=== PATIENT | female | born 1940 | race Caucasian/White ===

== ENCOUNTER 2016-10-07 06:26 | Inpatient (IN) | payer BC, MEDICARE, OTHER ==
[2016-10-01 14:49] VITALS: BMI 37.0
--- NOTE | 2016-10-01 15:20 | PAT Medication Instructions ---
Service Date Oct 01, 2016. Current Home Medication List Albuterol Hfa (Ventolin Hfa), 1-2 PUFFS INH Q6H PRN for PRN Amoxicillin (Amoxil), 2,000 MG PO UD PRN for RN Aspirin (Aspirin Ec), 81 MG PO QAM Diltiazem Hcl Ext Rel (Tiazac), 120 MG PO QAM Hydrochlorothiazide (Hydrochlorothiazide), 1 TAB PO QAM Methimazole (Tapazole), 10 MG PO BID Montelukast Sodium (Singulair), 10 MG PO QAM Omeprazole (Prilosec), 40 MG PO QAM Medication Instructions For Your Scheduled Surgery Amoxicillin (Amoxil), 2,000 MG PO UD PRN for RN (prior to dental procedures) - Check with surgeon/marketing trainee for instructions: Aspirin (Aspirin Ec), 81 MG PO QAM - Hold the following medications the morning of surgery: Montelukast Sodium (Singulair), 10 MG PO QAM Hydrochlorothiazide (Hydrochlorothiazide), 1 TAB PO QAM - Take the following medications the morning of surgery with a sip of water: Omeprazole (Prilosec), 40 MG PO QAM Methimazole (Tapazole), 10 MG PO BID Diltiazem Hcl Ext Rel (Tiazac), 120 MG PO QAM Albuterol Hfa (Ventolin Hfa), 1-2 PUFFS INH Q6H PRN for PRN (bring with you to hospital morning of surgery) - Take the following medications as scheduled the night before surgery: Methimazole (Tapazole), 10 MG PO BID Albuterol Hfa (Ventolin Hfa), 1-2 PUFFS INH Q6H PRN for PRN If you have any questions please call us at [phone] (Maia Phillips PA-C) or [phone] or [phone]
[2016-10-01 15:39] LABS: BASO % 0.3 %; BASO ABS # 0.02 K/uL (0-0.2); COMPLETE YES; EOS % 2.1 %; HEMATOCRIT 45.2 % (37-47); IG% 0.3 %; LYMPH % 24.2 %; LYMPH ABS # 1.47 K/uL (1.2-3.4); MEAN CELL VOLUME 86.9 fL (80-100); MEAN CORPUSCULAR HEMOGLOBIN 28.7 pg (25-34); MONO % 6.8 %; NEUT % 66.3 %; PLATELET COUNT 182 K/uL (130-400); WHITE BLOOD COUNT 6.07 K/uL (4.8-10.8)
[2016-10-01 15:56] LABS: BUN/CREATININE RATIO 15.5 (10-20); CALCIUM 8.7 mg/dl (8.5-10.1); CREATININE 1.1 mg/dl (0.60-1.20); POTASSIUM 3.9 mmol/L (3.5-5.1)
[2016-10-01 15:59] LABS: URINE APPEARANCE CLEAR (CLEAR); URINE BILIRUBIN NEG (NEG); URINE COLOR YELLOW; URINE EPITHELIAL CELL AUTO >30 /lpf (0-5); URINE NITRITE POS (NEG); URINE SPECIFIC GRAVITY 1.024 (1.000-1.030); UROBILINOGEN NEG (NEG)
[2016-10-01 16:02] LABS: MANUAL MICROSCOPIC REQUIRED? NO; REVIEW REQ? NO
[~2016-10-07] VITALS: Ht 170.2 cm; Wt 108.7 kg
[2016-10-07] VITALS (9 sets, daily range): BP systolic 115–152; BP diastolic 60–87; PULSE 64–74; TEMP 36.4–37; O2SAT 93–96; Ht 170.2 cm; Wt 108.7 kg
[~2016-10-07 06:26] MED LIST: AMOX500C3 PO; ASPI81TA28 PO; CEFAZOLIN 3000 MG/65 ML D5W IV SCH; DILT120C68 PO; HYDR12.55 PO; METH10TA6 PO; MONT1TAB3 PO; PRLSR20 PO; VNTHFA/IN INH
[2016-10-07] MEDS ORDERED: LIDOCAINE HCL 2% 2 ML VIAL (20MG/ML) ONE (06:49)
[2016-10-07] MEDS ORDERED: GLYCOPYRROLATE INJ 0.2 MG/ML VIAL ONE (06:49)
[2016-10-07] MEDS ORDERED: FENTANYL CITRATE INJ 50 MCG/1 ML 2 ML VIAL ONE ×4 (06:49→12:25)
[2016-10-07] MEDS ORDERED: MIDAZOLAM HCL 1 MG/ML 2ML VIAL ONE (06:49)
[2016-10-07] MEDS ORDERED: NEOSTIGMINE METHYLSULFATE 5 MG/5 ML SYR ONE (06:49)
[2016-10-07] MEDS ORDERED: MANNITOL 25% 50 ML VIAL ONE ×3 (06:49→07:07)
[2016-10-07] MEDS ORDERED: CISATRACURIUM BESYLATE IV SOLN 2 MG/ML 10 ML VIAL ONE ×2 (06:49→09:34)
[2016-10-07] MEDS ORDERED: ONDANSETRON INJ 2 MG/ML 2 ML VIAL ONE ×2 (06:49→09:34)
[2016-10-07] MEDS ORDERED: PROPOFOL IV EMULSION 10 MG/ML 20 ML VIAL IV ONE (06:49)
[2016-10-07] MEDS ORDERED: BUPIVACAINE 0.5 % 5 MG/1 ML MPF 30ML VIAL ONE (07:05)
[2016-10-07] MEDS ORDERED: GELATIN SPONGE SZ 100 ONE (07:05)
[2016-10-07] MEDS ORDERED: SCOPOLAMINE 1.5 MG TDSY TD ONE (07:58)
--- NOTE | 2016-10-07 08:21 | History & Physical Bridge Note ---
H&P Re-Evaluation Bridge Note: I have examined the patient, reviewed the History & Physical and in the interval since the performance of the History & Physical I have noted the following changes of clinical significance: No changes noted
[2016-10-07] MEDS ORDERED: ETOMIDATE 2 MG/ML 20 ML VIAL IV ONE (09:22)
[2016-10-07] MEDS ORDERED: ONDANSETRON INJ 2 MG/ML 2 ML VIAL IV PRN ×2 (09:30→12:30)
[2016-10-07] MEDS ORDERED: EpHEDrine SULFATE INJ 50 MG/ML AMP IV PRN (09:30)
[2016-10-07] MEDS ORDERED: HYDROmorphone INJ 1 MG/ML SYR IV PRN ×2 (09:30→12:30)
[2016-10-07] MEDS ORDERED: ATROPINE SULFATE 0.1 MG/ML 5ML SYR IV PRN (09:30)
[2016-10-07] MEDS ORDERED: FENTANYL CITRATE INJ 50 MCG/1 ML 2 ML VIAL IV PRN (09:30)
[2016-10-07] MEDS ORDERED: DEXAMETHASONE SOD INJ 4 MG/ML VIAL ONE (09:34)
[2016-10-07] MEDS ORDERED: ROCURONIUM BROMIDE 10 MG/ML 5 ML VIAL ONE (09:34)
[2016-10-07] MEDS ORDERED: EpHEDrine SULFATE 50MG/5ML SYR ONE (09:35)
[2016-10-07] MEDS ORDERED: HYDROmorphone INJ 2 MG/ML SYR/VIAL ONE (10:18)
[2016-10-07] MEDS ORDERED: FLOSEAL HEMOSTATIC MATRIX 10ML TOP ONE (12:21)
[2016-10-07] MEDS ORDERED: SURGICEL ABSORB HEMOSTAT 2IN X 14IN TOP ONE (12:21)
[2016-10-07] MEDS ORDERED: BUPIVACAINE 0.5% INJ INJ ONE (12:23)
[2016-10-07] MEDS ORDERED: ALBUTEROL HFA 8 GM INHALER INH PRN (12:30)
[2016-10-07 13:24] LABS: HEMATOCRIT 45.7 % (37-47); MEAN CELL VOLUME 86.6 fL (80-100); MEAN CORPUSCULAR HEMOGLOBIN 28.8 pg (25-34); MEAN PLATELET VOLUME 10.1 fL (7.4-10.4); PLATELET COUNT 201 K/uL (130-400); RED BLOOD COUNT 5.28 M/uL (4.2-5.4); WHITE BLOOD COUNT 9.25 K/uL (4.8-10.8)
[2016-10-07 13:29] LABS: MEAN CORPUSCULAR HGB CONC 33.3 g/dl (32-36)
[2016-10-07 13:43] LABS: BUN/CREATININE RATIO 11.4 (10-20); CALCIUM 8.4 mg/dl (8.5-10.1); CREATININE 1.5 mg/dl (0.60-1.20); POTASSIUM 4.1 mmol/L (3.5-5.1)
--- NOTE | 2016-10-07 13:49 | Anesthesiology Progress Note ---
Anesthesia Post Op Note Date & Time Oct 07, 2016 at 13:49 Vital Signs Pain Intensity: 0 Vital Signs Past 12 Hours Date Time Temp Pulse Resp B/P Pulse Ox O2 Delivery O2 Flow Rate FiO2 10/07/16 13:35 74 19 152/78 92 Nasal Cannula 2 10/07/16 13:25 36.2 68 15 147/74 95 Nasal Cannula 2 10/07/16 13:15 70 14 156/75 96 Nasal Cannula 2 10/07/16 13:05 69 16 164/74 96 Mask 10 10/07/16 12:55 80 16 157/75 95 Mask 10 10/07/16 12:45 37 95 18 153/85 98 Mask 10 10/07/16 07:00 36.6 74 20 145/86 96 Room Air Notes Mental Status: alert / awake / arousable, participated in evaluation Pt Amnestic to Procedure: Yes Nausea / Vomiting: adequately controlled Pain: adequately controlled Airway Patency, RR, SpO2: stable & adequate BP & HR: stable & adequate Hydration State: stable & adequate Anesthetic Complications: no major complications apparent
--- NOTE | 2016-10-07 14:01 | OPERATIVE REPORT ---
DATE OF OPERATION: 10/07/2016 PREOPERATIVE DIAGNOSIS: Left renal mass and lymphadenopathy. POSTOPERATIVE DIAGNOSIS: Left renal mass, suspected lymphoma. ANESTHESIA: General. ESTIMATED BLOOD LOSS: 100 mL. URINE OUTPUT: Not recorded. SPECIMENS: Left renal biopsies x14, initial 9 for frozen section pathology, and a final 5 for final pathology and flow cytometry. PERFORMING SURGEON: Dr. Baldev Shay. FABRICATION MIG WELDER: Ms. Miriam Duran. DRAINS: Miller catheter. DESCRIPTION OF THE PROCEDURE: Angelita Adkins was identified in the preoperative holding area. Appropriate informed consents were reviewed and completed and the patient was transported to the operating suite. Upon arrival, she received appropriate preoperative antibiotics in the form of Ancef. Adequate general anesthesia was achieved and she was placed in a right side down, left side up lateral decubitus position where she was sterilely prepped and draped in standard fashion. I began the case by insufflating the abdomen with the Veress needle. I then entered with a 12 mm Visiport and a 10 mm 0 degree lens through an incision approximately 8 cm lateral to the border of the rectus muscle. This was just superior to the umbilicus. Entry revealed limited amount of adhesive disease in left upper quadrant. No other gross abnormalities. I inspected the abdominal wall and my right robotic port which was placed approximately 5 cm inferior and 5 cm lateral was clear and free. This was placed under direct vision. We then utilized this port to help free some of the adhesions in the left upper quadrant and to free the section of the anterior abdominal wall several fingerbreadths below the costal margin where I anticipated placement of my left robotic port. After clearing the section of the wall I placed the port without difficulty. We then placed 2 diet assistant ports just at the rectus border with the lines intervening between my superior robotic port and the camera, as well as between the inferior robotic port and the camera. We then docked the robot. I began the case by mobilizing and incising the white line of Toldt, and mobilizing the colon medially. This exposed the anterior surface of Gerota's fascia. I was able to follow this around and identified the gonadal vein and the ureter. Passing an instrument underneath these and onto the psoas muscle, we elevated this area and traced the anterior surface of the gonadal vein up to the renal hilum. We were able to visualize the entire renal vein, as well as a large lumbar protruding through the backside of the vein and into the paraspinal muscles. All of this vasculature was preserved. After exposing this, we turned our attention to exposure of the mass. I split Gerota's fascia over the anticipated area of the mass and I encountered a normal appearing capsule of the kidney. I exposed an area that I felt appeared to be sufficient based on preoperative imaging without seeing any gross deformity of the surface of the kidney. I performed a laparoscopic ultrasound examination at that time and after confirming that we were in the appropriate area based on other anatomical landmarks, I did not see a grossly abnormal section of the kidney, therefore utilized other landmarks, as well as the ultrasound to help guide the suspected location of the mass. I then passed a spring loaded core needle biopsy device and took 4 pieces out of the kidney in the suspected area. I walked with these down to pathology where we performed a touch prep and a frozen section analysis. Touch prep appeared to show some lymphocytes, although inconclusive. The cores appeared to show relatively normal renal parenchyma. With this in mind, I returned to the operating room and I took 5 additional cores slightly more cephalad than the prior cores. These were also taken immediately for touch prep and frozen section analysis. 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 Recommendation at that time was to obtain more tissue for permanent flow cytometry on the working diagnosis of lymphoma. I return to the OR again and took 5 additional cores which were passed off the table fresh for flow cytometry and permanent pathology. I then placed a small amount of FloSeal over the incisions and biopsy sites and applied pressure with my laparoscopic instruments and a sheet of Surgicel. There appeared to be excellent hemostasis after waiting for in excess of 5 minutes and dropping our insufflation pressures. At this time, we closed Gerota's fascia using a running V-Loc stitch. We evacuated all the CO2 from the abdomen and withdrew the ports. The 12 mm ports had deep layers closed with 0 Vicryl on a UR-6 needle, followed by infiltration of all incisions with Marcaine and closure of all with 4-0 Monocryl and Dermabond. The patient was subsequently reversed from anesthesia and taken to the PACU in stable condition. I attest to the content of the Intraoperative Record and any orders documented therein. Any exceptio ns are noted below.
[2016-10-07] MEDS: LACTATED RINGER'S 1000ML 1,000 ML IV SCH ×2 (16:03→22:51)
[2016-10-07] MEDS: ACETAMINOPHEN/CODEINE 300/30MG TAB PO PRN ×2 (16:25→21:19)
[2016-10-07] MEDS: ACETAMINOPHEN 500 MG TAB PO SCH ×2 (18:00→23:10)
[2016-10-07] MEDS: SULFAMETHOXAZOLE/TRIMETHOPRIM DS 800/160MG TAB PO SCH (18:08)
[2016-10-07] MEDS: DOCUSATE SODIUM 100 MG CAP PO SCH (21:00)
[2016-10-07] MEDS: METHIMAZOLE 5 MG TAB PO SCH (21:18)
[2016-10-08] VITALS (8 sets, daily range): BP systolic 110–132; BP diastolic 58–77; PULSE 58–66; TEMP 37–37.1; O2SAT 91–95
[2016-10-08] MEDS: ACETAMINOPHEN 500 MG TAB PO SCH ×3 (05:43→17:19)
[2016-10-08] MEDS: ACETAMINOPHEN/CODEINE 300/30MG TAB PO PRN ×3 (05:45→17:17)
[2016-10-08] MEDS: LACTATED RINGER'S 1000ML 1,000 ML IV SCH ×2 (05:47→15:38)
[2016-10-08 07:15] LABS: BASO % 0.1 %; BASO ABS # 0.01 K/uL (0-0.2); COMPLETE YES; HEMATOCRIT 38.9 % (37-47); IG% 0.2 %; LYMPH ABS # 0.62 K/uL (1.2-3.4); MEAN CELL VOLUME 86.1 fL (80-100); MEAN CORPUSCULAR HEMOGLOBIN 28.5 pg (25-34); MEAN CORPUSCULAR HGB CONC 33.2 g/dl (32-36); MEAN PLATELET VOLUME 10.2 fL (7.4-10.4); MONO % 5.9 %; NEUT % 86.8 %; PLATELET COUNT 194 K/uL (130-400); RED BLOOD COUNT 4.52 M/uL (4.2-5.4); WHITE BLOOD COUNT 8.86 K/uL (4.8-10.8)
[2016-10-08 07:40] LABS: BUN/CREATININE RATIO 13.8 (10-20); CALCIUM 8.4 mg/dl (8.5-10.1); CREATININE 1.1 mg/dl (0.60-1.20); POTASSIUM 4.6 mmol/L (3.5-5.1)
--- NOTE | 2016-10-08 08:52 | Progress Note ---
Subjective Date of Service: Oct 08, 2016. (Miriam Duran CRNP) Subjective Pt evaluation today including: conversation w/ patient, chart review, lab review Voiding: cervantes catheter in place (patent, draining clear, yellow urine) 76 yo female s/p left renal bx. Pt c/o cough this morning, but otherwise feels well. She has been OOB to chair without issue. Tolerating clear liquids. + passing flatus. No BM. Labs stable. I&Os stable. (Miriam Duran CRNP) Review of Systems Constitutional: No chills, No fever Respiratory: + cough, No shortness of breath, No sputum Cardiac: No chest pain Abdomen: + pain (incisional ), No nausea, No vomiting Female : No hematuria Heme: No abnormal bleeding/bruising (Miriam Duran, ARBEN) Objective Vital Signs Date Time Temp Pulse Resp B/P Pulse Ox O2 Delivery O2 Flow Rate FiO2 10/08/16 07:59 37.1 58 18 110/70 95 Room Air 10/08/16 03:12 37.0 66 19 114/64 91 Room Air 10/07/16 23:32 36.9 65 18 115/60 93 Room Air 10/07/16 23:25 Nasal Cannula 10/07/16 19:46 37.0 67 17 136/75 95 Room Air 10/07/16 18:21 96 Room Air 10/07/16 17:06 36.6 69 16 130/73 95 Nasal Cannula 2.0 10/07/16 16:15 Nasal Cannula 2.0 10/07/16 16:07 36.5 68 16 143/77 96 Nasal Cannula 2.0 10/07/16 15:04 36.5 72 16 130/77 94 Nasal Cannula 2.0 10/07/16 14:35 36.4 71 16 148/87 96 Nasal Cannula 2.0 10/07/16 14:05 Nasal Cannula 2.0 10/07/16 14:05 37.0 64 16 152/81 95 Nasal Cannula 2.0 10/07/16 14:05 95 Nasal Cannula 2.0 10/07/16 13:45 74 14 139/65 94 Nasal Cannula 2 10/07/16 13:35 74 19 152/78 92 Nasal Cannula 2 10/07/16 13:25 36.2 68 15 147/74 95 Nasal Cannula 2 10/07/16 13:15 70 14 156/75 96 Nasal Cannula 2 10/07/16 13:05 69 16 164/74 96 Mask 10 10/07/16 12:55 80 16 157/75 95 Mask 10 10/07/16 12:45 37 95 18 153/85 98 Mask 10 (Miriam Duran CRNP) Physical Exam General Appearance: no apparent distress, + obese Eyes: normal inspection ENT: hearing grossly normal Neck: no JVD Respiratory/Chest: no respiratory distress, no accessory muscle use Cardiovascular: no JVD Abdomen: + pertinent finding (abdominal incisions c/d/i) Extremities: normal inspection Neurologic/Psychiatric: alert, normal mood/affect, oriented x 3 Skin: normal color (Miriam Duran CRNP) Laboratory Results Last 24 Hours Test 10/07/16 12:59 10/08/16 06:50 White Blood Count 9.25 K/uL 8.86 K/uL Red Blood Count 5.28 M/uL 4.52 M/uL Hemoglobin 15.2 g/dL 12.9 g/dL Hematocrit 45.7 % 38.9 % Mean Corpuscular Volume 86.6 fL 86.1 fL Mean Corpuscular Hemoglobin 28.8 pg 28.5 pg Mean Corpuscular Hemoglobin Concent 33.3 g/dl 33.2 g/dl RDW Standard Deviation 47.3 fL 47.1 fL RDW Coefficient of Variation 15.0 % 14.9 % Platelet Count 201 K/uL 194 K/uL Mean Platelet Volume 10.1 fL 10.2 fL Sodium Level 140 mmol/L 139 mmol/L Potassium Level 4.1 mmol/L 4.6 mmol/L Chloride Level 108 mmol/L 108 mmol/L Carbon Dioxide Level 22 mmol/L 22 mmol/L Anion Gap 10.0 mmol/L 9.0 mmol/L Blood Urea Nitrogen 17 mg/dl 15 mg/dl Creatinine 1.50 mg/dl 1.10 mg/dl Est Creatinine Clear Calc Drug Dose 40.5 ml/min 55.3 ml/min Estimated GFR () 38.8 56.5 Estimated GFR (Non- 33.5 48.7 BUN/Creatinine Ratio 11.4 13.8 Random Glucose 178 mg/dl 117 mg/dl Calcium Level 8.4 mg/dl 8.4 mg/dl Neutrophils (%) (Auto) 86.8 % Lymphocytes (%) (Auto) 7.0 % Monocytes (%) (Auto) 5.9 % Eosinophils (%) (Auto) 0.0 % Basophils (%) (Auto) 0.1 % Neutrophils # (Auto) 7.69 K/uL Lymphocytes # (Auto) 0.62 K/uL Monocytes # (Auto) 0.52 K/uL Eosinophils # (Auto) 0.00 K/uL Basophils # (Auto) 0.01 K/uL Immature Granulocyte % (Auto) 0.2 % Immature Granulocyte # (Auto) 0.02 K/uL (Miriam Duran CRNP) Assessment and Plan POD #1 s/p left renal bx AFVSS. Pt doing well post-op. Will advance to a mechanical soft diet for breakfast. TOV this morning. Encourage ambulation to hallway after breakfast. Encourage use of IS. Possible d/c home after lunch if tolerating PO, ambulating without difficulty, and pain controlled. Discharge planning: home (Miriam Duran CRNP) ADDENDUM: Doing well. No major issues overnight. Voiding trial and ambulation this AM. Pending her progression this AM, we will determine final d/c planning. I discussed our intraoperative findings with her today - and the pathological interpretations. 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 Final determination of pathology still pending. (Baldev Shay M.D.)
[2016-10-08] MEDS ORDERED: DOCU-94 PO (08:55)
[2016-10-08] MEDS ORDERED: SULF800T23 PO (08:55)
[2016-10-08] MEDS ORDERED: ACET-749 PO (08:55)
--- NOTE | 2016-10-08 08:58 | Discharge Instructions ---
Discharge Instructions Admission Reason for Admission: Kidney Lesion Discharge Discharge Diagnosis / Problem: Kidney lesion Discharge Goals Goal(s): Decrease discomfort, Diagnostic testing Activity Recommendations Activity Limitations: per Instructions/Follow-up section . Instructions / Follow-Up Instructions / Follow-Up 1. Do not lift >20lbs x 6 weeks. 2. No heavy exercise x 6 weeks. You may engage in light activity such as walking and stairs as tolerated. 3. Do not drive x [address] while taking narcotics. 4. Follow-up as scheduled. Please call our office at [phone] if you need to reschedule for any reason. 5. You have been prescribed the antibiotic Bactrim DS. Finish all as directed. . 6. You may resume taking your Aspirin in 1 week. Current Hospital Diet Hospital Diet(s): Regular Diet Discharge Diet Recommended Diet: Regular Diet Procedures Procedures Performed: Robotic Assisted Laparoscopic Left Renal Mass Biopsy Pending Studies Studies pending at discharge: yes List of pending studies: Pathology of renal biopsies. Medical Emergencies . Who to Call and When: Medical Emergencies: If at any time you feel your situation is an emergency, please call 911 immediately. . Non-Emergent Contact Non-Emergency issues call your: Urologist Call Non-Emergent contact if: temperature is above 101.5, your pain is not controlled, your pain is worsening, your pain is unusual for you, your pain is concerning you, you have any medication questions . . "Provider Documentation" section prepared by Miriam Duran. VTE Core Measure Inpt VTE Proph given/why not?: SCD's [place] Drug Monitoring Program Search Results: patient reviewed within database, no issues identified
[2016-10-08] MEDS ORDERED: HYDROCHLOROTHIAZIDE 25 MG TAB PO SCH (09:00)
[2016-10-08] MEDS ORDERED: PANTOprazole SOD 40 MG TAB PO SCH (09:00)
[2016-10-08] MEDS ORDERED: MONTELUKAST SOD 10 MG TAB PO SCH (09:00)
[2016-10-08] MEDS ORDERED: DILTIAZEM HCL 120 MG EXT REL CAP PO SCH (09:00)
[2016-10-08] MEDS: DOCUSATE SODIUM 100 MG CAP PO SCH (09:46)
[2016-10-08] MEDS: METHIMAZOLE 5 MG TAB PO SCH (09:47)
[2016-10-08] MEDS: SULFAMETHOXAZOLE/TRIMETHOPRIM DS 800/160MG TAB PO SCH (09:49)
--- NOTE | 2016-10-09 13:07 | Discharge Summary ---
Discharge Summary Admission Date: Oct 07, 2016 at 08:30 Discharge Date: Oct 08, 2016 Discharge Disposition: Home Principal Diagnosis: Left renal lesion Procedures: robotic assiste/laparoscopic left renal biopsy Medication Reconciliation New Medications: Acetaminophen/Codeine (Tylenol W/Codeine #3) 300 Mg/30 Mg Tab 1-2 TAB PO Q4 PRN for Pain, #20 TAB Docusate Sodium (Colace) 100 Mg Cap 1 CAP PO BID PRN for Constipation for 30 Days, #60 CAP Sulfamethoxazole-Trimethoprim (Bactrim Ds 800MG/160MG) 1 Tab Tab 1 TAB PO BID, #14 TAB Continued Medications: Albuterol Hfa (Ventolin Hfa) 200 Puffs/55159 Mcg Aers 1-2 PUFFS INH Q6H PRN for PRN, #1 INHALER Diltiazem Hcl Ext Rel (Tiazac) 120 Mg Capcr 120 MG PO QAM, CAP Hydrochlorothiazide (Hydrochlorothiazide) 12.5 Mg Tab 1 TAB PO QAM for 90 Days, #90 TAB 3 Refills Methimazole (Tapazole) 10 Mg Tab 10 MG PO BID Montelukast Sodium (Singulair) 10 Mg Tab 10 MG PO QAM, TAB Omeprazole (Prilosec) 20 Mg Capcr 40 MG PO QAM, CAP Discontinued Medications: Amoxicillin (Amoxil) 500 Mg Cap 2000 MG PO UD PRN for RN, #21 CAP PREMED DENTAL WORK Aspirin (Aspirin Ec) 81 Mg Tab 81 MG PO QAM Hospital Course Admitted for left lap/renal biopsy with the hopes of determining the nature of a left renal lesion. Details of the procedure as dictated previously in the operative report, however, in summary, she tolerated the procedure very well. 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 Final determination will depend on flow cytometry and further pathological diagnosis. There was no evidence of renal cell carcinoma. Post operatively, she progressed extremely well. She was in stable condition on the floor and and was d/c'ed home in stable condition on post operative day # 1. Total time spent on discharge = This includes examination of the patient, discharge planning, medication reconciliation, and communication with other providers. Discharge Instructions Please see previously written d/c instructions
[2016-10-09 15:14] LABS: NEO FLOW LYMPH/LEUK STND SEE NEO MISC
--- NOTE | 2016-10-14 17:16 | EDITING REQUIRED CODING QUERY ---
PATHOLOGY To promote full compliance with coding requirements relating to patient care, physician participation is requested in all cases of community health nurse staff uncertainty. Please assist us with the question(s) below: Please review the Pathology report and please document any relevant diagnosis(es) below. Thank you. 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
== END 2016-10-08 18:23 | disposition home or self-care (01) | DRG 842 ==
LOC: ENRESERVDT → ENRESERVTM → C.ACU 06:26 → C.MSW 08:30
PROVIDERS: ADMIT Urology; ATTEND Urology
PROC: 8E0W4CZ Robotic Assisted Procedure of Trunk Region, Percutaneous Endoscopic Approach (ICD-10-PCS; principal; 2016-10-07 08:30)
PROC: 0TB14ZX Excision of Left Kidney, Percutaneous Endoscopic Approach, Diagnostic (ICD-10-PCS; principal; 2016-10-07 08:30)
DX: C85.93 Non-Hodgkin lymphoma, unspecified, intra-abdominal lymph nodes (principal); K21.9 Gastro-esophageal reflux disease without esophagitis; J45.909 Unspecified asthma, uncomplicated; M17.9 Osteoarthritis of knee, unspecified; E66.01 Morbid (severe) obesity due to excess calories; Z68.37 Body mass index [BMI] 37.0-37.9, adult

== ENCOUNTER → 2016-11-20 | Outpatient (CLI) | payer MEDICARE ==
[~2016-11-20] MED LIST changes: +ACET-749 PO; -AMOX500C3 PO; -ASPI81TA28 PO; -CEFAZOLIN 3000 MG/65 ML D5W IV SCH
[2016-11-20 12:30] LABS: ALT/SGPT 22 U/L (12-78); BLOOD UREA NITROGEN 26 mg/dl (7-18); BUN/CREATININE RATIO 20.2 (10-20); CALCIUM 8.9 mg/dl (8.5-10.1); CARBON DIOXIDE 28 mmol/L (21-32); CHLORIDE 107 mmol/L (98-107); CHOLESTEROL 220 mg/dl (0-200); GLUCOSE 109 mg/dl (70-99); POTASSIUM 4.4 mmol/L (3.5-5.1); SODIUM 142 mmol/L (136-145)
[2016-11-20 12:35] LABS: ALB/GLOB RATIO 1.1 (0.9-2); ALKALINE PHOSPHATASE 134 U/L (45-117); AST/SGOT 15 U/L (15-37); CHOLESTEROL/HDL RATIO 4.6; HDL CHOLESTEROL 48 mg/dl; LDL CHOLESTEROL CALCULATED 149 mg/dl; TRIGLYCERIDES 116 mg/dl (0-150); VERY LOW DENSITY LIPOPROT CALC 23 mg/dl
== END | disposition home or self-care (01) ==
LOC: C.LABPBG 09:02
PROVIDERS: ATTEND Family Medicine
DX: I10 Essential (primary) hypertension (principal); E78.5 Hyperlipidemia, unspecified

== ENCOUNTER → 2016-11-25 | Outpatient (CLI) | payer MEDICARE ==
--- NOTE | 2016-11-25 12:53 | DIAGNOSTIC IMAGING REPORT ---
CHEST 2 VIEWS ROUTINE CLINICAL HISTORY: J20.9 Acute bronchitis with [id number] COMPARISON STUDY: 01/01/2015 FINDINGS: The cardiac and mediastinal contours are normal. There is no evidence of focal pulmonary consolidation. There is no evidence of failure. No pleural effusions are visualized.[ IMPRESSION: No active disease in the chest. Electronically signed by: Leon Villalpando M.D. 11/25/2016 12:52 PM Dictated Date/Time: 11/25/2016 12:52 PM
== END | disposition home or self-care (01) ==
LOC: C.RAD1850 12:37
PROVIDERS: ATTEND Family Medicine
DX: J20.9 Acute bronchitis, unspecified (principal)

== ENCOUNTER → 2017-02-20 | Outpatient (CLI) | payer MEDICARE ==
[2017-02-20 14:08] LABS: THYROID STIMULATING HORMONE 4.09 uIu/ml (0.300-4.500)
== END | disposition home or self-care (01) ==
LOC: C.LABPBG 09:21
PROVIDERS: ATTEND Family Medicine
DX: E05.90 Thyrotoxicosis, unspecified without thyrotoxic crisis or storm (principal)

== ENCOUNTER → 2017-03-13 | Outpatient (CLI) | payer MEDICARE ==
[2017-03-13 13:02] LABS: BLOOD UREA NITROGEN 17 mg/dl (7-18)
== END | disposition home or self-care (01) ==
LOC: C.LABPBG 09:26
PROVIDERS: ATTEND Urology
DX: N28.9 Disorder of kidney and ureter, unspecified (principal)

== ENCOUNTER → 2017-03-25 | Outpatient (CLI) | payer MEDICARE ==
[~2017-03-25] MED LIST changes: +OPTIRAY 320 IV PRN
--- NOTE | 2017-03-25 11:41 | DIAGNOSTIC IMAGING REPORT ---
ABD/PELVIS COMBO HISTORY: 76 years-old Female R59.9 Lymph nodes [id number] Kidney lesion not diabetic, no la COMPARISON: CT abdomen and pelvis 08/12/2016 and 02/22/2015; CT chest 02/02/2015 Percent TECHNIQUE: Multiple axial CT images of the abdomen were obtained both with and without the use of 94 mL Optiray 320. Noncontrast, nephrographic and delayed phase images were obtained. FINDINGS: Noncalcified pulmonary nodules are again seen within the bilateral lung bases measuring up to 6 mm within the basal left lower lobe, stable dating back to 02/02/2015 suggesting benign etiology. The imaged inferior cardiac chambers are unremarkable. Mitral annulus calcifications are noted. There is no pneumoperitoneum. Layering gallstones are seen within the gallbladder lumen. The liver, spleen and right adrenal gland are unremarkable. There is unchanged mild nodularity of the left adrenal gland suggesting adrenal hyperplasia or small adenoma. There is at least moderate pancreatic atrophy. The previously noted focal area of decreased attenuation involving the anterior interpolar left kidney measuring up to 3.8 cm on comparison study dated 08/12/2016 has markedly decreased in size. There is now renal parenchymal thinning surrounding perinephric stranding within this distribution without defined or enhancing mass. Described nodularity approaches fascia is also less apparent. There is a 5 mm calculus of the inferior pole left kidney. No hydronephrosis. Urinary bladder is unremarkable. Prior hysterectomy. There is mild atherosclerotic plaquing of the abdominal aorta. Large pericaval lymph node is again seen measuring approximately 2.1 x 2.7 x 4.2 cm in AP, transverse and craniocaudal dimensions. On prior study this measured approximately 2.0 x 2.2 cm in AP and transverse dimension. There is a lower paracaval lymph node seen just proximal to the iliac bifurcation which measures 1.7 x 1.1 cm, previously 1.4 x 1.4 cm. The previously noted large node anterior to the cava which measured 2.6 x 1.4 cm has decreased in size now measuring 1.2 x 0.9 cm. Bowel gas pattern is nonobstructive. Noninflamed colonic diverticula are noted. Discogenic degenerative changes are seen within the lower lumbar spine. IMPRESSION: 1. Previously noted focal area of masslike decreased attenuation involving the anterior interpolar left kidney has resolved and there is now mild perinephric stranding within this region with some renal parenchymal scarring. These findings are nonspecific with resolved focal pyelonephritis in the differential. No enhancing mass lesions are identified. No obstructive uropathy. 2. Persistent pericaval adenopathy is nonspecific with differential considerations still including lymphoproliferative disorder or metastatic disease. 3. Cholelithiasis. 4. Nonobstructing 5 mm calculus of the inferior pole left kidney. The above report was generated using voice recognition software. It may contain grammatical, syntax or spelling errors. Electronically signed by: Marin Key M.D. 03/25/2017 11:39 AM Dictated Date/Time: 03/25/2017 11:20 AM
== END | disposition home or self-care (01) ==
LOC: C.CTS 10:16
PROVIDERS: ATTEND Urology
DX: N28.9 Disorder of kidney and ureter, unspecified (principal); R59.9 Enlarged lymph nodes, unspecified; K80.20 Calculus of gallbladder without cholecystitis without obstruction

== ENCOUNTER → 2017-03-25 | Outpatient (CLI) | payer MEDICARE ==
[~2017-03-25] MED LIST changes: -OPTIRAY 320 IV PRN
[2017-03-25 12:48] LABS: THYROID STIMULATING HORMONE 3.01 uIu/ml (0.300-4.500)
== END | disposition home or self-care (01) ==
LOC: C.LAB1850 08:59
PROVIDERS: ATTEND Physician Assistant
DX: E05.90 Thyrotoxicosis, unspecified without thyrotoxic crisis or storm (principal); N28.9 Disorder of kidney and ureter, unspecified; R59.9 Enlarged lymph nodes, unspecified; K80.20 Calculus of gallbladder without cholecystitis without obstruction

== ENCOUNTER → 2017-04-23 | Outpatient (CLI) | payer MEDICARE ==
[~2017-04-23] MED LIST changes: -ACET-749 PO
[2017-04-23 12:39] LABS: ALT/SGPT 29 U/L (12-78); AST/SGOT 16 U/L (15-37); BLOOD UREA NITROGEN 18 mg/dl (7-18); BUN/CREATININE RATIO 16.1 (10-20); CALCIUM 8.6 mg/dl (8.5-10.1); CARBON DIOXIDE 29 mmol/L (21-32); CHLORIDE 109 mmol/L (98-107); GLUCOSE 116 mg/dl (70-99); SODIUM 141 mmol/L (136-145)
[2017-04-23 12:46] LABS: ESTIMATED AVERAGE GLUCOSE 108 mg/dl; HA1C FLAG Normal (Normal)
[2017-04-23 12:48] LABS: ALB/GLOB RATIO 1.2 (0.9-2); ALKALINE PHOSPHATASE 126 U/L (45-117); CHOLESTEROL 146 mg/dl (0-200); CHOLESTEROL/HDL RATIO 3.5; HDL CHOLESTEROL 42 mg/dl; LDL CHOLESTEROL CALCULATED 74 mg/dl; TRIGLYCERIDES 149 mg/dl (0-150); VERY LOW DENSITY LIPOPROT CALC 30 mg/dl
--- NOTE | 2017-04-30 15:05 | CODING QUERY MEDICAL NECESSITY ---
SUPPORTING DIAGNOSIS NEEDED A supporting diagnosis is required for the test/procedure performed on this patient in order for us to be reimbursed by the patient's insurance. Please provide a supporting diagnosis for the following test/procedure listed below next to the test name along with your signature. *If there is no additional diagnosis for this patient that would support the following test/procedure please document that below next to the test/procedure. Test(s)/Procedure(s) that require a supporting diagnosis: * HEMOGLOBIN A1C DIAGNOSIS: Provider Signature: Date: Thank you Jaqui Bourne [facility] [employer] Once completed, please kindly fax back to [phone] For questions please call [phone]
== END | disposition home or self-care (01) ==
LOC: C.LABPBG 09:40
PROVIDERS: ATTEND Internal Medicine Cardiovascular Disease
DX: N28.9 Disorder of kidney and ureter, unspecified (principal); E78.5 Hyperlipidemia, unspecified; E05.90 Thyrotoxicosis, unspecified without thyrotoxic crisis or storm; E55.9 Vitamin D deficiency, unspecified; R73.01 Impaired fasting glucose

== ENCOUNTER → 2017-04-28 | Outpatient (CLI) | payer MEDICARE ==
--- NOTE | 2017-04-28 10:57 | DIAGNOSTIC IMAGING REPORT ---
SOFT TISS HEAD/NECK-THYROID CLINICAL HISTORY: 76 years-old Female presenting with MULTI NODULE GLOYER, HYPERTHYROID. TECHNIQUE: Real-time grayscale and color and spectral Doppler ultrasound imaging of the thyroid and base of the neck was performed. COMPARISON: 12/04/2014. FINDINGS: Right lobe: Heterogeneous and enlarged by multiple nodules. The right lobe of the thyroid measures 5.8 x 2.7 x 2.6 cm. Dominant nodule previously biopsied at the right lower pole. This nodule is heterogeneous with spongiform elements and measures 3.0 x 1.9 x 2.6 cm, previously 3.1 x 2.8 x 1.9 cm area No parenchymal hyperemia. Left lobe: Heterogeneous and enlarged by multiple nodules. The left lobe of the thyroid measures 5.8 x 2.1 x 2.4 cm. Multiple nodules, including previous a biopsy nodule at the mid to lower pole. This nodule is heterogeneously isoechoic measuring 4.2 x 2.1 x 2.5 cm, previously 4.4 x 2.5 x 2.4 cm. An additional smaller heterogeneously hypoechoic well-defined nodule measuring 1.6 x 1.2 x 2.2 cm is also noted, new from prior. No calcifications or additional suspicious features. This nodule is intermediate in suspicion. No parenchymal hyperemia. Isthmus: The isthmus measures 9 mm in thickness. No nodules. IMPRESSION: Heterogeneous enlarged thyroid secondary to multiple nodules. The 2 dominant nodules have been previously biopsied. Interval development of a 2.2 cm hypoechoic nodule at the lower pole of the left lobe, which is intermediate in suspicion. Given its size, fine-needle aspiration is recommended. Electronically signed by: Xavier Hayden M.D. 04/28/2017 10:55 AM Dictated Date/Time: 04/28/2017 10:48 AM
== END | disposition home or self-care (01) ==
LOC: C.ULTR 10:16
PROVIDERS: ATTEND Physician Assistant
DX: E05.90 Thyrotoxicosis, unspecified without thyrotoxic crisis or storm (principal); E04.2 Nontoxic multinodular goiter

== ENCOUNTER → 2017-09-03 | Outpatient (CLI) | payer MEDICARE ==
[~2017-09-03] MED LIST changes: +ALBU2SYP9 INH; +ASPEC325 PO; +ASPI81TA28 PO; +ATOR10TA82 PO; +ERGO500037 PO; +HYDR25TA4 PO; +LISI-729 PO; +RXC5 PO
[2017-09-03 14:05] LABS: BLOOD UREA NITROGEN 20 mg/dl (7-18); CREATININE 1.31 mg/dl (0.60-1.20)
== END | disposition home or self-care (01) ==
LOC: C.LABPBG 08:03
PROVIDERS: ATTEND Urology
DX: R59.9 Enlarged lymph nodes, unspecified (principal); N28.89 Other specified disorders of kidney and ureter

== ENCOUNTER → 2017-09-14 | Outpatient (CLI) | payer MEDICARE ==
[~2017-09-14] MED LIST changes: -ALBU2SYP9 INH; -ASPEC325 PO; -ASPI81TA28 PO; -ATOR10TA82 PO; -ERGO500037 PO; -HYDR25TA4 PO; -LISI-729 PO; +OPTIRAY 320 IV PRN; -RXC5 PO
--- NOTE | 2017-09-14 09:48 | DIAGNOSTIC IMAGING REPORT ---
ABD/PELVIS COMBO CT DOSE: 3042.90 mGycm HISTORY: Abnormal CT exam R59.9 Lymph nodes [id number] Left renal massno latex allergy TECHNIQUE: Multiaxial CT images of the abdomen and pelvis were performed pre and post intravenous contrast enhancement. A dose lowering technique was utilized adhering to the principles of ALARA. COMPARISON STUDY: 03/25/2017 FINDINGS: Stable benign nodularity left lung base. No focal basilar infiltrate. No significant pleural effusions. Liver spleen and pancreas are unremarkable. Pancreas demonstrates a chronic atelectatic replacement. Several small gallstones are present unchanged in the prior study. Nonobstructive lower pole left renal calcification persists. No evidence renal hydronephrosis. Enhancement characteristics of the kidneys bilaterally appear uniform. There is trace amount of fibrotic change anterior to the interpolar region of the left kidney which of been previously described. This is unchanged. There is no significant parenchymal abnormality on the current study. Focal cortical scarring is present. Perinephric finding presumably is related to chronic fibrotic change. The adenopathy previously described as diminished. Bowel pattern is nonobstructive. Bladder is midline. There is no free fluid within the pelvic cul-de-sac.] This time there is no significant abdominal or pelvic adenopathy. IMPRESSION: 1. Considerably improved exam with no current evidence for significant abdominal or pelvic adenopathy. 2. Continued improvement in appearance of the left kidney with no evidence for space-occupying lesion. Enhancement is uniform. 3. Minimal residual perinephric scarring anterior aspect mid left kidney considered to be unchanged. 4. Unchanging calcification considered nonobstructing lower pole left kidney. 5. Gallstones. 6. A 1 year follow-up is felt to be sufficient as follow-up The above report was generated using voice recognition software. It may contain grammatical, syntax or spelling errors. Electronically signed by: Akin Dennis M.D. 09/14/2017 9:47 AM Dictated Date/Time: 09/14/2017 9:37 AM
== END ==
LOC: C.CTS 09:13
PROVIDERS: ATTEND Urology
DX: R59.9 Enlarged lymph nodes, unspecified (principal); N28.89 Other specified disorders of kidney and ureter

== ENCOUNTER → 2017-11-02 | Outpatient (CLI) | payer MEDICARE ==
[~2017-11-02] MED LIST changes: -OPTIRAY 320 IV PRN
[2017-11-02 11:38] LABS: BASO % 0.5 %; BASO ABS # 0.03 K/uL (0-0.2); EOS % 3.2 %; EOS ABS # 0.18 K/uL (0-0.5); HEMOGLOBIN 15.5 g/dL (12.0-16.0); IG# 0.02 K/uL (0.00-0.02); LYMPH % 22.8 %; LYMPH ABS # 1.27 K/uL (1.2-3.4); MEAN CELL VOLUME 87.2 fL (80-100); MEAN CORPUSCULAR HEMOGLOBIN 28.8 pg (25-34); MEAN PLATELET VOLUME 10.3 fL (7.4-10.4); MONO % 6.1 %; MONO ABS # 0.34 K/uL (0.11-0.59); NEUT ABS # 3.74 K/uL (1.4-6.5); PLATELET COUNT 182 K/uL (130-400); RED CELL DISTRIBUTION WIDTH CV 14.6 % (11.5-14.5); RED CELL DISTRIBUTION WIDTH SD 46.4 fL (36.4-46.3); WHITE BLOOD COUNT 5.58 K/uL (4.8-10.8)
[2017-11-02 11:45] LABS: ALBUMIN 3.6 gm/dl (3.4-5.0); ALT/SGPT 29 U/L (12-78); BLOOD UREA NITROGEN 18 mg/dl (7-18); CALCIUM 8.9 mg/dl (8.5-10.1); CARBON DIOXIDE 28 mmol/L (21-32); CHOLESTEROL 156 mg/dl (0-200); CREATININE 1.14 mg/dl (0.60-1.20); GLUCOSE 110 mg/dl (70-99); POTASSIUM 3.6 mmol/L (3.5-5.1); SODIUM 140 mmol/L (136-145)
[2017-11-02 11:48] LABS: ALKALINE PHOSPHATASE 122 U/L (45-117); AST/SGOT 18 U/L (15-37); LDL CHOLESTEROL CALCULATED 79 mg/dl; TOTAL PROTEIN 6.8 gm/dl (6.4-8.2)
[2017-11-02 12:36] LABS: HEMOGLOBIN A1C 5.5 % (4.5-5.6)
== END | disposition home or self-care (01) ==
LOC: C.LABPBG 08:01
PROVIDERS: ATTEND Nurse Practitioner Family
DX: E55.9 Vitamin D deficiency, unspecified (principal); E05.90 Thyrotoxicosis, unspecified without thyrotoxic crisis or storm; R73.01 Impaired fasting glucose

== ENCOUNTER → 2017-11-19 | Outpatient (CLI) | payer MEDICARE ==
[2017-11-19 14:44] LABS: ALBUMIN 3.4 gm/dl (3.4-5.0); ALT/SGPT 41 U/L (12-78); AST/SGOT 19 U/L (15-37); BLOOD UREA NITROGEN 14 mg/dl (7-18); CALCIUM 8.7 mg/dl (8.5-10.1); CARBON DIOXIDE 26 mmol/L (21-32); CREATININE 1.06 mg/dl (0.60-1.20); GLUCOSE 107 mg/dl (70-99); POTASSIUM 3.7 mmol/L (3.5-5.1); SODIUM 139 mmol/L (136-145)
[2017-11-19 14:55] LABS: ALKALINE PHOSPHATASE 120 U/L (45-117); TOTAL PROTEIN 6.4 gm/dl (6.4-8.2)
== END | disposition home or self-care (01) ==
LOC: C.LABPBG 09:57
PROVIDERS: ATTEND Family Medicine
DX: E05.90 Thyrotoxicosis, unspecified without thyrotoxic crisis or storm (principal); I10 Essential (primary) hypertension; R17 Unspecified jaundice

== ENCOUNTER 2024-12-23 10:35 | Inpatient (IN) ==
--- NOTE | 2024-12-23 11:17 | XRay Report ---
XR chest 1V portable CLINICAL HISTORY: Dyspnea COMPARISON STUDY: None FINDINGS: There is moderate cardiomegaly with pulmonary vascular congestion. There are moderate bilat eral pleural effusions and associated lower lung consolidation. No pneumothorax. IMPRESSION: CHF with bilateral pleural effusions and lower lung consolidation. ACT 112: Negative or not required by law. Electronically signed by: Coleman Andrews M.D. 12/23/2024 11:16 AM
--- NOTE | 2024-12-23 11:21 | Emergency Department Note ---
Impression & Plan Hypoxia, JOSHUA (dyspnea on exertion), CHF (congestive heart failure), SOB (shortness of breath), Pleural effusion, Pedal edema ED Provider Note NAME: KIM TIJERINA AGE: 84 SEX: F : 1940 ARRIVES VIA: Walk-In INFORMANT: [Patient] ED PROVIDER(S): [Petey Gatica MD] CHIEF COMPLAINT: Short of breath HISTORY OF PRESENT ILLNESS: The patient is an 84-year-old female who has not been well for several months. She has had multiple different issues. She never seemed to fully recover back to baseline from all her other problems. In the last week, she has been noticing some shortness of breath. She has been trying her inhaler at home without significant relief. She states that in the last 2 or 3 days, she has become very short of breath with exertion or speaking and her legs have swollen. She was referred to our hospital for the concerns of fluid overload. Patient denies fever, no chest pain. No vomiting. No stuffy nose or sore throat. PMHx/PSHx/Social Hx: See Below PHYSICAL EXAM: GENERAL: Patient is in mild respiratory distress. HEENT: No acute trauma, normocephalic atraumatic, mucous membranes moist, no nasal congestion. NECK: No stridor, no adenopathy, no meningismus, trachea is midline. LUNGS: Diminished breath sounds without wheezing. There are some scattered crackles bilaterally. There is an increased respiratory rate and some mild respiratory distress. She speaks in shortened sentences. HEART: Subtle systolic murmur, irregular rhythm, normal rate. ABDOMEN: Soft, nontender, no peritonitis. EXTREMITIES: No cyanosis, full range of motion of all the joints without pain or difficulty. Significant bilateral pedal edema. NEUROLOGIC: Oriented x 3, no acute motor or sensory deficits, no focal weakness. SKIN: No jaundice, no diaphoresis. DIFFERENTIAL DIAGNOSIS: CHF, pneumonia, bronchitis, PE, anemia, [place], among others. EMERGENCY DEPARTMENT PROCEDURES: MEDICAL DECISION MAKING: There is no leukocytosis or concerning anemia. There is a normal platelet count. No bandemia. No coagulopathy. VBG did not show acidosis or CO2 retention. Creatinine was slightly elevated at 1.62, this is above the patient's typical level. There were some very subtle liver enzyme elevations. ECG did not show any acute ischemic change. Cardiac enzyme testing x 1 did not show evidence for acute cardiac injury. BNP was not elevated. Respiratory bio fire was negative. Chest x-ray shows CHF and pleural effusions. Bilateral lower extremity ultrasound did not show findings of DVT. Patient appears to be fluid overloaded. She was given a DuoNeb to hopefully help with her breathing. She received IV Lasix, she had 1 inch of nitroglycerin paste applied to the chest wall. An external Miller catheter was ordered. Patient is in need of a hospital stay. She is quite dyspneic, she is hypoxic without O2 supplementation. She appears to be in heart failure and is quite fluid overloaded. Further workup, care is warranted. I spoke with the patient and case management, the on-call hospitalist was consulted. Prior/Outside records/notes reviewed: Today's outpatient doctor note describing her presentation, their concerns and the need for a ED referral. ECG per my interpretation: Indication was dyspnea. The ECG shows a sinus rhythm with PVCs. The rate is 94. There is some nonspecific ST change. There is no acute ST elevation, QTc is 405. Continuous Cardiac Monitoring per my interpretation: An order was placed for continuous cardiac monitoring. The monitor shows a rate of 75 with normal sinus rhythm. Imaging/x-ray results per my interpretation: Chest x-ray shows bilateral pleural effusions and CHF. Chronic Medical/Social conditions affecting care: Advanced age. Care/Management discussed with: Case management, the on-call hospitalist. Level of care consideration(s): After review of the information above and other included data: --I believe the patient requires escalation of care to admission Critical Care Note: I have personally spent 48 minutes of critical care time in the direct management of this patient. This includes bedside care, interpretation of diagnostic studies, and testing, discussion with consultants, patient, and family members, and other required patient management activities. This 48 minutes is in excess of all separately billable procedures. DISPOSITION: Admission Past Med/Surg History Problem List (Updated 12/23/24 @ 17:04 by Petey Gatica MD) Pedal edema (Acute) Pleural effusion (Acute) SOB (shortness of breath) (Acute) CHF (congestive heart failure) (Acute) JOSHUA (dyspnea on exertion) (Acute) Hypoxia (Acute) Acute hypoxemic respiratory failure Recurrent nevus of face Nonallergic rhinitis Restrictive lung disease Inflamed seborrheic keratosis Morbid obesity Exertional dyspnea Multiple pulmonary nodules Urinary urgency Hyperlipidemia PARTIAL Hypertension Thyroid nodule ENDOCRINE MONITORING Obesity Hyperthyroidism ENDOCRINE MONITORING; ON METHIMAZOLE- THYROID LABS STABLE ON 05/24/18 Valvular disease MILD TR- PT DENIES Nephrolithiasis Osteoarthritis Left renal mass Vitamin D deficiency Urinary incontinence Reactive airway disease Multinodular goiter Lymph nodes enlarged Impaired fasting glucose GERD without esophagitis Chronic kidney disease, stage III (moderate) Allergic rhinitis Abnormal findings on diagnostic imaging of abdomen Medical History Degenerative joint disease of knee Pulmonary nodules DR. DOMINGUEZ MONITORING Asthma STABLE- DOESNT USE INHALERS- FOLLOWS DR. DOMINGUEZ- [facility] Osteoarthritis of right hip Surgical History S/P lymph node biopsy (06/21/19) Hx of lymph node biopsy Hx of surgical procedure History of total knee replacement History of total shoulder replacement History of cataract extraction with lens replacement History of total hip arthroplasty History of colonoscopy History of hysterectomy Family History Denies family history of Ovarian cancer Prostate cancer Myocardial infarction Breast cancer Colorectal cancer Social History Smoking Status: Never smoker Second Hand Exposure: No; Do You Dip or Chew Tobacco: No; Hx Alcohol Use: No Hx Substance Use: No Preferred Language: Thai Communication Ability: Effective Visual Impairment: No Limitations 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: Normal 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 Beliefs That Will Affect Care: None marital status: / Current Living Situation: Family current occupational status: retired How many Children do You have: 2 Feels Safe at Home: Yes Childhood Exposure to Second-Hand Smoke: Yes Diet: regular Diet Comment: regular caffeine: Yes (Coffee x 1 per day.) during the past year weight has: remained stable Dental Care, Regularly: Yes Physical Activity Frequency: Daily Physical Activity Frequency Comment: walking, gardening Seatbelt Use: always Sunscreen Use: No Assistive Devices: Walker Allergies Allergies Allergy/AdvReac Type Severity Reaction Status Date / Time sulfamethoxazole Allergy Intermediate ITCHING/HIV Verified 08/22/24 10:32 ES levofloxacin Allergy Unknown ITCHING/HIV Verified 08/22/24 10:32 ES morphine AdvReac Severe N/V Verified 08/22/24 10:32 doxycycline AdvReac Intermediate Rash Verified 08/22/24 10:32 Home Meds Home Medications Medication Instructions Recorded Confirmed aspirin 81 mg tablet,delayed 81 mg PO QAM 05/31/19 12/23/24 release (Aspir-) methimazole 5 mg tablet 5 mg PO DAILY E05.90 12/23/24 12/23/24 Previous Rx's Medication Instructions Recorded albuterol sulfate 90 mcg/actuation 1 - 2 puff inhalation Q4H PRN 12/26/20 aerosol inhaler (ProAir HFA) shortness of breath or wheezing #18 grams atorvastatin 10 mg tablet 10 mg PO HS #90 tabs 04/19/24 diltiazem HCl 120 mg 120 mg PO DAILY #90 caps 10/17/24 capsule,extended release 24 hr hydrochlorothiazide 25 mg tablet 25 mg PO DAILY #90 tabs 10/19/24 lisinopril 5 mg tablet 5 mg PO QAM #90 tabs 10/19/24 Results & Data (ED) Vital Signs Vital Signs - 24 hr 12/23/24 10:42 12/23/24 10:43 12/23/24 10:43 Temperature 36.9 C Temperature Source Oral Pulse Rate 96 H 88 Pulse Rate from SpO2 Sensor 97 H Respiratory Rate 22 20 Respiratory Effort / Characteristics Non-Labored Blood Pressure 142/60 H Blood Pressure Mean 87 Pulse Oximetry 94 93 Oxygen Delivery Method Nasal Cannula Nasal Cannula Oxygen Flow Rate 4 4 Sepsis Recent Fever Within 48 Hours No Sepsis New/Unexplained Change in Mental Status No Sepsis Action Taken by Nursing No Action Required 12/23/24 10:47 12/23/24 10:50 12/23/24 10:51 Temperature Temperature Source Pulse Rate 95 H 91 H Pulse Rate from SpO2 Sensor 88 Respiratory Rate 31 H Respiratory Effort / Characteristics Blood Pressure Blood Pressure Mean Pulse Oximetry 93 95 Oxygen Delivery Method Nasal Cannula Oxygen Flow Rate 4 Sepsis Recent Fever Within 48 Hours Sepsis New/Unexplained Change in Mental Status Sepsis Action Taken by Nursing 12/23/24 10:54 12/23/24 11:01 12/23/24 11:01 Temperature Temperature Source Pulse Rate 92 H 75 Pulse Rate from SpO2 Sensor 81 Respiratory Rate 25 H 20 Respiratory Effort / Characteristics Blood Pressure 157/63 H Blood Pressure Mean 101 Pulse Oximetry 94 94 Oxygen Delivery Method Nasal Cannula Oxygen Flow Rate 4 Sepsis Recent Fever Within 48 Hours Sepsis New/Unexplained Change in Mental Status Sepsis Action Taken by Nursing 12/23/24 11:01 12/23/24 11:01 12/23/24 11:03 Temperature Temperature Source Pulse Rate 93 H Pulse Rate from SpO2 Sensor 83 Respiratory Rate 22 Respiratory Effort / Characteristics Blood Pressure 157/63 H 157/63 H Blood Pressure Mean 101 101 Pulse Oximetry 86 L Oxygen Delivery Method Oxygen Flow Rate Sepsis Recent Fever Within 48 Hours Sepsis New/Unexplained Change in Mental Status Sepsis Action Taken by Nursing 12/23/24 11:15 12/23/24 11:21 12/23/24 11:30 Temperature Temperature Source Pulse Rate 89 85 103 H Pulse Rate from SpO2 Sensor 92 H 92 H 99 H Respiratory Rate 24 28 H 22 Respiratory Effort / Characteristics Blood Pressure Blood Pressure Mean Pulse Oximetry 88 L 89 L 84 L Oxygen Delivery Method Oxygen Flow Rate Sepsis Recent Fever Within 48 Hours Sepsis New/Unexplained Change in Mental Status Sepsis Action Taken by Nursing 12/23/24 11:32 12/23/24 11:32 12/23/24 11:42 Temperature Temperature Source Pulse Rate 97 H Pulse Rate from SpO2 Sensor 82 Respiratory Rate 29 H Respiratory Effort / Characteristics Blood Pressure 184/88 H 184/88 H Blood Pressure Mean 161 161 Pulse Oximetry 92 Oxygen Delivery Method Oxygen Flow Rate Sepsis Recent Fever Within 48 Hours Sepsis New/Unexplained Change in Mental Status Sepsis Action Taken by Nursing 12/23/24 11:49 12/23/24 11:57 12/23/24 12:00 Temperature Temperature Source Pulse Rate 94 H Pulse Rate from SpO2 Sensor 94 H Respiratory Rate 28 H Respiratory Effort / Characteristics Blood Pressure 134/74 133/77 Blood Pressure Mean 109 98 Pulse Oximetry 90 Oxygen Delivery Method Oxygen Flow Rate Sepsis Recent Fever Within 48 Hours Sepsis New/Unexplained Change in Mental Status Sepsis Action Taken by Nursing 12/23/24 12:00 12/23/24 12:03 12/23/24 12:27 Temperature Temperature Source Pulse Rate 93 H 93 H Pulse Rate from SpO2 Sensor 90 86 Respiratory Rate 26 H 28 H Respiratory Effort / Characteristics Blood Pressure 133/77 Blood Pressure Mean 98 Pulse Oximetry 93 85 L Oxygen Delivery Method Oxygen Flow Rate Sepsis Recent Fever Within 48 Hours Sepsis New/Unexplained Change in Mental Status Sepsis Action Taken by Nursing 12/23/24 12:30 12/23/24 12:45 12/23/24 12:54 Temperature Temperature Source Pulse Rate 90 98 H 92 H Pulse Rate from SpO2 Sensor 77 94 H 81 Respiratory Rate 28 H 32 H 30 H Respiratory Effort / Characteristics Blood Pressure Blood Pressure Mean Pulse Oximetry 93 93 88 L Oxygen Delivery Method Oxygen Flow Rate Sepsis Recent Fever Within 48 Hours Sepsis New/Unexplained Change in Mental Status Sepsis Action Taken by [facility] Medications Current Medication List: was personally reviewed by me Laboratory Data Attestation: I reviewed the patient's lab results. 12/23/24 10:30 12/23/24 10:30 Lab Results 12/23/24 12/23/24 12/23/24 Range/Units 10:30 11:23 11:45 WBC 8.14 (4.8-10.8) K/ul RBC 4.65 (4.20-5.40) M/uL Hgb 12.5 (12.0-16.0) g/dl Hct 38.9 (37.0-47.0) % MCV 83.7 (80.0-100.0) fL MCH 26.9 (25.0-34.0) pg MCHC 32.1 (32.0-36.0) g/dL RDW Std Deviation 52.7 H (36.4-46.3) fL RDW Coeff of Mikel 17.2 H (11.5-14.5) % Plt Count 277 (130-400) K/uL MPV 9.0 L (9.4-12.4) fL Immature Gran % (Auto) 2.1 % Neut % (Auto) 87.2 % Lymph % (Auto) 3.7 % Hemphill % (Auto) 4.8 % Eos % (Auto) 1.7 % Baso % (Auto) 0.5 % Neut # (Auto) 7.10 H (1.40-6.50) K/uL Lymph # (Auto) 0.30 L (1.20-3.40) K/uL Hemphill # (Auto) 0.39 (0.11-0.59) K/uL Eos # (Auto) 0.14 (0.00-0.50) K/uL Baso # (Auto) 0.04 (0.00-0.20) K/uL Immature Gran # (Auto) 0.17 (0.01-0.20) K/uL PT 11.1 (9.0-12.0) Seconds INR 1.0 (0.9-1.1) APTT 29 (21-31) Seconds PTT Ratio 1.1 D-Dimer 960 H* (0-500) ug/L FEU VBG pH 7.39 (7.36-7.41) VBG pCO2 42 (38-50) mmHg VBG pO2 < 20 mmHg VBG HCO3 25 mmol/L VBG O2 Saturation < 60.0 % VBG Base Excess 0.3 mEq/L Sodium 137 (136-145) mmol/L Potassium 4.4 (3.5-5.1) mmol/L Chloride 102 (98-107) mmol/L Carbon Dioxide 28 (21-32) mmol/L Anion Gap 7 (3-11) BUN 42 H (6-23) mg/dl Creatinine 1.62 H (0.6-1.2) mg/dl Est Cr Clr Drug Dosing 30.9 ml/min eGFR 31.14 BUN/Creatinine Ratio 25.9 H (10-20) Glucose 104 H (70-99(Fasting)) mg/dl Calcium 9.5 (8.6-10.3) mg/dl Magnesium 2.0 (1.7-2.4) mg/dl Total Bilirubin 1.3 H (0.2-1.0) mg/dl AST 14 (13-39) U/L ALT 9 (7-52) U/L Alkaline Phosphatase 106 H (34-104) U/L Troponin I High Sens 3.6 (0-14) pg/ml B-Natriuretic Peptide 51 (0-100) pg/ml Total Protein 5.7 L (6.0-8.3) gm/dl Albumin 3.6 (3.4-5.0) gm/dl Globulin 2.1 L (2.5-4.0) gm/dl Albumin/Globulin Ratio 1.7 (0.9-2) Adenovirus (PCR) Not Detected (NotDetected) B. pertussis DNA (PCR) Not Detected (NotDetected) B.parapertussis DNA PCR Not Detected (NotDetected) C. pneumoniae DNA (PCR) Not Detected (NotDetected) Coronavirus OC43 (PCR) Not Detected (NotDetected) Coronavirus HKU1 (PCR) Not Detected (NotDetected) Coronavirus 229E (PCR) Not Detected (NotDetected) SARS-CoV-2 (PCR) Not Detected (NotDetected) Coronavirus NL63 (PCR) Not Detected (NotDetected) Human Metapneumovir PCR Not Detected (NotDetected) Influenza Type A (PCR) Not Detected (NotDetected) Influenza Type B (PCR) Not Detected (NotDetected) M. pneumoniae (PCR) Not Detected (NotDetected) Parainfluenza 1 (PCR) Not Detected (NotDetected) Parainfluenza 2 (PCR) Not Detected (NotDetected) Parainfluenza 3 (PCR) Not Detected (NotDetected) Parainfluenza 4 (PCR) Not Detected (NotDetected) RSV (PCR) Not Detected (NotDetected) Entero/Rhino (PCR) Not Detected (NotDetected) Administered Medications Discontinued Medications Albuterol (Albut/Ipratrop 3mg/0.5mg Neb 3 Ml Vial) 3 ml NEB NOW STA; Protocol Stop: 12/23/24 11:20 Last Admin: 12/23/24 11:35 Dose: 3 ml Documented By: GINO Furosemide (Furosemide 40 Mg/4 Ml Vial) 60 mg IV ONE ONE Stop: 12/23/24 11:20 Last Admin: 12/23/24 11:35 Dose: 60 mg Documented By: GINO Nitroglycerin (Nitroglycerin 2% Ointment 30gm Tube) 1 inch EXT NOW STA Stop: 12/23/24 11:20 Last Admin: 12/23/24 11:35 Dose: 1 inch Documented By: GINO Imaging Data Radiologist's Impression: Chest X-Ray 12/23/24 10:59 XR chest 1V portable CLINICAL HISTORY: Dyspnea COMPARISON STUDY: None FINDINGS: There is moderate cardiomegaly with pulmonary vascular congestion. There are moderate bilateral pleural effusions and associated lower lung consolidation. No pneumothorax. IMPRESSION: CHF with bilateral pleural effusions and lower lung consolidation. ACT 112: Negative or not required by law. Electronically signed by: Coleman Andrews M.D. 12/23/2024 11:16 AM Venous Doppler Study 12/23/24 11:55 BILATERAL LOWER EXTREMITY VENOUS DOPPLER HISTORY: swelling COMPARISON STUDY: None FINDINGS: No evidence of DVT seen in bilateral lower extremities. IMPRESSION: No DVT seen. ACT 112: Negative or not required by law. Electronically signed by: Coleman Andrews M.D. 12/23/2024 1:52 PM Abdomen/Pelvis CT 12/23/24 12:[address] WITHOUT CONTRAST CT DOSE: 2273.73 mGy.cm HISTORY: wt loss, pain TECHNIQUE: Multiaxial CT images of the abdomen and pelvis were performed without contrast. A dose lowering technique was utilized adhering to the principles of ALARA. COMPARISON STUDY: 07/30/2022 FINDINGS: There are interval moderate bilateral pleural effusions with near complete consolidation of the lower lung lobes. There is partially visualized bilateral axillary lymphadenopathy. There are diffuse coronary artery calcifications. ABDOMEN: There is increased splenomegaly measuring 17 cm. There is stable distal gallbladder wall calcification. Liver, and adrenal glands have an unremarkable non-IV contrasted appearance. There is fatty atrophy of the pancreas. Kidneys show no hydronephrosis. No renal or ureteral calculi. There are mildly enlarged periaortic, ronn hepatis and right abdominal lymph nodes measuring up to 2 cm series 7 image 197. There are scattered atherosclerotic calcifications. No abdominal aortic aneurysm. Pelvis: There is enlarged bilateral inguinal adenopathy measuring up to 2.5 cm at the right inguinal region. Uterus is absent. No adnexal mass. Urinary bladder is mildly distended. There is sigmoid diverticulosis. No acute diverticulitis. No balance summation or obstruction. No free fluid or free air. Osseous structures: Stable right hip prosthesis. There is lower lumbar degenerative disc disease. No acute osseous findings. IMPRESSION: 1. Moderate bilateral pleural effusions and lower lobe pulmonary consolidation. 2. Increased splenomegaly and diffuse lymphadenopathy suggests lymphoma. 3. No other acute findings seen. ACT 112: Negative or not required by law. The above report was generated using voice recognition software. It may contain grammatical, syntax or spelling errors. Electronically signed by: Coleman Andrews M.D. 12/23/2024 2:[address] 12/23/24 12:53 CT OF THE CHEST WITHOUT IV CONTRAST CLINICAL HISTORY: Shortness of breath. Hypoxia. COMPARISON STUDY: Chest CT February 02, 2015. Chest radiograph performed earlier today. TECHNIQUE: Axial images of the chest were obtained without IV contrast. Images were reviewed in the axial, sagittal, and coronal planes. IV contrast was not administered for this examination. Automated exposure control was utilized for the study. A dose lowering technique was utilized adhering to the principles of ALARA. FINDINGS: As before, the thyroid gland is enlarged and contains multiple nodules. Mediastinal and bilateral hilar lymphadenopathy has developed since CT of February 02, 2015. An index left axillary lymph node on image 111 of 237 measures 4 x 2.6 cm. A right lower paratracheal lymph node on image 99 measures 2.1 x 1.5 cm. There is possible bilateral hilar adenopathy, suboptimally assessed on unenhanced exam. The heart is mildly enlarged. There is moderate coronary calcification. No pericardial effusion is present. There is no pneumothorax. There are moderate to large right and moderate left pleural effusions. Extensive bilateral lower lobe airspace opacity favors compressive atelectasis. There are also airspace opacities within the lingula, right middle lobe and upper lobe. Groundglass opacities within the aerated portions of the lungs are present. No acute fractures within the bony thorax are present. Mild splenomegaly is unchanged from earlier exams. Please note that the abdomen and pelvis CT will be reported separately. Right shoulder arthroplasty is incidentally noted. IMPRESSION: 1. Moderate to large right and moderate left pleural effusions. Extensive associated lower lobe opacities favor compressive atelectasis with near complete opacification of the lower lobes. Pneumonia is considered less likely. 2. Cardiomegaly with pulmonary edema. Moderate coronary artery calcification. 3. Interval development of mediastinal and bilateral axillary lymphadenopathy, as described above. This is highly suggestive of a lymphoproliferative disorder such as lymphoma or leukemia. ACT 112: Negative or not required by law. Electronically signed by: Guevara Hull M.D. 12/23/2024 1:58 PM Discharge Plan Visit Data Chief Complaint: Shortness of Breath/Dyspnea Stated Complaint: SOB ED Provider: Petey Gatica Discharge Problem: Hypoxia, JOSHUA (dyspnea on exertion), CHF (congestive heart failure), SOB (shortness of breath), Pleural effusion, Pedal edema Patient Disposition: Admitted As Inpatient Condition: Serious Discharge Instructions Interventions: ED Discharge Assessment Last Done: 12/23/24 16:04 Discharge Problem: CHF (congestive heart failure) Qualifiers: Heart failure type: unspecified Heart failure chronicity: acute Qualified Code(s): I50.9 - Heart failure, unspecified
[2024-12-23 11:26] LABS: Basophils # (auto) 0.04 K/uL (0.00-0.20); Basophils % (auto) 0.5 %; Eosinophils # (auto) 0.14 K/uL (0.00-0.50); Eosinophils % (auto) 1.7 %; Hematocrit (blood only) 38.9 % (37.0-47.0); Hemoglobin 12.5 g/dl (12.0-16.0); Immature Granulocytes # (auto) 0.17 K/uL (0.01-0.20); Immature Granulocytes % (auto) 2.1 %; Lymphocytes % (auto) 3.7 %; Mean Corpuscular Hemoglobin 26.9 pg (25.0-34.0); Mean Corpuscular Hgb Conc 32.1 g/dL (32.0-36.0); Mean Corpuscular Volume 83.7 fL (80.0-100.0); Monocytes # (auto) 0.39 K/uL (0.11-0.59); Monocytes % (auto) 4.8 %; Neutrophils % (auto) 87.2 %; Platelet Count 277 K/uL (130-400); RDW Coefficient of Variation 17.2 % (11.5-14.5); RDW Standard Deviation 52.7 fL (36.4-46.3); Red Blood Count 4.65 M/uL (4.20-5.40); White Blood Count 8.14 K/ul (4.8-10.8)
[2024-12-23] MEDS: FUROSEMIDE 40 MG/4 ML VIAL IV ONE (11:35)
[2024-12-23] MEDS: ALBUT/IPRATROP 3MG/0.5MG NEB 3 ML VIAL NEB STA (11:35)
[2024-12-23] MEDS: NITROGLYCERIN 2% OINTMENT 30GM TUBE EXT STA (11:35)
[2024-12-23 11:42] LABS: Partial Thromboplastin Ratio 1.1; Partial Thromboplastin Time 29 Seconds (21-31); Prothrombin Time 11.1 Seconds (9.0-12.0)
[2024-12-23 11:44] LABS: Albumin Globulin Ratio 1.7 (0.9-2); Albumin Level 3.6 gm/dl (3.4-5.0); BUN Creatinine Ratio 25.9 (10-20); Bilirubin,Total 1.3 mg/dl (0.2-1.0); Calcium 9.5 mg/dl (8.6-10.3); Creatinine Clr Calc Pharmacy 30.9 ml/min; Globulin 2.1 gm/dl (2.5-4.0); Potassium 4.4 mmol/L (3.5-5.1); Total Protein 5.7 gm/dl (6.0-8.3)
[2024-12-23 11:48] LABS: Troponin I High Sensitivity 3.6 pg/ml (0-14)
[2024-12-23 11:52] LABS: Base Excess VBG 0.3 mEq/L; HCO3 VBG 25 mmol/L; Oxygen Saturation VBG < 60.0 %; PCO2 VBG 42 mmHg (38-50); PO2 VBG < 20 mmHg; pH VBG 7.39 (7.36-7.41)
[2024-12-23 12:38] LABS: Adenovirus PCR Not Detected (NotDetected); Bordetella parapertussis PCR Not Detected (NotDetected); Bordetella pertussis PCR Not Detected (NotDetected); Chlamydia pneumoniae PCR Not Detected (NotDetected); Coronavirus 229E PCR Not Detected (NotDetected); Coronavirus CoV-2 (COVID19)PCR Not Detected (NotDetected); Coronavirus HKU1 PCR Not Detected (NotDetected); Coronavirus NL63 PCR Not Detected (NotDetected); Coronavirus OC43PCR Not Detected (NotDetected); Human Metapneumovirus PCR Not Detected (NotDetected); Influenza A PCR Not Detected (NotDetected); Influenza B PCR Not Detected (NotDetected); Mycoplasma pneumoniae PCR Not Detected (NotDetected); Parainfluenza Virus 1 PCR Not Detected (NotDetected); Parainfluenza Virus 2 PCR Not Detected (NotDetected); Parainfluenza Virus 3 PCR Not Detected (NotDetected); Parainfluenza Virus 4 PCR Not Detected (NotDetected); Respiratory Syncytial VirusPCR Not Detected (NotDetected); Rhinovirus/Enterovirus PCR Not Detected (NotDetected)
[2024-12-23] MEDS ORDERED: ACETAMINOPHEN 325 MG TAB PO PRN (12:56)
[2024-12-23 13:14] LABS: D Dimer 960 ug/L FEU (0-500)
--- NOTE | 2024-12-23 13:20 | Electrocardiogram Report ---
Test Reason : Blood Pressure : */* mmHG Vent. Rate : 94 BPM Atrial Rate : 94 BPM P-R Int : 132 ms QRS Dur : 92 ms QT Int : 324 ms P-R-T Axes : 33 28 208 degrees QTcB Int : 405 ms Sinus rhythm with Premature supraventricular complexes Low voltage QRS Nonspecific ST and T wave abnormality Abnormal ECG When compared with ECG of 26-May-2019 11:49, Premature supraventricular complexes are now Present Confirmed by Uvaldo Dhillon ([id number]) on 12/23/2024 1:20:11 PM Referred By: Mignon Bansal Confirmed By: vUaldo Dhillon
--- NOTE | 2024-12-23 13:33 | History & Physical Report ---
Date of Service December 23, 2024 Assessment & Plan (1) Acute hypoxemic respiratory failure: Plan: Assessment: 1. Acute hypoxemic respiratory failure. Etiology not completely known at this time. Chest x-ray does show bilateral pleural effusions with possible consoli dations and CHF. However the patient's BNP is normal. Clinically she appears dry. She is in acute kidney failure. She has had poor appetite with unintentional weight loss. She had 60 mg of IV Lasix x 1 on hold off on further Lasix. Her D-dimer is positive. She get a stat VQ scan-we cannot do a CTA given her acute kidney injury. We are going to do a noncontrast CT of the chest abdomen pelvis. 2. Bilateral pleural effusions with consolidations. CT of the chest pending at the time of this dictation. Will make further recommendations pending results. She already had 60 mg of Lasix x 1. 3. "Acute CHF". The patient was treated for acute CHF in the ER with 60 mg of Lasix. Clinically the patient appears to be dry. She is in acute kidney injury with dry mucous membranes. I will not treat with further diuretics at this point we will do an echocardiogram. Will see what she responds to to the dose of Lasix. 4. Acute kidney injury. I will not hydrate right away given the fact that she was treated with Lasix for "CHF". Will monitor her renal function carefully. CT of the abdomen pelvis is pending. Will check a urinalysis. 5. Hyperthyroidism by history. She is on methimazole. Will check thyroid function test blood while here. 6. Hypertension. We will hold GINO inhibitor and hydrochlorothiazide given the acute kidney injury at this point. She is on a Nitropaste at this time we will see how she responds. 7. Unintentional weight loss. 30 pounds over the last 3-1/2 to 4 months. Concern for possible occult malignancy. CT of the chest abdomen and pelvis pe nding at the time of this dictation. The patient does report being up-to-date on her mammograms. 8. Positive D-dimer. Ultrasounds of the lower extremities pending at the time of this dictation as well as VQ scan. Subcu heparin for now. Convert to IV heparin if acute thrombus identified. Plan: As discussed above. Please refer to orders for further planning. History of Present Illness Chief Complaint: Weakness, shortness of breath, hypoxemia, weight loss. Primary Care Provider: Mignon Bansal DO This is an 84-year-old female whose had the above symptoms ongoing for the last few days to a week or so. She has had a significant amount of weight loss, 30 pounds since July. This is unintentional weight loss. She was at her primary care doctor's office for evaluation of the above symptoms and was diagnosed with hypoxemia and sent to the ER for further evaluation and treatment. In the emergency department she was found to be hypoxemic she was found to be hypoxemic at 84%. She is placed on 4 L of oxygen nasal cannula is 92%. Chest x-ray was positive for bilateral pleural effusions, CHF with lower lung consolidations. Respiratory biofire panel was negative. Laboratory studies showed acute kidney injury. Patient's baseline creatinine was 0.8 in November 2023 1.0 07 June 2024, NovemberNovember 2024 1.30 and today 1.62. Other laboratory studies were unremarkable. Course in the emergency department she received a nebulizer treatment she received 60 milligrams of IV Lasix. Was placed on 1 inch Nitropaste. Recalled with the patient further evaluation and treatment for "acute congestive heart failure" the patient has a normal BNP incidentally. High concern with the unintentional weight loss and the lung findings. We did a stat D-dimer which almost 1000. We have ordered a stat VQ scan. We have ordered a stat CT of the chest abdomen pelvis given her weight loss and respiratory failure we will hold off on any further Lasix given the acute kidney injury and the normal BNP. Highly concern for possible occult malignancy. From further history taking the patient had a kidney lesion that was post to be biopsied in [place] when they went to do that a couple years ago it was "gone". In addition she had a lymph node removed from her right axilla in the past which turned out to be benign per the patient and the daughter they were concerned about possible lymphoma but was never diagnosed with lymphoma. Allergies Allergy/AdvReac Type Severity Reaction Status Date / Time sulfamethoxazole Allergy Intermediate ITCHING/HIV Verified 08/22/24 10:32 ES levofloxacin Allergy Unknown ITCHING/HIV Verified 08/22/24 10:32 ES morphine AdvReac Severe N/V Verified 08/22/24 10:32 doxycycline AdvReac Intermediate Rash Verified 08/22/24 10:32 Home Medications Medication Instructions Recorded Confirmed Type aspirin 81 mg tablet,delayed 81 mg PO QAM 05/31/19 12/23/24 History release (Aspir-) albuterol sulfate 90 mcg/actuation 1 - 2 puff inhalation Q4H PRN 12/26/20 12/23/24 Rx aerosol inhaler (ProAir HFA) shortness of breath or wheezing #18 grams atorvastatin 10 mg tablet 10 mg PO HS #90 tabs 04/19/24 12/23/24 Rx diltiazem HCl 120 mg 120 mg PO DAILY #90 caps 10/17/24 12/23/24 Rx capsule,extended release 24 hr hydrochlorothiazide 25 mg tablet 25 mg PO DAILY #90 tabs 10/19/24 12/23/24 Rx lisinopril 5 mg tablet 5 mg PO QAM #90 tabs 10/19/24 12/23/24 Rx methimazole 5 mg tablet 5 mg PO DAILY E05.90 12/23/24 12/23/24 History Past Med/Surg History Problem List (Updated 12/23/24 @ 13:29 by Melecio Rudd, PhD, DO) Acute hypoxemic respiratory failure Recurrent nevus of face Nonallergic rhinitis Restrictive lung disease Inflamed seborrheic keratosis Morbid obesity Exertional dyspnea Multiple pulmonary nodules Urinary urgency Hyperlipidemia PARTIAL Hypertension Thyroid nodule ENDOCRINE MONITORING Obesity Hyperthyroidism ENDOCRINE MONITORING; ON METHIMAZOLE- THYROID LABS STABLE ON 05/24/18 Valvular disease MILD TR- PT DENIES Nephrolithiasis Osteoarthritis Left renal mass Vitamin D deficiency Urinary incontinence Reactive airway disease Multinodular goiter Lymph nodes enlarged Impaired fasting glucose GERD without esophagitis Chronic kidney disease, stage III (moderate) Allergic rhinitis Abnormal findings on diagnostic imaging of abdomen Medical History Degenerative joint disease of knee Pulmonary nodules Asthma Osteoarthritis of right hip Surgical History S/P lymph node biopsy (06/21/19) Hx of lymph node biopsy Hx of surgical procedure History of total knee replacement History of total shoulder replacement History of cataract extraction with lens replacement History of total hip arthroplasty History of colonoscopy History of hysterectomy Family History Denies family history of Ovarian cancer Prostate cancer Myocardial infarction Breast cancer Colorectal cancer Social History Smoking Status: Never smoker Second Hand Exposure: No; Do You Dip or Chew Tobacco: No; Hx Alcohol Use: No Hx Substance Use: No Preferred Language: Nepali Communication Ability: Effective Visual Impairment: No Limitations 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: Normal Emulsion Operator Required: No Beliefs That Will Affect Care: None marital status: / Current Living Situation: Family current occupational status: retired How many Children do You have: 2 Feels Safe at Home: Yes Childhood Exposure to Second-Hand Smoke: Yes Diet: regular Diet Comment: regular caffeine: Yes (Coffee x 1 per day.) during the past year weight has: remained stable Dental Care, Regularly: Yes Physical Activity Frequency: Daily Physical Activity Frequency Comment: walking, gardening Seatbelt Use: always Sunscreen Use: No Assistive Devices: Walker Review of Systems Review of Systems: A 10 point review of system was obtained and unless otherwise stated here or in history of present illness are negative and noncontributory to chief complaint. In addition the patient had an extremely poor appetite since July 2024 when she had a bad up sewed of urticaria she states that she "lost her taste buds " Physical Exam Physical Exam: In General: In general very pleasant 84-year-old female is alert and oriented x 3 time my exam she appears weak and fatigued. She is accompanied by her daughter with whom she lives. 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 HEENT: Normocephalic atraumatic pupils are equal round and reactive to light bilaterally. No scleral icterus no conjunctival injection external auditory canals are patent septum is in the midline nose is without discharge oral mucosa is pink and dry without lesion. NECK: Supple no rigidity no lymphadenopathy no thyromegaly no carotid bruits no JVD no masses. HEART: Regular rate and rhythm I do not appreciate any ectopy or rub. No murmur. LUNGS: Decreased breath sounds in the lower lung munoz. No wheezes. No rales. No rhonchi. ABDOMEN: Soft nontender, no rebound, no peritoneal signs, positive bowel sounds, no appreciable organomegaly. EXTREMITIES: Intact, no peripheral cyanosis, clubbing. The patient has trace pedal edema.. Strength is 5 out of 5 in extremities x4, no pathological reflexes. NEUROLOGICAL: Cranial nerves II through XII are grossly intact with no focal deficit elicited upon examination. Results & Data Results & Data Vital Signs (Past 12 Hours) Vital Signs Temp Pulse Resp BP Pulse Ox O2 Del Method O2 Flow Rate 12/23/24 11:42 97 H 29 H 92 12/23/24 11:32 184/88 H 12/23/24 11:32 184/88 H 12/23/24 11:30 103 H 22 84 L 12/23/24 11:21 85 28 H 89 L 12/23/24 11:15 89 24 88 L 12/23/24 11:03 93 H 22 86 L 12/23/24 11:01 157/63 H 12/23/24 11:01 157/63 H 12/23/24 11:01 157/63 H 12/23/24 11:01 75 20 94 Nasal Cannula 4 12/23/24 10:54 92 H 25 H 94 12/23/24 10:51 91 H 31 H 95 12/23/24 10:50 93 Nasal Cannula 4 12/23/24 10:47 95 H 12/23/24 10:43 36.9 C 88 20 142/60 H 93 Nasal Cannula 4 12/23/24 10:43 Nasal Cannula 4 12/23/24 10:42 96 H 22 94 Code Status & VTE Plan Code Status Full code. I personally discussed with patient at the bedside today VTE Prophylaxis Plan VTE Prophylaxis will be ordered: Yes PG Care Time/CCT Total # of Minutes Spent Total Time Spent with Patient: Total time spent is greater than 50% in coordination of care (as documented) at patient's floor/unit and/or counseling patient: Coding Level of Care Code 21796 INT INP/OBS CARE 3/75MIN Diagnoses Acute hypoxemic respiratory failure J96.01
--- NOTE | 2024-12-23 13:53 | Ultrasound Report ---
BILATERAL LOWER EXTREMITY VENOUS DOPPLER HISTORY: swelling COMPARISON STUDY: None FINDINGS: No evidence of DVT seen in bilateral lower extremities. IMPRESSION: No DVT seen. ACT 112: Negative or not required by law. Electronically signed by: Coleman Andrews M.D. 12/23/2024 1:52 PM
--- NOTE | 2024-12-23 13:59 | CT Scan Report ---
CT OF THE CHEST WITHOUT IV CONTRAST CLINICAL HISTORY: Shortness of breath. Hypoxia. COMPARISON STUDY: Chest CT February 02, 2015. Chest radiograph performed earlier today. TECHNIQUE: Axial images of the chest were obtained without IV contrast. Images were reviewed in the axial, sagittal, and coronal planes. IV contrast was not administered for this examination. Automat ed exposure control was utilized for the study. A dose lowering technique was utilized adhering to t he principles of ALARA. FINDINGS: As before, the thyroid gland is enlarged and contains multiple nodules. Mediastinal and bi lateral hilar lymphadenopathy has developed since CT of February 02, 2015. An index left axillary lymph no de on image 111 of 237 measures 4 x 2.6 cm. A right lower paratracheal lymph node on image 99 measure s 2.1 x 1.5 cm. There is possible bilateral hilar adenopathy, suboptimally assessed on unenhanced exa m. The heart is mildly enlarged. There is moderate coronary calcification. No pericardial effusion is present. There is no pneumothorax. There are moderate to large right and moderate left pleural effus ions. Extensive bilateral lower lobe airspace opacity favors compressive atelectasis. There are also airspace opacities within the lingula, right middle lobe and upper lobe. Groundglass opacities within the aerated portions of the lungs are present. No acute fractures within the bony thorax are present . Mild splenomegaly is unchanged from earlier exams. Please note that the abdomen and pelvis CT will be reported separately. Right shoulder arthroplasty is incidentally noted. IMPRESSION: 1. Moderate to large right and moderate left pleural effusions. Extensive associated lower lobe opaci ties favor compressive atelectasis with near complete opacification of the lower lobes. Pneumonia is considered less likely. 2. Cardiomegaly with pulmonary edema. Moderate coronary artery calcification. 3. Interval development of mediastinal and bilateral axillary lymphadenopathy, as described above. Th is is highly suggestive of a lymphoproliferative disorder such as lymphoma or leukemia. ACT 112: Negative or not required by law. Electronically signed by: Guevara Hull M.D. 12/23/2024 1:58 PM
--- NOTE | 2024-12-23 14:01 | CT Scan Report ---
ABDOMEN AND PELVIS CT WITHOUT CONTRAST CT DOSE: 2273.73 mGy.cm HISTORY: wt loss, pain TECHNIQUE: Multiaxial CT images of the abdomen and pelvis were performed without contrast. A dose lo wering technique was utilized adhering to the principles of ALARA. COMPARISON STUDY: 07/30/2022 FINDINGS: There are interval moderate bilateral pleural effusions with near complete consolidation of the lower lung lobes. There is partially visualized bilateral axillary lymphadenopathy. There are di ffuse coronary artery calcifications. ABDOMEN: There is increased splenomegaly measuring 17 cm. There is stable distal gallbladder wall lucas cification. Liver, and adrenal glands have an unremarkable non-IV contrasted appearance. There is fat ty atrophy of the pancreas. Kidneys show no hydronephrosis. No renal or ureteral calculi. There are m ildly enlarged periaortic, ronn hepatis and right abdominal lymph nodes measuring up to 2 cm series 7 image 197. There are scattered atherosclerotic calcifications. No abdominal aortic aneurysm. Pelvis: There is enlarged bilateral inguinal adenopathy measuring up to 2.5 cm at the right inguinal region. Uterus is absent. No adnexal mass. Urinary bladder is mildly distended. There is sigmoid dive rticulosis. No acute diverticulitis. No balance summation or obstruction. No free fluid or free air. Osseous structures: Stable right hip prosthesis. There is lower lumbar degenerative disc disease. No acute osseous findings. IMPRESSION: 1. Moderate bilateral pleural effusions and lower lobe pulmonary consolidation. 2. Increased splenomegaly and diffuse lymphadenopathy suggests lymphoma. 3. No other acute findings seen. ACT 112: Negative or not required by law. The above report was generated using voice recognition software. It may contain grammatical, syntax o r spelling errors. Electronically signed by: Coleman Andrews M.D. 12/23/2024 2:00 PM
--- NOTE | 2024-12-23 15:27 | XCELERA ---
[id number]
--- NOTE | 2024-12-23 15:58 | Nuclear Medicine Report ---
NM pul perfusion HISTORY: 84 years-old Female Acute hypoxemic respiratory failure COMPARISON: Chest CT 12/23/2024 TECHNIQUE: Nuclear medicine perfusion study was obtained following the intravenous administration of 5.2 mCi technetium 99 MAA FINDINGS: Chest CT obtained same day demonstrates cardiomegaly with dilated pulmonary arteries suggestive of pu lmonary arterial hypertension along with pathologic mediastinal and hilar lymph nodes. Pulmonary chai a with pleural effusions and volume loss/consolidation of the lungs. No large segmental perfusion defects. There is decreased perfusion noted within the lung bases which appears symmetric, likely secondary to the aforementioned pleural effusions with consolidation. IMPRESSION: Low probability for pulmonary embolus. ACT 112: Negative or not required by law. The above report was generated using voice recognition software. It may contain grammatical, syntax o r spelling errors. Electronically signed by: Adam Key M.D. 12/23/2024 3:56 PM
[2024-12-23] MEDS: ATORVASTATIN 10 MG TAB PO SCH (20:11)
[2024-12-23] MEDS: HEPARIN SOD 5,000 UNIT/0.5 ML VIAL SQ SCH (20:15)
[2024-12-23 20:52] LABS: Appearance Urine Clear (Clear); Bacteria Urine Automated 4+ (None Seen); Bilirubin Urine Negative (Negative); Blood Urine Negative (Negative); Cast Urine Automated 0-2 /lpf (0-2); Color Urine Yellow; Epithelial Cell Urine Auto 0-2 /hpf (0-2); Glucose Urine UA Negative (Negative); Ketones Urine Negative (Negative); Leukocyte Esterase Urine Trace (Negative); Nitrite Urine Positive (Negative); Protein Urine Negative (Negative); RBC Urine Automated 0-2 /hpf (0-2); Urobilinogen Urine Negative (Negative); WBC Urine Automated 0-5 /hpf (0-5)
[2024-12-24 07:08] LABS: Basophils # (auto) 0.05 K/uL (0.00-0.20); Basophils % (auto) 0.6 %; Eosinophils # (auto) 0.24 K/uL (0.00-0.50); Eosinophils % (auto) 2.9 %; Hemoglobin 11.8 g/dl (12.0-16.0); Immature Granulocytes # (auto) 0.18 K/uL (0.01-0.20); Immature Granulocytes % (auto) 2.2 %; Lymphocytes # (auto) 0.36 K/uL (1.20-3.40); Lymphocytes % (auto) 4.3 %; Mean Corpuscular Hemoglobin 26.7 pg (25.0-34.0); Mean Corpuscular Hgb Conc 31.1 g/dL (32.0-36.0); Monocytes # (auto) 0.52 K/uL (0.11-0.59); Monocytes % (auto) 6.2 %; Neutrophils # (auto) 7.01 K/uL (1.40-6.50); Neutrophils % (auto) 83.8 %; Platelet Count 260 K/uL (130-400); RDW Coefficient of Variation 16.9 % (11.5-14.5); RDW Standard Deviation 52.7 fL (36.4-46.3); Red Blood Count 4.42 M/uL (4.20-5.40); White Blood Count 8.36 K/ul (4.8-10.8)
[2024-12-24 07:30] LABS: Albumin Globulin Ratio 1.7 (0.9-2); Albumin Level 3.3 gm/dl (3.4-5.0); BUN Creatinine Ratio 29.2 (10-20); Bilirubin,Total 1.4 mg/dl (0.2-1.0); Chol HDL Ratio 4.6 (0-5); Creatinine Clr Calc Pharmacy 35.5 ml/min; Globulin 1.9 gm/dl (2.5-4.0); Magnesium 1.9 mg/dl (1.7-2.4); Total Protein 5.2 gm/dl (6.0-8.3)
[2024-12-24 07:44] LABS: Thyroid Stimulating Hormone 3.885 uIu/ml (0.300-4.500)
[2024-12-24 08:18] LABS: Total Protein Pleural Fluid 3.2 gm/dl
--- NOTE | 2024-12-24 08:21 | Pulmonary Consultation ---
Date of Consultation December 24, 2024 Assessment & Plan (1) Pleural effusion: (2) SOB (shortness of breath): (3) Hypoxia: Plan Impression: 84-year-old female with questionable history of hypersensitivity pneumonitis and restrictive lung disease due to body habitus admitted with shortness of breath, bilateral pleural effusions, and lower extremity edema. BNP was normal and echocardiogram unrevealing. Recommendations: 1. Pleural effusions: Etiology unclear. Recommend sampling pleural fluid for microbiologic, chemical, and cytologic analysis. Follow-up chest x-ray post procedure. 2. Adenopathy: Workup per primary service. 3. Hypoxemia: Suspect related to pleural effusions and compressive atelectasis. Will see how she responds to removal of the pleural fluid. Wean oxygen as tolerated. Thanks for the opportunity participate in care of this patient. Feel free to contact us with questions or concerns. Will continue to follow with you. History of Present Illness Attending Physician: Allison Garcia MD History of Present Illness Asked by hospitalist to assist in evaluation management this patient admitted with bilateral pleural effusions lower extremity edema and shortness of breath. History is obtained from discussion with the patient as well as review of the electronic medical record. Patient is an 84-year-old female is followed in the pulmonary clinic by Dr. House. She has a questionable history of hypersensitivity pneumonitis but is without significant respiratory compromise. She presented to the emergency room yesterday with complaints of shortness of breath which has been increasing and progressive over the last several days. She has experienced some unintentional weight loss. She was seen in her primary care provider's office and noted to be hypoxemic which prompted referral to the emergency room. The patient has noted some swelling in her lower extremities. She denies any fevers, chills, or night sweats. She received 1 dose of Lasix in the emergency room which she states made her feel better this morning. Her swelling is also improved. She is being evaluated for some systemic adenopathy but her cell counts are normal. Allergies Allergy/AdvReac Type Severity Reaction Status Date / Time sulfamethoxazole Allergy Intermediate ITCHING/HIV Verified 08/22/24 10:32 ES levofloxacin Allergy Unknown ITCHING/HIV Verified 08/22/24 10:32 ES morphine AdvReac Severe N/V Verified 08/22/24 10:32 doxycycline AdvReac Intermediate Rash Verified 08/22/24 10:32 Home Medications Medication Instructions Recorded Confirmed Type aspirin 81 mg tablet,delayed 81 mg PO QAM 05/31/19 12/23/24 History release (Aspir-) albuterol sulfate 90 mcg/actuation 1 - 2 puff inhalation Q4H PRN 12/26/20 12/23/24 Rx aerosol inhaler (ProAir HFA) shortness of breath or wheezing #18 grams atorvastatin 10 mg tablet 10 mg PO HS #90 tabs 04/19/24 12/23/24 Rx diltiazem HCl 120 mg 120 mg PO DAILY #90 caps 10/17/24 12/23/24 Rx capsule,extended release 24 hr hydrochlorothiazide 25 mg tablet 25 mg PO DAILY #90 tabs 10/19/24 12/23/24 Rx lisinopril 5 mg tablet 5 mg PO QAM #90 tabs 10/19/24 12/23/24 Rx methimazole 5 mg tablet 5 mg PO DAILY E05.90 12/23/24 12/23/24 History Patient History Medical History Degenerative joint disease of knee Pulmonary nodules DR. DOMINGUEZ MONITORING Asthma STABLE- DOESNT USE INHALERS- FOLLOWS DR. DOMINGUEZ- [facility] Osteoarthritis of right hip Surgical History S/P lymph node biopsy (06/21/19) Hx of lymph node biopsy Hx of surgical procedure History of total knee replacement History of total shoulder replacement History of cataract extraction with lens replacement History of total hip arthroplasty History of colonoscopy History of hysterectomy Family History Denies family history of Ovarian cancer Prostate cancer Myocardial infarction Breast cancer Colorectal cancer Social History Smoking Status: Never smoker Second Hand Exposure: No; Do You Dip or Chew Tobacco: No; Hx Alcohol Use: No Hx Substance Use: No Preferred Language: Wolof Communication Ability: Effective Visual Impairment: No Limitations 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: Normal 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 Handling Equipment Operator Required: No Beliefs That Will Affect Care: Confucianist marital status: / Current Living Situation: Family current occupational status: retired How many Children do You have: 2 Feels Safe at Home: Yes Childhood Exposure to Second-Hand Smoke: Yes Diet: regular Diet Comment: regular caffeine: Yes (Coffee x 1 per day.) during the past year weight has: remained stable Dental Care, Regularly: Yes Physical Activity Frequency: Daily Physical Activity Frequency Comment: walking, gardening Seatbelt Use: always Sunscreen Use: No Assistive Devices: Walker Review of Systems Review of Systems: Please refer to admission H&P. No additions or deletions Physical Exam Constitutional: well developed and well nourished; no acute distress and not ill appearing ENMT: Ears: no external ear abnormality Nose: no external nose abnormality Neck: normal visual inspection Respiratory: + respiratory distress (mild); + abnorma l respiratory effort Auscultation: + diminished lung sounds and + crackles (b/l bases w/ crackles) Decreased breath sounds bilateral lower extremities Cardiovascular: Rate/Rhythm: regular rate and regular rhythm Heart Sounds: normal S1 and normal S2 Extremities: + edema (3+ pitting b/l LE) Musculoskeletal: Extremities: strength 5/5 throughout Skin: no rashes, warm and dry Neurologic: moves all extremities; no focal motor deficits and not confused Speech / Cognition: normal speech Psychiatric: Orientation: alert and oriented x 3 Results & Data Results & Data Vital Signs (Past 12 Hours) Vital Signs Temp Pulse Pulse Resp BP Pulse Ox O2 Del Method 12/24/24 07:59 36.7 C 81 16 105/66 93 Nasal Cannula 12/24/24 02:51 92 H 104/64 12/24/24 02:25 36.9 C 76 16 95/61 L 92 Room Air 12/23/24 23:10 36.8 C 88 16 104/62 91 Nasal Cannula 12/23/24 22:35 90 O2 Flow Rate 12/24/24 07:59 3 12/24/24 02:51 12/24/24 02:25 12/23/24 23:10 3 12/23/24 22:35 Critical Care Results & Data Vital Signs (Past 12 Hours) Vital Signs Temp Pulse Pulse Resp BP Pulse Ox O2 Del Method 12/24/24 07:59 36.7 C 81 16 105/66 93 Nasal Cannula 12/24/24 02:51 92 H 104/64 12/24/24 02:25 36.9 C 76 16 95/61 L 92 Room Air 12/23/24 23:10 36.8 C 88 16 104/62 91 Nasal Cannula 12/23/24 22:35 90 O2 Flow Rate 12/24/24 07:59 3 12/24/24 02:51 12/24/24 02:25 12/23/24 23:10 3 12/23/24 22:35 Lab & Micro Results (Past 24 Hours) RBC 4.42 M/uL (4.20-5.40) 12/24/24 WBC 8.36 K/ul (4.8-10.8) 12/24/24 Hgb 11.8 g/dl (12.0-16.0) L 12/24/24 Hct 38.0 % (37.0-47.0) 12/24/24 MCV 86.0 fL (80.0-100.0) 12/24/24 MCH 26.7 pg (25.0-34.0) 12/24/24 MCHC 31.1 g/dL (32.0-36.0) L 12/24/24 RDW Standard Deviation 52.7 fL (36.4-46.3) H 12/24/24 RDW Coefficient of Variation 16.9 % (11.5-14.5) H 12/24/24 Plt Count 260 K/uL (130-400) 12/24/24 MPV 9.0 fL (9.4-12.4) L 12/24/24 Neutrophils (%) (Auto) 83.8 % 12/24/24 Lymphocytes (%) (Auto) 4.3 % 12/24/24 Monocytes # (Auto) 0.52 K/uL (0.11-0.59) 12/24/24 Eosinophils # (Auto) 0.24 K/uL (0.00-0.50) 12/24/24 Immature Granulocyte % (Auto) 2.2 % 12/24/24 Neutrophils # (Auto) 7.01 K/uL (1.40-6.50) H 12/24/24 Lymphocytes # (Auto) 0.36 K/uL (1.20-3.40) L 12/24/24 Monocytes # (Auto) 0.52 K/uL (0.11-0.59) 12/24/24 Eosinophils # (Auto) 0.24 K/uL (0.00-0.50) 12/24/24 Basophils # (Auto) 0.05 K/uL (0.00-0.20) 12/24/24 Immature Granulocyte # (Auto) 0.18 K/uL (0.01-0.20) 5 Na 135 mmol/L (136-145) L 12/24/24 K 4.0 mmol/L (3.5-5.1) 12/24/24 Cl 100 mmol/L (98-107) 12/24/24 CO2 28 mmol/L (21-32) 12/24/24 Anion Gap 7 (3-11) 12/24/24 BUN 40 mg/dl (6-23) H 12/24/24 Creatinine 1.37 mg/dl (0.6-1.2) H 12/24/24 BUN/Creatinine Ratio 29.2 (10-20) H 12/24/24 Glu 88 mg/dl (70-99(Fasting)) 12/24/24 Ca 9.0 mg/dl (8.6-10.3) 12/24/24 Total Bilirubin 1.4 mg/dl (0.2-1.0) H 12/24/24 AST 14 U/L (13-39) 12/24/24 ALT 8 U/L (7-52) 12/24/24 Alkaline Phosphatase 96 U/L (34-104) 12/24/24 TP 5.2 gm/dl (6.0-8.3) L 12/24/24 Albumin 3.3 gm/dl (3.4-5.0) L 12/24/24 Globulin 1.9 gm/dl (2.5-4.0) L 12/24/24 Albumin/Globulin Ratio 1.7 (0.9-2) 12/24/24 Mg 1.9 mg/dl (1.7-2.4) 12/24/24 06:22 Calcium Level 9.0 mg/dl (8.6-10.3) 12/24/24 06:22 Prothromb Time International Ratio 1.0 (0.9-1.1) 12/23/24 10:3 0 Venous Blood pH 7.39 (7.36-7.41) 12/23/24 11:45 Venous Blood Partial Pressure CO2 42 mmHg (38-50) 12/23/24 11:4 5 Venous Blood Partial Pressure O2 < 20 mmHg 12/23/24 11:45 Venous Blood HCO3 25 mmol/L 12/23/24 11:45 Venous Blood Base Excess 0.3 mEq/L 12/23/24 11:45 Venous Blood Oxygen Saturation < 60.0 % 12/23/24 11:45 Diagnostic Findings (Past 24 Hours) Chest X-Ray 12/23/24 10:59 XR chest 1V portable CLINICAL HISTORY: Dyspnea COMPARISON STUDY: None FINDINGS: There is moderate cardiomegaly with pulmonary vascular congestion. There are moderate bilateral pleural effusions and associated lower lung consolidation. No pneumothorax. IMPRESSION: CHF with bilateral pleural effusions and lower lung consolidation. ACT 112: Negative or not required by law. Electronically signed by: Coleman Andrews M.D. 12/23/2024 11:16 AM Venous Doppler Study 12/23/24 11:55 BILATERAL LOWER EXTREMITY VENOUS DOPPLER HISTORY: swelling COMPARISON STUDY: None FINDINGS: No evidence of DVT seen in bilateral lower extremities. IMPRESSION: No DVT seen. ACT 112: Negative or not required by law. Electronically signed by: Coleman Andrews M.D. 12/23/2024 1:52 PM Abdomen/Pelvis CT 12/23/24 12:[address] WITHOUT CONTRAST CT DOSE: 2273.73 mGy.cm HISTORY: wt loss, pain TECHNIQUE: Multiaxial CT images of the abdomen and pelvis were performed without contrast. A dose lowering technique was utilized adhering to the principles of ALARA. COMPARISON STUDY: 07/30/2022 FINDINGS: There are interval moderate bilateral pleural effusions with near complete consolidation of the lower lung lobes. There is partially visualized bilateral axillary lymphadenopathy. There are diffuse coronary artery calcifications. ABDOMEN: There is increased splenomegaly measuring 17 cm. There is stable distal gallbladder wall calcification. Liver, and adrenal glands have an unremarkable non-IV contrasted appearance. There is fatty atrophy of the pancreas. Kidneys show no hydronephrosis. No renal or ureteral calculi. There are mildly enlarged periaortic, ronn hepatis and right abdominal lymph nodes measuring up to 2 cm series 7 image 197. There are scattered atherosclerotic calcifications. No abdominal aortic aneurysm. Pelvis: There is enlarged bilateral inguinal adenopathy measuring up to 2.5 cm at the right inguinal region. Uterus is absent. No adnexal mass. Urinary bladder is mildly distended. There is sigmoid diverticulosis. No acute diverticulitis. No balance summation or obstruction. No free fluid or free air. Osseous structures: Stable right hip prosthesis. There is lower lumbar degenerative disc disease. No acute osseous findings. IMPRESSION: 1. Moderate bilateral pleural effusions and lower lobe pulmonary consolidation. 2. Increased splenomegaly and diffuse lymphadenopathy suggests lymphoma. 3. No other acute findings seen. ACT 112: Negative or not required by law. The above report was generated using voice recognition software. It may contain grammatical, syntax or spelling errors. Electronically signed by: Coleman Andrews M.D. 12/23/2024 2:[address] 12/23/24 12:53 CT OF THE CHEST WITHOUT IV CONTRAST CLINICAL HISTORY: Shortness of breath. Hypoxia. COMPARISON STUDY: Chest CT February 02, 2015. Chest radiograph performed earlier today. TECHNIQUE: Axial images of the chest were obtained without IV contrast. Images were reviewed in the axial, sagittal, and coronal planes. IV contrast was not administered for this examination. Automated exposure control was utilized for the study. A dose lowering technique was utilized adhering to the principles of ALARA. FINDINGS: As before, the thyroid gland is enlarged and contains multiple nodules. Mediastinal and bilateral hilar lymphadenopathy has developed since CT of February 02, 2015. An index left axillary lymph node on image 111 of 237 measures 4 x 2.6 cm. A right lower paratracheal lymph node on image 99 measures 2.1 x 1.5 cm. There is possible bilateral hilar adenopathy, suboptimally assessed on unenhanced exam. The heart is mildly enlarged. There is moderate coronary calcif ication. No pericardial effusion is present. There is no pneumothorax. There are moderate to large right and moderate left pleural effusions. Extensive bilateral lower lobe airspace opacity favors compressive atelectasis. There are also airspace opacities within the lingula, right middle lobe and upper lobe. Groundglass opacities within the aerated portions of the lungs are present. No acute fractures within the bony thorax are present. Mild splenomegaly is unchanged from earlier exams. Please note that the abdomen and pelvis CT will be reported separately. Right shoulder arthroplasty is incidentally noted. IMPRESSION: 1. Moderate to large right and moderate left pleural effusions. Extensive associated lower lobe opacities favor compressive atelectasis with near complete opacification of the lower lobes. Pneumonia is considered less likely. 2. Cardiomegaly with pulmonary edema. Moderate coronary artery calcification. 3. Interval development of mediastinal and bilateral axillary lymphadenopathy, as described above. This is highly suggestive of a lymphoproliferative disorder such as lymphoma or leukemia. ACT 112: Negative or not required by law. Electronically signed by: Guevara Hull M.D. 12/23/2024 1:58 PM Pulmonary Perfusion Imaging 12/23/24 13:15 NM pul perfusion HISTORY: 84 years-old Female Acute hypoxemic respiratory failure COMPARISON: Chest CT 12/23/2024 TECHNIQUE: Nuclear medicine perfusion study was obtained following the intravenous administration of 5.2 mCi technetium 99 MAA FINDINGS: Chest CT obtained same day demonstrates cardiomegaly with dilated pulmonary arteries suggestive of pulmonary arterial hypertension along with pathologic mediastinal and hilar lymph nodes. Pulmonary edema with pleural effusions and volume loss/consolidation of the lungs. No large segmental perfusion defects. There is decreased perfusion noted within the lung bases which appears symmetric, likely secondary to the aforementioned pleural effusions with consolidation. IMPRESSION: Low probability for pulmonary embolus. ACT 112: Negative or not required by law. The above report was generated using voice recognition software. It may contain grammatical, syntax or spelling errors. Electronically signed by: Adam Key M.D. 12/23/2024 3:56 PM I & O Totals 24 Hours 12/23/24 12/24/24 12/25/24 06:59 06:59 06:59 Intake Total 350 / 350 Output Total 150 / 150 Balance 200 / 200 Cumulative 12/23/24 10:35 thru 12/24/24 05:43 Intake Total 350 Output Total 150 Balance 200 RT Ventilator Mngmt (Last Documented) Ventilator Ordered Settings Respiratory Rate 16 12/24/24 07:59 Ventilator - PT Measurements Respiratory Rate 16 PG Care Time/CCT Total # of Minutes Spent Total Time Spent with Patient: Total time spent is greater than 50% in coordination of care (as documented) at patient's floor/unit and/or counseling patient: Coding Level of Care Code 62765 INT INP/OBS CARE 2/55MIN Diagnoses Pleural effusion J90 SOB (shortness of breath) R06.02 Hypoxia R09.02
[2024-12-24 08:23] LABS: Appearance Pleural Fluid Clear; Color Pleural Fluid Yellow; RBC Pleural Fluid Auto < 2000 /uL; Source Pleural Fluid Right Lung; WBC Pleural Fluid Auto 1399 /uL
--- NOTE | 2024-12-24 08:23 | Procedure Note ---
Procedure Note Date of Service December 24, 2024 Procedure: Diagnostic therapeutic ultrasound-guided catheter thoracentesis, right Product Safety Associate: Dr. Vikas Borjas Indication: Pleural effusion Consent: Signed by patient and verified with timeout prior to procedure Anesthesia: 8 mL's 1% lidocaine without epinephrine local. Procedure: Consent was verified and timeout performed. Appropriate imaging studies were reviewed prior to the procedure. Patient was placed in a seated position and limited thoracic ultrasound was performed of the bilateral chest. Bilateral pleural effusions with compressive atelectasis were noted. The right was slightly larger. Site on the right appropriate for thoracentesis was selected. The skin was prepped and draped in normal sterile fashion. Lidocaine was used for local analgesia. Fluid was aspirated via the finder needle under direct ultrasound visualization. A small skin mary was made with the scalpel and the catheter over the needle apparatus was advanced over the rib into the pleural space. Using the syringe one-way valve system, a total of 1300 mL's of yell ow/green turbid fluid was removed. Procedure was terminated due to patient experiencing some shortness of breath. The catheter was removed and observed to be intact. A sterile dressing was applied. Post procedure chest x-ray was ordered. Fluid was sent for cytology, cell count differential, Gram stain and culture, LDH, pH, glucose, total protein. The patient tolerated the procedure well without obvious complication [facility] Procedure Codes (Charges) Pulmonary/Thoracic Procedure 1: Pulmonary and Thoracic: 07586 Thoracentesis w imaging Coding CPT Codes Pulmonary/Thoracic - Pulmonary and Thoracic: 22062 Thoracentesis w imaging ([id number]) Additional Codes Date of Service ([facility].SURGERY)
--- NOTE | 2024-12-24 08:31 | XRay Report ---
Technique: 2 frontal views of the chest were obtained Comparison is made to the prior examination dated 02/03/2018 Findings: There is diffuse interstitial prominence, concerning for pulmonary edema. There is new cardiomegaly. No definite pneumothorax is seen. There is a moderate sized left pleural effusion and there is a small right pleural effusion A right shoulder arthroplasty is again seen Impression: 1. Cardiomegaly and pulmonary edema 2. Left larger than right pleural effusions ACT 112: Positive. There are findings on this exam that require communication between the performing entity and the patient following Patient Test Result Information Act ([place] ACT 112) guidelines. Electronically signed by Silvesrte Jamison 12-24-2024 08:31 AM
[2024-12-24] MEDS: dilTIAZem HCL 120 MG CAPCR PO SCH (09:12)
[2024-12-24] MEDS: methIMAzole 5 MG TABLET PO SCH (09:12)
[2024-12-24] MEDS: ASPIRIN 81 MG ECTAB PO SCH (09:13)
[2024-12-24 09:45] LABS: Eosinophils, Fluid 2 %; Lymphocytes, Fluid 42 %; Mono,Macrophage,Mesothelial 41 %; Neutrophils, Fluid 15 %
--- NOTE | 2024-12-24 11:58 | Hospitalist Progress Note ---
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 She was initially thought to have heart failure, and found to have large right greater than left pleural effusions on CXR, but also found to have diffuse lymphadenopathy on CT of chest/abdomen/pelvis. She was hypoxic on admission with pulse ox 84% requiring 4L NC O2. #Acute hypoxemic respiratory failure/Bilateral pleural effusions. CXR with b ilateral pleural effusions with possible consolidations and suspected CHF. Chest CT without contrast (due to TRAVIS) shows moderate to large right and moderate left pleural effusions, compressive atelectasis, pulmonary edema, mediastinal and bilateral axillary lymphadenopathy. BNP normal, echocardiogram normal. She has had poor appetite with unintentional weight loss. She had 60 mg of IV Lasix x 1 in the ER and lower extremity edema is improved but remains. D-dimer is positive but VQ scan low probability for PE. Findings suspicious for lymphoma - Consult pulmonology appreciated-s/p right sided thoracentesis with 1300 mL of exudative effusion on 12/24, pH not consistent with empyema - Await further pleural fluid studies to include cytology, culture, AFB - Continue supplemental O2 to keep pulse ox greater than 88% - Add incentive spirometry #Diffuse lymphadenopathy/unintentional weight loss-she has had a 30 pounds over the last 3-1/2 to 4 months. Concern for possible occult malignancy. CT of the C/A/P with hilar and mediastinal adenopathy, axillary and inguinal and intra- abdominal lymphadenopathy as well as splenomegaly and moderate pleural effusions. She has a history of previous right axillary lymphadenopathy in 2019 biopsied and showed a small abnormal B-cell population on flow cytometry-seen by hematology/oncology at that time and thought possible indolent lymphoma-no treatment needed. Now with diffuse lymphadenopathy and pleural effusions, suspect progressive lymphoma. LDH upper limit of normal at 231. - Await cytology from pleural fluid - Plan for IR guided FNA biopsy of left axillary lymph node on Thursday - Discontinue aspirin for biopsy (and likely aspirin not needed anyway) - Consult oncology after biopsy results if shows/confirms malignancy - Follow CBC #TRAVIS ON CKD stage III/UTI-creatinine 1.62 on arrival with baseline 1.3. CT A/P without obstruction. Possible poor p.o. intake but also on HCTZ and lisinopril as an outpatient. UA shows evidence of UTI but she has no urinary symptoms. Given likely immunosuppression with possible lymphoma, will treat for UTI. Creatinine now improved back to baseline at 1.3 after holding lisinopril and HCTZ. - Start Keflex 500 mg p.o. twice daily x 3 days for UTI - Follow urine culture - Continue to hold HCTZ and lisinopril - Follow BMP #Positive [id number] D-dimer but VQ scan negative. Doppler of bilateral lower extremities negative for DVT despite edema - Add FUENTES hose - SQ heparin for DVT prophylaxis and hold for FNA on Thursday of axillary lymph node #Hyperthyroidism -TSH here is normal at 3.8 - Continue home methimazole #HTN-BPs are normal - Hold home lisinopril and HCTZ Z given TRAVIS #HLD-continue statin DVT prophylaxis-SQ heparin Disposition-continued stay Admission and Anticipated Discharge Date Admission Date: December 23, 2024 Subjective Patient reports still feeling short of breath with exertion but a little bit better since had thoracentesis this morning. No chest pain. She has had weight loss but attributes it to all food tasting poorly for the last few months and she had an allergic reaction to doxycycline. She reports the swelling in her legs is much improved since yesterday Telemetry with normal sinus rhythm and PVCs with rates in the 80s to 90s Physical Exam Constitutional: WD/WN, vitals as above Respiratory: normal respiratory effort; no cough Auscultation: + diminished lung sounds (At left base) and + crackles (At right base); no rhonchi and no wheezes Cardiovascular: Rate/Rhythm: regular rate and regular rhythm Extremities: + edema (2+ pitting edema of the legs to the knees bilaterally) Gastrointestinal (Abdomen): normal bowel sounds, soft, nontender, no hepatosplenomegaly Psychiatric: A+Ox3, euthymic affect Lymphatic: + lymphadenopathy (Palpable left axillar y and inguinal bilateral) Results & Data Results & Data Vital Signs (Past 12 Hours) Vital Signs Temp Pulse Pulse Resp BP Pulse Ox Pulse Ox 12/24/24 11:56 91 12/24/24 11:31 36.9 C 89 18 92/60 L 91 12/24/24 11:04 92 12/24/24 10:51 87 L 12/24/24 09:12 12/24/24 07:59 36.7 C 81 16 105/66 93 12/24/24 06:45 87 12/24/24 02:51 92 H 104/64 12/24/24 02:25 36.9 C 76 16 95/61 L 92 O2 Del Method O2 Del Method O2 Flow Rate O2 Flow Rate 12/24/24 11:56 Nasal Cannula 1 12/24/24 11:31 Nasal Cannula 3 12/24/24 11:04 Nasal Cannula 2 12/24/24 10:51 Room Air 12/24/24 09:12 Room Air 12/24/24 07:59 Nasal Cannula 3 12/24/24 06:45 12/24/24 02:51 12/24/24 02:25 Room Air Laboratory Results CBC, BMP, LFTs, pleural fluid cell counts, pH, protein and LDH reviewed Diagnostic Findings Chest x-ray 12/24 reviewed PG Care Time/CCT Total # of Minutes Spent Total Time Spent with Patient: Total time spent is greater than 50% in coordination of care (as documented) at patient's floor/unit and/or counseling patient: Coding Level of Care Code 47905 SUB INP/OBS CARE 3/50MIN Diagnoses Acute hypoxemic respiratory failure J96.01 Pleural effusion J90 Diffuse lymphadenopathy R59.1 UTI (urinary tract infection) N39.0
[2024-12-24] MEDS: cephALEXin 500 MG CAP PO SCH (13:22)
[2024-12-25 06:44] LABS: Basophils # (auto) 0.05 K/uL (0.00-0.20); Basophils % (auto) 0.6 %; Eosinophils # (auto) 0.22 K/uL (0.00-0.50); Eosinophils % (auto) 2.7 %; Hemoglobin 11.5 g/dl (12.0-16.0); Immature Granulocytes # (auto) 0.17 K/uL (0.01-0.20); Immature Granulocytes % (auto) 2.1 %; Lymphocytes # (auto) 0.37 K/uL (1.20-3.40); Lymphocytes % (auto) 4.5 %; Mean Corpuscular Hemoglobin 26.6 pg (25.0-34.0); Mean Corpuscular Hgb Conc 31.1 g/dL (32.0-36.0); Mean Corpuscular Volume 85.6 fL (80.0-100.0); Mean Platelet Volume 9.1 fL (9.4-12.4); Monocytes # (auto) 0.49 K/uL (0.11-0.59); Neutrophils # (auto) 6.93 K/uL (1.40-6.50); Neutrophils % (auto) 84.1 %; Platelet Count 226 K/uL (130-400); RDW Coefficient of Variation 16.9 % (11.5-14.5); Red Blood Count 4.32 M/uL (4.20-5.40); White Blood Count 8.23 K/ul (4.8-10.8)
[2024-12-25 07:10] LABS: BUN Creatinine Ratio 32.5 (10-20); Calcium 8.7 mg/dl (8.6-10.3); Creatinine Clr Calc Pharmacy 37.8 ml/min; Potassium 4.3 mmol/L (3.5-5.1)
--- NOTE | 2024-12-25 08:23 | Pulmonology Progress Note ---
Date of Service December 25, 2024 Assessment & Plan (1) Pleural effusion: (2) SOB (shortness of breath): (3) Hypoxia: Plan Impression: 84-year-old female with questionable history of hypersensitivity pneumonitis and restrictive lung disease due to body habitus admitted with shortness of breath, bilateral pleural effusions, and lower extremity edema. BNP was normal and echocardiogram unrevealing. She underwent thoracentesis on Thursday with nonspecific borderline exudative pleural fluid. Cytology pending Recommendations: 1. Pleural effusions: Await cytology from pleural fluid. She did not have significant clinical benefit with regards to her shortness of breath so would defer sampling the other side. Radiology can be contacted if needed. 2. Adenopathy: Workup per primary service. 3. Hypoxemia: Suspect related to pleural effusions and compressive atelectasis. Will see how she responds to removal of the pleural fluid. Wean oxygen as tolerated. Thanks for the opportunity participate in care of this patient. Feel free to contact us with questions or concerns. Will continue to follow with you. Admission and Anticipated Discharge Date Admission Date: December 23, 2024 Subjective Patient seen and examined. EMR reviewed. Patient continues to feel short of breath. She is unclear if she had any significant improvement after the thoracentesis yesterday. She is having occasional twinge of pain at the thoracentesis site but overall is doing relatively well. She denies fevers chills or night sweats. Review of Systems 2 Review of Systems: All systems reviewed & are unremarkable except as noted in Subjective Physical Exam 2 Constitutional: well developed and well nourished; no acute distress and not ill appearing ENMT: Ears: no external ear abnormality Nose: no external nose abnormality Neck: normal visual inspection Respiratory: + respiratory distress (mild); + abnorma l respiratory effort A uscultation: + diminished lung sounds and + crackles (b/l bases w/ crackles) Cardiovascular: Rate/Rhythm: regular rate and regular rhythm Heart Sounds: normal S1 and normal S2 Extremities: + edema (3+ pitting b/l LE) Musculoskeletal: Extremities: strength 5/5 throughout Skin: no rashes, warm and dry Neurologic: moves all extremities; no focal motor deficits and not confused Speech / Cognition: normal speech Psychiatric: Orientation: alert and oriented x 3 Results & Data Results & Data Vital Signs (Past 12 Hours) Vital Signs Temp Pulse Pulse Resp BP BP Pulse Ox 12/25/24 08:18 12/25/24 08:02 93 12/25/24 07:55 77 104/65 90/55 L 12/25/24 07:46 36.5 C 78 18 88/54 L 93 12/25/24 06:45 77 12/25/24 04:00 36.9 C 76 20 102/62 93 12/24/24 23:00 36.8 C 70 18 102/64 92 12/24/24 22:00 87 O2 Del Method O2 Flow Rate 12/25/24 08:18 Nasal Cannula 1 12/25/24 08:02 Nasal Cannula 2 12/25/24 07:55 12/25/24 07:46 Nasal Cannula 2 12/25/24 06:45 12/25/24 04:00 Nasal Cannula 2 12/24/24 23:00 Nasal Cannula 2 12/24/24 22:00 Laboratory Results 12/25/24 06:21 12/25/24 06:21 Pleural fluid studies: Differential: 50% neutrophils, 42% lymphocytes, 2% eosinophils, 41% mesothelial cells pH 7.46 Total protein 3.2 LDH 151 Glucose 96 Amylase 20 Cytology pending Gram stain and culture with moderate mononucleated cells and no organisms. AFB stain and culture pending Diagnostic Findings Postthoracentesis chest x-ray was independently reviewed. Improved aeration on the right. Persistent pleural fluid on the left. PG Care Time/CCT Total # of Minutes Spent Total Time Spent with Patient: Total time spent is greater than 50% in coordination of care (as documented) at patient's floor/unit and/or counseling patient: Coding Level of Care Code 95717 SUB INP/OBS CARE 2/35MIN Diagnoses Pleural effusion J90 SOB (shortness of breath) R06.02 Hypoxia R09.02
--- NOTE | 2024-12-25 08:36 | Hospitalist Progress Note ---
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 She was initially thought to have CHF and found to have large R>L pleural effusions on CXR, but also found to have diffuse lymphadenopathy on CT of C/A/P. She was hypoxic on admission with pulse ox 84% requiring 4L NC O2. #Acute hypoxemic respiratory failure/Bilateral pleural effusions. CXR with bilateral pleural effusions with possible consolidations and suspected CHF. Chest CT without contrast (due to TRAVIS) shows moderate to large right and moderate left pleural effusions, compressive atelectasis, pulmonary edema, mediastinal and bilateral axillary lymphadenopathy. BNP normal, echocardiogram normal. She has had poor appetite with unintentional weight loss. She had 60 mg of IV Lasix x 1 in the ER and lower extremity edema is improved but remains. D-dimer is positive but VQ scan low probability for PE. Findings suspicious for lymphoma With increased work of breathing AM of 12/25 - Consult pulmonology appreciated-s/p right sided thoracentesis with 1300 mL of exudative effusion on 12/24, pH not consistent with empyema - f/u pending pleural fluid studies to include cytology, culture, AFB - Continue supplemental O2 to keep pulse ox greater than 88%-wean off as able - continue incentive spirometry -check repeat CXR 12/25, may need left side thoracentesis if dyspnea and hypoxemia not improving #Diffuse lymphadenopathy/unintentional weight loss-she has had a 30 pounds over the last 3-1/2 to 4 months. Concern for possible occult malignancy. CT of the C/A/P with hilar and mediastinal adenopathy, axillary and inguinal and intra- abdominal lymphadenopathy as well as splenomegaly and moderate pleural effusions. She has a history of previous right axillary lymphadenopathy in 2019 biopsied and showed a small abnormal B-cell population on flow cytometry-seen by hematology/oncology at that time and thought possible indolent lymphoma-no treatment needed. Now with diffuse lymphadenopathy and pleural effusions, suspect progressive lymphoma. LDH upper limit of normal at 231. - Await cytology from pleural fluid-hopefully on Thursday - Plan for IR guided FNA biopsy of left axillary lymph node on Thursday - Discontinued aspirin for biopsy (and likely aspirin not needed anyway) - Consult oncology after biopsy results if shows/confirms malignancy-of note, followed previously with Dr. Storm but she prefers to stay in [facility] system now so would refer to Dr. Villa/Mcclelland - Follow CBC #TRAVIS ON CKD stage III/UTI-creatinine 1.62 on arrival with baseline 1.3. CT A/P without obstruction. Possible poor p.o. intake but also on HCTZ and lisinopril as an outpatient. UA shows evidence of UTI but she has no urinary symptoms. Given likely immunosuppression with possible lymphoma, will treat for UTI. Creatinine now improved back to baseline at 1.2 after holding lisinopril and HCTZ. - Continue Keflex 500 mg p.o. twice daily x 3 days for UTI-last dose evening of 12/26 - Follow urine culture-E. coli, sens pending - Continue to hold HCTZ and lisinopril, but with peripheral edema, may resume HCTZ if BP can handle - Follow BMP #HTN-BPs are hypotensive on AM of 12/25 but then improved on own -Hold home lisinopril and HCTZ given TRAVIS -continue diltiazem w/ hold parameters #Positive [id number] D-dimer but VQ scan negative. Doppler of bilateral lower extremities negative for DVT despite edema - Added FUENTES hose and edema improving - SQ heparin for DVT prophylaxis and hold for FNA on Thursday of axillary lymph no de -will likely resume home HCTZ in 1-2 days #Ageusia/Anosmia-ongoing since she had an allergic reaction to doxy in 07/2024 (was prescribed for ongoing cough x 10 days). No testing for COVID done at that tie but pt reports she had COVID in 2019 and again 02/2024. -trial of FLonase -consider brain MRI once more stable from pulm standpoint #Hyperthyroidism -TSH here is normal at 3.8 - Continue home methimazole #HLD-continue statin DVT prophylaxis-SQ heparin-placed on hold for Thu AM prior to LN biopsy Disposition-continued stay on med tele , placed PT/OT evals to see if will need rehab stay Admission and Anticipated Discharge Date Admission Date: December 23, 2024 Subjective Pt feeling more SOB today, no chest pain. Leg swelling improved. Is frustrated that she cannot taste or smell since 07/2024. Tele with NSR, PVCs, rates 70-90s, some bigeminy Physical Exam Constitutional: WD/WN, vitals as above Respiratory: normal respiratory effort; no cough Auscultation: + diminished lung sounds (bibaslar) and + crackles (At right base); no rhonchi and no wheezes Cardiovascular: Rate/Rhythm: regular rate and regular rhythm Extremities: + edema (trace+ pitting edema of the ankles-much improved) Gastrointestinal (Abdomen): normal bowel sounds, soft, nontender, no hepatosplenomegaly Psychiatric: A+Ox3, euthymic affect Results & Data Results & Data Vital Signs (Past 12 Hours) Vital Signs Temp Pulse Pulse Resp BP BP Pulse Ox 12/25/24 08:18 12/25/24 08:02 93 12/25/24 07:55 77 104/65 90/55 L 12/25/24 07:46 36.5 C 78 18 88/54 L 93 12/25/24 06:45 77 12/25/24 04:00 36.9 C 76 20 102/62 93 12/24/24 23:00 36.8 C 70 18 102/64 92 12/24/24 22:00 87 O2 Del Method O2 Flow Rate 12/25/24 08:18 Nasal Cannula 1 12/25/24 08:02 Nasal Cannula 2 12/25/24 07:55 12/25/24 07:46 Nasal Cannula 2 12/25/24 06:45 12/25/24 04:00 Nasal Cannula 2 12/24/24 23:00 Nasal Cannula 2 12/24/24 22:00 Laboratory Results CBC, BMP reviewed Pleural fluid cxs reviewed PG Care Time/CCT Total # of Minutes Spent Total Time Spent with Patient: Total time spent is greater than 50% in coordination of care (as documented) at patient's floor/unit and/or counseling patient: Coding Level of Care Code 96301 SUB INP/OBS CARE 3/50MIN Diagnoses Acute hypoxemic respiratory failure J96.01 Pleural effusion J90 Diffuse lymphadenopathy R59.1 UTI (urinary tract infection) N39.0
[2024-12-25] MEDS: FLUTICASONE PROPIONATE NA SPR 16 GM BTL SCH (09:49)
--- NOTE | 2024-12-25 10:05 | XRay Report ---
EXAM: Radiograph of the Chest 1 View INDICATION: Hypoxia TECHNIQUE: Frontal view of the chest. COMPARISON: 12/24/2024 FINDINGS: Lungs and pleural spaces: Stable small pleural effusions and basilar airspace consolidation left greater than right. No pneumothorax. Heart: Stable large cardiac shadow. Mediastinum: Normal contour. Bones/joints: Degenerative changes noted throughout the spine. No acute osseous abnormality seen. Soft tissues: No abnormality noted. No radiopaque foreign body noted. Upper abdomen: No abnormality noted. IMPRESSION: Stable abnormalities as above. ACT 112: N/A Electronically signed by Kailey Carias 12-25-2024 10:05 AM
[2024-12-26 06:11] LABS: Basophils # (auto) 0.05 K/uL (0.00-0.20); Basophils % (auto) 0.6 %; Eosinophils # (auto) 0.31 K/uL (0.00-0.50); Eosinophils % (auto) 3.9 %; Hematocrit (blood only) 34.3 % (37.0-47.0); Hemoglobin 10.9 g/dl (12.0-16.0); Immature Granulocytes # (auto) 0.15 K/uL (0.01-0.20); Immature Granulocytes % (auto) 1.9 %; Lymphocytes # (auto) 0.37 K/uL (1.20-3.40); Lymphocytes % (auto) 4.6 %; Mean Corpuscular Hemoglobin 26.9 pg (25.0-34.0); Mean Corpuscular Hgb Conc 31.8 g/dL (32.0-36.0); Mean Corpuscular Volume 84.7 fL (80.0-100.0); Mean Platelet Volume 9.1 fL (9.4-12.4); Monocytes # (auto) 0.53 K/uL (0.11-0.59); Monocytes % (auto) 6.7 %; Neutrophils # (auto) 6.55 K/uL (1.40-6.50); Neutrophils % (auto) 82.3 %; Platelet Count 247 K/uL (130-400); RDW Coefficient of Variation 16.5 % (11.5-14.5); RDW Standard Deviation 51.3 fL (36.4-46.3); Red Blood Count 4.05 M/uL (4.20-5.40); White Blood Count 7.96 K/ul (4.8-10.8)
[2024-12-26 06:29] LABS: Albumin Globulin Ratio 1.6 (0.9-2); Albumin Level 2.8 gm/dl (3.4-5.0); BUN Creatinine Ratio 32.2 (10-20); Bilirubin,Total 1.2 mg/dl (0.2-1.0); Calcium 8.6 mg/dl (8.6-10.3); Creatinine Clr Calc Pharmacy 40.3 ml/min; Globulin 1.7 gm/dl (2.5-4.0); Potassium 4.1 mmol/L (3.5-5.1); Total Protein 4.5 gm/dl (6.0-8.3)
--- NOTE | 2024-12-26 08:46 | Hospitalist Progress Note ---
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 She was initially thought to have CHF and found to have large R>L pleural effusions on CXR, but also found to have diffuse lymphadenopathy on CT of C/A/P. She was hypoxic on admission with pulse ox 84% requiring 4L NC O2. #Acute hypoxemic respiratory failure/Bilateral pleural effusions. CXR with bilateral pleural effusions with possible consolidations and suspected CHF. Chest CT without contrast (due to TRAVIS) shows moderate to large right and moderate left pleural effusions, mediastinal and bilateral axillary lymphadenopathy. echocardiogram normal as cause for effusions. She has had poor appetite with unintentional weight loss. - Consult pulmonology appreciated-s/p right sided thoracentesis with 1300 mL of exudative effusion on 12/24, pH not consistent with empyema anticipate left sided thoracentesis 12/27 - f/u pending pleural fluid studies to include cytology, culture, AFB - continue incentive spirometry -check repeat CXR 12/25, still shows left sided effusion #Diffuse lymphadenopathy/unintentional weight loss-she has had a 30 pounds over the last 3-1/2 to 4 months. Concern for possible occult malignancy. CT of the C/A/P with hilar and mediastinal adenopathy, axillary and inguinal and intra- abdominal lymphadenopathy as well as splenomegaly and moderate pleural effusions. She has a history of previous right axillary lymphadenopathy in 2019 biopsied and showed a small abnormal B-cell population on flow cytometry-seen by hematology/oncology at that time and thought possible indolent lymphoma-no treatment needed. Now with diffuse lymphadenopathy and pleural effusions, suspect progressive lymphoma. LDH upper limit of normal at 231. - Await cytology from pleural fluid- - IR guided FNA biopsy of left axillary lymph node on Thursday - Discontinued aspirin for biopsy (and likely aspirin not needed anyway) - Consult oncology after biopsy results if shows/confirms malignancy-of note, followed previously with Dr. Storm but she prefers to stay in [facility] system now so would refer to Dr. Villa/Everardo #TRAVIS ON CKD stage III/UTI-resolved CT A/P without obstruction. Possible poor p.o. intake but also on HCTZ and lisinopril as an outpatient. UA shows evidence of UTI but she has no urinary symptoms. Given likely immunosuppression with possible lymphoma, will treat for UTI. - Follow urine culture-E. coli, resistant to Cefazolin, change to cefdinir po - Continue to hold HCTZ and lisinopril, but with peripheral edema, consider resuming diuretic for symptomatic edema control #HTN-BPs are hypotensive on AM of 12/25 but then improved on own -Hold home lisinopril and HCTZ given TRAVIS -continue diltiazem w/ hold parameters #Ageusia/Anosmia-ongoing since she had an allergic reaction to doxy in 07/2024 (was prescribed for ongoing cough x 10 days). No testing for COVID done at that tie but pt reports she had COVID in 2019 and again 02/2024. -trial of FLonase -consider brain MRI once more stable from pulm standpoint #Hyperthyroidism -TSH here is normal at 3.8 - Continue home methimazole DVT prophylaxis-SQ heparin-placed on hold for Mon AM prior to LN biopsy PT/OT evals suggest possible need for rehab stay Admission and Anticipated Discharge Date Admission Date: December 23, 2024 Subjective pt is a bit disappointed about needing oxygen tolerated LN biopsy well for left thoracentesis 12/27/24 Physical Exam Physical Exam: pt is pleasant, left lower lung without breath sounds cardiac is regular bandaid on LN on axilla Results & Data Results & Data Vital Signs (Past 12 Hours) Vital Signs Temp Pulse Pulse Resp BP BP Pulse Ox 12/26/24 07:38 98.4 F 74 20 110/62 93 12/26/24 07:16 76 12/26/24 03:16 97.9 F 82 12 106/65 91 12/25/24 23:00 98.2 F 74 18 102/68 89 L 12/25/24 22:28 83 12/25/24 21:20 O2 Del Method O2 Flow Rate 12/26/24 07:38 Nasal Cannula 3 12/26/24 07:16 12/26/24 03:16 Nasal Cannula 3 12/25/24 23:00 Nasal Cannula 2 12/25/24 22:28 12/25/24 21:20 Nasal Cannula 2 Laboratory Results review cbc review chemistry PG Care Time/CCT Total # of Minutes Spent Total Time Spent with Patient: Total time spent is greater than 50% in coordination of care (as documented) at patient's floor/unit and/or counseling patient: Coding Level of Care Code 14160 SUB INP/OBS CARE 3/50MIN Diagnoses Acute hypoxemic respiratory failure J96.01 Pleural effusion J90 Diffuse lymphadenopathy R59.1 UTI (urinary tract infection) N39.0
[2024-12-26] MEDS: CEFDINIR 300 MG CAP PO SCH (09:47)
--- NOTE | 2024-12-26 12:04 | Pulmonology Progress Note ---
Date of Service December 26, 2024 Assessment & Plan (1) Pleural effusion: (2) SOB (shortness of breath): (3) Hypoxia: Plan Impression: 84-year-old female with questionable history of hypersensitivity pneumonitis and restrictive lung disease due to body habitus admitted with shortness of breath, bilateral pleural effusions, and lower extremity edema. BNP was normal and echocardiogram unrevealing. She underwent thoracentesis on Thursday with nonspecific borderline exudative pleural fluid. Cytology pending CT chest 12/23/2024 personally reviewed: Large bilateral pleural effusion Compressive atelectasis of bilateral lower lobe High probability of EDAC Significant mediastinal lymphadenopathy, especially station 4R Cardiomegaly 2D echo 12/23/2024: EF 60-65%, RV not well-visualized -- Acute hypoxic respiratory failure Secondary to large bilateral pleural effusion BNP 51 TSH within normal limit Respiratory BioFire negative for everything on 12/24/2019 S/p right-sided thoracentesis 12/24/[address] Borjas, 1300 mL fluid removed Exudative as per lights criteria looking at the protein as well as LDH, pH 7.46 Cytology showed rare atypical cells present, not enough to make a diagnosis. -- Generalized adenopathy For biopsy today Primary service working on it --Restrictive lung disease Mild TLC 71% with DLCO 100% with severe decrease in ERV Likely coming from obesity Advised to lose with diet and exercise Patient does have incentive spirometry at home. Advised her to use it every couple of hours --Exertional shortness of breath I think it is mostly coming from deconditioning and BMI of 39.8 I do not think patient has asthma Patient has been diagnosed with asthma/reactive airway disease back [place] [address] Lubin. She is on as needed albuterol not using it on a daily basis. I had given patient sample of Breo 100-25 MCG, 1 puff to be used on a daily basis. But she did not find any significant benefit from it PFTs 03/28/2021: Mild restrictive lung disease with normal DLCO, severe decrease in ERV, no obstruction, insignificant bronchodilator response FVC 2.34 L 75%, FEV1 1.99 L 88%, FEV1/FVC 85%, RV 67%, TLC 71%, RV/TLC 91%, ERV 27%, DLCO 100% Plan: Chest x-ray 12/25/2024 personally reviewed, still shows large left-sided pleural effusion, small right-sided pleural effusion, increased cardiac silhouette For thoracentesis tomorrow, case discussed with IR. Patient will benefit from BiPAP nightly and as needed shortness of breath Continue with diuretics to keep the patient negative balance Recommend strict monitoring of urine output I spent more than 50 minutes in looking at the chart, getting signout from outgoing crystal machining coordinator, discussing with primary team, IR as well as RN Please note the above document was generated using voice recognition software. It may contain grammatical, syntax or spelling errors.Any formal questions or concerns about the content, text or information contained within the body of this dictation should be directly addressed to the provider for clarification. Admission and Anticipated Discharge Date Admission Date: December 23, 2024 Subjective Patient seen distress, events overnight this was discussed with outgoing crystal machining coordinator She was saturating 92-93% on 3 L nasal cannula at rest Denied any chest pain She just came back from the biopsy of the left side of her axillary lymph node Patient is known to me as outpatient. I saw her last in the clinic on 09/09/2022 Lifetime non-smoker Review of Systems 2 Review of Systems: All systems reviewed & are unremarkable except as noted in Subjective Physical Exam 2 Physical Exam: Constitutional: No acute distress HEENT: EOMI, PERRLA Respiratory system: Decreased air entry bilaterally, more decreased on the left side, positive right lower lobe crackles, no wheeze, no rhonchi CVS: S1-S2 positive, positive 2 out of 6 systolic murmur appreciated best at aorta Abdomen: Soft, nontender, nondistended, positive bowel sounds x4, obese Extremities: +2 pulses bilaterally radialis/ dorsalis pedis, no cyanosis, +1 pitting edema bilateral lower extremity Neuro: Awake alert oriented x3 Psych: Normal mood and affect G/U: Positive Miller Skin: no rashes, warm and dry Lymphatic: no cervical or axillary lymphadenopathy Results & Data Results & Data Vital Signs (Past 12 Hours) Vital Signs Temp Pulse Pulse Resp BP Pulse Ox O2 Del Method 12/26/24 10:56 Nasal Cannula 12/26/24 07:38 36.9 C 74 20 110/62 93 Nasal Cannula 12/26/24 07:16 76 12/26/24 03:16 36.6 C 82 12 106/65 91 Nasal Cannula O2 Flow Rate 12/26/24 10:56 3 12/26/24 07:38 3 12/26/24 07:16 12/26/24 03:16 3 Laboratory Results 12/26/24 05:46 12/26/24 05:46 PG Care Time/CCT Total # of Minutes Spent Total Time Spent with Patient: Total time spent is greater than 50% in coordination of care (as documented) at patient's floor/unit and/or counseling patient: Coding Level of Care Code 43163 SUB INP/OBS CARE 3/50MIN Diagnoses Pleural effusion J90 SOB (shortness of breath) R06.02 Hypoxia R09.02
[2024-12-26] MEDS: MAGNESIUM SULFATE / D5W 1 GM/100 ML BAG IV ONE (14:33)
--- NOTE | 2024-12-26 14:41 | Ultrasound Report ---
Ultrasound-guided left axillary lymph node core biopsy INDICATION: Lymphadenopathy PROCEDURE: Procedure and risks were explained. Informed consent was obtained. A final timeout was com pleted. The left axilla was prepped and draped in a sterile fashion. 1% lidocaine was utilized for sk in anesthesia. Utilizing ultrasound guidance, an 18-gauge core biopsy needle was advanced into the enlarged left axi llary lymph node. Ultrasound images were obtained. 3 cores were obtained and given to the pathologist for review. The patient tolerated the procedure well. IMPRESSION: Left axillary lymph node core biopsy as above. Performed, dictated, and signed by Ronnie Wray PA-C; to be co-signed by Dr. Guevara Hull. Electronically signed by: Guevara Hull M.D. 12/26/2024 2:51 PM
--- NOTE | 2024-12-27 08:03 | Hospitalist Progress Note ---
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 She was initially thought to have CHF and found to have large R>L pleural effusions on CXR, but also found to have diffuse lymphadenopathy on CT of C/A/P. She was hypoxic on admission with pulse ox 84% requiring 4L NC O2. #Acute hypoxemic respiratory failure/Bilateral pleural effusions. CXR with bilateral pleural effusions with possible consolidations and suspected CHF. Chest CT without contrast (due to TRAVIS) did show moderate to large right and moderate left pleural effusions, mediastinal and bilateral axillary lymphadenopathy. echocardiogram normal so doubt hf cause for effusions. She has had poor appetite with unintentional weight loss. - Consult pulmonology appreciated-s/p right sided thoracentesis with 1300 mL of exudative effusion on 12/24, pH not consistent with empyema, cytology suggests suspicious atypical cells but cannot identify, pending LN biopsy results anticipate left sided thoracentesis 12/27 900ml removed - continue incentive spirometry #Diffuse lymphadenopathy/unintentional weight loss-she has had a 30 pounds over the last 3-1/2 to 4 months. Concern for possible occult malignancy. CT of the C/A/P with hilar and mediastinal adenopathy, axillary and inguinal and intra- abdominal lymphadenopathy as well as splenomegaly and moderate pleural effusions. She has a history of previous right axillary lymphadenopathy in 2019 biopsied and showed a small abnormal B-cell population on flow cytometry-seen by hematology/oncology at that time and thought possible indolent lymphoma-no treatment needed. Now with diffuse lymphadenopathy and pleural effusions, suspect progressive lymphoma. LDH upper limit of normal at 231. - Await cytology from left axillary lymph node on Tuesday 12/26. - Discontinued aspirin for biopsy (and likely aspirin not needed anyway) - Consult oncology after biopsy results if shows/confirms malignancy-of note, followed previously with Dr. Storm but she prefers to stay in [facility] system now so would refer to Dr. Villa/Everardo #TRAVIS ON CKD stage III/UTI-resolved CT A/P without obstruction. Possible poor p.o. intake but also on HCTZ and lisinopril as an outpatient. UA shows evidence of UTI but she has no urinary symptoms. Given likely immunosuppression with possible lymphoma, will treat for UTI. - Follow urine culture-E. coli, resistant to Cefazolin, change to cefdinir po - Continue to hold HCTZ and lisinopril, but with peripheral edema, consider resuming diuretic for symptomatic edema control #HTN-BPs are hypotensive on AM of 12/25 but then improved on own -Hold home lisinopril and HCTZ given TRAVIS -continue diltiazem w/ hold parameters #Ageusia/Anosmia-ongoing since she had an allergic reaction to doxy in 07/2024 (was prescribed for ongoing cough x 10 days). No testing for COVID done at that tie but pt reports she had COVID in 2019 and again 02/2024. -trial of FLonase -consider brain MRI once more stable from pulm standpoint #Hyperthyroidism -TSH here is normal at 3.8 - Continue home methimazole DVT prophylaxis-SQ heparin-placed on hold for Mon AM prior to LN biopsy PT/OT evals suggest possible need for rehab stay Admission and Anticipated Discharge Date Admission Date: December 23, 2024 Subjective Pt is doing well, did have left sided thoracentesis 12/27/24 still feels fairly short of breath remains with oxygen supplementation need Physical Exam Physical Exam: pre thoracentesis left lung base is without breath sounds and dull left forearm with bruising Results & Data Results & Data Vital Signs (Past 12 Hours) Vital Signs Temp Pulse Pulse Resp BP BP Pulse Ox 12/27/24 07:48 98.2 F 69 20 102/64 93 12/27/24 06:20 78 12/27/24 03:51 97.3 F L 69 18 108/62 92 12/27/24 00:17 98.4 F 73 20 96/56 L 92 12/26/24 21:49 73 O2 Del Method O2 Flow Rate 12/27/24 07:48 Nasal Cannula 4 12/27/24 06:20 12/27/24 03:51 Nasal Cannula 2 04/29/25 00:17 Nasal Cannula 4 12/26/24 21:49 Laboratory Results reviewed cbc reviewed chemistry PG Care Time/CCT Total # of Minutes Spent Total Time Spent with Patient: Total time spent is greater than 50% in coordination of care (as documented) at patient's floor/unit and/or counseling patient: Coding Level of Care Code 43818 SUB INP/OBS CARE 3/50MIN Diagnoses Acute hypoxemic respiratory failure J96.01 Pleural effusion J90 Diffuse lymphadenopathy R59.1 UTI (urinary tract infection) N39.0
--- NOTE | 2024-12-27 08:41 | Pulmonology Progress Note ---
Date of Service December 27, 2024 Assessment & Plan (1) Pleural effusion: (2) SOB (shortness of breath): (3) Hypoxia: Plan Impression: 84-year-old female with questionable history of hypersensitivity pneumonitis and restrictive lung disease due to body habitus admitted with shortness of breath, bilateral pleural effusions, and lower extremity edema. BNP was normal and echocardiogram unrevealing. She underwent thoracentesis on Thursday with nonspecific borderline exudative pleural fluid. Cytology pending CT chest 12/23/2024 personally reviewed: Large bilateral pleural effusion Compressive atelectasis of bilateral lower lobe High probability of EDAC Significant mediastinal lymphadenopathy, especially station 4R Cardiomegaly 2D echo 12/23/2024: EF 60-65%, RV not well-visualized -- Acute hypoxic respiratory failure Secondary to large bilateral pleural effusion BNP 51 TSH within normal limit Respiratory BioFire negative for everything on 12/23/2024 S/p right-sided thoracentesis 12/24/[address] Borjas, 1300 mL fluid removed Exudative as per lights criteria looking at the protein as well as LDH, pH 7.46 Cytology showed rare atypical cells present, not enough to make a diagnosis. -- Generalized adenopathy For biopsy today Primary service working on it --Restrictive lung disease Mild TLC 71% with DLCO 100% with severe decrease in ERV Likely coming from obesity Advised to lose with diet and exercise Patient does have incentive spirometry at home. Advised her to use it every couple of hours --Exertional shortness of breath I think it is mostly coming from deconditioning and BMI of 39.8 I do not think patient has asthma Patient has been diagnosed with asthma/reactive airway disease [place] [address] Lubin. She is on as needed albuterol not using it on a daily basis. I had given patient sample of Breo 100-25 MCG, 1 puff to be used on a daily basis. But she did not find any significant benefit from it PFTs 03/28/2021: Mild restrictive lung disease with normal DLCO, severe decrease in ERV, no obstruction, insignificant bronchodilator response FVC 2.34 L 75%, FEV1 1.99 L 88%, FEV1/FVC 85%, RV 67%, TLC 71%, RV/TLC 91%, ERV 27%, DLCO 100% Plan: Patient made aware there were atypical cells in the fluid on the right side. For thoracentesis today around 2:15 pm, case discussed with IR. Patient will benefit from BiPAP nightly and as needed shortness of breath. I will put her on 10/6 but can be increased to 12/8 if she is able to tolerate it Continue with diuretics to keep the patient negative balance Please note the above document was generated using voice recognition software. It may contain grammatical, syntax or spelling errors.Any formal questions or concerns about the content, text or information contained within the body of this dictation should be directly addressed to the provider for clarification. Admission and Anticipated Discharge Date Admission Date: December 23, 2024 Subjective Patient seen and examined at bedside. No acute distress Patient did state that today she is feeling more short of breath than yesterday More heaviness around the chest She was saturating 96% on 4 L, I went down to 3 L Fair appetite, no nausea or vomiting Denied any headache Review of Systems 2 Review of Systems: All systems reviewed & are unremarkable except as noted in Subjective Physical Exam 2 Physical Exam: Constitutional: No acute distress HEENT: EOMI, PERRLA Respiratory system: Decreased air entry bilaterally, more decreased on the left side, positive right lower lobe crackles, no wheeze, no rhonchi CVS: S1-S2 positive, positive 2 out of 6 systolic murmur appreciated best at aorta Abdomen: Soft, nontender, nondistended, positive bowel sounds x4, obese Extremities: +2 pulses bilaterally radialis/ dorsalis pedis, no cyanosis, +1 pitting edema bilateral lower extremity Neuro: Awake alert oriented x3 Psych: Normal mood and affect G/U: No Miller Skin: no rashes, warm and dry Lymphatic: no cervical or axillary lymphadenopathy Results & Data Results & Data Vital Signs (Past 12 Hours) Vital Signs Temp Pulse Pulse Resp BP BP Pulse Ox 12/27/24 07:48 36.8 C 69 20 102/64 93 12/27/24 06:20 78 12/27/24 03:51 36.3 C L 69 18 108/62 92 12/27/24 00:17 36.9 C 73 20 96/56 L 92 12/26/24 21:49 73 O2 Del Method O2 Flow Rate 12/27/24 07:48 Nasal Cannula 4 12/27/24 06:20 12/27/24 03:51 Nasal Cannula 2 12/27/24 00:17 Nasal Cannula 4 12/26/24 21:49 Laboratory Results 12/26/24 05:46 12/26/24 05:46 PG Care Time/CCT Total # of Minutes Spent Total Time Spent with Patient: Total time spent is greater than 50% in coordination of care (as documented) at patient's floor/unit and/or counseling patient: Coding Level of Care Code 68173 SUB INP/OBS CARE 2/35MIN Diagnoses Pleural effusion J90 SOB (shortness of breath) R06.02 Hypoxia R09.02
--- NOTE | 2024-12-27 14:51 | Ultrasound Report ---
ULTRASOUND-GUIDED LEFT THORACENTESIS CLINICAL HISTORY: Left pleural effusion PROCEDURE: Procedure and risks were explained. Informed consent was obtained. A final timeout was com pleted. The left posterior thorax was prepped and draped in sterile fashion. 1% lidocaine was utilize d for skin anesthesia. Utilizing ultrasound guidance, a 5 Tamazight safety centesis catheter was advanced into the left pleural effusion. Ultrasound images were obtained. A total of 900 mL of pleural fluid was removed and sent t o the lab. The catheter was removed and Band-Aid applied. The patient tolerated the procedure well. A chest x-ray will be obtained post procedure. Vital signs will be monitored on the floor. IMPRESSION: Ultrasound-guided left thoracentesis as above. Performed, dictated, and signed by Ronnie Wray PA-C; to be co-signed by Dr. Guevara Hull. Electronically signed by: Guevara Hull M.D. 12/27/2024 3:11 PM
--- NOTE | 2024-12-27 15:10 | XRay Report ---
XR chest 1V not portable CLINICAL HISTORY: Status post left thoracentesis. COMPARISON STUDY: Chest CT December 23, 2024. Chest radiograph December 25, 2024. FINDINGS: There is no pneumothorax following left thoracentesis. The left pleural effusion has signif icantly decreased in size. A small residual left pleural effusion is noted. Right pleural effusion is similar to prior exam. Bibasilar opacities persist. There is cardiomegaly with mild interstitial pul monary edema. Right shoulder arthroplasty is incidentally noted. IMPRESSION: No pneumothorax following left thoracentesis. ACT 112: Negative or not required by law. Electronically signed by: Guevara Hull M.D. 12/27/2024 3:09 PM
[2024-12-27 15:41] LABS: Appearance Pleural Fluid Clear; Color Pleural Fluid Yellow; RBC Pleural Fluid Auto 2000 /uL; Source Pleural Fluid Left Lung; WBC Pleural Fluid Auto 1661 /uL
[2024-12-27 15:57] LABS: Glucose Pleural Fluid 124 mg/dl; LDH Pleural Fluid 149 U/L; Total Protein Pleural Fluid < 3.0 gm/dl
--- NOTE | 2024-12-27 17:15 | Hospitalist Progress Note ---
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 She was initially thought to have CHF and found to have large R>L pleural effusions on CXR, but also found to have diffuse lymphadenopathy on CT of C/A/P. She was hypoxic on admission with pulse ox 84% requiring 4L NC O2. #Acute hypoxemic respiratory failure/Bilateral pleural effusions. CXR with bilateral pleural effusions with possible consolidations and suspected CHF. Chest CT without contrast (due to TRAVIS) did show moderate to large right and moderate left pleural effusions, mediastinal and bilateral axillary lymphadenopathy. echocardiogram normal so doubt hf cause for effusions. She has had poor appetite with unintentional weight loss. - Consult pulmonology appreciated-s/p right sided thoracentesis with 1300 mL of exudative effusion on 12/24, pH not consistent with empyema, cytology suggests suspicious atypical cells but cannot identify, pending LN biopsy results anticipate left sided thoracentesis 12/27 900ml removed - continue incentive spirometry #Diffuse lymphadenopathy/unintentional weight loss-she has had a 30 pounds over the last 3-1/2 to 4 months. Concern for possible occult malignancy. CT of the C/A/P with hilar and mediastinal adenopathy, axillary and inguinal and intra- abdominal lymphadenopathy as well as splenomegaly and moderate pleural effusions. She has a history of previous right axillary lymphadenopathy in 2019 biopsied and showed a small abnormal B-cell population on flow cytometry-seen by hematology/oncology at that time and thought possible indolent lymphoma-no treatment needed. Now with diffuse lymphadenopathy and pleural effusions, suspect progressive lymphoma. LDH upper limit of normal at 231. - Await cytology from left axillary lymph node on Tuesday 12/26. - Discontinued aspirin for biopsy (and likely aspirin not needed anyway) - Consult oncology after biopsy results if shows/confirms malignancy-of note, followed previously with Dr. Storm but she prefers to stay in [facility] [place] system now so would refer to Dr. Villa/Everardo #TRAVIS ON CKD stage III/UTI-resolved CT A/P without obstruction. Possible poor p.o. intake but also on HCTZ and lisinopril as an outpatient. UA shows evidence of UTI but she has no urinary symptoms. Given likely immunosuppression with possible lymphoma, will treat for UTI. - Follow urine culture-E. coli, resistant to Cefazolin, change to cefdinir po - Continue to hold HCTZ and lisinopril, but with peripheral edema, consider resuming diuretic for symptomatic edema control #HTN-BPs are hypotensive on AM of 12/25 but then improved on own -Hold home lisinopril and HCTZ given TRAVIS -continue diltiazem w/ hold parameters #Ageusia/Anosmia-ongoing since she had an allergic reaction to doxy in 07/2024 (was prescribed for ongoing cough x 10 days). No testing for COVID done at that tie but pt reports she had COVID in 2019 and again 02/2024. -trial of FLonase -consider brain MRI once more stable from pulm standpoint #Hyperthyroidism -TSH here is normal at 3.8 - Continue home methimazole DVT prophylaxis-SQ heparin-placed on hold for Mon AM prior to LN biopsy *Moderate protein-calorie malnutrition PT/OT evals suggest possible need for rehab stay Admission and Anticipated Discharge Date Admission Date: December 23, 2024 Results & Data Results & Data Vital Signs (Past 12 Hours) Vital Signs Temp Pulse Pulse Resp BP BP Pulse Ox 12/27/24 16:09 97.5 F L 92 H 20 127/71 92 12/27/24 15:41 97.3 F L 84 20 118/71 92 12/27/24 15:17 97.9 F 77 20 108/59 L 93 12/27/24 11:21 98.6 F 74 20 103/61 92 12/27/24 10:28 12/27/24 07:48 98.2 F 69 20 102/64 93 12/27/24 06:20 78 O2 Del Method O2 Flow Rate 12/27/24 16:09 Nasal Cannula 3 12/27/24 15:41 Nasal Cannula 3 12/27/24 15:17 Nasal Cannula 3 12/27/24 11:21 Nasal Cannula 4 12/27/24 10:28 Nasal Cannula 4 12/27/24 07:48 Nasal Cannula 4 12/27/24 06:20 PG Care Time/CCT Total # of Minutes Spent Total Time Spent with Patient: Total time spent is greater than 50% in coordination of care (as documented) at patient's floor/unit and/or counseling patient: Coding Level of Care Code None Diagnoses Acute hypoxemic respiratory failure J96.01 Pleural effusion J90 Diffuse lymphadenopathy R59.1 UTI (urinary tract infection) N39.0
[2024-12-28 06:59] LABS: Eosinophils, Fluid 1 %; Lymphocytes, Fluid 65 %; Mono,Macrophage,Mesothelial 16 %; Neutrophils, Fluid 18 %
[2024-12-28 08:40] LABS: Hematocrit (blood only) 35.4 % (37.0-47.0); Hemoglobin 11.3 g/dl (12.0-16.0); Mean Corpuscular Hemoglobin 26.9 pg (25.0-34.0); Mean Corpuscular Hgb Conc 31.9 g/dL (32.0-36.0); Mean Corpuscular Volume 84.3 fL (80.0-100.0); Platelet Count 242 K/uL (130-400); RDW Coefficient of Variation 16.4 % (11.5-14.5); RDW Standard Deviation 50.4 fL (36.4-46.3); White Blood Count 7.65 K/ul (4.8-10.8)
[2024-12-28 09:02] LABS: Calcium 8.8 mg/dl (8.6-10.3); Creatinine Clr Calc Pharmacy 47.7 ml/min; Potassium 4.4 mmol/L (3.5-5.1)
--- NOTE | 2024-12-28 10:36 | Pulmonology Progress Note ---
Date of Service December 28, 2024 Assessment & Plan (1) Pleural effusion: (2) SOB (shortness of breath): (3) Hypoxia: Plan Impression: 84-year-old female with questionable history of hypersensitivity pneumonitis and restrictive lung disease due to body habitus admitted with shortness of breath, bilateral pleural effusions, and lower extremity edema. BNP was normal and echocardiogram unrevealing. She underwent thoracentesis on Thursday with nonspecific borderline exudative pleural fluid. Cytology pending CT chest 12/23/2024 personally reviewed: Large bilateral pleural effusion Compressive atelectasis of bilateral lower lobe High probability of EDAC Significant mediastinal lymphadenopathy, especially station 4R Cardiomegaly 2D echo 12/23/2024: EF 60-65%, RV not well-visualized -- Acute hypoxic respiratory failure Secondary to large bilateral pleural effusion BNP 51 TSH within normal limit Respiratory BioFire negative for everything on 12/23/2024 S/p right-sided thoracentesis 12/24/[address] Borjas, 1300 mL fluid removed Exudative as per lights criteria looking at the protein as well as LDH, pH 7.46 S/p left-sided thoracentesis 12/27/2024 by IR, 900 mL fluid was removed, exudative as per lights criteria Cytology showed rare atypical cells present, not enough to make a diagnosis. -- Generalized adenopathy For biopsy today Primary service working on it --Restrictive lung disease Mild TLC 71% with DLCO 100% with severe decrease in ERV Likely coming from obesity Advised to lose with diet and exercise Patient does have incentive spirometry at home. Advised her to use it every couple of hours --Exertional shortness of breath I think it is mostly coming from deconditioning and BMI of 39.8 I do not think patient has asthma Patient has been diagnosed with asthma/reactive airway disease [place] [address] Lubin. She is on as needed albuterol not using it on a daily basis. I had given patient sample of Breo 100-25 MCG, 1 puff to be used on a daily basis. But she did not find any significant benefit from it PFTs 03/28/2021: Mild restrictive lung disease with normal DLCO, severe decrease in ERV, no obstruction, insignificant bronchodilator response FVC 2.34 L 75%, FEV1 1.99 L 88%, FEV1/FVC 85%, RV 67%, TLC 71%, RV/TLC 91%, ERV 27%, DLCO 100% Plan: Chest x-ray from yesterday post procedure showed improvement in the left-sided pleural effusion, the right-sided effusion seems to be coming back Unfortunately she was not able to tolerate BiPAP Follow-up cytology from the lymph node biopsy as well as the left effusion Recommend diuretics for the patient even at home Check for oxygen need on exertion Case was discussed with Dr. Roberto Please note the above document was generated using voice recognition software. It may contain grammatical, syntax or spelling errors.Any formal questions or concerns about the content, text or information contained within the body of this dictation should be directly addressed to the provider for clarification. Admission and Anticipated Discharge Date Admission Date: December 23, 2024 Subjective Patient seen and examined at bedside. No acute distress, no adverse events overnight She was saturating 90-91% on room air She stated that she felt better compared to yesterday after thoracentesis Unfortunately she was not able to tolerate BiPAP overnight because of the pressure. Did complain of some chest tenderness on the left side when she takes a deep breath in. No unusual headache or blurry vision Fair appetite No nausea vomiting Review of Systems 2 Review of Systems: All systems reviewed & are unremarkable except as noted in Subjective Physical Exam 2 Physical Exam: Constitutional: No acute distress HEENT: EOMI, PERRLA Respiratory system: Decreased air entry bilaterally, positive crackles bilateral lower lobes, no wheeze, no rhonchi CVS: S1-S2 positive, positive 2 out of 6 systolic murmur appreciated best at aorta Abdomen: Soft, nontender, nondistended, positive bowel sounds x4, obese Extremities: +2 pulses bilaterally radialis/ dorsalis pedis, no cyanosis, +1 pitting edema bilateral lower extremity Neuro: Awake alert oriented x3 Psych: Normal mood and affect G/U: No Miller Skin: no rashes, warm and dry Lymphatic: no cervical or axillary lymphadenopathy Results & Data Results & Data Vital Signs (Past 12 Hours) Vital Signs Temp Pulse Pulse Pulse Resp BP Pulse Ox 12/28/24 07:49 36.7 C 76 20 98/50 L 91 12/28/24 07:45 12/28/24 07:00 78 12/28/24 03:59 36.6 C 75 18 98/62 L 92 12/28/24 00:32 37.2 C 83 20 105/66 92 O2 Del Method O2 Flow Rate 12/28/24 07:49 Nasal Cannula 12/28/24 07:45 Nasal Cannula 3 12/28/24 07:00 12/28/24 03:59 Nasal Cannula 3 12/28/24 00:32 Nasal Cannula 3 Laboratory Results 12/28/24 08:25 12/28/24 08:25 PG Care Time/CCT Total # of Minutes Spent Total Time Spent with Patient: Total time spent is greater than 50% in coordination of care (as documented) at patient's floor/unit and/or counseling patient: Coding Level of Care Code 92196 SUB INP/OBS CARE 2/35MIN Diagnoses Pleural effusion J90 SOB (shortness of breath) R06.02 Hypoxia R09.02
[2024-12-28 15:19] VITALS: RESP 16; TEMP 98.1; O2SAT 92
--- NOTE | 2024-12-28 16:15 | Discharge Summary ---
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 She was initially thought to have CHF and found to have large R>L pleural effusions on CXR, but also found to have diffuse lymphadenopathy on CT of C/A/P. She was hypoxic on admission with confirmed requirement for home supplementation, will have referral to outpt oncology #Acute hypoxemic respiratory failure/Bilateral pleural effusions. CXR with bilateral pleural effusions with possible consolidations and suspected CHF. Chest CT without contrast (due to TRAVIS) did show moderate to large right and moderate left pleural effusions, mediastinal and bilateral axillary lymphadenopathy. echocardiogram normal so doubt hf cause for effusions. She has had poor appetite with unintentional weight loss. - Consult pulmonology appreciated-s/p right sided thoracentesis with 1300 mL of exudative effusion on 12/24, pH not consistent with empyema, cytology suggests suspicious atypical cells but cannot identify, pending LN biopsy results anticipate left sided thoracentesis 12/27 900ml removed #Diffuse lymphadenopathy/unintentional weight loss-she has had a 30 pounds over the last 3-1/2 to 4 months. Concern for possible occult malignancy. CT of the C/A/P with hilar and mediastinal adenopathy, axillary and inguinal and intra- abdominal lymphadenopathy as well as splenomegaly and moderate pleural effusions. She has a history of previous right axillary lymphadenopathy in 2019 biopsied and showed a small abnormal B-cell population on flow cytometry-seen by hematology/oncology at that time and thought possible indolent lymphoma-no treatment needed. Now with diffuse lymphadenopathy and pleural effusions, suspect progressive lymphoma. LDH upper limit of normal at 231. - Await cytology from left axillary lymph node on Tuesday 12/26. - Discontinued aspirin for biopsy (and likely aspirin not needed anyway) - Consult oncology as outpt after biopsy results if shows/confirms malignancy-of note, followed previously with Dr. Storm but she prefers to stay in [facility] system now so would refer to Dr. Villa/Everardo #TRAVIS ON CKD stage III/UTI-resolved CT A/P without obstruction. Possible poor p.o. intake but also on HCTZ and lisinopril as an outpatient. UA shows evidence of UTI but she has no urinary symptoms. Given likely immunosuppression with possible lymphoma, will treat for UTI. - Follow urine culture-E. coli, resistant to Cefazolin, change to cefdinir po - stop HCTZ and lisinopril, dc on home lasix #HTN-BPs are hypotensive on AM of 12/25 but then improved on own -dc home lisinopril and HCTZ given TRAVIS -continue diltiazem w/ hold parameters #Ageusia/Anosmia-ongoing since she had an allergic reaction to doxy in 07/2024 (was prescribed for ongoing cough x 10 days). No testing for COVID done at that time but pt reports she had COVID in 2019 and again 02/2024. -trial of Flonase -consider brain MRI once more stable from pulm standpoint #Hyperthyroidism -TSH here is normal at 3.8 - Continue home methimazole *Moderate protein-calorie malnutrition Notes For Next Care Provider need to eval for renal function on lasix and if dose is appropriate Admission HPI Per Admitting Provider This is an 84-year-old female whose had the above symptoms ongoing for the last few days to a week or so. She has had a significant amount of weight loss, 30 pounds since July. This is unintentional weight loss. She was at her primary care doctor's office for evaluation of the above symptoms and was diagnosed with hypoxemia and sent to the ER for further evaluation and treatment. In the emergency department she was found to be hypoxemic she was found to be hypoxemic at 84%. She is placed on 4 L of oxygen nasal cannula is 92%. Chest x-ray was positive for bilateral pleural effusions, CHF with lower lung consolidations. Respiratory biofire panel was negative. Laboratory studies showed acute kidney injury. Patient's baseline creatinine was 0.8 in November 2023 1.0 07 June 2024, NovemberNovember 2024 1.30 and today 1.62. Other laboratory studies were unremarkable. Course in the emergency department she received a nebulizer treatment she received 60 milligrams of IV Lasix. Was placed on 1 inch Nitropaste. Recalled with the patient further evaluation and treatment for "acute congestive heart failure" the patient has a normal BNP incidentally. High concern with the unintentional weight loss and the lung findings. We did a stat D-dimer which almost 1000. We have ordered a stat VQ scan. We have ordered a stat CT of the chest abdomen pelvis given her weight loss and respiratory failure we will hold off on any further Lasix given the acute kidney injury and the normal BNP. Highly concern for possible occult malignancy. From further history taking the patient had a kidney lesion that was post to be biopsied in [place] when they went to do that a couple years ago it was "gone". In addition she had a lymph node removed from her right axilla in the past which turned out to be benign per the patient and the daughter they were concerned about possible lymphoma but was never diagnosed with lymphoma. Discharge Exam pt is awake and alert lungs are diminished at the bases, otherwise fairly clear Discharge Plan Discharge Items Patient Disposition: Home - Home Health Services Reason For Visit: SOB Discharge Diagnosis: shortness of breath from fluid in lung-pleural effusion Condition on Discharge: Serious Activity: Per Instructions section Activity Comment: wear oxygen as directed 2L at rest and 3L with activity Non-emergency contact: Primary Care Provider and Oncologist Call non-emergency contact if: your symptoms worsen Follow-up/Referrals: Mignon Bansal DO [Primary Care Provider] - Diet: Regular Addtl Attending Provider Instructions: During her hospital stay you had 2 episodes of having fluid removed from your lungs and a biopsy of a lymph node in your left arm. Results of the biopsy of your lymph node are not yet returned at the time of discharge. The results of the fluid analysis once again show a suggestion of possible cancer but not defined. It will be to your benefit to follow-up with the cancer care [facility] and hopefully they will be reaching out shortly after discharge to make a follow-up appointment. In the meantime you did require oxygen therapy and we will recommend you wear oxygen set at 2 L/min at rest and increasing to 3 L/min with activity. Recommend to be discharged you on a low-dose of a medication to help keep you slightly dehydrated to discourage the reaccumulation of this fluid. If you have any issues with your shortness of breath does seem to increase or worsen please report back to the emergency department for reevaluation. Addtl Intelligence Support Officer Provider Instructions: Completing additional 2 days of antibiotics for possible urinary infection Pending Studies at Discharge: Yes Studies:: biopsy results Stand-Alone Forms: My [facility], Smoking Cessation Medications and DC Order Prescriptions: New cefdinir 300 mg Capsule 300 mg PO BID Qty: 4 0RF furosemide [Lasix] 20 mg tablet 20 mg PO DAILY Qty: 30 2RF (DME) Oxygen Home Liters Per Minute See Rx Instructions .Route Qty: 1 0RF Rx Instructions: As directed Continued atorvastatin 10 mg tablet 10 mg PO HS Qty: 90 3RF diltiazem HCl 120 mg capsule,extended release 24hr 120 mg PO DAILY Qty: 90 1RF albuterol sulfate [ProAir HFA] 90 mcg/actuation HFA aerosol inhaler 1 - 2 puff INH Q4H PRN (Reason: shortness of breath or wheezing) Qty: 18 2RF methimazole 5 mg tablet 5 mg PO DAILY Patient Comments: pt taking 5mg daily aspirin [Aspir-81] 81 mg Tablet,Delayed Release (Dr/Ec) 81 mg PO QAM Discontinued hydrochlorothiazide 25 mg tablet 25 mg PO DAILY Qty: 90 1RF lisinopril 5 mg tablet 5 mg PO QAM Qty: 90 1RF Discharge Orders: Discharge Order (Routine); Ordered 12/28/24 Ordered By: Vincent Roberto Admission Data Admit Date/Time: 12/23/24 12:57 Attending Provider: Vincent Roberto Admit Provider: Melecio Rudd Primary Care Provider: Mignon Bansal Other Providers: Melecio Rudd; Vikas Borjas Hospital Stay Data Consultations 12/23/24 12:15 ED Decision to Admit Stat 12/23/24 14:41 Consult Pulmonology Routine Diagnostic Imagining Performed 12/23/24 11:55 US venous doppler LE BI Stat 12/23/24 12:53 CT Abd and Pelvis [CT abd pelvis wo con] Stat CT chest diagnostic wo con Stat 12/26/24 07:00 IR biopsy lymph US Routine 12/27/24 07:00 IR thoracentesis wo tube US Routine Pending Results Patient Have Any Pending Studies at Discharge: Yes Discharge Instructions Given to Patient (Per Discharging Provider) During her hospital stay you had 2 episodes of having fluid removed from your lungs and a biopsy of a lymph node in your left arm. Results of the biopsy of your lymph node are not yet returned at the time of discharge. The results of the fluid analysis once again show a suggestion of possible cancer but not defined. It will be to your benefit to follow-up with the cancer care partnership and hopefully they will be reaching out shortly after discharge to make a follow-up appointment. In the meantime you did require oxygen therapy and we will recommend you wear oxygen set at 2 L/min at rest and increasing to 3 L/min with activity. Recommend to be discharged you on a low-dose of a medication to help keep you slightly dehydrated to discourage the reaccumulation of this fluid. If you have any issues with your shortness of breath does seem to increase or worsen please report back to the emergency department for reevaluation. Total Time Total Time Spent Total Time Spent (In Minutes): greater than 30 minutes required to complete discharge Coding Level of Care Code 29540 INP/OBS DISCH >30 MIN Diagnoses Acute hypoxemic respiratory failure J96.01 Pleural effusion J90 Diffuse lymphadenopathy R59.1 UTI (urinary tract infection) N39.0
[2024-12-28 16:24] VITALS: BP 108/52; PULSE 75
== END 2024-12-28 18:56 | disposition home health service (06) | DRG 186 ==
LOC: ED 10:35 → SUATTDRO 12:57 → EDINP 12:57 → 2N 18:59

== ENCOUNTER 2025-02-20 14:21 | Inpatient (IN) ==
--- NOTE | 2025-02-20 14:39 | Emergency Department Note ---
Impression & Plan Weakness, Shortness of breath, Anemia ED Provider Note NAME: KIM TIJERINA AGE: 84 SEX: F : 1940 ARRIVES VIA: Walk-In INFORMANT: Patient ED PROVIDER(S): Cornel Levin DO CHIEF COMPLAINT: weakness HPI: Patient is an 84-year-old female with a past medical history of T-cell lymphoma, GERD and obesity who presents to the ER following a paracentesis following with hematology oncology. Dr. Caldera sent her here as she felt too weak to go home. Patient denies any headache or change in vision. No chest pain but notes her shortness of breath is better. No belly pain. No nausea, vomiting, or diarrhea. No dysuria, urgency, or frequency. No other exacerbating or remitting factors. ADDITIONAL HISTORY OBTAINED: Per HPI Chronic Medical/Social Conditions Affecting Care: Per HPI PAST MEDICAL HISTORY:See Below PAST SURGICAL HISTORY:See Below FAMILY HISTORY:See Below SOCIAL HISTORY:See Below HOME MEDICATIONS:See Below ALLERGIES:See Below VITALS:See Below PHYSICAL EXAMINATION: GENERAL: Sitting up in bed, alert, chronically ill-appearing, disheveled EYE EXAM: normal conjunctiva. PERRL and EOM's grossly intact. OROPHARYNX: no exudate, no erythema, lips, buccal mucosa, and tongue normal and mucous membranes are moist NECK: supple, no nuchal rigidity, no adenopathy, non-tender LUNGS: Clear to auscultation. Normal chest wall mechanics HEART: no murmurs, S1 normal and S2 normal ABDOMEN: abdomen soft, non-tender, normo-active bowel sounds, no masses, no rebound or guarding. BACK: Back is symmetrical on inspection and there is no deformity, no midline tenderness, no CVA tenderness. SKIN: Puncture site on left lower thoracic region with a small swelling but no bleeding or drainage UPPER EXTREMITIES: upper extremities are grossly normal. LOWER EXTREMITIES: No pitting edema. NEURO EXAM: Normal sensorium, cranial nerves II-XII grossly intact, normal speech, no gross weakness of arms, no gross weakness of legs. MEDICAL DECISION MAKING: Patient is an 84-year-old female who presents ER for above-stated complaint. IV was established and blood work was obtained. Labs showed no significant leukocytosis. Mild anemia 7.5. BMP with LFTs and bilirubin was unremarkable. Lipase was normal. Pro-Edilberto was normal. Patient did have a thoracentesis prior to transferring to the ER. Case was discussed with hospitalist for further evaluation management and treatment. Patient is chronically on 3 L nasal cannula. This has not changed. Shortness of breath did resolve upon presentation here following the thoracentesis. Chest x-ray from earlier today was improved from previous. Consults/Care Managements Discussions: Per MDM Triage Nursing notes reviewed. Limited review of prior medical records performed Vital Signs: reviewed and remarkable for no significant abnormalities Differential diagnosis: Infection, dehydration, metabolic abnormality, hypo/hyperglycemia, electrolyte disturbance, anemia, hypoxia, cardiac sources, intracerebral event, toxicologic, neurologic, as well as other pathologies. ER treatment provided: See below Diagnostics interpreted by me include EKG and cardiac monitoring as listed below: -Cardiac Monitoring: An order was placed for continuous cardiac monitoring. The monitor shows a rate of 70 with sinus rhythm. -ECG: none -Laboratory studies:Interpreted by me as stated above in MDM and shown below. Imaging studies: Xrays: As interpreted by me:none CTs show: none Procedures:none Critical Care: None Past Med/Surg History Problem List (Updated 02/20/25 @ 18:49 by Cornel Levin DO) Anemia (Acute) Shortness of breath (Acute) Weakness (Acute) Malnutrition Folate deficiency Anxiety and depression T-cell lymphoma Chronic kidney disease, stage III (moderate) Anemia Recurrent nevus of face Nonallergic rhinitis Inflamed seborrheic keratosis Multiple pulmonary nodules Urinary urgency Hyperlipidemia PARTIAL Hypertension Thyroid nodule ENDOCRINE MONITORING Obesity Hyperthyroidism ENDOCRINE MONITORING; ON METHIMAZOLE- THYROID LABS STABLE ON 05/24/18 Valvular disease MILD TR- PT DENIES Nephrolithiasis Osteoarthritis Left renal mass Vitamin D deficiency Urinary incontinence Reactive airway disease Multinodular goiter Impaired fasting glucose GERD without esophagitis Allergic rhinitis Abnormal findings on diagnostic imaging of abdomen Medical History Axillary lymphadenopathy Lymph nodes enlarged Acute on chronic hypoxic respiratory failure Pleural effusion Restrictive lung disease Degenerative joint disease of knee Pulmonary nodules Asthma Osteoarthritis of right hip Surgical History S/P lymph node biopsy (01/19/25) S/P lymph node biopsy (06/21/19) Hx of lymph node biopsy Hx of surgical procedure History of total knee replacement History of total shoulder replacement History of cataract extraction with lens replacement History of total hip arthroplasty History of colonoscopy History of hysterectomy Family History Denies family history of Ovarian cancer Prostate cancer Myocardial infarction Breast cancer Colorectal cancer Social History Smoking Status: Never smoker Second Hand Exposure: No; Do You Dip or Chew Tobacco: No; Hx Alcohol Use: No Hx Substance Use: No Preferred Language: Italian Communication Ability: Effective Visual Impairment: No Limitations 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: Normal Motion 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 Projectionist Apprentice Required: No Beliefs That Will Affect Care: None marital status: / Current Living Situation: Family Current Living Situation Comment: daughter daron lives with pt current occupational status: retired How many Children do You have: 2 Feels Safe at Home: Yes Childhood Exposure to Second-Hand Smoke: Yes Diet: regular Diet Comment: regular caffeine: Yes (Coffee x 1 per day.) during the past year weight has: remained stable Dental Care, Regularly: Yes Physical Activity Frequency: Daily Physical Activity Frequency Comment: walking, gardening Seatbelt Use: always Sunscreen Use: No Assistive Devices: Bedside Commode, Cane, Walker and Wheelchair Allergies Allergies Allergy/AdvReac Type Severity Reaction Status Date / Time sulfamethoxazole Allergy Intermediate ITCHING/HIV Verified 02/06/25 09:39 ES levofloxacin Allergy Unknown ITCHING/HIV Verified 02/06/25 09:39 ES morphine AdvReac Severe N/V Verified 02/06/25 09:39 doxycycline AdvReac Intermediate Rash Verified 02/06/25 09:39 Home Meds Home Medications Medication Instructions Recorded Confirmed aspirin 81 mg tablet,delayed 81 mg PO QAM 05/31/19 02/20/25 release (Aspir-) methimazole 5 mg tablet 5 mg PO DAILY E05.90 12/23/24 02/20/25 amoxicillin 875 mg-potassium 1 tab PO BID 02/20/25 02/20/25 clavulanate 125 mg tablet potassium chloride 10 mEq 10 meq PO DAILY while on lasix 02/20/25 02/20/25 tablet,extended release Previous Rx's Medication Instructions Recorded albuterol sulfate 90 mcg/actuation 1 - 2 puff inhalation Q4H PRN 12/26/20 aerosol inhaler (ProAir HFA) shortness of breath or wheezing #18 grams atorvastatin 10 mg tablet 10 mg PO HS #90 tabs 04/19/24 diltiazem HCl 120 mg 120 mg PO DAILY #90 caps 10/17/24 capsule,extended release 24 hr food supplemt, lactose-reduced 2 ea PO DAILY #12,000 mL 01/04/25 0.04 gram-1 kcal/mL oral liquid (Boost) Oxygen Home #1 ea 01/26/25 folic acid 1 mg tablet 5 mg (5 x 1 mg) PO QAM #30 tabs 01/26/25 Bedside Commode #1 ea 01/31/25 mirtazapine 7.5 mg tablet 7.5 mg PO HS #90 tabs 01/31/25 furosemide 40 mg tablet 40 mg PO DAILY #30 tabs 02/09/25 Wheelchair (Manual) #1 ea 02/16/25 Results & Data (ED) Vital Signs Vital Signs - 24 hr 02/20/25 14:34 02/20/25 14:36 02/20/25 14:45 Temperature 36.4 C L Temperature Source Oral Pulse Rate 73 72 Pulse Rate from SpO2 Sensor 72 Respiratory Rate 22 19 Respiratory Effort / Characteristics Spontaneous Respiratory Depth Normal Respiratory Pattern Regular Blood Pressure 125/56 L 126/56 L Blood Pressure Mean 79 84 Pulse Oximetry 95 96 Oxygen Delivery Method Nasal Cannula Oxygen Flow Rate 3 Sepsis Recent Fever Within 48 Hours No Sepsis New/Unexplained Change in Mental Status No Sepsis Action Taken by Nursing No Action Required 02/20/25 15:00 02/20/25 15:00 02/20/25 15:12 Temperature Temperature Source Pulse Rate 69 73 Pulse Rate from SpO2 Sensor 68 Respiratory Rate 17 Respiratory Effort / Characteristics Respiratory Depth Respiratory Pattern Blood Pressure 107/53 L Blood Pressure Mean 67 Pulse Oximetry 98 Oxygen Delivery Method Oxygen Flow Rate Sepsis Recent Fever Within 48 Hours Sepsis New/Unexplained Change in Mental Status Sepsis Action Taken by Nursing 02/20/25 15:30 02/20/25 15:30 02/20/25 15:30 Temperature Temperature Source Pulse Rate 71 Pulse Rate from SpO2 Sensor 71 Respiratory Rate 23 Respiratory Effort / Characteristics Respiratory Depth Respiratory Pattern Blood Pressure 123/75 123/75 Blood Pressure Mean 90 90 Pulse Oximetry 95 Oxygen Delivery Method Oxygen Flow Rate Sepsis Recent Fever Within 48 Hours Sepsis New/Unexplained Change in Mental Status Sepsis Action Taken by Nursing 02/20/25 15:51 02/20/25 16:00 02/20/25 16:06 Temperature Temperature Source Pulse Rate 70 72 Pulse Rate from SpO2 Sensor 66 68 Respiratory Rate 29 H 23 Respiratory Effort / Characteristics Respiratory Depth Respiratory Pattern Blood Pressure 124/63 Blood Pressure Mean 74 Pulse Oximetry 97 95 Oxygen Delivery Method Oxygen Flow Rate Sepsis Recent Fever Within 48 Hours Sepsis New/Unexplained Change in Mental Status Sepsis Action Taken by Nursing 02/20/25 16:15 02/20/25 16:30 02/20/25 16:30 Temperature Temperature Source Pulse Rate 73 Pulse Rate from SpO2 Sensor 68 Respiratory Rate 26 H Respiratory Effort / Characteristics Respiratory Depth Respiratory Pattern Blood Pressure 115/65 115/65 Blood Pressure Mean 86 86 Pulse Oximetry 95 Oxygen Delivery Method Oxygen Flow Rate Sepsis Recent Fever Within 48 Hours Sepsis New/Unexplained Change in Mental Status Sepsis Action Taken by Nursing 02/20/25 16:39 02/20/25 18:03 02/20/25 18:20 Temperature Temperature Source Pulse Rate 71 69 69 Pulse Rate from SpO2 Sensor 71 69 Respiratory Rate 25 H 23 Respiratory Effort / Characteristics Respiratory Depth Respiratory Pattern Blood Pressure 107/57 L Blood Pressure Mean 73 Pulse Oximetry 96 99 Oxygen Delivery Method Oxygen Flow Rate Sepsis Recent Fever Within 48 Hours Sepsis New/Unexplained Change in Mental Status Sepsis Action Taken by Nursing Laboratory Data 02/20/25 14:40 02/20/25 14:40 Lab Results 02/20/25 Range/Units 14:40 WBC 7.50 (4.8-10.8) K/ul RBC 3.02 L (4.20-5.40) M/uL Hgb 7.5 L (12.0-16.0) g/dl Hct 25.3 L (37.0-47.0) % MCV 83.8 (80.0-100.0) fL MCH 24.8 L (25.0-34.0) pg MCHC 29.6 L (32.0-36.0) g/dL RDW Std Deviation 46.4 H (36.4-46.3) fL RDW Coeff of Mikel 15.3 H (11.5-14.5) % Plt Count 270 (130-400) K/uL MPV 9.1 L (9.4-12.4) fL Neutrophils % (Manual) 94 % Lymphocytes % (Manual) 2 % Monocytes % (Manual) 3 % Metamyelocytes % (Man) 1 % Neutrophils # (Manual) 7.05 H (1.40-6.50) K/uL Total Absolute Neuts 7.05 H (1.4-6.5) K/uL Lymphocytes # (Manual) 0.15 L (1.2-3.4) K/uL Total Abs Lymphocytes 0.15 L (1.2-3.4) K/uL Monocytes # (Manual) 0.22 (0.11-0.59) K/uL Metamyelocytes # (Man) 0.08 H (0-0) K/uL RBC Morphology Unremarkable Sodium 136 (136-145) mmol/L Potassium 4.2 (3.5-5.1) mmol/L Chloride 97 L (98-107) mmol/L Carbon Dioxide 32 (21-32) mmol/L Anion Gap 7 (3-11) BUN 34 H (6-23) mg/dl Creatinine 1.13 (0.6-1.2) mg/dl Est Cr Clr Drug Dosing 42.3 ml/min eGFR 47.97 BUN/Creatinine Ratio 30.1 H (10-20) Glucose 121 H (70-99(Fasting)) mg/dl Calcium 8.1 L (8.6-10.3) mg/dl Total Bilirubin 0.9 (0.2-1.0) mg/dl AST 16 (13-39) U/L ALT 14 (7-52) U/L Alkaline Phosphatase 92 (34-104) U/L Total Protein 4.8 L (6.0-8.3) gm/dl Albumin 2.6 L (3.4-5.0) gm/dl Globulin 2.2 L (2.5-4.0) gm/dl Albumin/Globulin Ratio 1.2 (0.9-2) Lipase 5 L (11-82) U/L Procalcitonin 0.46 (0-0.5) ng/ml Discharge Plan Visit Data Chief Complaint: Weakness ED Provider: Cornel Levin Discharge Problem: Weakness, Shortness of breath, Anemia Condition: Fair Forms Stand Alone Forms: My [facility] Prescriptions Prescriptions: No Action atorvastatin 10 mg tablet 10 mg PO HS Qty: 90 3RF diltiazem HCl 120 mg capsule,extended release 24hr 120 mg PO DAILY Qty: 90 1RF Hold Instructions: Home Medication placed on hold at Doctor's office mirtazapine 7.5 mg tablet 7.5 mg PO HS Qty: 90 3RF (DME) Bedside Commode Misc See Rx Instructions .Route Qty: 1 0RF Rx Instructions: As directed furosemide 40 mg tablet 40 mg PO DAILY Qty: 30 2RF (DME) Wheelchair (Manual) Device See Rx Instructions .Route Qty: 1 0RF Rx Instructions: As directed albuterol sulfate [ProAir HFA] 90 mcg/actuation HFA aerosol inhaler 1 - 2 puff INH Q4H PRN (Reason: shortness of breath or wheezing) Qty: 18 2RF Rx Instructions: no fill history unable to verify methimazole 5 mg tablet 5 mg PO DAILY Patient Comments: pt taking 5mg daily Boost 0.04 gram- 1 kcal/mL liquid 2 ea PO DAILY Qty: 55674 11RF Rx Instructions: otc unable to verify aspirin [Aspir-81] 81 mg Tablet,Delayed Release (Dr/Ec) 81 mg PO QAM Rx Instructions: otc unable to verify potassium chloride 10 mEq tablet extended release 10 meq PO DAILY amoxicillin-pot clavulanate 875-125 mg tablet 1 tab PO BID folic acid 1 mg Tablet 5 mg PO QAM Qty: 30 0RF Rx Instructions: otc unable to verify (DME) Oxygen Home Liters Per Minute See Rx Instructions .Route Qty: 1 0RF Rx Instructions: As directed 3 liters Referrals Referrals: Mignon Bansal DO [Primary Care Provider] - Discharge Problem: Anemia Qualifiers: Anemia type: unspecified type Qualified Code(s): D64.9 - Anemia, unspecified
[2025-02-20 14:56] LABS: Hematocrit (blood only) 25.3 % (37.0-47.0); Hemoglobin 7.5 g/dl (12.0-16.0); Mean Corpuscular Hemoglobin 24.8 pg (25.0-34.0); Mean Corpuscular Volume 83.8 fL (80.0-100.0); Platelet Count 270 K/uL (130-400); RDW Standard Deviation 46.4 fL (36.4-46.3); Red Blood Count 3.02 M/uL (4.20-5.40); White Blood Count 7.50 K/ul (4.8-10.8)
[2025-02-20 15:18] LABS: ALC (manual) 0.15 K/uL (1.2-3.4); ANC (manual) 7.05 K/uL (1.4-6.5); RBC Morphology Unremarkable
[2025-02-20 15:25] LABS: Anion Gap 7.0 (3-11); Bilirubin,Total 0.9 mg/dl (0.2-1.0); Calcium 8.1 mg/dl (8.6-10.3); Carbon Dioxide 32.0 mmol/L (21-32); Chloride 97.0 mmol/L (98-107); Potassium 4.2 mmol/L (3.5-5.1); Sodium 136.0 mmol/L (136-145)
[2025-02-20 15:31] LABS: Alanine Aminotransferase 14.0 U/L (7-52); Albumin Globulin Ratio 1.2 (0.9-2); Alkaline Phosphatase 92.0 U/L (34-104); Blood Urea Nitrogen 34.0 mg/dl (6-23); Creatinine Clr Calc Pharmacy 42.3 ml/min; Globulin 2.2 gm/dl (2.5-4.0); Glucose 121.0 mg/dl (70-99(Fasting)); Lipase 5.0 U/L (11-82); Total Protein 4.8 gm/dl (6.0-8.3)
--- NOTE | 2025-02-20 16:21 | History & Physical Report ---
Date of Service February 20, 2025 Assessment & Plan (1) T-cell lymphoma: Plan: Angelita is an 84-year-old female with a history of angioimmunoblastic T-cell lymphoma who presents with weakness and fatigue. She had a recurrent pleural effusion suspected malignant which was drained for 1500 cc of fluid. She was admitted for PT/OT, ongoing management of hypoxia, possible rehab, and monitoring for possible occult pneumonia Weakness Suspect hypoxic respiratory failure with malignant effusion and FTT with poor p.o. intake. DDx includes occult pneumonia. - Hgb 7.5 from basleine ~8. MCV normal. Denies hematochezia/melena/bleeding. - No TRAVIS. BUN/Cr contracted. Is with evidence of diffuse edema suspect that this is more lymphedema both due to her lymph node biopsies and third spacing with hypoalbuminemia Normocytic anemia Hemoglobin 7.5, baseline around 8. MCV lower end of normal, high RDW. Patient denies hematochezia/melena/bleeding. Poor p.o. intake Hemoglobin trended Ferritin elevated 02/02/2025. TIBC low at 192. Consistent with anemia of chron ic disease. Reticulocyte count/index pending Hypoxic respiratory failure 2/2 malignant pleural effusion Denies history of fever, chills, cough, sputum production. Does have some consolidation of the left lung, in absence of fever/infectious symptoms this may be from compression and pleural effusions. Procalcitonin added. If rising leukocytosis/elevated Pro-Edilberto/fever add Unasyn. Will defer antibiotics on admission and reevaluate based on labs and clinical progression. - Initial CXR: Large L pleural effusion. - s/p US guided L thoracentesis 02/20. 1500cc total removed. - Repeat CXR: Moderate residual L pleural effusion and LML/LLL consolidation. 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 Path 02/10/25: PCR not able to confirm either B or T cell clone. 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 Pending switch to chemo+immunotherapy Hematology oncology consulted. - If she has recurrent rapid reaccumulation of malignant pleural fluid may need inpatient treatment +/- Pleurx evaluation Peripheral edema Patient with chronic upper extremity edema due to lymph node biopsies. Additionally has increasing lower extremity edema although she feels it is not much worse than it typically is at time of admission Suspect third spacing and venous stasis. She is hypoalbuminemic Recommend lymphedema mobilization strategies. May continue diuresis, however this must be done with mobilization strategies. She does not have a history of CHF. No anginal symptoms preceding admission Asthma No wheezing, no acute exacerbation Nebs as needed CKD3 No TRAVIS at admission Creatinine 1.13 Baseline creatinine approximately 1.09 GERD w/ esophagitis No epigastric pain, no GERD symptoms on admission. Denies melena/hematochezia Pepcid as needed Hyperthyroidism Continue methimazole Protein calorie malnutrition Hypoalbuminemia, poor p.o. intake Patient relates this to loss of taste and food being unpalatable although she does have a reasonably good appetite Is interested in supplementing with protein rich shakes and other things as tolerated. Appreciative of nutrition consult while inpatient. This has been placed DVT prophylaxis: Lovenox Disposition: MSO CODE STATUS: DNR/DNI. She is okay with temporary intubation for reversible causes outside of a cardiac arrest, will list as conditional code. Diet: Low-salt (2) Chronic kidney disease, stage III (moderate): (3) Hyperlipidemia: (4) Hypertension: (5) Hyperthyroidism: (6) GERD without esophagitis: History of Present Illness Primary Care Provider: Mignon Bansal, DO 84yo with a PMHx of CKD3, T-cell lymphoma, anxiety/depression, HLD, HTN who was referred to the ER for weakness, dyspnea. Was referred for a thoracentesis which she had done today, but remains to weak to ambulate and was referred for evaluation and potential rehab. Angelita reports about 6 weeks ago she noticed she could not breath very well. Saw her PCP Dr. Bansal initially and 'as soon as I walked in she took one look at me and got a tank of oxygen and called an ambulance.' Was brought to the hospital, and had many scans and tests and had the fluid drained from her lung. [place] better initially after seeing Dr. House and having fluid taken off. Two days later had a second thoracentesis. [place] well for around 2 weeks then started getting short of breath again. Started infusion treatment and was doing OK, but worsened int he last 5-7 days. Was scheduled for infusion treatment today, but was referred to thoracentesis on CCP evaluation. No cough No fevers, chills, or sweats No nausea, vomiting. Did have some diarrhea from her infusion. No diarrhea today. No abdominal pain No headache No night sweats 60lbs weight loss since . Lost taste during COV2020 but went back to normal until this past winter. "I'm hungry, but food just tastes like [place]." +Leg edema +Arm edema since lymph node removal No history of SC/CHF. No chest pain Her and her daughter have been monitoring for infectious symptoms specially since starting treatment however she does not feel like she has a cold or any infectious symptoms, has just felt tired and more short of breath from fluid. Medical History: Reviewed Medications: Reviewed Surgical History: Reviewed Family history: Reviewed Allergies: Reviewed Social History: No tobacco. Very rare ETOH use Code Status: DNR/DNI. Is okay with intubation for temporary/reversible causes, will list as conditional code Allergies Allergy/AdvReac Type Severity Reaction Status Date / Time sulfamethoxazole Allergy Intermediate ITCHING/HIV Verified 02/06/25 09:39 ES levofloxacin Allergy Unknown ITCHING/HIV Verified 02/06/25 09:39 ES morphine AdvReac Severe N/V Verified 02/06/25 09:39 doxycycline AdvReac Intermediate Rash Verified 02/06/25 09:39 Home Medications Medication Instructions Recorded Confirmed Type aspirin 81 mg tablet,delayed 81 mg PO QAM 05/31/19 02/06/25 History release (Aspir-) albuterol sulfate 90 mcg/actuation 1 - 2 puff inhalation Q4H PRN 12/26/20 02/06/25 Rx aerosol inhaler (ProAir HFA) shortness of breath or wheezing #18 grams atorvastatin 10 mg tablet 10 mg PO HS #90 tabs 04/19/24 02/06/25 Rx diltiazem HCl 120 mg 120 mg PO DAILY #90 caps 10/17/24 01/17/25 Rx capsule,extended release 24 hr methimazole 5 mg tablet 5 mg PO DAILY E05.90 12/23/24 02/06/25 History food supplemt, lactose-reduced 2 ea PO DAILY #12,000 mL 01/04/25 01/17/25 Rx 0.04 gram-1 kcal/mL oral liquid (Boost) Oxygen Home #1 ea 01/26/25 01/17/25 Rx folic acid 1 mg tablet 5 mg (5 x 1 mg) PO QAM #30 tabs 01/26/25 Rx Bedside Commode #1 ea 01/31/25 02/06/25 Rx mirtazapine 7.5 mg tablet 7.5 mg PO HS #90 tabs 01/31/25 Rx furosemide 40 mg tablet 40 mg PO DAILY #30 tabs 02/09/25 Rx Wheelchair (Manual) #1 ea 02/16/25 Rx Past Med/Surg History Problem List (Updated 02/06/25 @ 09:44 by Mignon Bansal DO) Malnutrition Folate deficiency Anxiety and depression T-cell lymphoma Chronic kidney disease, stage III (moderate) Anemia Recurrent nevus of face Nonallergic rhinitis Inflamed seborrheic keratosis Multiple pulmonary nodules Urinary urgency Hyperlipidemia PARTIAL Hypertension Thyroid nodule ENDOCRINE MONITORING Obesity Hyperthyroidism ENDOCRINE MONITORING; ON METHIMAZOLE- THYROID LABS STABLE ON 05/24/18 Valvular disease MILD TR- PT DENIES Nephrolithiasis Osteoarthritis Left renal mass Vitamin D deficiency Urinary incontinence Reactive airway disease Multinodular goiter Impaired fasting glucose GERD without esophagitis Allergic rhinitis Abnormal findings on diagnostic imaging of abdomen Medical History Axillary lymphadenopathy Lymph nodes enlarged Acute on chronic hypoxic respiratory failure Pleural effusion Restrictive lung disease Degenerative joint disease of knee Pulmonary nodules Asthma Osteoarthritis of right hip Surgical History S/P lymph node biopsy (01/19/25) S/P lymph node biopsy (06/21/19) Hx of lymph node biopsy Hx of surgical procedure History of total knee replacement History of total shoulder replacement History of cataract extraction with lens replacement History of total hip arthroplasty History of colonoscopy History of hysterectomy Family History Denies family history of Ovarian cancer Prostate cancer Myocardial infarction Breast cancer Colorectal cancer Social History Smoking Status: Never smoker Second Hand Exposure: No; Do You Dip or Chew Tobacco: No; Hx Alcohol Use: No Hx Substance Use: No Preferred Language: Venezuelan Communication Ability: Effective Visual Impairment: No Limitations 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: Normal Acute Care Occupational Therapist Required: No Beliefs That Will Affect Care: None marital status: / Current Living Situation: Family Current Living Situation Comment: daughter daron lives with pt current occupational status: retired How many Children do You have: 2 Feels Safe at Home: Yes Childhood Exposure to Second-Hand Smoke: Yes Diet: regular Diet Comment: regular caffeine: Yes (Coffee x 1 per day.) during the past year weight has: remained stable Dental Care, Regularly: Yes Physical Activity Frequency: Daily Physical Activity Frequency Comment: walking, gardening Seatbelt Use: always Sunscreen Use: No Assistive Devices: Bedside Commode, Cane, Walker and Wheelchair Physical Exam Physical Exam: General: A&Ox3. NAD. Cooperative. HEENT: Atraumatic, normocephalic. Vision and hearing grossly intact. Pupils equal and reactive to light Pulm: Diminished on the left, no overt wheezes/rales symmetrical chest rise. No increased work of breathing. No respiratory distress. Cardiac: RRR, -mrg. Radial pulses intact and symmetrical. Abdominal: Nontender, nondistended, soft. BS present. Extremities: Bilateral upper extremity edema, 34+ lower extremity bilateral pitting edema. Unchanged from baseline per patient. Sensation of soft touch intact in hands and feet bilaterally. 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 Results & Data Results & Data Vital Signs (Past 12 Hours) Vital Signs Temp Pulse Resp BP Pulse Ox O2 Del Method O2 Flow Rate 02/20/25 15:12 73 02/20/25 14:34 36.4 C L 73 22 125/56 L 95 Nasal Cannula 3 PG Care Time/CCT Total # of Minutes Spent Total Time Spent with Patient: Total time spent is greater than 50% in coordination of care (as documented) at patient's floor/unit and/or counseling patient: Coding Level of Care Code 81101 INT INP/OBS CARE 375MIN Diagnoses T-cell lymphoma C85.90 Chronic kidney disease, stage III (moderate) N18.3 Hyperlipidemia, unspecified hyperlipidemia type E78.5 Hyperlipidemia type: unspecified Primary hypertension I10 Hypertension type: primary hypertension Hyperthyroidism E05.90 GERD without esophagitis K21.9 (3) Hyperlipidemia Hyperlipidemia type: unspecified Qualified Code(s): E78.5 - Hyperlipidemia, unspecified (4) Hypertension Hypertension type: primary hypertension Qualified Code(s): I10 - Essential (primary) hypertension
[2025-02-20] MEDS: MIRTAZAPINE TAB 15 MG TAB PO SCH (21:58)
[2025-02-20] MEDS: ATORVASTATIN 10 MG TAB PO SCH (21:58)
[2025-02-20] MEDS: ENOXAPARIN INJ 40 MG/0.4 ML SYR SQ SCH (21:58)
--- NOTE | 2025-02-21 07:32 | Oncology Consultation ---
Date of Consultation February 21, 2025 Assessment & Plan (1) Anemia: (2) Shortness of breath: (3) T-cell lymphoma: Plan -Please transfuse for symptomatic anemia with hemoglobin less than 7.5 -Will obtain repeat anemia labs -Antibiotics for possible pneumonia -Plan is to start outpatient R-mini CHOP chemotherapy on 02/27/2025. Thank you for this consult. Please feel free to call if you have any further questions. History of Present Illness Reason for Consultation: Angioimmunoblastic T-cell lymphoma Attending Physician: Marquise Oro MD History of Present Illness 84-year-old female recently diagnosed with angioimmunoblastic T-cell lymphoma. She was started on weekly rituximab on 02/13/2025 while awaiting second review of pathology slides at [facility]. Presented yesterday to hematology clinic for week #2 of rituximab but was found to be increasingly dyspneic with chest x-ray revealing large left pleural effusion and left pulmonary consolidation. Subsequently underwent thoracentesis yesterday with removal of 1.5 L of pleural fluid. Despite this, she did not feel any better and ER evaluation was rec ommended. Allergies Allergy/AdvReac Type Severity Reaction Status Date / Time sulfamethoxazole Allergy Intermediate ITCHING/HIV Verified 02/06/25 09:39 ES levofloxacin Allergy Unknown ITCHING/HIV Verified 02/06/25 09:39 ES morphine AdvReac Severe N/V Verified 02/06/25 09:39 doxycycline AdvReac Intermediate Rash Verified 02/06/25 09:39 Home Medications Medication Instructions Recorded Confirmed Type aspirin 81 mg tablet,delayed 81 mg PO QAM 05/31/19 02/20/25 History release (Aspir-) albuterol sulfate 90 mcg/actuation 1 - 2 puff inhalation Q4H PRN 12/26/20 02/20/25 Rx aerosol inhaler (ProAir HFA) shortness of breath or wheezing #18 grams atorvastatin 10 mg tablet 10 mg PO HS #90 tabs 04/19/24 02/20/25 Rx diltiazem HCl 120 mg 120 mg PO DAILY #90 caps 10/17/24 02/20/25 Rx capsule,extended release 24 hr methimazole 5 mg tablet 5 mg PO DAILY E05.90 12/23/24 02/20/25 History food supplemt, lactose-reduced 2 ea PO DAILY #12,000 mL 01/04/25 02/20/25 Rx 0.04 gram-1 kcal/mL oral liquid (Boost) Oxygen Home #1 ea 01/26/25 01/17/25 Rx folic acid 1 mg tablet 5 mg (5 x 1 mg) PO QAM #30 tabs 01/26/25 02/20/25 Rx Bedside Commode #1 ea 01/31/25 02/06/25 Rx mirtazapine 7.5 mg tablet 7.5 mg PO HS #90 tabs 01/31/25 02/20/25 Rx furosemide 40 mg tablet 40 mg PO DAILY #30 tabs 02/09/25 02/20/25 Rx Wheelchair (Manual) #1 ea 02/16/25 Rx amoxicillin 875 mg-potassium 1 tab PO BID 02/20/25 02/20/25 History clavulanate 125 mg tablet potassium chloride 10 mEq 10 meq PO DAILY while on lasix 02/20/25 02/20/25 History tablet,extended release Patient History Medical History Axillary lymphadenopathy Lymph nodes enlarged Acute on chronic hypoxic respiratory failure Pleural effusion Restrictive lung disease Degenerative joint disease of knee Pulmonary nodules Asthma Osteoarthritis of right hip Surgical History S/P lymph node biopsy (01/19/25) S/P lymph node biopsy (06/21/19) Hx of lymph node biopsy Hx of surgical procedure History of total knee replacement History of total shoulder replacement History of cataract extraction with lens replacement History of total hip arthroplasty History of colonoscopy History of hysterectomy Family History Denies family history of Ovarian cancer Prostate cancer Myocardial infarction Breast cancer Colorectal cancer Social History Smoking Status: Never smoker Second Hand Exposure: No; Do You Dip or Chew Tobacco: No; Hx Alcohol Use: No Hx Substance Use: No Preferred Language: Colombian Communication Ability: Effective Visual Impairment: No Limitations 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: Normal 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 Beliefs That Will Affect Care: None marital status: / Current Living Situation: Family Current Living Situation Comment: DAUGHTER DONNA current occupational status: retired How many Children do You have: 2 Feels Safe at Home: Yes Safety Concerns: Feels Safe At This Time Childhood Exposure to Second-Hand Smoke: Yes Diet: regular Diet Comment: regular caffeine: Yes (Coffee x 1 per day.) during the past year weight has: remained stable Dental Care, Regularly: Yes Physical Activity Frequency: Daily Physical Activity Frequency Comment: walking, gardening Seatbelt Use: always Sunscreen Use: No Assistive Devices: Oxygen - Continuous and Walker Results & Data Vital Signs (Past 12 Hours) Vital Signs Temp Pulse Pulse Resp BP Pulse Ox O2 Del Method 02/20/25 20:51 36.4 C L 69 20 102/68 98 Nasal Cannula 02/20/25 20:45 Nasal Cannula 02/20/25 20:15 69 22 104/53 L 98 Nasal Cannula O2 Flow Rate 02/20/25 20:51 3 02/20/25 20:45 3 02/20/25 20:15 3 (1) Anemia Anemia type: unspecified type Qualified Code(s): D64.9 - Anemia, unspecified
[2025-02-21 07:47] LABS: Hematocrit (blood only) 23.5 % (37.0-47.0); Hemoglobin 7.0 g/dl (12.0-16.0); Mean Corpuscular Hemoglobin 25.0 pg (25.0-34.0); Mean Corpuscular Volume 83.9 fL (80.0-100.0); Platelet Count 258 K/uL (130-400); RDW Standard Deviation 46.0 fL (36.4-46.3); Red Blood Count 2.80 M/uL (4.20-5.40); Reticulocytes # 0.030 10^6/uL (0.020-0.100); White Blood Count 5.71 K/ul (4.8-10.8)
--- NOTE | 2025-02-21 08:09 | Hospitalist Progress Note ---
Date of Service February 21, 2025 Assessment & Plan (1) T-cell lymphoma: (2) Chronic kidney disease, stage III (moderate): (3) Hyperlipidemia: (4) Hypertension: (5) Hyperthyroidism: (6) GERD without esophagitis: (7) Anemia: Plan Angelita is an 84-year-old female with a history of angioimmunoblastic T-cell lymphoma who presents with weakness and fatigue. She had a recurrent pleural effusion suspected malignant which was drained for 1500 cc of fluid. She was admitted for PT/OT, ongoing management of hypoxia, and possible rehab. #Weakness Suspect hypoxic respiratory failure with malignant effusion and FTT with poor p.o. intake. - No TRAVIS. BUN/Cr contracted. Is with evidence of diffuse edema suspect that this is more lymphedema both due to her lymph node biopsies and third spacing with hypoalbuminemia #Normocytic anemia Hemoglobin baseline around 8. MCV lower end of normal, high RDW. Patient denies hematochezia/melena/bleeding. Poor p.o. intake Ferritin elevated 02/02/2025. TIBC low at 192. Consistent with anemia of chronic disease. Reticulocyte count/index pending Hemoglobin dropped to 7.0 on 02/21; Hem/Onc recommending transfusion for symptomatic anemia for Hgb <7.5 Blood consent form obtained at bedside 1 unit irradiated pRBCs ordered / transfused While no history of CHF, monitor for TACO/TRALI in the setting increased oxygen demands, third spacing, and malignant pleural effusion Lasix 20 mg IV PRN for respiratory distress Repeat H&H post blood transfusion: 8.3 #Hypoxic respiratory failure 2/2 malignant pleural effusion Denies history of fever, chills, cough, sputum production. Does have some consolidation of the left lung, in absence of fever/infectious symptoms this may be from compression and pleural effusions. Procalcitonin added. If rising leukocytosis/elevated Pro-Edilberto/fever add Unasyn. Will defer antibiotics on admission and reevaluate based on labs and clinical progression. - Initial CXR: Large L pleural effusion. - s/p US guided L thoracentesis 02/20. 1500cc total removed. - CXR 02/20: Moderate residual L pleural effusion and LML/LLL consolidation. - AM CXR ordered for 02/22 to assess for interval progression #Angioimmunoblastic T cell lymphoma (AITL) - 11/2024 --> pleural fluid positive for monoclonal B cell population, aberrant CD10 on subset of T cells. Path 02/10/25: PCR not able to confirm either B or T cell clone. 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 Pending switch to chemo+immunotherapy Hematology oncology consulted - If she has recurrent rapid reaccumulation of malignant pleural fluid may need inpatient treatment +/- Pleurx evaluation - General surgery consult appreciated Will plan to place mediport on the morning of 02/22; Hold lovenox; NPO at midnight #Peripheral edema Patient with chronic upper extremity edema due to lymph node biopsies. Additionally has increasing lower extremity edema although she feels it is not much worse than it typically is at time of admission Suspect third spacing and venous stasis. She is hypoalbuminemic Recommend lymphedema mobilization strategies. May continue diuresis, however this must be done with mobilization strategies. She does not have a history of CHF. No anginal symptoms preceding admission #Asthma No wheezing, no acute exacerbation Nebs as needed #CKD3 No TRAVIS at admission Creatinine 1.13 Baseline creatinine approximately 1.09 #GERD w/ esophagitis No epigastric pain, no GERD symptoms on admission. Denies melena/hematochezia Pepcid as needed #Hyperthyroidism Continue methimazole #Stage I pressure ulcer - Daily wound care #Protein calorie malnutrition Hypoalbuminemia, poor p.o. intake Patient relates this to loss of taste and food being unpalatable although she does have a reasonably good appetite Is interested in supplementing with protein rich shakes and other things as tolerated. Appreciative of nutrition consult while inpatient. This has been placed #Transient hypotension Hold a.m. diltiazem on 02/22 DVT prophylaxis: HOLD lovenox on 02/21 d/t anemia + planned Mediport placement with Gen Surg on morning of 02/22; can plan to restart following procedure pending Hgb Disposition: Upgraded from Medsurg -> Medsurg with Tele prior to blood transfusion (high risk for TACO/TRALI) CODE STATUS: DNR/DNI. She is okay with temporary intubation for reversible causes outside of a cardiac arrest, will list as conditional code Admission and Anticipated Discharge Date Admission Date: February 20, 2025 Supervising Physician Co-Signing Physician Notes The patient was not seen by me. The chart was reviewed. Case discussed with SALOME Vu. Agree with assessment and plan Subjective Mrs. Adkins is in good spirits this morning. She reports she slept well last night, and her breathing has been good this morning. No fevers. She does not use supplemental oxygen at baseline, or CPAP at night. She denies any SOB at rest, and is unsure if she will have JOSHUA, she has not been "up and walking for the past week". She does report that she had to bump up her oxygen to 4 L, and was having dyspnea on exertion the last time she got up to shower. No cough or infectious respiratory symptoms. Patient denies prior history of blood transfusions. She is amenable to having a blood transfusion at this time if it will help with JOSHUA. Patient reports she wants "everything done" for her chemotherapy, and would like to have a port placed by general surgery inpatient during this admission if possible. She would also like to have a procedure done to prevent recurrence of thoracentesis if possible. Her only additional concern s at this time is that she has been having loose stool. No prior history of GI bleeds. ROS: Patient endorses JOSHUA, loose stool/diarrhea, and neuropathy in the toes and fingers. Patient denies fevers, chills, night sweats, dizziness/lightheadedness, chest pain, chest palpitations, chest tightness, SOB at rest, abdominal pain, N/V, blood in the urine or stool, melena, or saddle anesthesia. Review of Systems Review of Systems: See HPI above Physical Exam Physical Exam: General: no acute distress; pleasant affect; non-toxic appearing; frail appearing; cooperative; SpO2 100% on 3L NC HEENT: normocephalic, atraumatic; no scleral icterus; PERRLA; vision and hearing grossly intact Neck: supple; trachea midline Skin: warm, dry without signs of tenting; no cyanosis; no rashes, bruising, lesions, or erythema noted CV: chest wall NTP; RRR; S1/S2 normal; no murmurs/rubs/gallops; pulses intact and symmetric at radial, DP, and PT Lungs: no acute respiratory distress; symmetrical chest wall expansion; clear breath sounds across all lung munoz w/o adventitious sounds; mild expiratory wheeze auscultated in the lower lung munoz bilaterally ABD: Soft, NTP; BS present; no rebound/guarding; no distention MSK: no tics or fasciculations; +2 pitting edema noted in the LEs b/l, nonerythematous Back: Thoracentesis site is with mild swelling, no drainage or signs of infection; superficial stage I sacral ulcer appreciated/dressed Neuro: A&Ox3; normal mood and affect; fluent speech; no focal deficits; patient report sensation intact and symmetric in the lower extremity bilaterally Results & Data Results & Data Vital Signs (Past 12 Hours) Vital Signs Temp Pulse Pulse Resp BP Pulse Ox O2 Del Method 02/21/25 07:42 36.3 C L 68 18 100/64 100 Nasal Cannula 02/20/25 20:51 36.4 C L 69 20 102/68 98 Nasal Cannula 02/20/25 20:45 Nasal Cannula 02/20/25 20:15 69 22 104/53 L 98 Nasal Cannula O2 Flow Rate 02/21/25 07:42 2.5 02/20/25 20:51 3 02/20/25 20:45 3 02/20/25 20:15 3 PG Care Time/CCT Total # of Minutes Spent Total Time Spent with Patient: Total time spent is greater than 50% in coordination of care (as documented) at patient's floor/unit and/or counseling patient: Coding [place] [address] SUB INP/OBS CARE 3/50MIN Patient Type Established Medical Decision Making High Complexity Diagnoses T-cell lymphoma C85.90 Chronic kidney disease, stage III (moderate) N18.3 Hyperlipidemia, unspecified hyperlipidemia type E78.5 Hyperlipidemia type: unspecified Primary hypertension I10 Hypertension type: primary hypertension Hyperthyroidism E05.90 GERD without esophagitis K21.9 Anemia D64.9 Anemia type: unspecified type (3) Hyperlipidemia Hyperlipidemia type: unspecified Qualified Code(s): E78.5 - Hyperlipidemia, unspecified (4) Hypertension Hypertension type: primary hypertension Qualified Code(s): I10 - Essential (primary) hypertension (7) Anemia Anemia type: unspecified type Qualified Code(s): D64.9 - Anemia, unspecified
[2025-02-21 08:10] LABS: ALC (manual) 0.40 K/uL (1.2-3.4); ANC (manual) 5.08 K/uL (1.4-6.5); Hypochromasia Present; Ovalocytes 1+; Polychromasia 1+
[2025-02-21 08:18] LABS: Chloride 100.0 mmol/L (98-107); Potassium 4.9 mmol/L (3.5-5.1); Sodium 138.0 mmol/L (136-145)
[2025-02-21 08:43] LABS: Anion Gap 7.0 (3-11); Blood Urea Nitrogen 31.0 mg/dl (6-23); Calcium 7.7 mg/dl (8.6-10.3); Carbon Dioxide 31.0 mmol/L (21-32); Creatinine Clr Calc Pharmacy 49.7 ml/min; Glucose 93.0 mg/dl (70-99(Fasting))
[2025-02-21 08:56] LABS: Iron 43.0 mcg/dl (35-150); Total Iron Binding Cap Calc 150.0 mcg/dl (250-450); Transferrin 107.0 mg/dl (200-360); Transferrin (FE) Percent Satur 29.0 % (15-50)
[2025-02-21] MEDS: FOLIC ACID 1 MG TAB PO SCH (08:56)
[2025-02-21] MEDS: FUROSEMIDE 40 MG TAB PO SCH (08:56)
[2025-02-21] MEDS: ASPIRIN 81 MG ECTAB PO SCH (08:57)
[2025-02-21 09:14] LABS: Folate (Folic Acid),Ser orPlas 6.14 ng/ml (>5.38)
[2025-02-21 09:15] LABS: Vitamin B12 1400.0 pg/ml (180-914)
[2025-02-21 09:55] LABS: Ferritin 1600.0 ng/ml (8-388)
[2025-02-21] MEDS ORDERED: SODIUM CHLORIDE 0.9% 100 ML IV PRN ×2 (10:42→11:16)
--- NOTE | 2025-02-21 11:55 | Surgery Consultation ---
Date of Consultation February 21, 2025 Assessment & Plan (1) T-cell lymphoma: This is an 84y F with a PMH of anxiety/depression, HTN, HLD, GERD, CKD, and t- cell lymphoma who presented to the [facility] ED on 02/20/25 for dyspnea and weakness. She was found to have a pleural effusion requiring thoracentesis and was admitt ed thereafter. She reports feeling much better and denies any SOB or chest pains. We have been consulted for consideration of port placement as she will be likely starting chemotherapy next week per heme/onc. She had a lymph node biopsy performed last month that path shows tcell lymphoma. She has undergone one dose of ritixumab thus far. Patient denies any fevers/chills, weakness/fatigue, or abdominal complaints. She is having + BMs. She has friends that have had ports and is familiar with what they are. Today labs show WBC 5.7, Hbg 7 Cr 0.9. Vitals are stable, she is on some supplemental nasal cannula. She denies any infectious complaints and has no diagnosis requiring abx management at this time. Lung findings likely 2/2 to her pleural effusion. Patient agreeable with a port for upcoming chemo. Questions/concerns answered. We will make her NPO at midnight and book her for a mediport insertion with dr. vera tomorrow. please hold any blood thinners. History of Present Illness Attending Physician: Marquise Oro MD History of Present Illness This is an 84y F with a PMH of anxiety/depression, HTN, HLD, GERD, CKD, and t- cell lymphoma who presented to the [facility] ED on 02/20/25 for dyspnea and weakness. She was found to have a pleural effusion requiring thoracentesis and was admitted thereafter. She reports feeling much better and denies any SOB or chest pains. We have been consulted for consideration of port placement as she will be likely starting chemotherapy next week per heme/onc. She had a lymph node biopsy performed last month that path shows tcell lymphoma. She has undergone one dose of ritixumab thus far. Patient denies any fevers/chills, weakness/fatigue, or abdominal complaints. She is having + BMs. She has friends that have had ports and is familiar with what they are. Allergies Allergy/AdvReac Type Severity Reaction Status Date / Time sulfamethoxazole Allergy Intermediate ITCHING/HIV Verified 02/06/25 09:39 ES levofloxacin Allergy Unknown ITCHING/HIV Verified 02/06/25 09:39 ES morphine AdvReac Severe N/V Verified 02/06/25 09:39 doxycycline AdvReac Intermediate Rash Verified 02/06/25 09:39 Home Medications Medication Instructions Recorded Confirmed Type aspirin 81 mg tablet,delayed 81 mg PO QAM 05/31/19 02/20/25 History release (Aspir-) albuterol sulfate 90 mcg/actuation 1 - 2 puff inhalation Q4H PRN 12/26/20 02/20/25 Rx aerosol inhaler (ProAir HFA) shortness of breath or wheezing #18 grams atorvastatin 10 mg tablet 10 mg PO HS #90 tabs 04/19/24 02/20/25 Rx diltiazem HCl 120 mg 120 mg PO DAILY #90 caps 10/17/24 02/20/25 Rx capsule,extended release 24 hr methimazole 5 mg tablet 5 mg PO DAILY E05.90 12/23/24 02/20/25 History food supplemt, lactose-reduced 2 ea PO DAILY #12,000 mL 01/04/25 02/20/25 Rx 0.04 gram-1 kcal/mL oral liquid (Boost) Oxygen Home #1 ea 01/26/25 01/17/25 Rx folic acid 1 mg tablet 5 mg (5 x 1 mg) PO QAM #30 tabs 01/26/25 02/20/25 Rx Bedside Commode #1 ea 01/31/25 02/06/25 Rx mirtazapine 7.5 mg tablet 7.5 mg PO HS #90 tabs 01/31/25 02/20/25 Rx furosemide 40 mg tablet 40 mg PO DAILY #30 tabs 02/09/25 02/20/25 Rx Wheelchair (Manual) #1 ea 02/16/25 Rx amoxicillin 875 mg-potassium 1 tab PO BID 02/20/25 02/20/25 History clavulanate 125 mg tablet potassium chloride 10 mEq 10 meq PO DAILY while on lasix 02/20/25 02/20/25 History tablet,extended release Patient History Medical History Axillary lymphadenopathy Lymph nodes enlarged Acute on chronic hypoxic respiratory failure Pleural effusion Restrictive lung disease Degenerative joint disease of knee Pulmonary nodules DR. DOMINGUEZ MONITORING Asthma STABLE- DOESNT USE INHALERS- FOLLOWS DR. DOMINGUEZ- [facility] Osteoarthritis of right hip Surgical History S/P lymph node biopsy (01/19/25) Left Axillary Lymph Node Excisional Biopsy(Left) - Daniel Corley, DO S/P lymph node biopsy (06/21/19) Right Axillary Lymph Node Biopsy with Needle Localization Dr. Vaughan 06/21/19 Hx of lymph node biopsy RIGHT Hx of surgical procedure LEFT KIDNEY BIOPSY /DR. LANDIN History of total knee replacement LEFT History of total shoulder replacement RIGHT History of cataract extraction with lens replacement History of total hip arthroplasty RIGHT ZOFIA= 02/19/18= SAB X 1 ATTEMPT AT [facility] History of colonoscopy History of hysterectomy Family History Denies family history of Ovarian cancer Prostate cancer Myocardial infarction Breast cancer Colorectal cancer Social History Smoking Status: Never smoker Second Hand Exposure: No; Do You Dip or Chew Tobacco: No; Hx Alcohol Use: No Hx Substance Use: No Preferred Language: Korean Communication Ability: Effective Visual Impairment: No Limitations 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: Normal 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 Beliefs That Will Affect Care: None marital status: / Current Living Situation: Family Current Living Situation Comment: DAUGHTER DONNA current occupational status: retired How many Children do You have: 2 Feels Safe at Home: Yes Safety Concerns: Feels Safe At This Time Childhood Exposure to Second-Hand Smoke: Yes Diet: regular Diet Comment: regular caffeine: Yes (Coffee x 1 per day.) during the past year weight has: remained stable Dental Care, Regularly: Yes Physical Activity Frequency: Daily Physical Activity Frequency Comment: walking, gardening Seatbelt Use: always Sunscreen Use: No Assistive Devices: Oxygen - Continuous and Walker Review of Systems Constitutional: no fever, no chills and no fatigue Respiratory: no dyspnea Cardiovascular: no chest pain Gastrointestinal: no abdominal pain, no bloating, no nausea and no vomiting Physical Exam Physical Exam: awake/alert, no distress Respiratory: normal respiratory effort on some supplemental O2 Gastrointestinal (Abdomen): Inspection/Auscultation: abdomen not distended Results & Data Vital Signs (Past 12 Hours) Vital Signs Temp Pulse Resp BP Pulse Ox O2 Del Method O2 Flow Rate 02/21/25 09:00 Nasal Cannula 3 02/21/25 07:42 97.3 F L 68 18 100/64 100 Nasal Cannula 2.5 PG Care Time/CCT Total # of Minutes Spent Total Time Spent with Patient: Total time spent is greater than 50% in coordination of care (as documented) at patient's floor/unit and/or counseling patient: Coding Level of Care Code 41449 INT INP/OBS CARE 1/40MIN Diagnoses T-cell lymphoma C85.90
[2025-02-21 17:03] LABS: Hematocrit (blood only) 28.0 % (37.0-47.0); Hemoglobin 8.3 g/dl (12.0-16.0)
[2025-02-22 08:14] LABS: Hematocrit (blood only) 28.2 % (37.0-47.0); Hemoglobin 8.6 g/dl (12.0-16.0); Mean Corpuscular Hemoglobin 25.4 pg (25.0-34.0); Mean Corpuscular Volume 83.4 fL (80.0-100.0); Platelet Count 290 K/uL (130-400); RDW Standard Deviation 45.9 fL (36.4-46.3); Red Blood Count 3.38 M/uL (4.20-5.40); White Blood Count 5.52 K/ul (4.8-10.8)
[2025-02-22] MEDS: POTASSIUM CHLORIDE 10 MEQ TABCR PO SCH (08:25)
[2025-02-22 08:30] LABS: Anion Gap 2.0 (3-11); Blood Urea Nitrogen 27.0 mg/dl (6-23); Calcium 7.9 mg/dl (8.6-10.3); Carbon Dioxide 35.0 mmol/L (21-32); Chloride 101.0 mmol/L (98-107); Creatinine Clr Calc Pharmacy 48.7 ml/min; Glucose 81.0 mg/dl (70-99(Fasting)); Potassium 4.4 mmol/L (3.5-5.1); Sodium 138.0 mmol/L (136-145)
--- NOTE | 2025-02-22 08:31 | XRay Report ---
EXAM: XR chest 1V portable CLINICAL HISTORY: Interval progression of effusions Status Post 1 pRBC. TECHNIQUE: X-ray image of the chest obtained in 1 frontal projection. COMPARISON: X-ray dated 02/20/2025. FINDINGS: Pulmonary Parenchyma: Unchanged mild right and moderate left pleural effusion with air space opacification in the underlying parenchyma. Unchanged thickening of the right horizontal fissure. Unchanged bilateral parahilar congestive changes. Heart and Mediastinum: Cardiomegaly. No mediastinal widening or masses. No hilar or mediastinal lymphadenopathy. Bony Thorax: Right shoulder replacement prosthesis. Bony thorax appears intact without fractures or deformities. Soft Tissues: Soft tissues overlying the chest wall are unremarkable. IMPRESSION: 1. Unchanged mild right and slightly progressed left pleural effusion with air space opacification in the underlying parenchyma. 2. Cardiomegaly. Electronically signed by Isrrael Venegas 02-22-2025 08:31 AM
[2025-02-22 09:10] LABS: ALC (manual) 0.22 K/uL (1.2-3.4); ANC (manual) 4.86 K/uL (1.4-6.5)
[2025-02-22] MEDS ORDERED: MIDAZOLAM HCL 1 MG/ML 2ML VIAL ONE ×2 (09:22→10:02)
[2025-02-22] MEDS ORDERED: ONDANSETRON INJ 2 MG/ML 2 ML VIAL ONE (10:02)
[2025-02-22] MEDS ORDERED: GLYCOPYRROLATE 0.2 MG/ML VIAL ONE (10:02)
[2025-02-22] MEDS ORDERED: PROPOFOL IV EMULSION 10 MG/ML 20 ML VIAL IV ONE (10:02)
[2025-02-22] MEDS ORDERED: DEXAMETHASONE SOD INJ 4 MG/ML VIAL ONE (10:02)
[2025-02-22] MEDS ORDERED: LIDOCAINE 2% 2 ML VIAL/AMP(20MG/ML) INFIL ONE (10:02)
[2025-02-22] MEDS: LACTATED RINGER'S 1,000 ML IV SCH (10:20)
--- NOTE | 2025-02-22 10:55 | Surgery Progress Note ---
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 plan for port placement risks of the procedure were discussed to include but not limited to bleeding, infection, pneumothorax, port malfunction, infection, or complication requiring removal or replacement, damage to surrounding structures, need for future or more extensive surgery, and the risks of anesthesia (2) Chronic kidney disease, stage III (moderate): (3) Hypertension: (4) Obesity: (5) Hyperthyroidism: (6) Anemia: Admission and Anticipated Discharge Date Admission Date: February 20, 2025 Subjective Patient with new diagnosis of T-cell lymphoma with need for port placement for chemotherapy. She takes a baby aspirin but has been off this for a few days. Her Lovenox was held. She is NPO. She is right-hand dominant. No prior instrumentation of her jugular or subclavian veins. Physical Exam Constitutional: WD/WN, vitals as above Neck: trachea midline, no thyromegaly Respiratory: normal respiratory effort, lungs clear to auscultation Cardiovascular: RRR, no murmur, no edema Results & Data Vital Signs (Past 12 Hours) Vital Signs Temp Pulse Pulse Resp BP BP Pulse Ox 02/22/25 10:09 36.7 C 62 20 115/59 L 100 02/22/25 08:20 117/76 02/22/25 08:00 02/22/25 07:32 36.3 C L 76 20 96/65 L 100 02/22/25 06:51 65 02/22/25 04:40 36.4 C L 72 16 104/64 98 O2 Del Method O2 Flow Rate 02/22/25 10:09 Nasal Cannula 3 02/22/25 08:20 02/22/25 08:00 Nasal Cannula 3 02/22/25 07:32 Nasal Cannula 3 02/22/25 06:51 02/22/25 04:40 Nasal Cannula 3 Laboratory Results Laboratory Results - last 24 hr 02/20/25 02/21/25 02/22/25 18:18 16:27 07:37 WBC 5.52 RBC 3.38 L Hgb 8.3 L 8.6 L Hct 28.0 L 28.2 L MCV 83.4 MCH 25.4 MCHC 30.5 L RDW Std Deviation 45.9 RDW Coeff of Mikel 15.1 H Plt Count 290 MPV 8.8 L Neutrophils % (Manual) 88 Lymphocytes % (Manual) 4 Monocytes % (Manual) 2 Metamyelocytes % (Man) 2 Myelocytes % (Man) 4 Neutrophils # (Manual) 4.86 Total Absolute Neuts 4.86 Lymphocytes # (Manual) 0.22 L Total Abs Lymphocytes 0.22 L Monocytes # (Manual) 0.11 Metamyelocytes # (Man) 0.11 H Myelocytes # (Manual) 0.22 H Sodium 138 Potassium 4.4 Chloride 101 Carbon Dioxide 35 H Anion Gap 2 L BUN 27 H Creatinine 0.98 Est Cr Clr Drug Dosing 48.7 eGFR 56.92 BUN/Creatinine Ratio 27.6 H Glucose 81 Calcium 7.9 L Blood Type O Positive Antibody Screen NEGATIVE Crossmatch See Detail PG Care Time/CCT Total # of Minutes Spent Total Time Spent with Patient: Total time spent is greater than 50% in coordination of care (as documented) at patient's floor/unit and/or counseling patient: Coding Level of Care Code 93369 SUB INP/OBS CARE 2/35MIN Diagnoses T-cell lymphoma C85.90 Chronic kidney disease, stage III (moderate) N18.3 Primary hypertension I10 Hypertension type: primary hypertension Obesity E66.9 Hyperthyroidism E05.90 Anemia D64.9 Anemia type: unspecified type (3) Hypertension Hypertension type: primary hypertension Qualified Code(s): I10 - Essential (primary) hypertension (6) Anemia Anemia type: unspecified type Qualified Code(s): D64.9 - Anemia, unspecified
--- NOTE | 2025-02-22 11:03 | Anesthesiology Consultation ---
Date of Service February 22, 2025 Assessment & Plan Chart Review Chart Review: Acceptable Risk for Surgery and Patient NOT seen in Pre Admission Testing Consults Requested none ASA ASA4 Proposed Anesthesia Anesthesia Type: MAC Risk / Benefits Reviewed With: PT / POA / Parent / Guardian, Accepts Plan and Informed Consent Obtained History Surgery Operation Date: 02/22/25 11:25 Proposed Procedures p Aport Insertion - Coleman Ramos, DO, FACS Height/Weight Height: 5 ft 7 in Weight: 88.2 kg Allergies Allergy/AdvReac Type Severity Reaction Status Date / Time sulfamethoxazole Allergy Intermediate ITCHING/HIV Verified 02/22/25 10:06 ES levofloxacin Allergy Unknown ITCHING/HIV Verified 02/22/25 10:06 ES morphine AdvReac Severe N/V Verified 02/22/25 10:06 doxycycline AdvReac Intermediate Rash Verified 02/22/25 10:06 Medications Home Medications Medication Instructions Recorded Confirmed Last Taken aspirin 81 mg tablet,delayed 81 mg PO QAM 05/31/19 02/20/25 06/13/19 release (Aspir-) albuterol sulfate 90 mcg/actuation 1 - 2 puff inhalation Q4H PRN 12/26/20 02/20/25 Unknown aerosol inhaler (ProAir HFA) shortness of breath or wheezing #18 grams atorvastatin 10 mg tablet 10 mg PO HS #90 tabs 04/19/24 02/20/25 Unknown diltiazem HCl 120 mg 120 mg PO DAILY #90 caps 10/17/24 02/20/25 Unknown capsule,extended release 24 hr methimazole 5 mg tablet 5 mg PO DAILY E05.90 12/23/24 02/20/25 Unknown food supplemt, lactose-reduced 2 ea PO DAILY #12,000 mL 01/04/25 02/20/25 Unknown 0.04 gram-1 kcal/mL oral liquid (Boost) Oxygen Home #1 ea 01/26/25 01/17/25 Unknown folic acid 1 mg tablet 5 mg (5 x 1 mg) PO QAM #30 tabs 01/26/25 02/20/25 Unknown Bedside Commode #1 ea 01/31/25 02/06/25 Unknown mirtazapine 7.5 mg tablet 7.5 mg PO HS #90 tabs 01/31/25 02/20/25 Unknown furosemide 40 mg tablet 40 mg PO DAILY #30 tabs 02/09/25 02/20/25 Unknown Wheelchair (Manual) #1 ea 02/16/25 Unknown amoxicillin 875 mg-potassium 1 tab PO BID 02/20/25 02/20/25 Unknown clavulanate 125 mg tablet potassium chloride 10 mEq 10 meq PO DAILY while on lasix 02/20/25 02/20/25 Unknown tablet,extended release Active Medications Generic Name Dose Route Start Last Admin Trade Name Felicitas PRN Reason Stop Dose Admin Aspirin 81 mg 02/21/25 09:00 02/22/25 07:55 Aspirin 81 Mg Ectab PO 03/23/25 08:59 Not Given QAM JUANPABLO Atorvastatin Calcium 10 mg 02/20/25 21:00 02/21/25 20:03 Atorvastatin 10 Mg Tab PO 03/22/25 20:59 10 mg HS JUANPABLO Administration Diltiazem HCl 120 mg 02/21/25 09:00 02/21/25 08:57 Diltiazem Hcl 120 Mg Capcr PO 03/23/25 08:59 120 mg DAILY JUANPABLO Administration Enoxaparin Sodium 40 mg 02/20/25 19:30 02/20/25 21:58 Enoxaparin Inj 40 Mg/0.4 Ml Syr SQ 03/22/25 19:29 40 mg Q24H JUANPABLO Administration Folic Acid 5 mg 02/21/25 09:00 02/22/25 08:22 Folic Acid 1 Mg Tab PO 03/23/25 08:59 5 mg QAM JUANPABLO Administration Furosemide 40 mg 02/21/25 09:00 02/22/25 08:25 Furosemide 40 Mg Tab PO 03/23/25 08:59 40 mg DAILY JUANPABLO Administration Lactated Ringer's 1,000 mls @ 15 mls/hr 02/22/25 09:45 02/22/25 10:20 Lr IV 02/25/25 09:44 15 mls/hr .Q24H JUANPABLO Administration Methimazole 5 mg 02/21/25 09:00 02/22/25 08:25 Methimazole 5 Mg Tablet PO 03/23/25 08:59 5 mg DAILY JUANPABLO Administration Mirtazapine 7.5 mg 02/20/25 21:00 02/21/25 20:04 Mirtazapine Tab 15 Mg Tab PO 03/22/25 20:59 7.5 mg HS JUANPABLO Administration Potassium Chloride 10 meq 02/22/25 09:00 02/22/25 08:25 Potassium Chloride 10 Meq Tabcr PO 03/24/25 08:59 10 meq DAILY JUANPABLO Administration NPO Date Last Intake of Fluids: 02/21/25 Time Last Intake of Fluids: 21:00 Date Last Intake of Solids: 02/21/25 Time Last Intake of Solids: 17:00 Past Medical History Medical History Axillary lymphadenopathy Lymph nodes enlarged Acute on chronic hypoxic respiratory failure Pleural effusion Restrictive lung disease Degenerative joint disease of knee Pulmonary nodules DR. DOMINGUEZ MONITORING Asthma STABLE- DOESNT USE INHALERS- FOLLOWS DR. DOMINGUEZ- [facility], [place] Osteoarthritis of right hip Exercise / Class Metabolic Activity II 4-5 Yardwork/Stairs/Walk up hill Past Family History Family History Denies family history of Ovarian cancer Prostate cancer Myocardial infarction Breast cancer Colorectal cancer Past Surgical History Surgical History S/P lymph node biopsy (01/19/25) Left Axillary Lymph Node Excisional Biopsy(Left) - Daniel Corley, S/P lymph node biopsy (06/21/19) Right Axillary Lymph Node Biopsy with Needle Localization Dr. Vaughan 06/21/19 Hx of lymph node biopsy RIGHT Hx of surgical procedure LEFT KIDNEY BIOPSY /DR. LANDIN History of total knee replacement LEFT History of total shoulder replacement RIGHT History of cataract extraction with lens replacement History of total hip arthroplasty RIGHT ZOFIA= 02/19/18= SAB X 1 ATTEMPT AT [facility], [place] History of colonoscopy History of hysterectomy Past Anesthesia History No Hx of Anesthesia Complications and No Family Hx of Anesthesia Complications History of PONV No Hx of PONV and No Hx of Motion Sickness Social History Smoking Status: Never smoker Do You Dip or Chew Tobacco: No Hx Alcohol Use: No Alcohol type: wine alcohol intake frequency: holidays/special occasions only Hx Substance Use: No substance use type: does not use Physical Exam Vital Signs Last Vital Signs Temp 36.7 C 02/22/25 10:09 Pulse 62 02/22/25 10:09 Resp 20 02/22/25 10:09 BP 115/59 L 02/22/25 10:09 Pulse Ox 100 02/22/25 10:09 O2 Del Method Nasal Cannula 02/22/25 10:09 O2 Flow Rate 3 02/22/25 10:09 ENMT Mouth: no dentition abnormality Thyromental Distance: > or= 3.5 Finger Breadths Mallampati Class: II Neck normal visual inspection Respiratory normal respiratory effort Auscultation: lungs clear to auscultation bilaterally Cardiovascular Rate/Rhythm: regular rate and regular rhythm Psychiatric Orientation: alert Testing Laboratory Results 02/22/25 07:37 02/22/25 07:37 Blood Type O Positive 02/20/25 18:18 Antibody Screen NEGATIVE 02/20/25 18:18
[2025-02-22] MEDS ORDERED: ATROPINE SULFATE 0.1 MG/ML 10ML SYR IV PRN (11:04)
[2025-02-22] MEDS ORDERED: ONDANSETRON INJ 2 MG/ML 2 ML VIAL IV PRN (11:04)
[2025-02-22] MEDS: HEPARIN 100 UNIT/ML 5ML FLUSH ONE (11:54)
[2025-02-22] MEDS: BUPIVACAINE 0.5 % 5 MG/1 ML MPF 30ML VIAL ONE (11:55)
[2025-02-22] MEDS: LIDOCAINE 1%/EPINEPHRINE 1:100,000 50 ML VIAL ONE (11:55)
--- NOTE | 2025-02-22 12:06 | Operative Report ---
PG Post Operative Report Pre & Post Diagnosis Operation Date: 02/22/25 11:25 Pre-Op Diagnosis: T-cell lymphoma Post-Op Diagnosis: T-cell lymphoma I identified the patient and participated in the time-out.: Yes Procedure Operation Date: 02/22/25 11:25 Actual Procedures p Insertion Left Internal Jugular Access Port(Left) - Coleman Ramos DO, FACS Surgeon Coleman Ramos DO, MARIBEL Mold Finisher None Estimated Blood Loss 5 Findings Consistent with Post-Op Diagnosis Left internal jugular vein accessed using real-time ultrasound guidance. Port placed to cavoatrial junction utilizing fluoroscopy. Port draws and flushes easily at conclusion of case. Specimens None Anesthesia Type General Complications none Disposition Accompanied Patient To Recovery: No Disposition: Recovery Room Indications 84-year-old female with newly diagnosed T-cell lymphoma with need for long-term IV access for chemotherapy, plan for port placement. The risks of the procedure were discussed, all questions were answered, and the patient agreed to proceed with surgery as planned. Description of Procedure The patient was properly identified, consented, and taken to the operating room where she was placed in the supine position with both arms tucked and a shoulder roll placed vertically. Monitored anesthesia care was induced. SCDs and a safety belt were placed. Preoperative antibiotics were administered. The patient's chest and neck was prepped and draped in the standard sterile fashion. Surgical timeout was performed and all parties were in agreement that this was the correct patient and procedure to be performed and we continued as planned. The patient was placed in Trendelenburg position. Local anesthetic was injected along the skin incision. Using real-time ultrasound guidance the left internal jugular vein was accessed using the access needle. The wire was placed and the needle was removed. Fluoroscopy confirmed placement into the internal jugular vein extending into the superior vena cava. A transverse skin incision was made in the left chest and a pocket was created for the port. A subcutaneous tunnel was created and the catheter was brought from the neck incision into the chest incision. The dilator and peel-away sheath were inserted over the wire. The catheter was then inserted through the peel-away sheath and fluoroscopy confirmed placement into the superior vena cava. The catheter was cut and attached to the port. The port was secured into place with 3-0 Prolene sutures. A final x-ray revealed good placement of the port. The wound was irrigated and hemostasis was confirmed. The skin was closed with interrupted 3-0 Vicryl deep dermal sutures, followed by 4-0 Monocryl running subcuticular suture. Dermabond was placed over the wound. The port was accessed and faisal blood easily and flushed easily. It was flushed with heparinized saline. The patient taken to the PACU where she recovered without apparent incident. All sponge, instrument and needle counts were correct at the conclusion of the procedure. The patient tolerated the procedure well. I attest to the content of the Intraoperative Record and any orders documented therein. Any exceptions are noted below.
--- NOTE | 2025-02-22 12:07 | Operative Report ---
PG Post Operative Report Pre & Post Diagnosis Operation Date: 02/22/25 11:25 Pre-Op Diagnosis: T-cell lymphoma Post-Op Diagnosis: T-cell lymphoma I identified the patient and participated in the time-out.: Yes Procedure Operation Date: 02/22/25 11:25 Actual Procedures p Insertion Left Internal Jugular Access Port(Left) - Coleman Ramos DO, FACS Surgeon Coleman Ramos DO, MARIBEL Saturator None Estimated Blood Loss 5 Findings Consistent with Post-Op Diagnosis Specimens None Anesthesia Type General Complications none Disposition Accompanied Patient To Recovery: No Disposition: Recovery Room Description of Procedure Real-time ultrasound guidance was utilized and interpreted throughout the procedure in order to access the left internal jugular vein. Fluoroscopy was utilized and interpreted by myself throughout the procedure in order to place the port to the cavoatrial junction. I attest to the content of the Intraoperative Record and any orders documented therein. Any exceptions are noted below.
--- NOTE | 2025-02-22 12:39 | XRay Report ---
XR chest 1V portable CLINICAL HISTORY: s/p mediport insertion COMPARISON STUDY: 02/22/2025 FINDINGS: Left chest port tip is in the SVC. There is no pneumothorax. There is stable cardiomegaly w ith pulmonary vascular congestion. Stable large left pleural effusion and associated lower lung conso lidation. Stable small right pleural effusion. IMPRESSION: No pneumothorax. Otherwise as described. ACT 112: Negative or not required by law. Electronically signed by: Coleman Andrews M.D. 02/22/2025 12:37 PM
[2025-02-22] MEDS ORDERED: VANCOMYCIN CONSULT ACTIVE PRN (12:40)
--- NOTE | 2025-02-22 12:40 | Hospitalist Progress Note ---
Date of Service February 22, 2025 Assessment & Plan (1) T-cell lymphoma: (2) Chronic kidney disease, stage III (moderate): (3) Hyperlipidemia: (4) Hypertension: (5) Hyperthyroidism: (6) GERD without esophagitis: (7) Anemia: Plan Angelita is an 84-year-old female with a history of angioimmunoblastic T-cell lymphoma who presents with weakness and fatigue. She had a recurrent pleural effusion suspected malignant which was drained for 1500 cc of fluid. She was admitted for PT/OT, ongoing management of hypoxia, and possible rehab. #Weakness Suspect hypoxic respiratory failure with malignant effusion and FTT with poor p.o. intake. - No TRAVIS. BUN/Cr contracted. Is with evidence of diffuse edema suspect that this is more lymphedema both due to her lymph node biopsies and third spacing with hypoalbuminemia #Normocytic anemia Hemoglobin baseline around 8. MCV lower end of normal, high RDW. Patient denies hematochezia/melena/bleeding. Poor p.o. intake Ferritin elevated 02/02/2025. TIBC low at 192. Consistent with anemia of chronic disease. Reticulocyte count/index pending Hemoglobin dropped to 7.0 on 02/21; Hem/Onc recommending transfusion for symptomatic anemia for Hgb <7.5 Blood consent form obtained at bedside 1 unit irradiated pRBCs ordered / transfused--tolerated well, H/H on 02/22 is stable at 8.6 #Hypoxic respiratory failure 2/2 malignant pleural effusion Denies history of fever, chills, cough, sputum production. Does have some consolidation of the left lung, in absence of fever/infectious symptoms this may be from compression and pleural effusions. Procalcitonin added. If rising leukocytosis/elevated Pro-Edilberto/fever add Unasyn. Will defer antibiotics on admission and reevaluate based on labs and clinical progression. - Initial CXR: Large L pleural effusion. - s/p US guided L thoracentesis 02/20. 1500cc total removed. - CXR 02/20: Moderate residual L pleural effusion and LLL consolidation--slight progression in L effusion on CXR 02/22 - Add broad spectrum antibiotic therapy to cover for possible PNA (HAP)--Vancomycin + Cefepime - Wean O2 as able to maintain pulse ox >92% #Angioimmunoblastic T cell lymphoma (AITL) - 11/2024 --> pleural fluid positive for monoclonal B cell population, aberrant CD10 on subset of T cells. Path 02/10/25: PCR not able to confirm either B or T cell clone. 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 Pending switch to chemo+immunotherapy Hematology/oncology consulted - If she has recurrent rapid reaccumulation of malignant pleural fluid may need inpatient treatment +/- Pleurx evaluation - General surgery consult appreciated--s/p mediport placement 02/22 #Peripheral edema Patient with chronic upper extremity edema due to lymph node biopsies. Additionally has increasing lower extremity edema although she feels it is not much worse than it typically is at time of admission Suspect third spacing and venous stasis. She is hypoalbuminemic Recommend lymphedema mobilization strategies. May continue diuresis, however this must be done with mobilization strategies. She does not have a history of CHF. No anginal symptoms preceding admission #Asthma No wheezing, no acute exacerbation Nebs as needed #CKD3 No TRAVIS at admission Creatinine 1.13 Baseline creatinine approximately 1.09 #GERD w/ esophagitis No epigastric pain, no GERD symptoms on admission. Denies melena/hematochezia Pepcid as needed #Hyperthyroidism Continue methimazole #Stage I pressure ulcer - Daily wound care #Protein calorie malnutrition Hypoalbuminemia, poor p.o. intake Patient relates this to loss of taste and food being unpalatable although she does have a reasonably good appetite Is interested in supplementing with protein rich shakes and other things as tolerated. Appreciative of nutrition consult while inpatient. This has been placed #Transient hypotension Hold diltiazem DVT prophylaxis: H/H stable, resume Lovenox on 02/23 Disposition: Med tele - can downgrade to med/surg on 02/23 CODE STATUS: DNR/DNI. She is okay with temporary intubation for reversible causes outside of a cardiac arrest, will list as conditional code. Consider palliative medicine consult to discuss goals of care. Await PT/OT eval to determine d/c dispo. AM labs ordered. Plan d/w Dr. Crowley Admission and Anticipated Discharge Date Admission Date: February 20, 2025 Supervising Physician Co-Signing Physician Notes The patient was not seen by me. The chart was reviewed. Case discussed with SALOME Tran. Agree with assessment and plan Subjective Angelita is an 84 yo F who was seen today on daily rounds as she was preparing to be taken to the OR for mediport placement. She has a newly diagnosed T-cell lymphoma diagnosis and is following with oncology. She was hospitalized with a malignant effusion with hypoxia. She underwent thoracentesis. She remains on 3L of supplemental O2. She otherwise verbalizes no complaints. Received 1 unit of pRBCs yesterday for symptomatic anemia. Tolerated well. Review of Systems 2 Review of Systems: All systems reviewed and are unremarkable except as noted in HPI and below. Denies fever, chills, fatigue, headache, nasal congestion, sore throat, cough, chest pain, palpitations, orthopnea, PND, abdominal pain, n/v/d, constipation, dysuria, hematuria, frequency, back pain, joint pain or swelling, easy bruising or bleeding, skin lesions or rashes. Physical Exam 2 Physical Exam: GENERAL: 84 yo elderly WF. A&O x3. No distress. LUNGS: Nonlabored. Diminished LLL. On supplemental O2. No wheezes or rhonchi appreciated. CARDIOVASCULAR: Regular rate and rhythm +murmur ABDOMEN: Soft, non-tender and non-distended. BS normoactive x 4 quad. EXTREMITIES: +2 b/l LE edema. Non-tender. Peripheral pulses +2/4. SKIN: Warm, dry, intact. No rashes or lesions. Results & Data Results & Data Vital Signs (Past 12 Hours) Vital Signs Temp Pulse Pulse Resp BP BP Pulse Ox 02/22/25 10:09 36.7 C 62 20 115/59 L 100 02/22/25 08:20 117/76 02/22/25 08:00 02/22/25 07:32 36.3 C L 76 20 96/65 L 100 02/22/25 06:51 65 02/22/25 04:40 36.4 C L 72 16 104/64 98 O2 Del Method O2 Flow Rate 02/22/25 10:09 Nasal Cannula 3 02/22/25 08:20 02/22/25 08:00 Nasal Cannula 3 02/22/25 07:32 Nasal Cannula 3 02/22/25 06:51 02/22/25 04:40 Nasal Cannula 3 Laboratory Results 02/22/25 07:37 02/22/25 07:37 PG Care Time/CCT Total # of Minutes Spent Total Time Spent with Patient: Total time spent is greater than 50% in coordination of care (as documented) at patient's floor/unit and/or counseling patient: 50 minutes Coding Level of Care Code 18693 SUB INP/OBS CARE 3/50MIN Diagnoses T-cell lymphoma C85.90 Chronic kidney disease, stage III (moderate) N18.3 Hyperlipidemia, unspecified hyperlipidemia type E78.5 Hyperlipidemia type: unspecified Primary hypertension I10 Hypertension type: primary hypertension Hyperthyroidism E05.90 GERD without esophagitis K21.9 Anemia D64.9 Anemia type: unspecified type (3) Hyperlipidemia Hyperlipidemia type: unspecified Qualified Code(s): E78.5 - Hyperlipidemia, unspecified (4) Hypertension Hypertension type: primary hypertension Qualified Code(s): I10 - Essential (primary) hypertension (7) Anemia Anemia type: unspecified type Qualified Code(s): D64.9 - Anemia, unspecified
--- NOTE | 2025-02-22 13:34 | Anesthesiology Progress Note ---
Date of Service February 22, 2025 Anesthesia Post Procedure Vital Signs Vital Signs: Temp Pulse Pulse Pulse Resp BP BP 02/22/25 13:21 36.3 C L 72 18 94/58 L 02/22/25 12:50 36.3 C L 72 19 95/51 L 02/22/25 12:40 80 15 99/53 L 02/22/25 12:30 82 18 93/52 L 02/22/25 12:20 89 20 99/58 L 02/22/25 12:12 36.4 C L 88 12 99/51 L 02/22/25 10:09 36.7 C 62 20 02/22/25 08:20 117/76 02/22/25 08:00 02/22/25 07:32 36.3 C L 76 20 02/22/25 06:51 65 02/22/25 04:40 36.4 C L 72 16 104/64 02/21/25 22:40 36.4 C L 70 18 96/61 L 02/21/25 21:58 70 02/21/25 19:56 02/21/25 19:15 36.5 C 70 18 02/21/25 17:58 36.6 C 71 22 87/54 L 02/21/25 17:05 36.6 C 68 20 91/58 L 02/21/25 16:05 36.7 C 68 18 103/62 02/21/25 15:05 36.7 C 71 20 98/61 L 02/21/25 14:35 36.6 C 65 20 100/66 02/21/25 14:20 36.6 C 69 20 91/60 L 02/21/25 14:00 36.7 C 68 24 81/52 L BP Pulse Ox O2 Del Method O2 Flow Rate 02/22/25 13:21 96 Nasal Cannula 3 02/22/25 12:50 99 Nasal Cannula 2 02/22/25 12:40 96 Nasal Cannula 2 02/22/25 12:30 96 Nasal Cannula 4 02/22/25 12:20 94 Oxymask 4 02/22/25 12:12 96 Oxymask 6 02/22/25 10:09 115/59 L 100 Nasal Cannula 3 02/22/25 08:20 02/22/25 08:00 Nasal Cannula 3 02/22/25 07:32 96/65 L 100 Nasal Cannula 3 02/22/25 06:51 02/22/25 04:40 98 Nasal Cannula 3 02/21/25 22:40 97 Nasal Cannula 3 02/21/25 21:58 02/21/25 19:56 Nasal Cannula 3 02/21/25 19:15 97/59 L 95 Nasal Cannula 3 02/21/25 17:58 98 02/21/25 17:05 97 3 02/21/25 16:05 97 3 02/21/25 15:05 99 3 02/21/25 14:35 99 3 02/21/25 14:20 96 3 02/21/25 14:00 98 3 Transfer of Care Handoff Completed per policy Notes Mental Status: alert / awake / arousable Patient Amnestic to Procedure: Yes Nausea / Vomiting: adequately controlled Pain: adequately controlled Airway Patency, RR, SpO2: stable & adequate BP & HR: stable & adequate Hydration State: stable & adequate Anesthetic Complications: no major complications apparent
[2025-02-22] MEDS: CEFEPIME 2000MG 2,000 MG/20 ML SYR IV SCH (13:46)
[2025-02-22] MEDS: VANCOMYCIN HCL 1,750 MG in SODIUM CHLORIDE 0.9% 500 ML IV ONE (13:53)
--- NOTE | 2025-02-22 14:21 | Pharmacy Report ---
Pharmacy PK ABX Note - Date of Service February 22, 2025 - Assessment and Plan Assessment 84 year old F receiving vancomycin/cefepime for treatment of pneumonia. Pertinent microbiologic data includes: MRSA Nasal Swab pending Day # 1 of antimicrobial therapy. Plan Vancomycin * Loading dose: 1750 mg IV x 1 * Maintenance dose: 1500 mg IV every 24 hours * Regimen is predicted to achieve target AUC/EVELYN of 400-600 mg/L.hr * Random level to be ordered if continued beyond 48 hours. Pharmacy will continue to follow and will adjust dose/frequency as necessary. Thank you. Pharmacy has transitioned to AUC monitoring for vancomycin. AUC/EVELYN is the preferred PK/PD target and is associated with decreased risk of nephrotoxicity compared to traditional trough targets.
--- NOTE | 2025-02-22 15:30 | Electrocardiogram Report ---
Test Reason : Blood Pressure : */* mmHG Vent. Rate : 82 BPM Atrial Rate : 82 BPM P-R Int : 120 ms QRS Dur : 80 ms QT Int : 370 ms P-R-T Axes : 38 24 -81 degrees QTcB Int : 432 ms Poor data quality, interpretation may be adversely affected Sinus rhythm with marked sinus arrhythmia Premature atrial complexes Premature ventricular complexes Low voltage QRS Nonspecific ST and T wave abnormality Abnormal ECG When compared with ECG of 18-Jan-2025 05:56, No significant change Confirmed by Julio Cesar Pena ([id number]) on 02/22/2025 3:30:07 PM Referred By: REFERRED SELF Confirmed By: Julio Cesar Pena
[2025-02-23] MEDS: VANCOMYCIN HCL 1,500 MG in SODIUM CHLORIDE 0.9% 500 ML IV SCH (05:10)
[2025-02-23 08:11] LABS: Hematocrit (blood only) 25.4 % (37.0-47.0); Hemoglobin 7.7 g/dl (12.0-16.0); Mean Corpuscular Hemoglobin 25.7 pg (25.0-34.0); Mean Corpuscular Volume 84.7 fL (80.0-100.0); Platelet Count 240 K/uL (130-400); RDW Standard Deviation 46.1 fL (36.4-46.3); Red Blood Count 3.00 M/uL (4.20-5.40); White Blood Count 5.83 K/ul (4.8-10.8)
[2025-02-23 08:34] LABS: Anion Gap 2.0 (3-11); Blood Urea Nitrogen 25.0 mg/dl (6-23); Calcium 7.5 mg/dl (8.6-10.3); Carbon Dioxide 35.0 mmol/L (21-32); Chloride 101.0 mmol/L (98-107); Creatinine Clr Calc Pharmacy 54.3 ml/min; Glucose 159.0 mg/dl (70-99(Fasting)); Potassium 4.2 mmol/L (3.5-5.1); Sodium 138.0 mmol/L (136-145)
[2025-02-23 08:44] LABS: ALC (manual) 0.47 K/uL (1.2-3.4); ANC (manual) 4.78 K/uL (1.4-6.5); Hypersegmented Neutrophils 1+; Polychromasia 1+
[2025-02-23] MEDS: VANCOMYCIN 750 MG in SODIUM CHLORIDE 0.9% 250 ML IV ONE (09:56)
--- NOTE | 2025-02-23 13:24 | Surgery Progress Note ---
Date of Service February 23, 2025 Assessment & Plan (1) T-cell lymphoma: Plan: POD#[address] hogan post op cxr good position and no pneumothorax some bruising noted, otherwise no issues with wound port has been accessed, no issues may start chemo as outlined and planned by heme/onc may f/u in office with dr. hogan in 2 weeks for wound check will sign off/please call with any questions/concerns Admission and Anticipated Discharge Date Admission Date: February 20, 2025 Subjective Patient doing well. Port has already been accessed, she reported a little bit of pain with this, otherwise no comlpaints. Physical Exam Physical Exam: awake/alert, no distress Neck: port in place, accessed, some bruising along neck line, no evidence of hematoma. incision intact Results & Data Vital Signs (Past 12 Hours) Vital Signs Temp Pulse Pulse Resp BP Pulse Ox O2 Del Method 02/23/25 11:29 97.3 F L 66 20 97/64 L 100 Nasal Cannula 02/23/25 10:27 Nasal Cannula 02/23/25 07:48 97.3 F L 63 20 101/62 100 Nasal Cannula 02/23/25 05:42 63 02/23/25 03:54 97.5 F L 67 18 104/61 98 Nasal Cannula O2 Flow Rate 02/23/25 11:29 4 02/23/25 10:27 3 02/23/25 07:48 4 02/23/25 05:42 02/23/25 03:54 4 PG Care Time/CCT Total # of Minutes Spent Total Time Spent with Patient: Total time spent is greater than 50% in coordination of care (as documented) at patient's floor/unit and/or counseling patient: Coding Level of Care Code 85173 Post Operative Follow-Up Diagnoses T-cell lymphoma C85.90
--- NOTE | 2025-02-23 21:42 | Hospitalist Progress Note ---
Date of Service February 23, 2025 Assessment & Plan (1) T-cell lymphoma: (2) Chronic kidney disease, stage III (moderate): (3) Hyperlipidemia: (4) Hypertension: (5) Hyperthyroidism: (6) GERD without esophagitis: (7) Anemia: Plan Angelita is an 84-year-old female with a history of angioimmunoblastic T-cell lymphoma who presents with weakness and fatigue. She had a recurrent pleural effusion suspected malignant which was drained for 1500 cc of fluid. She was admitted for PT/OT, ongoing management of hypoxia, and possible rehab. #Weakness Suspect hypoxic respiratory failure with malignant effusion and FTT with poor p.o. intake. - No TRAVIS. BUN/Cr contracted. Is with evidence of diffuse edema suspect that this is more lymphedema both due to her lymph node biopsies and third spacing with hypoalbuminemia #Normocytic anemia Hemoglobin baseline around 8. MCV lower end of normal, high RDW. Patient denies hematochezia/melena/bleeding. Poor p.o. intake Ferritin elevated 02/02/2025. TIBC low at 192. Consistent with anemia of chronic disease. Reticulocyte count/index pending Hemoglobin dropped to 7.0 on 02/21; Hem/Onc recommending transfusion for symptomatic anemia for Hgb <7.5 Blood consent form obtained at bedside 1 unit irradiated pRBCs ordered / transfused--tolerated well, H/H on 02/23 is slightly lower at 7.7 - will monitor and recheck in AM #Hypoxic respiratory failure 2/2 malignant pleural effusion Denies history of fever, chills, cough, sputum production. Does have some consolidation of the left lung, in absence of fever/infectious symptoms this may be from compression and pleural effusions. Procalcitonin added. If rising leukocytosis/elevated Pro-Edilberto/fever add Unasyn. Will defer antibiotics on admission and reevaluate based on labs and clinical progression. - Initial CXR: Large L pleural effusion. - s/p US guided L thoracentesis 02/20. 1500cc total removed. - CXR 02/20: Moderate residual L pleural effusion and LLL consolidation--slight progression in L effusion on CXR 02/22 - Add broad spectrum antibiotic therapy to cover for possible PNA (HAP)--Vancomycin + Cefepime - Wean O2 as able to maintain pulse ox >92% -will consult GI for possible dysphagia #Angioimmunoblastic T cell lymphoma (AITL) - 11/2024 --> pleural fluid positive for monoclonal B cell population, aberrant CD10 on subset of T cells. Path 02/10/25: PCR not able to confirm either B or T cell clone. 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 Pending switch to chemo+immunotherapy Hematology/oncology consulted - If she has recurrent rapid reaccumulation of malignant pleural fluid may need inpatient treatment +/- Pleurx evaluation - General surgery consult appreciated--s/p mediport placement 02/22 #Peripheral edema Patient with chronic upper extremity edema due to lymph node biopsies. Additionally has increasing lower extremity edema although she feels it is not much worse than it typically is at time of admission Suspect third spacing and venous stasis. She is hypoalbuminemic Recommend lymphedema mobilization strategies. May continue diuresis, however this must be done with mobilization strategies. She does not have a history of CHF. No anginal symptoms preceding admission #Asthma No wheezing, no acute exacerbation Nebs as needed #CKD3 No TRAVIS at admission Creatinine 1.13 Baseline creatinine approximately 1.09 #GERD w/ esophagitis No epigastric pain, no GERD symptoms on admission. Denies melena/hematochezia Pepcid as needed #Hyperthyroidism Continue methimazole #Stage I pressure ulcer - Daily wound care #Protein calorie malnutrition Hypoalbuminemia, poor p.o. intake Patient relates this to loss of taste and food being unpalatable although she does have a reasonably good appetite Is interested in supplementing with protein rich shakes and other things as tolerated. Appreciative of nutrition consult while inpatient. This has been placed #Transient hypotension Hold diltiazem DVT prophylaxis: H/H stable, resume Lovenox on 02/23 Disposition: Med tele - can downgrade to med/surg on 02/23 CODE STATUS: DNR/DNI. She is okay with temporary intubation for reversible causes outside of a cardiac arrest, will list as conditional code. will consult palliative care for goals of care discussion Await PT/OT eval to determine d/c dispo. Admission and Anticipated Discharge Date Admission Date: February 20, 2025 Subjective Patient reports no new symptoms Physical Exam Constitutional: WD/WN, vitals as above Neck: trachea midline, no thyromegaly Respiratory: normal respiratory effort, lungs clear to auscultation Cardiovascular: RRR, no murmur, no edema Results & Data Results & Data Vital Signs (Past 12 Hours) Vital Signs Temp Pulse Pulse Resp BP Pulse Ox Pulse Ox 02/23/25 21:15 02/23/25 20:00 36.4 C L 105 H 12 108/55 L 96 02/23/25 15:32 36.6 C 70 20 95/64 L 100 02/23/25 13:04 75 02/23/25 12:34 96 02/23/25 11:29 36.3 C L 66 20 97/64 L 100 02/23/25 10:27 O2 Del Method O2 Flow Rate O2 Flow Rate 02/23/25 21:15 Nasal Cannula 3 02/23/25 20:00 Nasal Cannula 4 02/23/25 15:32 Nasal Cannula 4 02/23/25 13:04 02/23/25 12:34 4 02/23/25 11:29 Nasal Cannula 4 02/23/25 10:27 Nasal Cannula 3 PG Care Time/CCT Total # of Minutes Spent Total Time Spent with Patient: Total time spent is greater than 50% in coordination of care (as documented) at patient's floor/unit and/or counseling patient: Coding Level of Care Code 91473 SUB INP/OBS CARE 3/50MIN Diagnoses T-cell lymphoma C85.90 Chronic kidney disease, stage III (moderate) N18.3 Hyperlipidemia, unspecified hyperlipidemia type E78.5 Hyperlipidemia type: unspecified Primary hypertension I10 Hypertension type: primary hypertension Hyperthyroidism E05.90 GERD without esophagitis K21.9 Anemia D64.9 Anemia type: unspecified type (3) Hyperlipidemia Hyperlipidemia type: unspecified Qualified Code(s): E78.5 - Hyperlipidemia, unspecified (4) Hypertension Hypertension type: primary hypertension Qualified Code(s): I10 - Essential (primary) hypertension (7) Anemia Anemia type: unspecified type Qualified Code(s): D64.9 - Anemia, unspecified
--- NOTE | 2025-02-24 10:24 | Gastrointestinal Consultation ---
Date of Consultation February 24, 2025 Assessment & Plan (1) Dysphagia: Plan GI asked to see patient for dysphagia which has been intermittently ongoing for years. she tells me that she tolerated breakfast this morning without issues. - follow speech path recommendations on diet. - recommend the patient to take their time eating, taking small bites, chewing food swell, and using plenty of fluids with meals. - start protonix 40mg once daily for any possible reflux component. - discussed EGD vs swallow study to further assess. she prefers less invasive testing. recommend setting the patient up for a modified barium swallow to further evaluate her intermittent dysphagia. Supervising Physician Co-Signing Physician Notes The patient was seen and evaluated at bedside. The case was discussed and revie wed with the GI physicians timber management assistant and I agree with his assessment and plan as outlined above. The patient tolerated full diet without event. Invasive evaluation with upper endoscopy is not indicated at this time. Kindly recall the GI service as needed. History of Present Illness Reason for Consultation: dysphagia Requesting Physician: Lance Covarrubias Attending Physician: Lance Covarrubias History of Present Illness Patient is an 84 year old female with a history of angioimmunoblastic T-cell lymphoma who presented to the ED on 02/20 with weakness and fatigue. She had a recurrent suspected malignant pleural effusion which was drained. She was admitted for PT/OT, ongoing management of hypoxia, and possible rehab. During work up she reported dysphagia. She tells me that she has had this for several years and that this is not new. Speech had seen the patient and recommended GI work up for globus sensation and aspiration or reflux. She tells me that she ate breakfast this morning without issues and did not have issues swallowing. She reports the issues with swallowing are intermittent. she denies a globus sensation or reflux. The remainder of the GI ROS were unremarkable. Allergies Allergy/AdvReac Type Severity Reaction Status Date / Time sulfamethoxazole Allergy Intermediate ITCHING/HIV Verified 02/22/25 10:06 ES levofloxacin Allergy Unknown ITCHING/HIV Verified 02/22/25 10:06 ES morphine AdvReac Severe N/V Verified 02/22/25 10:06 doxycycline AdvReac Intermediate Rash Verified 02/22/25 10:06 Home Medications Medication Instructions Recorded Confirmed Type aspirin 81 mg tablet,delayed 81 mg PO QAM 05/31/19 02/20/25 History release (Aspir-) albuterol sulfate 90 mcg/actuation 1 - 2 puff inhalation Q4H PRN 12/26/20 02/20/25 Rx aerosol inhaler (ProAir HFA) shortness of breath or wheezing #18 grams atorvastatin 10 mg tablet 10 mg PO HS #90 tabs 04/19/24 02/20/25 Rx diltiazem HCl 120 mg 120 mg PO DAILY #90 caps 10/17/24 02/20/25 Rx capsule,extended release 24 hr methimazole 5 mg tablet 5 mg PO DAILY E05.90 12/23/24 02/20/25 History food supplemt, lactose-reduced 2 ea PO DAILY #12,000 mL 01/04/25 02/20/25 Rx 0.04 gram-1 kcal/mL oral liquid (Boost) Oxygen Home #1 ea 01/26/25 01/17/25 Rx folic acid 1 mg tablet 5 mg (5 x 1 mg) PO QAM #30 tabs 01/26/25 02/20/25 Rx Bedside Commode #1 ea 01/31/25 02/06/25 Rx mirtazapine 7.5 mg tablet 7.5 mg PO HS #90 tabs 01/31/25 02/20/25 Rx furosemide 40 mg tablet 40 mg PO DAILY #30 tabs 02/09/25 02/20/25 Rx Wheelchair (Manual) #1 ea 02/16/25 Rx amoxicillin 875 mg-potassium 1 tab PO BID 02/20/25 02/20/25 History clavulanate 125 mg tablet potassium chloride 10 mEq 10 meq PO DAILY while on lasix 02/20/25 02/20/25 History tablet,extended release Patient History Medical History (Updated 02/24/25 @ 13:04 by ARBEN Lynn) Axillary lymphadenopathy Lymph nodes enlarged Acute on chronic hypoxic respiratory failure Pleural effusion Restrictive lung disease Degenerative joint disease of knee Pulmonary nodules DR. DOMINGUEZ MONITORING Asthma STABLE- DOESNT USE INHALERS- FOLLOWS DR. DOMINGUEZ- [facility] Osteoarthritis of right hip Surgical History (Updated 02/23/25 @ 11:20 by Ria Howell RN) H/O insertion of central venous access port (02/22/25) Insertion Left Internal Jugular Access Port(Left) - Coleman Ramos, , FACS S/P lymph node biopsy (01/19/25) Left Axillary Lymph Node Excisional Biopsy(Left) - Daniel Corley, DO S/P lymph node biopsy (06/21/19) Right Axillary Lymph Node Biopsy with Needle Localization Dr. Vaughan 06/21/19 Hx of lymph node biopsy RIGHT Hx of surgical procedure LEFT KIDNEY BIOPSY /DR. LANDIN History of total knee replacement LEFT History of total shoulder replacement RIGHT History of cataract extraction with lens replacement History of total hip arthroplasty RIGHT ZOFIA= 02/19/18= SAB X 1 ATTEMPT AT [facility] History of colonoscopy History of hysterectomy Family History Denies family history of Ovarian cancer Prostate cancer Myocardial infarction Breast cancer Colorectal cancer Social History Smoking Status: Never smoker Second Hand Exposure: No; Do You Dip or Chew Tobacco: No; Hx Alcohol Use: No Hx Substance Use: No Preferred Language: Kittitian Communication Ability: Effective Visual Impairment: No Limitations 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: Normal Analytics Consultant Required: No Beliefs That Will Affect Care: None marital status: / Current Living Situation: Family Current Living Situation Comment: DAUGHTER DONNA current occupational status: retired How many Children do You have: 2 Feels Safe at Home: Yes Safety Concerns: Feels Safe At This Time Childhood Exposure to Second-Hand Smoke: Yes Diet: regular Diet Comment: regular caffeine: Yes (Coffee x 1 per day.) during the past year weight has: remained stable Dental Care, Regularly: Yes Physical Activity Frequency: Daily Physical Activity Frequency Comment: walking, gardening Seatbelt Use: always Sunscreen Use: No Assistive Devices: Cane, Glasses, Oxygen - Continuous, Walker and Wheelchair Review of Systems Review of Systems: All systems reviewed & are unremarkable except as noted in HPI & below Physical Exam 2 Constitutional: WD/WN, vitals as above Respiratory: normal respiratory effort, lungs clear to auscultation Cardiovascular: Rate/Rhythm: regular rate and regular rhythm Gastrointestinal (Abdomen): normal bowel sounds, soft, nontender, no hepatosplenomegaly Psychiatric: Orientation: alert and oriented x 3 Affect: euthymic affect Results & Data Vital Signs (Past 12 Hours) Vital Signs Temp Pulse Pulse Resp BP Pulse Ox O2 Del Method 02/24/25 07:48 97.5 F L 110 H 17 106/67 94 Nasal Cannula 02/24/25 07:13 69 02/24/25 05:23 96.3 F L 76 14 105/63 100 Nasal Cannula 02/23/25 23:00 97.7 F 70 12 101/60 100 Nasal Cannula O2 Flow Rate 02/24/25 07:48 4 02/24/25 07:13 02/24/25 05:23 4 02/23/25 23:00 4 Coding Level of Care Code 79594 INT INP/OBS CARE 2/55MIN Diagnoses Dysphagia R13.10
[2025-02-24 12:35] LABS: Hematocrit (blood only) 27.6 % (37.0-47.0); Hemoglobin 8.3 g/dl (12.0-16.0); Mean Corpuscular Hemoglobin 25.9 pg (25.0-34.0); Mean Corpuscular Volume 86.0 fL (80.0-100.0); Platelet Count 276 K/uL (130-400); RDW Standard Deviation 48.6 fL (36.4-46.3); Red Blood Count 3.21 M/uL (4.20-5.40); White Blood Count 7.06 K/ul (4.8-10.8)
[2025-02-24 12:48] LABS: Anion Gap 5.0 (3-11); Blood Urea Nitrogen 21.0 mg/dl (6-23); Calcium 7.6 mg/dl (8.6-10.3); Carbon Dioxide 32.0 mmol/L (21-32); Chloride 100.0 mmol/L (98-107); Creatinine Clr Calc Pharmacy 61.2 ml/min; Glucose 93.0 mg/dl (70-99(Fasting)); Potassium 4.2 mmol/L (3.5-5.1); Sodium 137.0 mmol/L (136-145)
--- NOTE | 2025-02-24 13:05 | Palliative Care Consultation ---
Date of Consultation February 24, 2025 Assessment & Plan (1) Palliative care by specialist: (2) Counseling regarding advanced directives and goals of care: History of Present Illness Reason for Consultation: goals of care Requesting Physician: Lance Covarrubias Attending Physician: Lance Covarrubias Allergies Allergy/AdvReac Type Severity Reaction Status Date / Time sulfamethoxazole Allergy Intermediate ITCHING/HIV Verified 02/22/25 10:06 ES levofloxacin Allergy Unknown ITCHING/HIV Verified 02/22/25 10:06 ES morphine AdvReac Severe N/V Verified 02/22/25 10:06 doxycycline AdvReac Intermediate Rash Verified 02/22/25 10:06 Home Medications Medication Instructions Recorded Confirmed Type aspirin 81 mg tablet,delayed 81 mg PO QAM 05/31/19 02/20/25 History release (Aspir-) albuterol sulfate 90 mcg/actuation 1 - 2 puff inhalation Q4H PRN 12/26/20 02/20/25 Rx aerosol inhaler (ProAir HFA) shortness of breath or wheezing #18 grams atorvastatin 10 mg tablet 10 mg PO HS #90 tabs 04/19/24 02/20/25 Rx diltiazem HCl 120 mg 120 mg PO DAILY #90 caps 10/17/24 02/20/25 Rx capsule,extended release 24 hr methimazole 5 mg tablet 5 mg PO DAILY E05.90 12/23/24 02/20/25 History food supplemt, lactose-reduced 2 ea PO DAILY #12,000 mL 01/04/25 02/20/25 Rx 0.04 gram-1 kcal/mL oral liquid (Boost) Oxygen Home #1 ea 01/26/25 01/17/25 Rx folic acid 1 mg tablet 5 mg (5 x 1 mg) PO QAM #30 tabs 01/26/25 02/20/25 Rx Bedside Commode #1 ea 01/31/25 02/06/25 Rx mirtazapine 7.5 mg tablet 7.5 mg PO HS #90 tabs 01/31/25 02/20/25 Rx furosemide 40 mg tablet 40 mg PO DAILY #30 tabs 02/09/25 02/20/25 Rx Wheelchair (Manual) #1 ea 02/16/25 Rx amoxicillin 875 mg-potassium 1 tab PO BID 02/20/25 02/20/25 History clavulanate 125 mg tablet potassium chloride 10 mEq 10 meq PO DAILY while on lasix 02/20/25 02/20/25 History tablet,extended release Patient History Medical History (Updated 02/24/25 @ 13:04 by ARBEN Lynn) Axillary lymphadenopathy Lymph nodes enlarged Acute on chronic hypoxic respiratory failure Pleural effusion Restrictive lung disease Degenerative joint disease of knee Pulmonary nodules DR. DOMINGUEZ MONITORING Asthma STABLE- DOESNT USE INHALERS- FOLLOWS DR. DOMINGUEZ- [facility] Osteoarthritis of right hip Surgical History (Updated 02/23/25 @ 11:20 by Ria Howell RN) H/O insertion of central venous access port (02/22/25) Insertion Left Internal Jugular Access Port(Left) - Coleman Ramos DO, FACS S/P lymph node biopsy (01/19/25) Left Axillary Lymph Node Excisional Biopsy(Left) - Daniel Corley DO S/P lymph node biopsy (06/21/19) Right Axillary Lymph Node Biopsy with Needle Localization Dr. Vaughan 06/21/19 Hx of lymph node biopsy RIGHT Hx of surgical procedure LEFT KIDNEY BIOPSY /DR. LANDIN History of total knee replacement LEFT History of total shoulder replacement RIGHT History of cataract extraction with lens replacement History of total hip arthroplasty RIGHT ZOFIA= 02/19/18= SAB X 1 ATTEMPT AT [facility] History of colonoscopy History of hysterectomy Family History Denies family history of Ovarian cancer Prostate cancer Myocardial infarction Breast cancer Colorectal cancer Social History Smoking Status: Never smoker Second Hand Exposure: No; Do You Dip or Chew Tobacco: No; Hx Alcohol Use: No Hx Substance Use: No Preferred Language: Nepali Communication Ability: Effective Visual Impairment: No Limitations 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: Normal Forder Operator Required: No Beliefs That Will Affect Care: None marital status: / Current Living Situation: Family Current Living Situation Comment: DAUGHTER DONNA current occupational status: retired How many Children do You have: 2 Feels Safe at Home: Yes Safety Concerns: Feels Safe At This Time Childhood Exposure to Second-Hand Smoke: Yes Diet: regular Diet Comment: regular caffeine: Yes (Coffee x 1 per day.) during the past year weight has: remained stable Dental Care, Regularly: Yes Physical Activity Frequency: Daily Physical Activity Frequency Comment: walking, gardening Seatbelt Use: always Sunscreen Use: No Assistive Devices: Cane, Glasses, Oxygen - Continuous, Walker and Wheelchair Results & Data Vital Signs (Past 12 Hours) Vital Signs Temp Pulse Pulse Resp BP Pulse Ox O2 Del Method 02/24/25 11:09 36.3 C L 65 18 110/67 100 Nasal Cannula 02/24/25 08:00 Nasal Cannula 02/24/25 07:48 36.4 C L 110 H 17 106/67 94 Nasal Cannula 02/24/25 07:13 69 02/24/25 05:23 35.7 C L 76 14 105/63 100 Nasal Cannula O2 Flow Rate 02/24/25 11:09 100 02/24/25 08:00 3 02/24/25 07:48 4 02/24/25 07:13 02/24/25 05:23 4 Laboratory Results Abnormal lab results 02/24/25 Range/Units 12:05 RBC 3.21 L (4.20-5.40) M/uL Hgb 8.3 L (12.0-16.0) g/dl Hct 27.6 L (37.0-47.0) % MCHC 30.1 L (32.0-36.0) g/dL RDW Std Deviation 48.6 H (36.4-46.3) fL RDW Coeff of Mikel 15.4 H (11.5-14.5) % MPV 8.7 L (9.4-12.4) fL BUN/Creatinine Ratio 26.9 H (10-20) Calcium 7.6 L (8.6-10.3) mg/dl Diagnostic Findings Chest X-Ray 02/22/25 12:07 XR chest 1V portable CLINICAL HISTORY: s/p mediport insertion COMPARISON STUDY: 02/22/2025 FINDINGS: Left chest port tip is in the SVC. There is no pneumothorax. There is stable cardiomegaly with pulmonary vascular congestion. Stable large left pleural effusion and associated lower lung consolidation. Stable small right pleural effusion. IMPRESSION: No pneumothorax. Otherwise as described. ACT 112: Negative or not required by law. Electronically signed by: Coleman Andrews M.D. 02/22/2025 12:37 PM Medications Administered Current Inpatient Medications Acetaminophen (Acetaminophen 325 Mg Tab) 650 mg PO Q4H PRN PRN Reason: pain/fever Stop: 03/22/25 19:01 Aspirin (Aspirin 81 Mg Ectab) 81 mg PO QAM [facility] Stop: 03/23/25 08:59 Last Admin: 02/24/25 09:42 Dose: 81 mg Atorvastatin Calcium (Atorvastatin 10 Mg Tab) 10 mg PO HS JUANPABLO Stop: 03/22/25 20:59 Last Admin: 02/23/25 20:41 Dose: 10 mg Diltiazem HCl (Diltiazem Hcl 120 Mg Capcr) 120 mg PO DAILY JUANPABLO Stop: 03/23/25 08:59 Last Admin: 02/24/25 09:42 Dose: 120 mg Enoxaparin Sodium (Enoxaparin Inj 40 Mg/0.4 Ml Syr) 40 mg SQ Q24H [facility] Stop: 03/22/25 19:29 Last Admin: 02/20/25 21:58 Dose: 40 mg Folic Acid (Folic Acid 1 Mg Tab) 5 mg PO QAM [facility] Stop: 03/23/25 08:59 Last Admin: 02/24/25 09:42 Dose: 5 mg Furosemide (Furosemide 40 Mg Tab) 40 mg PO DAILY [facility] Stop: 03/23/25 08:59 Last Admin: 02/24/25 09:43 Dose: 40 mg Heparin Sodium (Porcine) (Heparin 100 Unit/Ml 5ml Flush) 5 ml FLUSH PRN PRN PRN Reason: Flush Stop: 03/25/25 09:43 Cefepime HCl (Maxipime 2000mg) 2,000 mg in 20 mls @ 5 mls/min IV Q12H [facility]; Protocol Stop: 03/01/25 12:59 Last Admin: 02/24/25 12:04 Dose: 5 mls/min Methimazole (Methimazole 5 Mg Tablet) 5 mg PO DAILY [facility] Stop: 03/23/25 08:59 Last Admin: 02/24/25 09:43 Dose: 5 mg Mirtazapine (Mirtazapine Tab 15 Mg Tab) 7.5 mg PO HS JUANPABLO Stop: 03/22/25 20:59 Last Admin: 02/23/25 20:41 Dose: 7.5 mg Pantoprazole Sodium (Pantoprazole 40 Mg Tab) 40 mg PO QAM [facility] Stop: 03/26/25 10:29 Last Admin: 02/24/25 12:04 Dose: 40 mg Potassium Chloride (Potassium Chloride 10 Meq Tabcr) 10 meq PO DAILY JUANPABLO Stop: 03/24/25 08:59 Last Admin: 02/24/25 09:43 Dose: 10 meq PG Care Time/CCT Total # of Minutes Spent Total Time Spent with Patient: Total time spent is greater than 50% in coordination of care (as documented) at patient's floor/unit and/or counseling patient: Coding Diagnoses Palliative care by specialist Z51.5 Counseling regarding advanced directives and goals of care Z71.89
[2025-02-24] MEDS: SERTRALINE HCL 50 MG TABLET PO ONE (17:06)
[2025-02-24] MEDS: CEFEPIME 2000MG 2,000 MG/20 ML SYR IV SCH (20:14)
--- NOTE | 2025-02-24 22:39 | Hospitalist Progress Note ---
Date of Service February 24, 2025 Assessment & Plan (1) T-cell lymphoma: (2) Chronic kidney disease, stage III (moderate): (3) Hyperlipidemia: (4) Hypertension: (5) Hyperthyroidism: (6) GERD without esophagitis: (7) Anemia: Plan Angelita is an 84-year-old female with a history of angioimmunoblastic T-cell lymphoma who presents with weakness and fatigue. She had a recurrent pleural effusion suspected malignant which was drained for 1500 cc of fluid. She was admitted for PT/OT, ongoing management of hypoxia, and possible rehab. #Weakness Suspect hypoxic respiratory failure with malignant effusion and FTT with poor p.o. intake. - No TRAVIS. BUN/Cr contracted. Is with evidence of diffuse edema suspect that this is more lymphedema both due to her lymph node biopsies and third spacing with hypoalbuminemia #Normocytic anemia Hemoglobin baseline around 8. MCV lower end of normal, high RDW. Patient denies hematochezia/melena/bleeding. Poor p.o. intake Ferritin elevated 02/02/2025. TIBC low at 192. Consistent with anemia of chronic disease. Reticulocyte count/index pending Hemoglobin dropped to 7.0 on 02/21; Hem/Onc recommending transfusion for symptomatic anemia for Hgb <7.5 Blood consent form obtained at bedside 1 unit irradiated pRBCs ordered / transfused--tolerated well, H/H stable at 8.3 - will monitor and recheck in AM #Hypoxic respiratory failure 2/2 malignant pleural effusion Denies history of fever, chills, cough, sputum production. Does have some consolidation of the left lung, in absence of fever/infectious symptoms this may be from compression and pleural effusions. Procalcitonin added. If rising leukocytosis/elevated Pro-Edilberto/fever add Unasyn. Will defer antibiotics on admission and reevaluate based on labs and clinical progression. - Initial CXR: Large L pleural effusion. - s/p US guided L thoracentesis 02/20. 1500cc total removed. - CXR 02/20: Moderate residual L pleural effusion and LLL consolidation--slight progression in L effusion on CXR 02/22 - Add broad spectrum antibiotic therapy to cover for possible PNA (HAP)--Vancomycin + Cefepime - Wean O2 as able to maintain pulse ox >92% -will consult GI for possible dysphagia #Angioimmunoblastic T cell lymphoma (AITL) - 11/2024 --> pleural fluid positive for monoclonal B cell population, aberrant CD10 on subset of T cells. Path 02/10/25: PCR not able to confirm either B or T cell clone. 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 Pending switch to chemo+immunotherapy Hematology/oncology consulted - If she has recurrent rapid reaccumulation of malignant pleural fluid may need inpatient treatment +/- Pleurx evaluation - General surgery consult appreciated--s/p mediport placement 02/22 #Peripheral edema Patient with chronic upper extremity edema due to lymph node biopsies. Additionally has increasing lower extremity edema although she feels it is not much worse than it typically is at time of admission Suspect third spacing and venous stasis. She is hypoalbuminemic Recommend lymphedema mobilization strategies. May continue diuresis, however this must be done with mobilization strategies. She does not have a history of CHF. No anginal symptoms preceding admission #Asthma No wheezing, no acute exacerbation Nebs as needed #CKD3 No TRAVIS at admission Creatinine 1.13 Baseline creatinine approximately 1.09 #GERD w/ esophagitis No epigastric pain, no GERD symptoms on admission. Denies melena/hematochezia Pepcid as needed #Hyperthyroidism Continue methimazole #Stage I pressure ulcer - Daily wound care #Protein calorie malnutrition Hypoalbuminemia, poor p.o. intake Patient relates this to loss of taste and food being unpalatable although she does have a reasonably good appetite Is interested in supplementing with protein rich shakes and other things as tolerated. Appreciative of nutrition consult while inpatient. This has been placed #Transient hypotension Hold diltiazem #Anxiety Patient was crying. Ordered one time dose of zoloft. DVT prophylaxis: H/H stable, resume Lovenox on 02/23 Disposition: Med tele - can downgrade to med/surg on 02/23 CODE STATUS: DNR/DNI. She is okay with temporary intubation for reversible causes outside of a cardiac arrest, will list as conditional code. will consult palliative care for goals of care discussion Await PT/OT eval to determine d/c dispo. Admission and Anticipated Discharge Date Admission Date: February 20, 2025 Subjective 84 yo female reports no new symptoms. Physical Exam Constitutional: WD/WN, vitals as above Neck: trachea midline, no thyromegaly Respiratory: normal respiratory effort, lungs clear to auscultation Cardiovascular: RRR, no murmur, no edema Results & Data Results & Data Vital Signs (Past 12 Hours) Vital Signs Temp Pulse Pulse Resp BP BP Pulse Ox 02/24/25 19:46 36.4 C L 65 18 105/57 L 99 02/24/25 15:51 36.4 C L 68 18 106/67 100 02/24/25 13:56 77 02/24/25 11:09 36.3 C L 65 18 110/67 100 O2 Del Method O2 Flow Rate 02/24/25 19:46 Nasal Cannula 4 02/24/25 15:51 Nasal Cannula 4 02/24/25 13:56 02/24/25 11:09 Nasal Cannula 100 PG Care Time/CCT Total # of Minutes Spent Total Time Spent with Patient: Total time spent is greater than 50% in coordination of care (as documented) at patient's floor/unit and/or counseling patient: Coding Level of Care Code 55910 SUB INP/OBS CARE 3/50MIN Diagnoses T-cell lymphoma C85.90 Chronic kidney disease, stage III (moderate) N18.3 Hyperlipidemia, unspecified hyperlipidemia type E78.5 Hyperlipidemia type: unspecified Primary hypertension I10 Hypertension type: primary hypertension Hyperthyroidism E05.90 GERD without esophagitis K21.9 Anemia D64.9 Anemia type: unspecified type (3) Hyperlipidemia Hyperlipidemia type: unspecified Qualified Code(s): E78.5 - Hyperlipidemia, unspecified (4) Hypertension Hypertension type: primary hypertension Qualified Code(s): I10 - Essential (primary) hypertension (7) Anemia Anemia type: unspecified type Qualified Code(s): D64.9 - Anemia, unspecified
[2025-02-25] MEDS ORDERED: VANCOMYCIN LEVEL ONE (05:00)
[2025-02-25 06:49] LABS: Hematocrit (blood only) 26.9 % (37.0-47.0); Hemoglobin 7.9 g/dl (12.0-16.0); Mean Corpuscular Hemoglobin 25.2 pg (25.0-34.0); Mean Corpuscular Volume 85.9 fL (80.0-100.0); Platelet Count 228 K/uL (130-400); RDW Standard Deviation 48.7 fL (36.4-46.3); Red Blood Count 3.13 M/uL (4.20-5.40); White Blood Count 5.88 K/ul (4.8-10.8)
[2025-02-25 07:20] LABS: Anion Gap 3.0 (3-11); Blood Urea Nitrogen 20.0 mg/dl (6-23); Carbon Dioxide 35.0 mmol/L (21-32); Chloride 102.0 mmol/L (98-107); Potassium 4.0 mmol/L (3.5-5.1); Sodium 140.0 mmol/L (136-145)
[2025-02-25 07:21] LABS: Calcium 7.5 mg/dl (8.6-10.3); Creatinine Clr Calc Pharmacy 63.6 ml/min; Glucose 93.0 mg/dl (70-99(Fasting))
[2025-02-25] MEDS: HEPARIN 100 UNIT/ML 5ML FLUSH FLUSH PRN (07:47)
--- NOTE | 2025-02-25 17:44 | XRay Report ---
EXAM: XR chest 1V portable CLINICAL HISTORY: sob. TECHNIQUE: An X-ray image of the chest is obtained in AP projection. COMPARISON: Radiograph on 02/22/2025 . FINDINGS: Pulmonary Parenchyma: Unchanged mild right and moderate left pleural effusion with air space opacification in the underlying parenchyma. Unchanged thickening of the right horizontal fissure. Unchanged bilateral parahilar congestive changes. Heart and Mediastinum: Cardiomegaly. No mediastinal widening or masses. No hilar or mediastinal lymphadenopathy. Heart and Mediastinum: Heart size and shape are normal. No mediastinal widening or masses. No hilar or mediastinal lymphadenopathy. Bony Thorax: Right shoulder replacement prosthesis. Bony thorax appears intact without fractures or deformities. Soft Tissues: Soft tissues overlying the chest wall are unremarkable. Left-sided Port-A-Cath is noted with tip in the cavoatrial junction Chest wall leads are noted. IMPRESSION: 1. Unchanged mild right and moderate left pleural effusion with air space opacification in the underlying parenchyma. 2. Unchanged thickening of the right horizontal fissure. 3. Unchanged bilateral parahilar congestive changes. 4. Left-sided Port-A-Cath is noted with tip in the cavoatrial junction 5. Cardiomegaly.stable. Electronically signed by Isrrael Venegas 02-25-2025 5:44 PM
[2025-02-25] MEDS: LEVALBUTEROL 1.25 MG/3 ML NEB NEB PRN (18:20)
--- NOTE | 2025-02-25 19:10 | XRay Report ---
EXAM: Portable AP chest radiograph TECHNIQUE: AP portable radiograph of the chest was obtained. INDICATION: Shortness of breath Comparison: Chest radiograph from earlier in the same day at 16:23. FINDINGS: LINES and TUBES: Left-sided Port-A-Cath again seen with tip projecting of the distal SVC. CARDIOVASCULAR: Cardiac silhouette is stably enlarged in size. LUNGS/PLEURA: No significant interval change in the mild right and moderate left pleural fluid and associated adjacent pulmonary densities that may represent atelectasis and/or pneumonia. No discernible pneumothorax. OSSEOUS/OTHER: No displaced acute osseous process identified. Right shoulder reverse arthroplasty IMPRESSION: Stable examination with findings as above. Electronically signed by Jourdan Mckeon 02-25-2025 7:09 PM
--- NOTE | 2025-02-25 23:06 | Hospitalist Progress Note ---
Date of Service February 25, 2025 Assessment & Plan (1) T-cell lymphoma: (2) Chronic kidney disease, stage III (moderate): (3) Hyperlipidemia: (4) Hypertension: (5) Hyperthyroidism: (6) GERD without esophagitis: (7) Anemia: Plan Angelita is an 84-year-old female with a history of angioimmunoblastic T-cell lymphoma who presents with weakness and fatigue. She had a recurrent pleural effusion suspected malignant which was drained for 1500 cc of fluid. She was admitted for PT/OT, ongoing management of hypoxia, and possible rehab. #Weakness Suspect hypoxic respiratory failure with malignant effusion and FTT with poor p.o. intake. - No TRAVIS. BUN/Cr contracted. Is with evidence of diffuse edema suspect that this is more lymphedema both due to her lymph node biopsies and third spacing with hypoalbuminemia -WILL CONSIDER PLEUREX CATHETER as patient has been more SOB. However vitals have been stable. #Normocytic anemia Hemoglobin baseline around 8. MCV lower end of normal, high RDW. Patient denies hematochezia/melena/bleeding. Poor p.o. intake Ferritin elevated 02/02/2025. TIBC low at 192. Consistent with anemia of chronic disease. Reticulocyte count/index pending Hemoglobin dropped to 7.0 on 02/21; Hem/Onc recommending transfusion for symptomatic anemia for Hgb <7.5 Blood consent form obtained at bedside 1 unit irradiated pRBCs ordered / transfused--tolerated well, H/H stable at 8.3 - will monitor and recheck in AM #Hypoxic respiratory failure 2/2 malignant pleural effusion Denies history of fever, chills, cough, sputum production. Does have some consolidation of the left lung, in absence of fever/infectious symptoms this may be from compression and pleural effusions. Procalcitonin added. If rising leukocytosis/elevated Pro-Edilberto/fever add Unasyn. Will defer antibiotics on admission and reevaluate based on labs and clinical progression. - Initial CXR: Large L pleural effusion. - s/p US guided L thoracentesis 02/20. 1500cc total removed. - CXR 02/20: Moderate residual L pleural effusion and LLL consolidation--slight progression in L effusion on CXR 02/22 - will stop antibiotics as patient has been more weak, concern that cefepime may be playing a role in this elderly patient as this can cause metabolic encephalopathy. - Wean O2 as able to maintain pulse ox >92% #Angioimmunoblastic T cell lymphoma (AITL) - 11/2024 --> pleural fluid positive for monoclonal B cell population, aberrant CD10 on subset of T cells. Path 02/10/25: PCR not able to confirm either B or T cell clone. 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 Pending switch to chemo+immunotherapy Hematology/oncology consulted - If she has recurrent rapid reaccumulation of malignant pleural fluid may need inpatient treatment +/- Pleurx evaluation - General surgery consult appreciated--s/p mediport placement 02/22 #Peripheral edema Patient with chronic upper extremity edema due to lymph node biopsies. Additionally has increasing lower extremity edema although she feels it is not much worse than it typically is at time of admission Suspect third spacing and venous stasis. She is hypoalbuminemic Recommend lymphedema mobilization strategies. May continue diuresis, however this must be done with mobilization strategies. She does not have a history of CHF. No anginal symptoms preceding admission #Asthma No wheezing, no acute exacerbation Nebs as needed #CKD3 No TRAVIS at admission Creatinine 1.13 Baseline creatinine approximately 1.09 #GERD w/ esophagitis No epigastric pain, no GERD symptoms on admission. Denies melena/hematochezia Pepcid as needed -consulted GI: no indications for ED at this time. #Hyperthyroidism Continue methimazole #Stage I pressure ulcer - Daily wound care #Protein calorie malnutrition Hypoalbuminemia, poor p.o. intake Patient relates this to loss of taste and food being unpalatable although she does have a reasonably good appetite Is interested in supplementing with protein rich shakes and other things as tolerated. Appreciative of nutrition consult while inpatient. This has been placed #Transient hypotension Hold diltiazem #Anxiety Patient was crying. Ordered one time dose of zoloft. DVT prophylaxis: H/H stable, resume Lovenox on 02/23 Disposition: Med tele - can downgrade to med/surg on 02/23 CODE STATUS: DNR/DNI. She is okay with temporary intubation for reversible causes outside of a cardiac arrest, will list as conditional code. Await PT/OT eval to determine d/c dispo. Admission and Anticipated Discharge Date Admission Date: February 20, 2025 Subjective 84 yo female reports no new symptoms. Physical Exam Constitutional: WD/WN, vitals as above Neck: trachea midline, no thyromegaly Respiratory: normal respiratory effort, lungs clear to auscultation Cardiovascular: RRR, no murmur, no edema Results & Data Results & Data Vital Signs (Past 12 Hours) Vital Signs Temp Pulse Pulse Resp BP BP Pulse Ox 02/25/25 21:13 02/25/25 19:29 36.4 C L 69 18 98/57 L 100 02/25/25 18:21 63 26 H 96 02/25/25 17:59 02/25/25 17:51 36.0 C L 67 17 97/58 L 95 02/25/25 14:22 36.6 C 79 18 104/66 100 02/25/25 13:00 67 02/25/25 11:19 36.3 C L 68 18 90/55 L 100 O2 Del Method O2 Flow Rate 02/25/25 21:13 Oxymask 4 02/25/25 19:29 Oxymask 4 02/25/25 18:21 Oxymask 4 02/25/25 17:59 4 02/25/25 17:51 Oxymask 4 02/25/25 14:22 Oxymask 4 02/25/25 13:00 02/25/25 11:19 Nasal Cannula 4 PG Care Time/CCT Total # of Minutes Spent Total Time Spent with Patient: Total time spent is greater than 50% in coordination of care (as documented) at patient's floor/unit and/or counseling patient: Coding Level of Care Code 11349 SUB INP/OBS CARE 3/50MIN Diagnoses T-cell lymphoma C85.90 Chronic kidney disease, stage III (moderate) N18.3 Hyperlipidemia, unspecified hyperlipidemia type E78.5 Hyperlipidemia type: unspecified Primary hypertension I10 Hypertension type: primary hypertension Hyperthyroidism E05.90 GERD without esophagitis K21.9 Anemia D64.9 Anemia type: unspecified type (3) Hyperlipidemia Hyperlipidemia type: unspecified Qualified Code(s): E78.5 - Hyperlipidemia, unspecified (4) Hypertension Hypertension type: primary hypertension Qualified Code(s): I10 - Essential (primary) hypertension (7) Anemia Anemia type: unspecified type Qualified Code(s): D64.9 - Anemia, unspecified
[2025-02-26 06:10] LABS: Anion Gap 3 (3-11); Blood Urea Nitrogen 18 mg/dl (6-23); Calcium 7.4 mg/dl (8.6-10.3); Carbon Dioxide 34 mmol/L (21-32); Chloride 101 mmol/L (98-107); Creatinine Clr Calc Pharmacy 63.7 ml/min; Glucose 93 mg/dl (70-99(Fasting)); Potassium 4.0 mmol/L (3.5-5.1); Sodium 138 mmol/L (136-145)
[2025-02-26 07:24] LABS: Hematocrit (blood only) 25.9 % (37.0-47.0); Hemoglobin 7.7 g/dl (12.0-16.0); Mean Corpuscular Hemoglobin 25.7 pg (25.0-34.0); Mean Corpuscular Volume 86.3 fL (80.0-100.0); Platelet Count 197 K/uL (130-400); RDW Standard Deviation 49.6 fL (36.4-46.3); Red Blood Count 3.00 M/uL (4.20-5.40); White Blood Count 5.51 K/ul (4.8-10.8)
[2025-02-26 09:05] LABS: Alanine Aminotransferase 8 U/L (7-52); Alkaline Phosphatase 63 U/L (34-104); Bilirubin,Total 0.7 mg/dl (0.2-1.0); Total Protein 4.3 gm/dl (6.0-8.3)
[2025-02-26] MEDS: ALBUMIN 25% 25 GM/100 ML VIAL IV ONE (12:30)
--- NOTE | 2025-02-26 15:57 | Hospitalist Progress Note ---
Date of Service February 26, 2025 Assessment & Plan (1) T-cell lymphoma: (2) Chronic kidney disease, stage III (moderate): (3) Hyperlipidemia: (4) Hypertension: (5) Hyperthyroidism: (6) GERD without esophagitis: (7) Anemia: Plan Angelita is an 84-year-old female with a history of angioimmunoblastic T-cell lymphoma who presents with weakness and fatigue. She had a recurrent pleural effusion suspected malignant which was drained for 1500 cc of fluid. She was admitted for PT/OT, ongoing management of hypoxia, and possible rehab. #Weakness Suspect hypoxic respiratory failure with malignant effusion and FTT with poor p.o. intake. - No TRAVIS. BUN/Cr contracted. Is with evidence of diffuse edema suspect that this is more lymphedema both due to her lymph node biopsies and third spacing with hypoalbuminemia -WILL CONSIDER PLEUREX CATHETER as patient has been more SOB. However vitals have been stable. #Normocytic anemia Hemoglobin baseline around 8. MCV lower end of normal, high RDW. Patient denies hematochezia/melena/bleeding. Poor p.o. intake Ferritin elevated 02/02/2025. TIBC low at 192. Consistent with anemia of chronic disease. Reticulocyte count/index pending Hemoglobin dropped to 7.0 on 02/21; Hem/Onc recommending transfusion for symptomatic anemia for Hgb <7.5 Blood consent form obtained at bedside 1 unit irradiated pRBCs ordered / transfused--tolerated well, H/H stable at 8.3 - will monitor and recheck in AM #Hypoxic respiratory failure 2/2 malignant pleural effusion Denies history of fever, chills, cough, sputum production. Does have some consolidation of the left lung, in absence of fever/infectious symptoms this may be from compression and pleural effusions. Procalcitonin added. If rising leukocytosis/elevated Pro-Edilberto/fever add Unasyn. Will defer antibiotics on admission and reevaluate based on labs and clinical progression. - Initial CXR: Large L pleural effusion. - s/p US guided L thoracentesis 02/20. 1500cc total removed. - CXR 02/20: Moderate residual L pleural effusion and LLL consolidation--slight progression in L effusion on CXR 02/22 - will stop antibiotics as patient has been more weak, concern that cefepime may be playing a role in this elderly patient as this can cause metabolic encephalopathy. - Wean O2 as able to maintain pulse ox >92% Due to worsneing oxygenation, ordered albumin to improve blood pressure to help remove fluid. will monitor. #Angioimmunoblastic T cell lymphoma (AITL) - 11/2024 --> pleural fluid positive for monoclonal B cell population, aberrant CD10 on subset of T cells. Path 02/10/25: PCR not able to confirm either B or T cell clone. 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 Pending switch to chemo+immunotherapy Hematology/oncology consulted - If she has recurrent rapid reaccumulation of malignant pleural fluid may need inpatient treatment +/- Pleurx evaluation - General surgery consult appreciated--s/p mediport placement 02/22 -will discuss if chemo be gvien while patient is admitted. #Peripheral edema Patient with chronic upper extremity edema due to lymph node biopsies. Additionally has increasing lower extremity edema although she feels it is not much worse than it typically is at time of admission Suspect third spacing and venous stasis. She is hypoalbuminemic Recommend lymphedema mobilization strategies. May continue diuresis, however this must be done with mobilization strategies. She does not have a history of CHF. No anginal symptoms preceding admission #Asthma No wheezing, no acute exacerbation Nebs as needed #CKD3 No TRAVIS at admission Creatinine 1.13 Baseline creatinine approximately 1.09 #GERD w/ esophagitis No epigastric pain, no GERD symptoms on admission. Denies melena/hematochezia Pepcid as needed -consulted GI: no indications for ED at this time. #Hyperthyroidism Continue methimazole #Stage I pressure ulcer - Daily wound care #Protein calorie malnutrition Hypoalbuminemia, poor p.o. intake Patient relates this to loss of taste and food being unpalatable although she does have a reasonably good appetite Is interested in supplementing with protein rich shakes and other things as tolerated. Appreciative of nutrition consult while inpatient. This has been placed #Transient hypotension Hold diltiazem #Anxiety Patient was crying. Ordered one time dose of zoloft. DVT prophylaxis: H/H stable, resume Lovenox on 02/23 Disposition: Med tele - can downgrade to med/surg on 02/23 CODE STATUS: DNR/DNI. She is okay with temporary intubation for reversible causes outside of a cardiac arrest, will list as conditional code. Await PT/OT eval to determine d/c dispo. Admission and Anticipated Discharge Date Admission Date: February 20, 2025 Subjective Patient reports no new symptoms.Patient states improved spirits today. But continues to feel fatigued. Physical Exam Constitutional: WD/WN, vitals as above Neck: trachea midline, no thyromegaly Respiratory: normal respiratory effort, lungs clear to auscultation Cardiovascular: RRR, no murmur, no edema Results & Data Results & Data Vital Signs (Past 12 Hours) Vital Signs Temp Pulse Pulse Resp BP BP Pulse Ox 02/26/25 15:44 36.3 C L 69 18 96/52 L 96 02/26/25 13:31 70 02/26/25 11:23 36.4 C L 68 20 88/53 L 98 02/26/25 07:58 36.5 C 62 17 86/51 L 98 02/26/25 05:32 69 O2 Del Method O2 Flow Rate 02/26/25 15:44 Nasal Cannula 6 02/26/25 13:31 02/26/25 11:23 Nasal Cannula 6 02/26/25 07:58 Nasal Cannula 2 02/26/25 05:32 PG Care Time/CCT Total # of Minutes Spent Total Time Spent with Patient: Total time spent is greater than 50% in coordination of care (as documented) at patient's floor/unit and/or counseling patient: Coding Level of Care Code 82784 SUB INP/OBS CARE 3/50MIN Diagnoses T-cell lymphoma C85.90 Chronic kidney disease, stage III (moderate) N18.3 Hyperlipidemia, unspecified hyperlipidemia type E78.5 Hyperlipidemia type: unspecified Primary hypertension I10 Hypertension type: primary hypertension Hyperthyroidism E05.90 GERD without esophagitis K21.9 Anemia D64.9 Anemia type: unspecified type (3) Hyperlipidemia Hyperlipidemia type: unspecified Qualified Code(s): E78.5 - Hyperlipidemia, unspecified (4) Hypertension Hypertension type: primary hypertension Qualified Code(s): I10 - Essential (primary) hypertension (7) Anemia Anemia type: unspecified type Qualified Code(s): D64.9 - Anemia, unspecified
[2025-02-27 07:05] LABS: Hematocrit (blood only) 24.9 % (37.0-47.0); Hemoglobin 7.6 g/dl (12.0-16.0); Mean Corpuscular Hemoglobin 25.8 pg (25.0-34.0); Mean Corpuscular Volume 84.4 fL (80.0-100.0); Platelet Count 206 K/uL (130-400); RDW Standard Deviation 48.1 fL (36.4-46.3); Red Blood Count 2.95 M/uL (4.20-5.40); White Blood Count 4.85 K/ul (4.8-10.8)
[2025-02-27 07:23] LABS: Anion Gap 2.0 (3-11); Blood Urea Nitrogen 16.0 mg/dl (6-23); Calcium 7.0 mg/dl (8.6-10.3); Carbon Dioxide 35.0 mmol/L (21-32); Chloride 103.0 mmol/L (98-107); Creatinine Clr Calc Pharmacy 91.4 ml/min; Glucose 86.0 mg/dl (70-99(Fasting)); Potassium 3.0 mmol/L (3.5-5.1); Sodium 140.0 mmol/L (136-145)
[2025-02-27] MEDS: POTASSIUM CHLORIDE CRTAB 20 MEQ TABCR PO STA (07:55)
--- NOTE | 2025-02-27 09:27 | Electrocardiogram Report ---
Test Reason : Blood Pressure : */* mmHG Vent. Rate : 68 BPM Atrial Rate : 68 BPM P-R Int : 122 ms QRS Dur : 84 ms QT Int : 362 ms P-R-T Axes : 31 39 170 degrees QTcB Int : 384 ms Normal sinus rhythm Low voltage QRS Nonspecific T wave abnormality Abnormal ECG When compared with ECG of 20-Feb-2025 14:31, Premature ventricular complexes are no longer Present Non-specific change in ST segment in Inferior leads Confirmed by Uvaldo Dhillon ([id number]) on 02/27/2025 9:27:40 AM Referred By: REFERRED SELF Confirmed By: Uvaldo Dhillon
--- NOTE | 2025-02-27 11:43 | Pulmonary Consultation ---
Date of Consultation February 27, 2025 Assessment & Plan (1) T-cell lymphoma: (2) Pleural effusion: (3) Shortness of breath: (4) Acute on chronic hypoxic respiratory failure: (5) Restrictive lung disease: (6) Malignant pleural effusion: Plan CT chest 12/23/2024 personally reviewed: Large bilateral pleural effusion Compressive atelectasis of bilateral lower lobe High probability of EDAC Significant mediastinal lymphadenopathy, especially station 4R Cardiomegaly 2D echo 12/23/2024: EF 60-65%, RV not well-visualized PFTs 03/28/2021: Mild restrictive lung disease with normal DLCO, severe decrease in ERV, no obstruction, insignificant bronchodilator response FVC 2.34 L 75%, FEV1 1.99 L 88%, FEV1/FVC 85%, RV 67%, TLC 71%, RV/TLC 91%, ERV 27%, DLCO 100% -- Acute on chronic hypoxic respiratory failure Patient was recently discharged on 2 L oxygen Secondary to pleural effusion, 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 -- Follicular hyper T-cell lymphoma generalized adenopathy Diagnosed 01/20/25 S/p axillary lymph node biopsy which showed atypical lymphoid proliferation but not enough specimen to call a diagnosis --Restrictive lung disease Mild TLC 71% with DLCO 100% with severe decrease in ERV Likely coming from obesity Advised to lose with diet and exercise Patient does have incentive spirometry at home. Advised her to use it every couple of hours Plan: Flow Pleurx catheter placement today on the left side Will try to do it around noon so that she is able to get chemotherapy started today itself Risk and benefit of the procedure explained to the patient in depth. Patient understands and wants to go ahead with the procedures Consent signed, witnessed and put in the chart I spent more than 75 minutes looking in the chart, images, discussing the plan of care with the patient, RN as well as primary team Please note the above document was generated using voice recognition software. It may contain grammatical, syntax or spelling errors.Any formal questions or concerns about the content, text or information contained within the body of this dictation should be directly addressed to the provider for clarification. History of Present Illness Attending Physician: Lance Covarrubias History of Present Illness 84-year-old female admitted to the hospital for shortness of breath Past medical history: Dyslipidemia, hypertension, GERD, hyperthyroidism Pulmonary consulted for recurrent left-sided pleural effusion At the time of examination patient was saturating 99% on 4 L, we went down to 2 L. She stated that she has been having issues with breathing for the last couple of weeks. Even doing day-to-day activities makes her short of breath. Denies any chest pain No fever or chills Does have difficulty laying flat because of shortness of breath No chest pain, no chest tightness No dysuria or diarrhea Social history: Non-smoker, no illicit drug use, no alcohol use. 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 No exposure to any chemicals or fumes Pets: Has a dog at home. [place] Allergies: Seasonal, does not take any medications for it Asthma: No family history of asthma Lung cancer: No history of lung cancer in the family Allergies Allergy/AdvReac Type Severity Reaction Status Date / Time sulfamethoxazole Allergy Intermediate ITCHING/HIV Verified 02/22/25 10:06 ES levofloxacin Allergy Unknown ITCHING/HIV Verified 02/22/25 10:06 ES morphine AdvReac Severe N/V Verified 02/22/25 10:06 doxycycline AdvReac Intermediate Rash Verified 02/22/25 10:06 Home Medications Medication Instructions Recorded Confirmed Type aspirin 81 mg tablet,delayed 81 mg PO QAM 05/31/19 02/20/25 History release (Aspir-) albuterol sulfate 90 mcg/actuation 1 - 2 puff inhalation Q4H PRN 12/26/20 02/20/25 Rx aerosol inhaler (ProAir HFA) shortness of breath or wheezing #18 grams atorvastatin 10 mg tablet 10 mg PO HS #90 tabs 04/19/24 02/20/25 Rx diltiazem HCl 120 mg 120 mg PO DAILY #90 caps 10/17/24 02/20/25 Rx capsule,extended release 24 hr methimazole 5 mg tablet 5 mg PO DAILY E05.90 12/23/24 02/20/25 History food supplemt, lactose-reduced 2 ea PO DAILY #12,000 mL 01/04/25 02/20/25 Rx 0.04 gram-1 kcal/mL oral liquid (Boost) Oxygen Home #1 ea 01/26/25 01/17/25 Rx folic acid 1 mg tablet 5 mg (5 x 1 mg) PO QAM #30 tabs 01/26/25 02/20/25 Rx Bedside Commode #1 ea 01/31/25 02/06/25 Rx mirtazapine 7.5 mg tablet 7.5 mg PO HS #90 tabs 01/31/25 02/20/25 Rx furosemide 40 mg tablet 40 mg PO DAILY #30 tabs 02/09/25 02/20/25 Rx Wheelchair (Manual) #1 ea 02/16/25 Rx amoxicillin 875 mg-potassium 1 tab PO BID 02/20/25 02/20/25 History clavulanate 125 mg tablet potassium chloride 10 mEq 10 meq PO DAILY while on lasix 02/20/25 02/20/25 History tablet,extended release Patient History Medical History (Updated 02/27/25 @ 11:39 by Demi House MD, [facility]) Axillary lymphadenopathy Lymph nodes enlarged Acute on chronic hypoxic respiratory failure Pleural effusion Restrictive lung disease Degenerative joint disease of knee Pulmonary nodules DR. DOMINGUEZ MONITORING Asthma STABLE- DOESNT USE INHALERS- FOLLOWS DR. DOMINGUEZ- [facility] Osteoarthritis of right hip Surgical History (Updated 02/23/25 @ 11:20 by Ria Howell RN) H/O insertion of central venous access port (02/22/25) Insertion Left Internal Jugular Access Port(Left) - Coleman Ramos DO, FACS S/P lymph node biopsy (01/19/25) Left Axillary Lymph Node Excisional Biopsy(Left) - Daniel Corley DO S/P lymph node biopsy (06/21/19) Right Axillary Lymph Node Biopsy with Needle Localization Dr. Vaughan 06/21/19 Hx of lymph node biopsy RIGHT Hx of surgical procedure LEFT KIDNEY BIOPSY /DR. LANDIN History of total knee replacement LEFT History of total shoulder replacement RIGHT History of cataract extraction with lens replacement History of total hip arthroplasty RIGHT ZOFIA= 02/19/18= SAB X 1 ATTEMPT AT [facility] History of colonoscopy History of hysterectomy Family History Denies family history of Ovarian cancer Prostate cancer Myocardial infarction Breast cancer Colorectal cancer Social History Smoking Status: Never smoker Second Hand Exposure: No; Do You Dip or Chew Tobacco: No; Hx Alcohol Use: No Hx Substance Use: No Preferred Language: Belarusian Communication Ability: Effective Visual Impairment: No Limitations 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: Normal Hospital Librarian Required: No Beliefs That Will Affect Care: None marital status: / Current Living Situation: Family Current Living Situation Comment: DAUGHTER DONNA current occupational status: retired How many Children do You have: 2 Feels Safe at Home: Yes Safety Concerns: Feels Safe At This Time Childhood Exposure to Second-Hand Smoke: Yes Diet: regular Diet Comment: regular caffeine: Yes (Coffee x 1 per day.) during the past year weight has: remained stable Dental Care, Regularly: Yes Physical Activity Frequency: Daily Physical Activity Frequency Comment: walking, gardening Seatbelt Use: always Sunscreen Use: No Assistive Devices: Cane, Glasses, Oxygen - Continuous, Walker and Wheelchair Review of Systems 2 Review of Systems: All systems reviewed & are unremarkable except as noted in HPI & below Physical Exam 2 Physical Exam: Constitutional: No acute distress HEENT: EOMI, PERRLA Respiratory system: Decreased air entry on the left side, no wheeze, rhonchi, positive crackles bilaterally CVS: S1-S2 positive, no murmurs or gallops Abdomen: Soft, nontender, nondistended, positive bowel sounds x4 Extremities: +2 pulses bilaterally radialis/ dorsalis pedis, no cyanosis, +1 pitting edema bilateral lower extremity Neuro: Awake alert oriented x3 Psych: Normal mood and affect G/U: No Miller Results & Data Results & Data Vital Signs (Past 12 Hours) Vital Signs Temp Pulse Pulse Resp BP Pulse Ox O2 Del Method 02/27/25 11:17 36.3 C L 73 18 96/61 L 95 Nasal Cannula 02/27/25 07:55 Nasal Cannula 02/27/25 07:31 36.4 C L 68 18 112/77 100 Nasal Cannula 02/27/25 06:45 69 02/27/25 04:42 36.3 C L 71 16 123/69 98 Nasal Cannula 02/26/25 23:38 36.4 C L 69 18 115/78 100 Nasal Cannula O2 Flow Rate 02/27/25 11:17 2 02/27/25 07:55 4 02/27/25 07:31 5 02/27/25 06:45 02/27/25 04:42 5 02/26/25 23:38 5 Laboratory Results 02/27/25 06:29 02/27/25 06:29 PG Care Time/CCT Total # of Minutes Spent Total Time Spent with Patient: Total time spent is greater than 50% in coordination of care (as documented) at patient's floor/unit and/or counseling patient: [place] [address] INT INP/OBS CARE 3/75MIN Patient Type New Diagnoses T-cell lymphoma C85.90 Pleural effusion J90 Shortness of breath R06.02 Acute on chronic hypoxic respiratory failure J96.21 Restrictive lung disease J98.4 Malignant pleural effusion J91.0
--- NOTE | 2025-02-27 13:25 | XRay Report ---
XR chest 1V portable CLINICAL HISTORY: evaluate left pleurex cath placement COMPARISON STUDY: 02/25/2025 FINDINGS: Stable left chest port with possible small kink at the upper aspect of the tubing. There is an interval left pleural catheter with the tip overlying the mid left hemithorax. There is a moderat e left pleural effusion and associated consolidation at the left lower lung, stable. There is a stabl e small right pleural effusion. No pneumothorax. IMPRESSION: Interval left pleural catheter. Otherwise stable exam. ACT 112: Negative or not required by law. Electronically signed by: Coleman Andrews M.D. 02/27/2025 1:23 PM
[2025-02-27] MEDS: POTASSIUM CHLORIDE CRTAB 20 MEQ TABCR PO SCH (14:17)
--- NOTE | 2025-02-27 16:16 | Procedure Note ---
Procedure Note Date of Service February 27, 2025 PREOPERATIVE DIAGNOSIS: Recurrent left pleural effusion. POSTOPERATIVE DIAGNOSIS: Recurrent left pleural effusion. PROCEDURE PERFORMED: Left PleurX catheter placement. ANESTHESIA: Local 1% Lidocaine without Epinephrine COMPLICATIONS: None. INDICATION FOR PROCEDURE: Malignant left-sided pleural effusion DESCRIPTION OF PROCEDURE: The patient was placed in a semirecumbent position. I evaluated the left pleura with the ultrasound and located an adequate spot above the diaphragm. The left chest and upper abdomen were prepped and draped in the usual sterile fashion. Lidocaine 1% was used to infiltrate two areas; one in the left upper quadrant where the tube would exit and the other along the anterior axillary line one intercostal space below. A small counterincision was made in the left upper quadrant area. Through the anterior axillary line area, the pleural space was accessed by Seldinger technique. The counterincision was made around the guidewire and then the PleurX catheter was tunneled from the right upper quadrant small incision to the one overlying the ribs. A sheath introducer was then passed over the wire and then the PleurX catheter was placed through the sheath introducer. There was good return of fluid. 800 ml of serous fluid was withdrawn slowly as the small counterincision was closed with Monocryl stitch. The catheter was capped off, and sterile dressings were applied. The patient tolerated the procedure well without any complications. Chest Xray to follow. Bedside Ultrasound: Lung: Right:-Small right-sided pleural effusion Left:-Moderate left-sided pleural effusion with fibrin stranding Complications: None Blood Loss: < 3cc [facility] Procedure Codes (Charges) Pulmonary/Thoracic Procedure 1: Pulmonary and Thoracic: 15534 Insert pleural cathereter w/cuff Procedure 2: Pulmonary and Thoracic: 83417 Pleural drainage w/o imaging Procedure 3: Pulmonary and Thoracic: 52694 US, Chest, real time with imaging documentation Coding CPT Codes Pulmonary/Thoracic - Pulmonary and Thoracic: 64579 Insert pleural cathereter w/cuff ([id number]) Pulmonary/Thoracic - Pulmonary and Thoracic: 03966 Pleural drainage w/o imaging ([id number]) Pulmonary/Thoracic - Pulmonary and Thoracic: 75330 US, Chest, real time with imaging documentation ([id number]) Additional Codes Date of Service ([facility].SURGERY)
--- NOTE | 2025-02-27 16:57 | Hematology/Oncology Prog Note ---
Date of Service February 27, 2025 Assessment & Plan (1) Malignant pleural effusion: (2) T-cell lymphoma: Plan -Since patient is still inpatient with rapid accumulation of pleural effusion due to lymphoma. Will start chemotherapy while inpatient with mini CHOP. Plan to proceed with treatment tomorrow. She will also receive G-CSF 24 hours post treatments to reduce risk of febrile neutropenia. -Recommend transfusing with 1 unit PRBC for anemia with hemoglobin of 7.6 since she will be receiving myelosuppressive chemotherapy. Admission and Anticipated Discharge Date Admission Date: February 20, 2025 Subjective Had Pleurx catheter placed today. She complains of fatigue and shortness of breath. Results & Data Vital Signs (Past 12 Hours) Vital Signs Temp Pulse Pulse Resp BP Pulse Ox O2 Del Method 02/27/25 15:08 36.5 C 75 18 114/67 97 Nasal Cannula 02/27/25 13:00 78 02/27/25 11:17 36.3 C L 73 18 96/61 L 95 Nasal Cannula 02/27/25 07:55 Nasal Cannula 02/27/25 07:31 36.4 C L 68 18 112/77 100 Nasal Cannula 02/27/25 06:45 69 O2 Flow Rate 02/27/25 15:08 2 02/27/25 13:00 02/27/25 11:17 2 02/27/25 07:55 4 02/27/25 07:31 5 02/27/25 06:45
[2025-02-27] MEDS ORDERED: SODIUM CHLORIDE 0.9% 100 ML IV PRN (17:10)
--- NOTE | 2025-02-27 22:49 | Hospitalist Progress Note ---
Date of Service February 27, 2025 Assessment & Plan (1) T-cell lymphoma: (2) Chronic kidney disease, stage III (moderate): (3) Hyperlipidemia: (4) Hypertension: (5) Hyperthyroidism: (6) GERD without esophagitis: (7) Anemia: Plan Angelita is an 84-year-old female with a history of angioimmunoblastic T-cell lymphoma who presents with weakness and fatigue. She had a recurrent pleural effusion suspected malignant which was drained for 1500 cc of fluid. She was admitted for PT/OT, ongoing management of hypoxia, and possible rehab. #Weakness Suspect hypoxic respiratory failure with malignant effusion and FTT with poor p.o. intake. - No TRAVIS. BUN/Cr contracted. Is with evidence of diffuse edema suspect that this is more lymphedema both due to her lymph node biopsies and third spacing with hypoalbuminemia -S/P pleurex cathter #Normocytic anemia Hemoglobin baseline around 8. MCV lower end of normal, high RDW. Patient denies hematochezia/melena/bleeding. Poor p.o. intake Ferritin elevated 02/02/2025. TIBC low at 192. Consistent with anemia of chronic disease. Reticulocyte count/index pending Hemoglobin dropped to 7.0 on 02/21; Hem/Onc recommending transfusion for symptomatic anemia for Hgb <7.5 Blood consent form obtained at bedside 1 unit irradiated pRBCs ordered / transfused--tolerated well, H/H lower will require 1 unit of PRBC prior to chemotherapy d/w oncologist #Hypoxic respiratory failure 2/2 malignant pleural effusion Denies history of fever, chills, cough, sputum production. Does have some consolidation of the left lung, in absence of fever/infectious symptoms this may be from compression and pleural effusions. Procalcitonin added. If rising leukocytosis/elevated Pro-Edilberto/fever add Unasyn. Will defer antibiotics on admission and reevaluate based on labs and clinical progression. - Initial CXR: Large L pleural effusion. - s/p US guided L thoracentesis 02/20. 1500cc total removed. - CXR 02/20: Moderate residual L pleural effusion and LLL consolidation--slight progression in L effusion on CXR 02/22 - will stop antibiotics as patient has been more weak, concern that cefepime may be playing a role in this elderly patient as this can cause metabolic en cephalopathy. - Wean O2 as able to maintain pulse ox >92% Due to worsneing oxygenation, ordered albumin to improve blood pressure to help remove fluid. #Angioimmunoblastic T cell lymphoma (AITL) - 11/2024 --> pleural fluid positive for monoclonal B cell population, aberrant CD10 on subset of T cells. Path 02/10/25: PCR not able to confirm either B or T cell clone. 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 Pending switch to chemo+immunotherapy Hematology/oncology consulted - If she has recurrent rapid reaccumulation of malignant pleural fluid may need inpatient treatment +/- Pleurx evaluation - General surgery consult appreciated--s/p mediport placement 02/22 -chemo will be placed tomorrow. #Peripheral edema Patient with chronic upper extremity edema due to lymph node biopsies. Addit ionally has increasing lower extremity edema although she feels it is not much worse than it typically is at time of admission Suspect third spacing and venous stasis. She is hypoalbuminemic Recommend lymphedema mobilization strategies. May continue diuresis, however this must be done with mobilization strategies. She does not have a history of CHF. No anginal symptoms preceding admission #Asthma No wheezing, no acute exacerbation Nebs as needed #CKD3 No TRAVIS at admission Creatinine 1.13 Baseline creatinine approximately 1.09 #GERD w/ esophagitis No epigastric pain, no GERD symptoms on admission. Denies melena/hematochezia Pepcid as needed -consulted GI: no indications for ED at this time. #Hyperthyroidism Continue methimazole #Stage I pressure ulcer - Daily wound care #Protein calorie malnutrition Hypoalbuminemia, poor p.o. intake Patient relates this to loss of taste and food being unpalatable although she does have a reasonably good appetite Is interested in supplementing with protein rich shakes and other things as tolerated. Appreciative of nutrition consult while inpatient. This has been placed #Transient hypotension Hold diltiazem #Anxiety Patient was crying. Ordered one time dose of zoloft. Admission and Anticipated Discharge Date Admission Date: February 20, 2025 Subjective Patient reports tolerating procedure Physical Exam Constitutional: WD/WN, vitals as above Neck: trachea midline, no thyromegaly Respiratory: normal respiratory effort, lungs clear to auscultation Cardiovascular: RRR, no murmur, no edema Results & Data Results & Data Vital Signs (Past 12 Hours) Vital Signs Temp Pulse Pulse Resp BP BP Pulse Ox 02/27/25 22:25 36.6 C 71 17 116/74 95 02/27/25 21:55 36.6 C 71 17 110/63 92 02/27/25 21:40 36.8 C 75 17 106/71 100 02/27/25 21:21 36.6 C 76 17 117/73 98 02/27/25 19:17 36.7 C 75 16 121/67 98 02/27/25 15:08 36.5 C 75 18 114/67 97 02/27/25 13:00 78 02/27/25 11:17 36.3 C L 73 18 96/61 L 95 O2 Del Method O2 Flow Rate 02/27/25 22:25 02/27/25 21:55 2 02/27/25 21:40 2 02/27/25 21:21 02/27/25 19:17 Nasal Cannula 2 02/27/25 15:08 Nasal Cannula 2 02/27/25 13:00 02/27/25 11:17 Nasal Cannula 2 PG Care Time/CCT Total # of Minutes Spent Total Time Spent with Patient: Total time spent is greater than 50% in coordination of care (as documented) at patient's floor/unit and/or counseling patient: Coding Level of Care Code 20444 SUB INP/OBS CARE 3/50MIN Diagnoses T-cell lymphoma C85.90 Chronic kidney disease, stage III (moderate) N18.3 Hyperlipidemia, unspecified hyperlipidemia type E78.5 Hyperlipidemia type: unspecified Primary hypertension I10 Hypertension type: primary hypertension Hyperthyroidism E05.90 GERD without esophagitis K21.9 Anemia D64.9 Anemia type: unspecified type (3) Hyperlipidemia Hyperlipidemia type: unspecified Qualified Code(s): E78.5 - Hyperlipidemia, unspecified (4) Hypertension Hypertension type: primary hypertension Qualified Code(s): I10 - Essential (p rimary) hypertension (7) Anemia Anemia type: unspecified type Qualified Code(s): D64.9 - Anemia, unspecified
[2025-02-28 07:00] LABS: Hematocrit (blood only) 28.0 % (37.0-47.0); Hemoglobin 8.6 g/dl (12.0-16.0); Mean Corpuscular Hemoglobin 25.7 pg (25.0-34.0); Mean Corpuscular Volume 83.6 fL (80.0-100.0); Platelet Count 205 K/uL (130-400); RDW Standard Deviation 48.1 fL (36.4-46.3); Red Blood Count 3.35 M/uL (4.20-5.40); White Blood Count 3.81 K/ul (4.8-10.8)
[2025-02-28 07:31] LABS: Anion Gap 4.0 (3-11); Blood Urea Nitrogen 15.0 mg/dl (6-23); Calcium 7.6 mg/dl (8.6-10.3); Carbon Dioxide 33.0 mmol/L (21-32); Chloride 103.0 mmol/L (98-107); Creatinine Clr Calc Pharmacy 74.0 ml/min; Glucose 89.0 mg/dl (70-99(Fasting)); Potassium 4.2 mmol/L (3.5-5.1); Sodium 140.0 mmol/L (136-145)
[2025-02-28] MEDS: ACETAMINOPHEN 325 MG TAB PO PRN (08:10)
--- NOTE | 2025-02-28 11:14 | Pulmonology Progress Note ---
Date of Service February 28, 2025 Assessment & Plan (1) T-cell lymphoma: (2) Pleural effusion: (3) Shortness of breath: (4) Acute on chronic hypoxic respiratory failure: (5) Restrictive lung disease: (6) Malignant pleural effusion: Plan CT chest 12/23/2024 personally reviewed: Large bilateral pleural effusion Compressive atelectasis of bilateral lower lobe High probability of EDAC Significant mediastinal lymphadenopathy, especially station 4R Cardiomegaly 2D echo 12/23/2024: EF 60-65%, RV not well-visualized PFTs 03/28/2021: Mild restrictive lung disease with normal DLCO, severe decrease in ERV, no obstruction, insignificant bronchodilator response FVC 2.34 L 75%, FEV1 1.99 L 88%, FEV1/FVC 85%, RV 67%, TLC 71%, RV/TLC 91%, ERV 27%, DLCO 100% -- Acute on chronic hypoxic respiratory failure Patient was recently discharged on 2 L oxygen Secondary to pleural effusion, 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 follicular lymphoma as well as HFpEF S/p Pleurx catheter placement on the left side 02/28/2025 BNP 364 TSH within normal limit Procalcitonin negative S/p left-sided thoracentesis 12/27/2024 by IR, 900 mL fluid was removed, exudative as per lights criteria S/p right-sided thoracentesis 01/17/2025, 1300 mL fluid, lymphocytes 82%, exudative per LDH and protein Pleural:LDH 171, protein 3, pH 7.59 S/p left-sided thoracentesis 01/18/2025 by IR, 1000 mL fluid was removed, exudative as per lights criteria Cytology from thoracentesis right 12/24/2024 and left 01/18/2025 showed rare atypical cells present, not enough to make a diagnosis. -- Follicular hyper T-cell lymphoma generalized adenopathy Diagnosed 01/20/25 S/p axillary lymph node biopsy which showed atypical lymphoid proliferation but not enough specimen to call a diagnosis --Restrictive lung disease Mild TLC 71% with DLCO 100% with severe decrease in ERV Likely coming from obesity Advised to lose with diet and exercise Patient does have incentive spirometry at home. Advised her to use it every couple of hours Plan: Will drain the Pleurx catheter again today Following today Pleurx catheter can be drained [id number] Patient to be started on chemotherapy today Case was discussed with RN at bedside Please note the above document was generated using voice recognition software. It may contain grammatical, syntax or spelling errors.Any formal questions or concerns about the content, text or information contained within the body of this dictation should be directly addressed to the provider for clarification. Admission and Anticipated Discharge Date Admission Date: February 20, 2025 Subjective Patient seen and examined at bedside. No acute distress, no adverse events overnight Overall she says she is feeling better compared to before Breathing has improved She was saturating 88-89% when I walked into the room while she was sleeping. On waking up her saturation went up to 93-94% on 2 L nasal cannula Mild discomfort at the site of the Pleurx catheter Review of Systems 2 Review of Systems: All systems reviewed & are unremarkable except as noted in Subjective Physical Exam 2 Physical Exam: Constitutional: No acute distress HEENT: EOMI, PERRLA Respiratory system: Decreased air entry on the left side, no wheeze, no rhonchi, positive crackles bilaterally CVS: S1-S2 positive, no murmurs or gallops Abdomen: Soft, nontender, nondistended, positive bowel sounds x4 Extremities: +2 pulses bilaterally radialis/ dorsalis pedis, no cyanosis, +1 pitting edema bilateral lower extremity Neuro: Awake alert oriented x3 Psych: Normal mood and affect G/U: Positive Miller Skin: no rashes, warm and dry Lymphatic: no cervical or axillary lymphadenopathy Results & Data Results & Data Vital Signs (Past 12 Hours) Vital Signs Temp Pulse Pulse Resp BP BP Pulse Ox 02/28/25 08:10 02/28/25 07:27 36.4 C L 72 18 108/72 93 02/28/25 06:45 72 02/28/25 03:41 36.5 C 71 16 114/70 94 02/28/25 01:55 73 02/27/25 23:46 36.5 C 74 17 115/71 94 02/27/25 23:25 36.7 C 70 18 112/71 96 O2 Del Method O2 Flow Rate 02/28/25 08:10 Nasal Cannula 2 02/28/25 07:27 Nasal Cannula 3 02/28/25 06:45 02/28/25 03:41 Nasal Cannula 2 02/28/25 01:55 02/27/25 23:46 2 06/30/25 23:25 2 Laboratory Results 02/28/25 06:16 02/28/25 06:16 PG Care Time/CCT Total # of Minutes Spent Total Time Spent with Patient: Total time spent is greater than 50% in coordination of care (as documented) at patient's floor/unit and/or counseling patient: Coding Level of Care Code 77097 SUB INP/OBS CARE 2/35MIN Diagnoses T-cell lymphoma C85.90 Pleural effusion J90 Shortness of breath R06.02 Acute on chronic hypoxic respiratory failure J96.21 Restrictive lung disease J98.4 Malignant pleural effusion J91.0
[2025-02-28] MEDS: predniSONE 20 MG TAB PO SCH (11:57)
[2025-02-28] MEDS: PALONOSETRON 0.25 MG, dexAMETHasone 12 MG in DEXTROSE 5% 50 ML IV SCH (11:57)
[2025-02-28] MEDS ORDERED: vinCRIStine SULFATE 1 MG in SODIUM CHLORIDE 0.9% 50 ML IV ONE (12:00)
[2025-02-28] MEDS ORDERED: DOXORUBICIN HCL IV ONE (12:00)
[2025-02-28] MEDS: FOSAPREPITANT DIMEGLUMINE 150 MG in SODIUM CHLORIDE 0.9% 145 ML IV SCH (12:14)
[2025-02-28] MEDS: DOXORUBICIN HCL IV ONE (13:01)
[2025-02-28] MEDS: vinCRIStine SULFATE 1 MG in SODIUM CHLORIDE 0.9% 50 ML IV ONE (13:17)
[2025-02-28] MEDS: CYCLOPHOSPHAMIDE IV SCH (13:39)
[2025-02-28] MEDS: SODIUM CHLORIDE 0.9% IV SCH (13:39)
--- NOTE | 2025-02-28 15:02 | Procedure Note ---
Procedure Note Date of Service February 28, 2025 Procedure: Therapeutic drainage of the Pleurx catheter Vehicle Return Associate: Dr. Demi House Indication: Left-sided pleural effusion Consent: Verbal consent obtained Anesthesia: None Procedure: Under aseptic and sterile precautions, dressing of the Pleurx catheter was rem levar. Pleurx catheter was connected to the drainage container. 500 mL of dark serous fluid was removed The procedure was stopped because of chest discomfort The catheter was dressed with 4 x 4 and Tegaderm on top. Patient tolerated the procedure well. Complications: None Blood loss: None [facility] [place] Procedure Codes (Charges) Pulmonary/Thoracic Procedure 1: Pulmonary and Thoracic: 93589 Pleural drainage w/o imaging Coding CPT Codes Pulmonary/Thoracic - Pulmonary and Thoracic: 16413 Pleural drainage w/o imaging ([id number]) Additional Codes Date of Service (PG.SURGERY)
[2025-02-28] MEDS: LOPERAMIDE HCL 2 MG CAP PO STA (20:30)
--- NOTE | 2025-02-28 23:16 | Hospitalist Progress Note ---
Date of Service February 28, 2025 Assessment & Plan (1) T-cell lymphoma: (2) Chronic kidney disease, stage III (moderate): (3) Hyperlipidemia: (4) Hypertension: (5) Hyperthyroidism: (6) GERD without esophagitis: (7) Anemia: Plan Angelita is an 84-year-old female with a history of angioimmunoblastic T-cell lymphoma who presents with weakness and fatigue. She had a recurrent pleural effusion suspected malignant which was drained for 1500 cc of fluid. She was admitted for PT/OT, ongoing management of hypoxia, and possible rehab. #Weakness Suspect hypoxic respiratory failure with malignant effusion and FTT with poor p.o. intake. - No TRAVIS. BUN/Cr contracted. Is with evidence of diffuse edema suspect that this is more lymphedema both due to her lymph node biopsies and third spacing with hypoalbuminemia -S/P pleurex cathter: will remove fluid Thursday at home. #Normocytic anemia Hemoglobin baseline around 8. MCV lower end of normal, high RDW. Patient denies hematochezia/melena/bleeding. Poor p.o. intake Ferritin elevated 02/02/2025. TIBC low at 192. Consistent with anemia of chronic disease. Reticulocyte count/index pending Hemoglobin dropped to 7.0 on 02/21; Hem/Onc recommending transfusion for symptomatic anemia for Hgb <7.5 Blood consent form obtained at bedside 1 unit irradiated pRBCs ordered / transfused--tolerated well, H/H lower will require 1 unit of PRBC prior to chemotherapy d/w oncologist #Hypoxic respiratory failure 2/2 malignant pleural effusion Denies history of fever, chills, cough, sputum production. Does have some consolidation of the left lung, in absence of fever/infectious symptoms this may be from compression and pleural effusions. Procalcitonin added. If rising leukocytosis/elevated Pro-Edilberto/fever add Unasyn. Will defer antibiotics on admission and reevaluate based on labs and clinical progression. - Initial CXR: Large L pleural effusion. - s/p US guided L thoracentesis 02/20. 1500cc total removed. - CXR 02/20: Moderate residual L pleural effusion and LLL consolidation--slight progression in L effusion on CXR 02/22 - will stop antibiotics as patient has been more weak, concern that cefepime may be playing a role in this elderly patient as this can cause metabolic encephalopathy. - Wean O2 as able to maintain pulse ox >92% Due to worsneing oxygenation, ordered albumin to improve blood pressure to help remove fluid. #Angioimmunoblastic T cell lymphoma (AITL) - 11/2024 --> pleural fluid positive for monoclonal B cell population, aberrant CD10 on subset of T cells. Path 02/10/25: PCR not able to confirm either B or T cell clone. 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 Pending switch to chemo+immunotherapy Hematology/oncology consulted - If she has recurrent rapid reaccumulation of malignant pleural fluid may need inpatient treatment +/- Pleurx evaluation - General surgery consult appreciated--s/p mediport placement 02/22: #Peripheral edema Patient with chronic upper extremity edema due to lymph node biopsies. Additionally has increasing lower extremity edema although she feels it is not much worse than it typically is at time of admission Suspect third spacing and venous stasis. She is hypoalbuminemic Recommend lymphedema mobilization strategies. May continue diuresis, however this must be done with mobilization strategies. She does not have a history of CHF. No anginal symptoms preceding admission #Asthma No wheezing, no acute exacerbation Nebs as needed #CKD3 No TRAVIS at admission Creatinine 1.13 Baseline creatinine approximately 1.09 #GERD w/ esophagitis No epigastric pain, no GERD symptoms on admission. Denies melena/hematochezia Pepcid as needed -consulted GI: no indications for ED at this time. #Hyperthyroidism Continue methimazole #Stage I pressure ulcer Pressure ulcer of sacral region, at least stage 3, POA WOCN consult reveals pt with L medical coccyx pressure ulcer with 76-100% slough coverage. Treatment: WOCN consult, cleanse with NSS, apply skin prep to periphery, allow to dry, cover with aquacel Ag and secure with optifoam, change qod and prn, turn and reposition q 2 hrs Risk Factor(s): weakness, lymphoma, decreased mobility, - Daily wound care #Protein calorie malnutrition Severe malnutrition Hypoalbuminemia, poor p.o. intake Patient relates this to loss of taste and food being unpalatable although she does have a reasonably good appetite Is interested in supplementing with protein rich shakes and other things as tolerated. Appreciative of nutrition consult while inpatient. This has been placed #Transient hypotension Hold diltiazem #Anxiety Patient was crying. Ordered one time dose of zoloft. plan pladcement Admission and Anticipated Discharge Date Admission Date: February 20, 2025 Subjective Patient reports no new symptoms. Physical Exam Constitutional: WD/WN, vitals as above Neck: trachea midline, no thyromegaly Respiratory: normal respiratory effort, lungs clear to auscultation Cardiovascular: RRR, no murmur, no edema Results & Data Results & Data Vital Signs (Past 12 Hours) Vital Signs Temp Pulse Pulse Resp BP Pulse Ox O2 Del Method 02/28/25 19:44 36.7 C 67 18 96/59 L 98 Nasal Cannula 02/28/25 15:16 36.5 C 62 18 116/75 98 Nasal Cannula 02/28/25 13:00 69 02/28/25 11:52 36.6 C 93 H 18 101/63 96 Nasal Cannula O2 Flow Rate 02/28/25 19:44 2 02/28/25 15:16 2 02/28/25 13:00 02/28/25 11:52 6 PG Care Time/CCT Total # of Minutes Spent Total Time Spent with Patient: Total time spent is greater than 50% in coordination of care (as documented) at patient's floor/unit and/or counseling patient: Coding Level of Care Code 67172 SUB INP/OBS CARE 3/50MIN Diagnoses T-cell lymphoma C85.90 Chronic kidney disease, stage III (moderate) N18.3 Hyperlipidemia, unspecified hyperlipidemia type E78.5 Hyperlipidemia type: unspecified Primary hypertension I10 Hypertension type: primary hypertension Hyperthyroidism E05.90 GERD without esophagitis K21.9 Anemia D64.9 Anemia type: unspecified type (3) Hyperlipidemia Hyperlipidemia type: unspecified Qualified Code(s): E78.5 - Hyperlipidemia, unspecified (4) Hypertension Hypertension type: primary hypertension Qualified Code(s): I10 - Essential (primary) hypertension (7) Anemia Anemia type: unspecified type Qualified Code(s): D64.9 - Anemia, unspecified
[2025-03-01 06:17] LABS: Hematocrit (blood only) 27.5 % (37.0-47.0); Hemoglobin 8.4 g/dl (12.0-16.0); Mean Corpuscular Hemoglobin 26.2 pg (25.0-34.0); Mean Corpuscular Volume 85.7 fL (80.0-100.0); Platelet Count 180 K/uL (130-400); RDW Standard Deviation 49.9 fL (36.4-46.3); Red Blood Count 3.21 M/uL (4.20-5.40); White Blood Count 3.51 K/ul (4.8-10.8)
[2025-03-01 06:41] LABS: Anion Gap 1.0 (3-11); Blood Urea Nitrogen 16.0 mg/dl (6-23); Calcium 7.3 mg/dl (8.6-10.3); Carbon Dioxide 33.0 mmol/L (21-32); Chloride 104.0 mmol/L (98-107); Creatinine Clr Calc Pharmacy 83.2 ml/min; Glucose 134.0 mg/dl (70-99(Fasting)); Potassium 4.9 mmol/L (3.5-5.1); Sodium 138.0 mmol/L (136-145)
--- NOTE | 2025-03-01 08:17 | Hospitalist Progress Note ---
Date of Service March 01, 2025 Assessment & Plan (1) T-cell lymphoma: (2) Chronic kidney disease, stage III (moderate): (3) Hyperlipidemia: (4) Hypertension: (5) Hyperthyroidism: (6) GERD without esophagitis: (7) Anemia: Plan Angelita is an 84-year-old female with a history of angioimmunoblastic T-cell lymphoma who presents with weakness and fatigue. She had a recurrent pleural effusion suspected malignant which was drained and eventually a pleurex cath was placed in the right lung 02/28. She was given inpt chemotherapy 02/28/25. She was admitted for PT/OT, ongoing management of hypoxia, and possible rehab. #Weakness, multifactorial, underlying lymphoma Suspect hypoxic respiratory failure with malignant effusion and FTT with poor p.o. intake. - -S/P pleurex cathter: will remove fluid Thursday for the future #Normocytic anemia Hemoglobin baseline around 8. MCV lower end of normal, high RDW. Patient denies hematochezia/melena/bleeding. Poor p.o. intake Ferritin elevated 02/02/2025. TIBC low at 192. Consistent with anemia of chronic disease. 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 Path 02/10/25: PCR not able to confirm either B or T cell clone. 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 Pending switch to chemo+immunotherapy Hematology/oncology consulted, cyclophosphamide/Doxorubicin/Fosaprepitant/Palonosetron decadron and filgastrim - General surgery consult appreciated--s/p mediport placement 02/22: #Peripheral edema Suspect third spacing and venous stasis. She is hypoalbuminemic Recommend lymphedema mobilization strategies. May continue diuresis, however this must be done with mobilization strategies. She does not have a history of CHF. No anginal symptoms preceding admission #Asthma No wheezing, no acute exacerbation Nebs as needed #CKD3 No TRAVIS at admission Creatinine 1.13 Baseline creatinine approximately 1.09 #GERD w/ esophagitis No epigastric pain, no GERD symptoms on admission. Denies melena/hematochezia Pepcid as needed -consulted GI: no indications for ED at this time. #Hyperthyroidism Continue methimazole #Stage I pressure ulcer Pressure ulcer of sacral region, at least stage 3, POA WOCN consult reveals pt with L medical coccyx pressure ulcer with 76-100% slough coverage. Treatment: WOCN consult, cleanse with NSS, apply skin prep to periphery, allow to dry, cover with aquacel Ag and secure with optifoam, change qod and prn, turn and reposition q 2 hrs Risk Factor(s): weakness, lymphoma, decreased mobility, - Daily wound care #Protein calorie malnutrition Severe malnutrition Hypoalbuminemia, poor p.o. intake Patient relates this to loss of taste and food being unpalatable although she does have a reasonably good appetite Is interested in supplementing with protein rich shakes and other things as tolerated. Appreciative of nutrition consult while inpatient. This has been placed #Transient hypotension Hold diltiazem #Anxiety Patient was crying. Ordered one time dose of zoloft. plan placement Admission and Anticipated Discharge Date Admission Date: February 20, 2025 Subjective pt is feeling improved since the Pleurx and not having any issues yet with the post chemo affects pt is on board with transition to snf for subacute rehab Physical Exam Physical Exam: awake and alert some reduced breath sounds to bases of lungs L>R some LE edema noted Results & Data Results & Data Vital Signs (Past 12 Hours) Vital Signs Temp Pulse Pulse Resp BP Pulse Ox O2 Del Method 03/01/25 07:33 97.0 F L 60 18 113/67 100 Nasal Cannula 03/01/25 07:19 59 L 03/01/25 02:55 97.9 F 63 18 117/66 98 Nasal Cannula 03/01/25 00:21 Nasal Cannula 02/28/25 22:49 97.9 F 65 18 107/66 94 Nasal Cannula 02/28/25 21:45 65 O2 Flow Rate 03/01/25 07:33 2 03/01/25 07:19 03/01/25 02:55 2 03/01/25 00:21 2 02/28/25 22:49 2 02/28/25 21:45 Laboratory Results review cbc some lower wbc and hgb PG Care Time/CCT Total # of Minutes Spent Total Time Spent with Patient: Total time spent is greater than 50% in coordination of care (as documented) at patient's floor/unit and/or counseling patient: Coding Level of Care Code 33283 SUB INP/OBS CARE 235MIN Diagnoses T-cell lymphoma C85.90 Chronic kidney disease, stage III (moderate) N18.3 Hyperlipidemia, unspecified hyperlipidemia type E78.5 Hyperlipidemia type: unspecified Primary hypertension I10 Hypertension type: primary hypertension Hyperthyroidism E05.90 GERD without esophagitis K21.9 Anemia D64.9 Anemia type: unspecified type (3) Hyperlipidemia Hyperlipidemia type: unspecified Qualified Code(s): E78.5 - Hyperlipidemia, unspecified (4) Hypertension Hypertension type: primary hypertension Qualified Code(s): I10 - Essential (primary) hypertension (7) Anemia Anemia type: unspecified type Qualified Code(s): D64.9 - Anemia, unspecified
--- NOTE | 2025-03-01 10:33 | XRay Report ---
XR chest 1V portable CLINICAL HISTORY: eval after drain from pleurex COMPARISON STUDY: 02/27/2025 FINDINGS: Stable left chest port with possible small kink in the tubing. Stable left pleural catheter . There is a moderate left pleural effusion and associated consolidation at the left lower lung, stab le. Stable small right pleural effusion. No pneumothorax. IMPRESSION: Stable exam. ACT 112: Negative or not required by law. Electronically signed by: Coleman Andrews M.D. 03/01/2025 10:32 AM
[2025-03-01] MEDS ORDERED: FILGRASTIM 480 MCG/1.6 ML VIAL SQ SCH (12:00)
[2025-03-01] MEDS: FILGRASTIM 480 MCG/1.6 ML VIAL SQ SCH (12:18)
[2025-03-02 09:28] LABS: Hematocrit (blood only) 31.9 % (37.0-47.0); Hemoglobin 9.6 g/dl (12.0-16.0); Mean Corpuscular Hemoglobin 25.8 pg (25.0-34.0); Mean Corpuscular Volume 85.8 fL (80.0-100.0); Platelet Count 233 K/uL (130-400); RDW Standard Deviation 51.4 fL (36.4-46.3); Red Blood Count 3.72 M/uL (4.20-5.40); White Blood Count 17.87 K/ul (4.8-10.8)
[2025-03-02 09:45] LABS: Anion Gap 2.0 (3-11); Blood Urea Nitrogen 21.0 mg/dl (6-23); Calcium 7.5 mg/dl (8.6-10.3); Carbon Dioxide 32.0 mmol/L (21-32); Chloride 105.0 mmol/L (98-107); Creatinine Clr Calc Pharmacy 76.6 ml/min; Glucose 110.0 mg/dl (70-99(Fasting)); Magnesium 1.7 mg/dl (1.7-2.4); Potassium 4.4 mmol/L (3.5-5.1); Sodium 139.0 mmol/L (136-145)
[2025-03-02 10:12] LABS: ALC (manual) 0.36 K/uL (1.2-3.4); ANC (manual) 16.80 K/uL (1.4-6.5); Ovalocytes 1+; Polychromasia 1+
--- NOTE | 2025-03-02 12:29 | Pulmonology Progress Note ---
Date of Service March 02, 2025 Assessment & Plan (1) T-cell lymphoma: (2) Pleural effusion: (3) Shortness of breath: (4) Acute on chronic hypoxic respiratory failure: (5) Restrictive lung disease: (6) Malignant pleural effusion: Plan CT chest 12/23/2024 personally reviewed: Large bilateral pleural effusion Compressive atelectasis of bilateral lower lobe High probability of EDAC Significant mediastinal lymphadenopathy, especially station 4R Cardiomegaly 2D echo 12/23/2024: EF 60-65%, RV not well-visualized PFTs 03/28/2021: Mild restrictive lung disease with normal DLCO, severe decrease in ERV, no obstruction, insignificant bronchodilator response FVC 2.34 L 75%, FEV1 1.99 L 88%, FEV1/FVC 85%, RV 67%, TLC 71%, RV/TLC 91%, ERV 27%, DLCO 100% -- Acute on chronic hypoxic respiratory failure Patient was recently discharged on 2 L oxygen Secondary to pleural effusion, 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 follicular lymphoma as well as HFpEF S/p Pleurx catheter placement on the left side 02/28/2025 BNP 364 TSH within normal limit Procalcitonin negative S/p left-sided thoracentesis 12/27/2024 by IR, 900 mL fluid was removed, exudative as per lights criteria S/p right-sided thoracentesis 01/17/2025, 1300 mL fluid, lymphocytes 82%, exudative per LDH and protein Pleural:LDH 171, protein 3, pH 7.59 S/p left-sided thoracentesis 01/18/2025 by IR, 1000 mL fluid was removed, exudative as per lights criteria Cytology from thoracentesis right 12/24/2024 and left 01/18/2025 showed rare atypical cells present, not enough to make a diagnosis. -- Follicular hyper T-cell lymphoma generalized adenopathy Diagnosed 01/20/25 S/p axillary lymph node biopsy which showed atypical lymphoid proliferation but not enough specimen to call a diagnosis --Restrictive lung disease Mild TLC 71% with DLCO 100% with severe decrease in ERV Likely coming from obesity Advised to lose with diet and exercise Patient does have incentive spirometry at home. Advised her to use it every couple of hours Plan: Will drain Pleurx catheter today Following today patient can be drained on [id number]-[id number]-Nerufe Case was discussed with RN at bedside Please note the above document was generated using voice recognition software. It may contain grammatical, syntax or spelling errors.Any formal questions or concerns about the content, text or information contained within the body of this dictation should be directly addressed to the provider for clarification. Admission and Anticipated Discharge Date Admission Date: February 20, 2025 Subjective Patient seen and examined at bedside. No acute distress, no adverse events overnight She was saturating 93% on room air at rest on the chair Overall she says she is feeling better Denies any nausea vomiting Has been afebrile Did get chemotherapy yesterday Denied any headache, no blurry vision Review of Systems 2 Review of Systems: All systems reviewed & are unremarkable except as noted in Subjective Physical Exam 2 Physical Exam: Constitutional: No acute distress HEENT: EOMI, PERRLA Respiratory system: Decreased air entry on the left side, no wheeze, no rhonchi, positive crackles bilaterally CVS: S1-S2 positive, no murmurs or gallops Abdomen: Soft, nontender, nondistended, positive bowel sounds x4 Extremities: +2 pulses bilaterally radialis/ dorsalis pedis, no cyanosis, +1 pitting edema bilateral lower extremity Neuro: Awake alert oriented x3 Psych: Normal mood and affect G/U: Positive Miller Skin: no rashes, warm and dry Lymphatic: no cervical or axillary lymphadenopathy Results & Data Results & Data Vital Signs (Past 12 Hours) Vital Signs Temp Pulse Pulse Resp BP BP Pulse Ox 03/02/25 11:54 36.5 C 75 24 110/64 94 03/02/25 10:33 03/02/25 09:15 20 94 03/02/25 07:45 36.8 C 76 24 117/73 91 03/02/25 07:07 75 03/02/25 03:51 36.6 C 83 18 112/67 90 O2 Del Method 03/02/25 11:54 Room Air 03/02/25 10:33 Room Air 03/02/25 09:15 Room Air 03/02/25 07:45 Room Air 03/02/25 07:07 03/02/25 03:51 Room Air Laboratory Results 03/02/25 08:57 03/02/25 08:57 PG Care Time/CCT Total # of Minutes Spent Total Time Spent with Patient: Total time spent is greater than 50% in coordination of care (as documented) at patient's floor/unit and/or counseling patient: Coding Level of Care Code 64664 SUB INP/OBS CARE MIN Diagnoses T-cell lymphoma C85.90 Pleural effusion J90 Shortness of breath R06.02 Acute on chronic hypoxic respiratory failure J96.21 Restrictive lung disease J98.4 Malignant pleural effusion J91.0
--- NOTE | 2025-03-02 12:46 | Pulmonology Progress Note ---
Date of Service March 01, 2025 Assessment & Plan (1) T-cell lymphoma: (2) Pleural effusion: (3) Shortness of breath: (4) Acute on chronic hypoxic respiratory failure: (5) Restrictive lung disease: (6) Malignant pleural effusion: Plan CT chest 12/23/2024 personally reviewed: Large bilateral pleural effusion Compressive atelectasis of bilateral lower lobe High probability of EDAC Significant mediastinal lymphadenopathy, especially station 4R Cardiomegaly 2D echo 12/23/2024: EF 60-65%, RV not well-visualized PFTs 03/28/2021: Mild restrictive lung disease with normal DLCO, severe decrease in ERV, no obstruction, insignificant bronchodilator response FVC 2.34 L 75%, FEV1 1.99 L 88%, FEV1/FVC 85%, RV 67%, TLC 71%, RV/TLC 91%, ERV 27%, DLCO 100% -- Acute on chronic hypoxic respiratory failure Patient was recently discharged on 2 L oxygen Secondary to pleural effusion, 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 follicular lymphoma as well as HFpEF S/p Pleurx catheter placement on the left side 02/28/2025 BNP 364 TSH within normal limit Procalcitonin negative S/p left-sided thoracentesis 12/27/2024 by IR, 900 mL fluid was removed, exudative as per lights criteria S/p right-sided thoracentesis 01/17/2025, 1300 mL fluid, lymphocytes 82%, exudative per LDH and protein Pleural:LDH 171, protein 3, pH 7.59 S/p left-sided thoracentesis 01/18/2025 by IR, 1000 mL fluid was removed, exudative as per lights criteria Cytology from thoracentesis right 12/24/2024 and left 01/18/2025 showed rare atypical cells present, not enough to make a diagnosis. -- Follicular hyper T-cell lymphoma generalized adenopathy Diagnosed 01/20/25 S/p axillary lymph node biopsy which showed atypical lymphoid proliferation but not enough specimen to call a diagnosis --Restrictive lung disease Mild TLC 71% with DLCO 100% with severe decrease in ERV Likely coming from obesity Advised to lose with diet and exercise Patient does have incentive spirometry at home. Advised her to use it every couple of hours Plan: Will drain Pleurx catheter on The case was discussed with RN as well as primary team Please note the above document was generated using voice recognition software. It may contain grammatical, syntax or spelling errors.Any formal questions or concerns about the content, text or information contained within the body of this dictation should be directly addressed to the provider for clarification. Admission and Anticipated Discharge Date Admission Date: February 20, 2025 Subjective Patient seen and examined at bedside. No acute distress, no adverse events overnight Overall she states she is feeling better after reading on the fluid yesterday Denied any nausea or vomiting Does have some discomfort at the site of the tube but it is still better than before No nausea or vomiting Fair appetite Review of Systems Review of Systems: All systems reviewed & are unremarkable except as noted in Subjective Physical Exam Physical Exam: Constitutional: No acute distress HEENT: EOMI, PERRLA Respiratory system: Decreased air entry on the left side, no wheeze, no rhonchi, positive crackles bilaterally CVS: S1-S2 positive, no murmurs or gallops Abdomen: Soft, nontender, nondistended, positive bowel sounds x4 Extremities: +2 pulses bilaterally radialis/ dorsalis pedis, no cyanosis, +1 pitting edema bilateral lower extremity Neuro: Awake alert oriented x3 Psych: Normal mood and affect G/U: Positive Miller Skin: no rashes, warm and dry Lymphatic: no cervical or axillary lymphadenopathy Results & Data Results & Data Vital Signs (Past 12 Hours) Vital Signs Temp Pulse Pulse Resp BP BP Pulse Ox 03/02/25 11:54 36.5 C 75 24 110/64 94 03/02/25 10:33 03/02/25 09:15 20 94 03/02/25 07:45 36.8 C 76 24 117/73 91 03/02/25 07:07 75 03/02/25 03:51 36.6 C 83 18 112/67 90 O2 Del Method 03/02/25 11:54 Room Air 03/02/25 10:33 Room Air 03/02/25 09:15 Room Air 03/02/25 07:45 Room Air 03/02/25 07:07 03/02/25 03:51 Room Air PG Care Time/CCT Total # of Minutes Spent Total Time Spent with Patient: Total time spent is greater than 50% in coordination of care (as documented) at patient's floor/unit and/or counseling patient: Coding Level of Care Code 27147 SUB INP/OBS CARE 2/35MIN Diagnoses T-cell lymphoma C85.90 Pleural effusion J90 Shortness of breath R06.02 Acute on chronic hypoxic respiratory failure J96.21 Restrictive lung disease J98.4 Malignant pleural effusion J91.0
[2025-03-02] MEDS: POT PHOSPHATE MONOBASIC W/ SOD TAB PO SCH (13:07)
[2025-03-02] MEDS: FUROSEMIDE 40 MG TAB PO ONE (14:03)
--- NOTE | 2025-03-02 17:20 | Ultrasound Report ---
Clinical History: Swelling Technique: Venous ultrasound evaluation was performed utilizing grayscale, color Doppler and wave form evaluation. Images were also obtained with and without compression Findings: The bilateral common femoral, superficial femoral, popliteal, and visualized calf veins demonstrate normal anechoic lumens with full compressibility. Normal flow is seen on color Doppler images. Expected waveforms were produced with augmentation maneuvers Impression: No evidence of deep venous thrombosis Electronically signed by Silvestre Jamison 03-02-2025 5:20 PM
--- NOTE | 2025-03-02 19:05 | Hospitalist Progress Note ---
Date of Service March 02, 2025 Assessment & Plan (1) T-cell lymphoma: (2) Chronic kidney disease, stage III (moderate): (3) Hyperlipidemia: (4) Hypertension: (5) Hyperthyroidism: (6) GERD without esophagitis: (7) Anemia: Plan 84yo female with a history of angioimmunoblastic T-cell lymphoma who presented with weakness/fatigue & dyspnea. Has had recurrent b/l exudative pleural effusions 2nd to her lymphoma. s/p thoracentesis b/l with PleurX catheter placement on LEFT on 02/28/[address] House. s/p chemotherapy 02/28/25 - [facility] protocol - per Dr Villa from heme/onc for her T-cell lymphoma. s/p high-dose prednisone since 02/28/25. 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 -deconditioning, volume overload, insomnia, mood disorder, etc also contributing -cont PT/OT -recheck TSH in am -S/P pleurX catheter placement by Dr House - -drained today once again by Dr House -drainage schedule moving forward will be M/W/F -appreciate Dr House's assistance -volume overload/anasarca - -echo 11/2024 with grade 1 diastolic dysfunction but preserved LV/RV function -diastolic dysfunction, hypoalbuminemia, steroids, etc likely all contributing -has not had lasix in several days; resume - give 40mg lasix PO x 1 now -then plan IV lasix daily as tolerated -due to being off DVT proph for lengthy period of time check dopplers of legs - r/o DVT #anemia - -2nd to T-cell lymphoma -s/p 1 unit PRBCs this admission -trend the CBC for stability #acute hypoxic respiratory failure 2nd to b/l malignant pleural effusions - -much improved s/p thoracentesis and pleurX catheter placement on left -stable in room air; O2 weaned off #angioimmunoblastic T cell lymphoma (AITL) - - 11/2024 --> pleural fluid positive for monoclonal B cell population, aberrant CD10 on subset of T cells. Path 02/10/25: PCR not able to confirm either B or T cell clone. 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 - has received 1 dose Rituximab to date Hematology/oncology consulted - Dr Villa; s/p cyclophosphamide/Doxorubicin/Fosaprepitant/Palonosetron/decadron and filgastrim x 3 days - s/p mediport placement 02/22 - will complete 5 days of high-dose prednisone #Asthma no acute exacerbation Nebs as needed #GERD w/ esophagitis cont protonix #Hyperthyroidism Continue methimazole -recheck TSH in am #Pressure ulcer of sacral region, at least stage 3, POA - -left medical coccyx pressure ulcer with 76-100% slough coverage -s/p wound care consult; recs - cleanse with NSS, apply skin prep to periphery, allow to dry, cover with aquacel Ag and secure with optifoam, change qod and prn, turn and reposition q 2 hrs #severe protein calorie malnutrition -appetite improved #transient hypotension - -diltiazem still on hold - continue to hold; BPs stable without the diltiazem #Anxiety - -with depressed mood, insomnia -add buspar 5mg BID -already on mirtazapine; started based on outpatient records earlier this spring at 7.5mg HS -will increase such to 15mg HS #DVT proph - -resume lovenox tomorrow mild low phos - K-phos neutral 1 cap QID, repeat phos level 2-3 days insurance auth approved for SNF placement for rehab ([facility] in [place]) but patient not medically ready cont PT/OT while here Admission and Anticipated Discharge Date Admission Date: February 20, 2025 Subjective patient resting in bed she c/o edema in all 4 limbs; legs feel heavy due to the edema edema started in December "when all this stuff started" (December H/P by Dr Flowers mentions 3+ edema of legs) she is very weak, c/o difficulty moving around because of the weakness she voices poor sleep at night, anxiety, and some depressed mood - latter 2 symptoms have been much worse since her hospitalization started had pleurX drained today by Dr House will have such again tomorrow dyspnea has improved since admission tele overnight wnl she is aware of ultimate transfer to SNF for rehab Review of Systems Review of Systems: gen - denies fevers or chills; eating HAS improved cv - no chest pain pulm - no dyspnea at rest GI - last BM 02/27? Physical Exam Physical Exam: gen - sitting in chair, NAD, pleasant neck - no JVD upright at 90 degrees mouth - MMM, no thrush chest - ecchymoses near left-sided port heart - RRR, s1 s2, no murmur lungs - decreased BS both bases (about 1/[address] up back), no crackles/wheezes; no increased work of breathing abd - soft NT ND BS+ ext - 1+ pitting edema of arms; 2+ pitting edema of legs; pulses b/l feet 2+ psych - very anxious Results & Data Results & Data Vital Signs (Past 12 Hours) Vital Signs Temp Pulse Pulse Resp BP Pulse Ox O2 Del Method 03/02/25 16:03 36.8 C 77 20 125/76 95 Room Air 03/02/25 14:57 79 03/02/25 11:54 36.5 C 75 24 110/64 94 Room Air 03/02/25 10:33 Room Air 03/02/25 09:15 20 94 Room Air 03/02/25 07:45 36.8 C 76 24 117/73 91 Room Air 03/02/25 07:07 75 Laboratory Results Laboratory Results - last 24 hr 03/02/25 08:57 WBC 17.87 H RBC 3.72 L Hgb 9.6 L Hct 31.9 L MCV 85.8 MCH 25.8 MCHC 30.1 L RDW Std Deviation 51.4 H RDW Coeff of Mikel 17.1 H Plt Count 233 MPV 9.1 L Neutrophils % (Manual) 94 Lymphocytes % (Manual) 2 Monocytes % (Manual) 3 Metamyelocytes % (Man) 1 Neutrophils # (Manual) 16.80 H Total Absolute Neuts 16.80 H Lymphocytes # (Manual) 0.36 L Total Abs Lymphocytes 0.36 L Monocytes # (Manual) 0.54 Metamyelocytes # (Man) 0.18 H Polychromasia 1+ Ovalocytes 1+ Sodium 139 Potassium 4.4 Chloride 105 Carbon Dioxide 32 Anion Gap 2 L BUN 21 Creatinine 0.63 Est Cr Clr Drug Dosing 76.6 eGFR 87.42 BUN/Creatinine Ratio 33.3 H Glucose 110 H Calcium 7.5 L Phosphorus 2.0 L Magnesium 1.7 Albumin 2.7 L PG Care Time/CCT Total # of Minutes Spent Total Time Spent with Patient: Total time spent is greater than 50% in coordination of care (as documented) at patient's floor/unit and/or counseling patient: Coding Level of Care Code 76288 SUB INP/OBS CARE MIN Diagnoses T-cell lymphoma C85.90 Chronic kidney disease, stage III (moderate) N18.3 Hyperlipidemia, unspecified hyperlipidemia type E78.5 Hyperlipidemia type: unspecified Primary hypertension I10 Hypertension type: primary hypertension Hyperthyroidism E05.90 GERD without esophagitis K21.9 Anemia D64.9 Anemia type: unspecified type (3) Hyperlipidemia Hyperlipidemia type: unspecified Qualified Code(s): E78.5 - Hyperlipidemia, unspecified (4) Hypertension Hypertension type: primary hypertension Qualified Code(s): I10 - Essential (primary) hypertension (7) Anemia Anemia type: unspecified type Qualified Code(s): D64.9 - Anemia, unspecified
[2025-03-02] MEDS: MIRTAZAPINE TAB 15 MG TAB PO SCH (21:16)
[2025-03-02] MEDS: MELATONIN 3 MG TAB PO PRN (21:16)
[2025-03-02] MEDS: busPIRone 5 MG TAB PO SCH (21:16)
[2025-03-03 06:22] LABS: Hematocrit (blood only) 27.6 % (37.0-47.0); Hemoglobin 8.4 g/dl (12.0-16.0); Mean Corpuscular Hemoglobin 26.1 pg (25.0-34.0); Mean Corpuscular Volume 85.7 fL (80.0-100.0); Platelet Count 178 K/uL (130-400); RDW Standard Deviation 52.4 fL (36.4-46.3); Red Blood Count 3.22 M/uL (4.20-5.40); White Blood Count 9.88 K/ul (4.8-10.8)
[2025-03-03 07:00] LABS: Anion Gap 2.0 (3-11); Blood Urea Nitrogen 25.0 mg/dl (6-23); Calcium 7.4 mg/dl (8.6-10.3); Carbon Dioxide 34.0 mmol/L (21-32); Chloride 104.0 mmol/L (98-107); Creatinine Clr Calc Pharmacy 79.9 ml/min; Glucose 114.0 mg/dl (70-99(Fasting)); Potassium 4.4 mmol/L (3.5-5.1); Sodium 140.0 mmol/L (136-145)
--- NOTE | 2025-03-03 10:05 | Procedure Note ---
Procedure Note Date of Service March 02, 2025 Procedure: Therapeutic drainage of the Pleurx catheter Eligibility Specialist: Dr. Demi House Indication: Left-sided pleural effusion Consent: Verbal consent obtained Anesthesia: None Procedure: Under aseptic and sterile precautions, dressing of the Pleurx catheter was rem levar. Pleurx catheter was connected to the drainage container. 250 mL of dark serous fluid was removed Air bubbling was appreciated in the anticipated likely presenting hydrothermal from probably trapped lung The catheter was dressed with 4 x 4 and Tegaderm on top. Patient tolerated the procedure well. Complications: None Blood loss: None [facility] [place] Procedure Codes (Charges) Pulmonary/Thoracic Procedure 1: Pulmonary and Thoracic: 84424 Pleural drainage w/o imaging Coding CPT Codes Pulmonary/Thoracic - Pulmonary and Thoracic: 04447 Pleural drainage w/o imaging ([id number]) Additional Codes Date of Service ([facility].SURGERY)
--- NOTE | 2025-03-03 10:07 | Pulmonology Progress Note ---
Date of Service March 03, 2025 Assessment & Plan (1) T-cell lymphoma: (2) Pleural effusion: (3) Shortness of breath: (4) Acute on chronic hypoxic respiratory failure: (5) Restrictive lung disease: (6) Malignant pleural effusion: Plan CT chest 12/23/2024 personally reviewed: Large bilateral pleural effusion Compressive atelectasis of bilateral lower lobe High probability of EDAC Significant mediastinal lymphadenopathy, especially station 4R Cardiomegaly 2D echo 12/23/2024: EF 60-65%, RV not well-visualized PFTs 03/28/2021: Mild restrictive lung disease with normal DLCO, severe decrease in ERV, no obstruction, insignificant bronchodilator response FVC 2.34 L 75%, FEV1 1.99 L 88%, FEV1/FVC 85%, RV 67%, TLC 71%, RV/TLC 91%, ERV 27%, DLCO 100% -- Acute on chronic hypoxic respiratory failure Patient was recently discharged on 2 L oxygen Secondary to pleural effusion, 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 follicular lymphoma as well as HFpEF S/p Pleurx catheter placement on the left side 02/28/2025 BNP 364 TSH within normal limit Procalcitonin negative S/p left-sided thoracentesis 12/27/2024 by IR, 900 mL fluid was removed, exudative as per lights criteria S/p right-sided thoracentesis 01/17/2025, 1300 mL fluid, lymphocytes 82%, exudative per LDH and protein Pleural:LDH 171, protein 3, pH 7.59 S/p left-sided thoracentesis 01/18/2025 by IR, 1000 mL fluid was removed, exudative as per lights criteria Cytology from thoracentesis right 12/24/2024 and left 01/18/2025 showed rare atypical cells present, not enough to make a diagnosis. -- Follicular hyper T-cell lymphoma generalized adenopathy Diagnosed 01/20/25 S/p axillary lymph node biopsy which showed atypical lymphoid proliferation but not enough specimen to call a diagnosis --Restrictive lung disease Mild TLC 71% with DLCO 100% with severe decrease in ERV Likely coming from obesity Advised to lose with diet and exercise Patient does have incentive spirometry at home. Advised her to use it every couple of hours Plan: Chest x-ray from today personally reviewed, shows left-sided pleural effusion seems to be mildly loculated. I do not think there is a need for intervention with tPA or dornase as patient saturation is good. Drain Pleurx catheter on [id number] The case was discussed with RN at bedside as well as primary team No further recommendation from pulmonary perspective, will sign off Please call directly with any questions Please note the above document was generated using voice recognition software. It may contain grammatical, syntax or spelling errors.Any formal questions or concerns about the content, text or information contained within the body of this dictation should be directly addressed to the provider for clarification. Admission and Anticipated Discharge Date Admission Date: February 20, 2025 Subjective Patient seen and examined at bedside. No acute distress, no adverse events overnight She was saturating 98% on room air while sitting on the chair Denied any discomfort at the site of the Pleurx catheter No nausea or vomiting Has been afebrile Review of Systems 2 Review of Systems: All systems reviewed & are unremarkable except as noted in Subjective Physical Exam 2 Physical Exam: Constitutional: No acute distress HEENT: EOMI, PERRLA Respiratory system: Decreased air entry on the left side, no wheeze, no rhonchi, positive crackles bilaterally CVS: S1-S2 positive, no murmurs or gallops Abdomen: Soft, nontender, nondistended, positive bowel sounds x4 Extremities: +2 pulses bilaterally radialis/ dorsalis pedis, no cyanosis, +1 pitting edema bilateral lower extremity Neuro: Awake alert oriented x3 Psych: Normal mood and affect G/U: Positive Miller Skin: no rashes, warm and dry Lymphatic: no cervical or axillary lymphadenopathy Results & Data Results & Data Vital Signs (Past 12 Hours) Vital Signs Temp Pulse Resp BP BP Pulse Ox O2 Del Method 03/03/25 07:39 36.5 C 73 20 107/72 95 Room Air 03/03/25 02:57 36.4 C L 74 18 116/74 93 Room Air 03/02/25 23:20 36.8 C 80 18 121/69 91 Room Air Laboratory Results 03/03/25 05:30 03/03/25 05:30 PG Care Time/CCT Total # of Minutes Spent Total Time Spent with Patient: Total time spent is greater than 50% in coordination of care (as documented) at patient's floor/unit and/or counseling patient: Coding Level of Care Code 76678 SUB INP/OBS CARE 2/35MIN Diagnoses T-cell lymphoma C85.90 Pleural effusion J90 Shortness of breath R06.02 Acute on chronic hypoxic respiratory failure J96.21 Restrictive lung disease J98.4 Malignant pleural effusion J91.0
--- NOTE | 2025-03-03 10:34 | XRay Report ---
HISTORY: Follow-up TECHNIQUE: Portable AP radiograph of the chest. COMPARISON: Chest radiograph dated 03/01/2025. FINDINGS: Left chest Mediport with tip in the SVC. Kinking or coiling of the catheter in the region of the left lung apex is stable. Left pleural catheter is unchanged with tip overlying the mid left lung. Moderate to large left pleural effusion. Small right pleural effusion. Pulmonary vascular congestion. No pneumothorax. Airspace opacity involving the mid and lower left lung and right lung base. Cardiomegaly. Left-sided aortic arch. Midline trachea. Right shoulder arthroplasty. Postsurgical changes in the right distal clavicle. Degenerative changes of the shoulders and spine. IMPRESSION: * No significant interval change. * Moderate to large left and small right pleural effusions. Similar adjacentnonspecific airspace opacity involving the mid and lower left lung and right lung base. * Cardiomegaly with vascular congestion suggesting CHF. * Left chest Mediport with catheter tip in the SVC. Kinking or coiling of the catheter in the region of the left lung apex is unchanged. * Left pleural catheter is unchanged with tip overlying the mid left lung. Electronically signed by Jack Alcala 03-03-2025 10:34 AM
[2025-03-03] MEDS: SENNA 8.6 MG TAB PO SCH (10:47)
[2025-03-03] MEDS: POLYETHYLENE (MIRALAX) 17 GM PACK PO SCH (10:47)
[2025-03-03] MEDS: FUROSEMIDE INJ 20 MG/2 ML VIAL IV ONE ×2 (10:54)
[2025-03-03 11:00] LABS: Thyroid Stimulating Hormone 1.716 uIu/ml (0.300-4.500)
[2025-03-03] MEDS: ENOXAPARIN INJ 40 MG/0.4 ML SYR SQ SCH (11:42)
--- NOTE | 2025-03-03 20:38 | Hospitalist Progress Note ---
Date of Service March 03, 2025 Assessment & Plan (1) T-cell lymphoma: (2) Chronic kidney disease, stage III (moderate): (3) Hyperlipidemia: (4) Hypertension: (5) Hyperthyroidism: (6) GERD without esophagitis: (7) Anemia: Plan 84yo female with a history of angioimmunoblastic T-cell lymphoma who presented with weakness/fatigue & dyspnea. Has had recurrent b/l exudative pleural effusions 2nd to her lymphoma. s/p thoracentesis b/l with PleurX catheter placement on LEFT on 02/28/[address] House. s/p chemotherapy 02/28/25 - [facility] protocol - per Dr Villa from heme/onc for her T-cell lymphoma. s/p high-dose prednisone since 02/28/25. 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 -deconditioning, volume overload, insomnia, mood disorder, etc also contributing -cont PT/OT -TSH today wnl #S/P pleurX catheter placement by Dr House - -stable cxr today -drainage schedule - M// -appreciate Dr House's assistance from [facility] Pul #volume overload/anasarca - -echo 11/2024 with grade 1 diastolic dysfunction but preserved LV/RV function -diastolic dysfunction, hypoalbuminemia, steroids, etc likely all contributing -IV lasix 20mg x 1 today -repeat BMP in am; if stable then give more IV lasix tomorrow #anemia - -2nd to T-cell lymphoma -s/p 1 unit PRBCs this admission -CBC with acceptable cell lines today #acute hypoxic respiratory failure 2nd to b/l malignant pleural effusions +/- pulmonary edema - -resolved s/p thoracentesis and pleurX catheter placement on left -stable in room air #angioimmunoblastic T cell lymphoma (AITL) - - 11/2024 --> pleural fluid positive for monoclonal B cell population, aberrant CD10 on subset of T cells. Path 02/10/25: PCR not able to confirm either B or T cell clone. 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 - has received 1 dose Rituximab to date Hematology/oncology consulted - Dr Villa; s/p cycloph osphamide/Doxorubicin/Fosaprepitant/Palonosetron/decadron and filgastrim x 3 days - s/p mediport placement 02/22 - will complete 5 days of high-dose prednisone; day #4 today #Asthma no acute exacerbation Nebs as needed #GERD w/ esophagitis cont protonix #Hyperthyroidism -Continue methimazole -TSH wnl today #Pressure ulcer of sacral region, at least stage 3, POA - -left medical coccyx pressure ulcer with 76-100% slough coverage -s/p wound care consult; recs - cleanse with NSS, apply skin prep to periphery, allow to dry, cover with aquacel Ag and secure with optifoam, change qod and prn, turn and reposition q 2 hrs #severe protein calorie malnutrition -appetite improved with high-dose steroids #transient hypotension - -diltiazem still on hold - continue to hold; BPs stable without the diltiazem -diltiazem may have been contributing to her LE edema as well #Anxiety - -with depressed mood, insomnia -added buspar 5mg BID -cont mirtazapine 15mg HS (increased to such on 03/02) #DVT proph - -resume lovenox today mild low phos - K-phos neutral 1 cap QID, repeat phos level tomorrow am insurance auth approved for SNF placement for rehab ([facility] in [place]) y cont PT/OT while here anticipate d/c to SNF on Thursday Admission and Anticipated Discharge Date Admission Date: February 20, 2025 Subjective no events overnight tele - NSR patient states she slept better last pm biggest complaint is that of anxiety - she is very anxious thinking about having her cervantes removed and "having accidents" eating is much better Review of Systems Review of Systems: cv - no chest pain pulm - no dyspnea at rest GI - no abd pain or N/V Physical Exam Physical Exam: gen - resting in bed, NAD neck - no JVD mouth - MMM, no thrush chest - ecchymoses is resolving near left-sided A-port heart - RRR, s1 s2, no murmur lungs - decreased BS both bases worse on left; no crackles; no increased work of breathing abd - soft NT ND BS+ ext - 1+ pitting edema of arms; 2+ pitting edema of legs - maybe slightly better; pulses b/l feet 2+ Results & Data Results & Data Vital Signs (Past 12 Hours) Vital Signs Temp Pulse Pulse Resp BP BP Pulse Ox 03/03/25 19:53 36.9 C 83 18 122/68 93 03/03/25 19:21 03/03/25 15:38 36.6 C 71 20 110/66 93 03/03/25 15:29 79 03/03/25 11:40 36.5 C 81 20 99/54 L 95 O2 Del Method 03/03/25 19:53 Room Air 03/03/25 19:21 Room Air 03/03/25 15:38 Room Air 03/03/25 15:29 03/03/25 11:40 Room Air Laboratory Results Laboratory Results - last 24 hr 03/03/25 05:30 WBC 9.88 RBC 3.22 L Hgb 8.4 L Hct 27.6 L MCV 85.7 MCH 26.1 MCHC 30.4 L RDW Std Deviation 52.4 H RDW Coeff of Mikel 16.9 H Plt Count 178 MPV 9.2 L Sodium 140 Potassium 4.4 Chloride 104 Carbon Dioxide 34 H Anion Gap 2 L BUN 25 H Creatinine 0.60 Est Cr Clr Drug Dosing 79.9 eGFR 88.45 BUN/Creatinine Ratio 41.7 H Glucose 114 H Calcium 7.4 L TSH 1.716 PG Care Time/CCT Total # of Minutes Spent Total Time Spent with Patient: Total time spent is greater than 50% in coordination of care (as documented) at patient's floor/unit and/or counseling patient: Coding Level of Care Code 92468 SUB INP/OBS CARE 2/35MIN Diagnoses T-cell lymphoma C85.90 Chronic kidney disease, stage III (moderate) N18.3 Hyperlipidemia, unspecified hyperlipidemia type E78.5 Hyperlipidemia type: unspecified Primary hypertension I10 Hypertension type: primary hypertension Hyperthyroidism E05.90 GERD without esophagitis K21.9 Anemia D64.9 Anemia type: unspecified type (3) Hyperlipidemia Hyperlipidemia type: unspecified Qualified Code(s): E78.5 - Hyperlipidemia, unspecified (4) Hypertension Hypertension type: primary hypertension Qualified Code(s): I10 - Essential (primary) hypertension (7) Anemia Anemia type: unspecified type Qualified Code(s): D64.9 - Anemia, unspecified
[2025-03-04 07:34] LABS: Hematocrit (blood only) 27.7 % (37.0-47.0); Hemoglobin 8.4 g/dl (12.0-16.0); Mean Corpuscular Hemoglobin 26.0 pg (25.0-34.0); Mean Corpuscular Volume 85.8 fL (80.0-100.0); Platelet Count 157 K/uL (130-400); RDW Standard Deviation 52.0 fL (36.4-46.3); Red Blood Count 3.23 M/uL (4.20-5.40); White Blood Count 6.54 K/ul (4.8-10.8)
[2025-03-04 07:55] LABS: Anion Gap 3.0 (3-11); Blood Urea Nitrogen 24.0 mg/dl (6-23); Calcium 7.4 mg/dl (8.6-10.3); Carbon Dioxide 35.0 mmol/L (21-32); Chloride 104.0 mmol/L (98-107); Creatinine Clr Calc Pharmacy 84.3 ml/min; Glucose 103.0 mg/dl (70-99(Fasting)); Potassium 4.0 mmol/L (3.5-5.1); Sodium 142.0 mmol/L (136-145)
[2025-03-04 08:29] LABS: Ovalocytes 1+; Polychromasia 1+
[2025-03-04 09:10] LABS: ALC (manual) 0.39 K/uL (1.2-3.4); ANC (manual) 6.15 K/uL (1.4-6.5)
[2025-03-04] MEDS: FUROSEMIDE INJ 20 MG/2 ML VIAL IV ONE (10:16)
[2025-03-04] MEDS ORDERED: SIMETHICONE 80 MG CHEW PO PRN (13:35)
--- NOTE | 2025-03-04 13:36 | Hospitalist Progress Note ---
Date of Service March 04, 2025 Assessment & Plan (1) T-cell lymphoma: (2) Chronic kidney disease, stage III (moderate): (3) Hyperlipidemia: (4) Hypertension: (5) Hyperthyroidism: (6) GERD without esophagitis: (7) Anemia: Plan 84yo female with a history of angioimmunoblastic T-cell lymphoma who presented with weakness/fatigue & dyspnea. Has had recurrent b/l exudative pleural effusions 2nd to her lymphoma. s/p thoracentesis b/l with PleurX catheter placement on LEFT on 02/28/[address] House. s/p chemotherapy 02/28/25 - [facility] protocol - per Dr Villa from heme/onc for her T-cell lymphoma. s/p high-dose prednisone since 02/28/25. #Weakness - -lymphoma, deconditioning, volume overload, insomnia, mood disorder, etc all contributing -cont PT/OT -TSH today -recent B12 level wnl #S/P pleurX catheter placement by Dr House - -most recent cxr stable/improved -drainage schedule - M/W/F -appreciate Dr House's assistance from [facility] Pul #volume overload/anasarca - improving - -echo 11/2024 with grade 1 diastolic dysfunction but preserved LV/RV function -diastolic dysfunction, hypoalbuminemia, steroids, etc all contributed to fluid overload -IV lasix 20mg x 1 again today -repeat BMP in am #anemia - -2nd to T-cell lymphoma -s/p 1 unit PRBCs this admission -CBC with acceptable cell lines once again today #acute hypoxic respiratory failure 2nd to b/l malignant pleural effusions +/- pulmonary edema - resolved, stable in room air -s/p thoracentesis and pleurX catheter placement on left -stable in room air #angioimmunoblastic T cell lymphoma (AITL) - - 11/2024 --> pleural fluid positive for monoclonal B cell population, aberrant CD10 on subset of T cells. Path 02/10/25: PCR not able to confirm either B or T cell clone. 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 - has received 1 dose Rituximab to date Hematology/oncology consulted - Dr Villa; s/p cyclophosphamide/Doxorubicin/Fosaprepitant/Palonosetron/decadron and filgastrim x 3 days - s/p mediport placement 02/22 - will complete 5 days of high-dose prednisone; day #5 today - CBC remains stable #Asthma no acute exacerbation Nebs as needed #GERD w/ esophagitis cont protonix #Hyperthyroidism -Continue methimazole -TSH wnl this admission #Pressure ulcer of sacral region, at least stage 3, POA - -left medical coccyx pressure ulcer with 76-100% slough coverage -s/p wound care consult; recs - cleanse with NSS, apply skin prep to periphery, allow to dry, cover with aquacel Ag and secure with optifoam, change qod and prn, turn and reposition q 2 hrs -nutrition has improved considerably while hospitalized #severe protein calorie malnutrition -appetite improved with high-dose steroids -appetite should also improve with higher dose of remeron (now at 15mg) #transient hypotension - -occurred last week -diltiazem still on hold - continue to hold; BPs stable without the diltiazem -diltiazem may have been contributing to her LE edema as well #Anxiety - -with depressed mood, insomnia -added buspar 5mg BID - tolerating, seems to be helping -cont mirtazapine 15mg HS (increased to such on 03/02) #DVT proph - -lovenox 40mg daily mild low phos - K-phos neutral 1 cap QID; repeat level today wnl; can stop supplementation insurance auth approved for SNF placement for rehab ([facility] in [place]) cont PT/OT while here anticipate d/c to SNF on Thursday daughter updated by phone today, 03/04/25 Admission and Anticipated Discharge Date Admission Date: February 20, 2025 Subjective no events overnight tele - NSR overall feels good eating well +stool today Review of Systems Review of Systems: pulm - no dyspnea at rest cv - no chest pain GI - no N/V Physical Exam Physical Exam: gen - resting in bed, NAD, looks good neck - no JVD mouth - MMM, no thrush chest - ecchymoses is resolving near left-sided A-port heart - RRR, s1 s2, no murmur lungs - decreased BS both bases worse on left; airation overall has improved last few days; no increased work of breathing abd - soft NT ND BS+ ext - <1+ pitting edema of arms; <1+ pitting edema of legs; pulses b/l feet 2+ Results & Data Results & Data Vital Signs (Past 12 Hours) Vital Signs Temp Pulse Pulse Resp BP BP Pulse Ox 03/04/25 11:17 36.7 C 73 18 113/70 93 03/04/25 08:02 36.4 C L 75 18 111/66 94 03/04/25 07:13 71 03/04/25 04:01 36.6 C 75 18 111/65 93 O2 Del Method 03/04/25 11:17 Room Air 03/04/25 08:02 Room Air 03/04/25 07:13 03/04/25 04:01 Room Air Laboratory Results Laboratory Results - last 24 hr 03/04/25 06:56 WBC 6.54 RBC 3.23 L Hgb 8.4 L Hct 27.7 L MCV 85.8 MCH 26.0 MCHC 30.3 L RDW Std Deviation 52.0 H RDW Coeff of Mikel 16.9 H Plt Count 157 MPV 9.0 L Neutrophils % (Manual) 94 Lymphocytes % (Manual) 6 Neutrophils # (Manual) 6.15 Total Absolute Neuts 6.15 Lymphocytes # (Manual) 0.39 L Total Abs Lymphocytes 0.39 L Polychromasia 1+ Ovalocytes 1+ Sodium 142 Potassium 4.0 Chloride 104 Carbon Dioxide 35 H Anion Gap 3 BUN 24 H Creatinine 0.57 L Est Cr Clr Drug Dosing 84.3 eGFR 89.55 BUN/Creatinine Ratio 42.1 H Glucose 103 H Calcium 7.4 L Phosphorus 3.4 D PG Care Time/CCT Total # of Minutes Spent Total Time Spent with Patient: Total time spent is greater than 50% in coordination of care (as documented) at patient's floor/unit and/or counseling patient: Coding Level of Care Code 43505 SUB INP/OBS CARE 2/35MIN Diagnoses T-cell lymphoma C85.90 Chronic kidney disease, stage III (moderate) N18.3 Hyperlipidemia, unspecified hyperlipidemia type E78.5 Hyperlipidemia type: unspecified Primary hypertension I10 Hypertension type: primary hypertension Hyperthyroidism E05.90 GERD without esophagitis K21.9 Anemia D64.9 Anemia type: unspecified type (3) Hyperlipidemia Hyperlipidemia type: unspecified Qualified Code(s): E78.5 - Hyperlipidemia, unspecified (4) Hypertension Hypertension type: primary hypertension Qualified Code(s): I10 - Essential (primary) hypertension (7) Anemia Anemia type: unspecified type Qualified Code(s): D64.9 - Anemia, unspecified
[2025-03-05 06:21] LABS: Hematocrit (blood only) 26.8 % (37.0-47.0); Hemoglobin 8.0 g/dl (12.0-16.0); Mean Corpuscular Hemoglobin 26.1 pg (25.0-34.0); Mean Corpuscular Volume 87.3 fL (80.0-100.0); Platelet Count 141 K/uL (130-400); RDW Standard Deviation 53.5 fL (36.4-46.3); Red Blood Count 3.07 M/uL (4.20-5.40); White Blood Count 3.03 K/ul (4.8-10.8)
[2025-03-05 06:38] LABS: Anion Gap 1.0 (3-11); Blood Urea Nitrogen 22.0 mg/dl (6-23); Calcium 7.2 mg/dl (8.6-10.3); Carbon Dioxide 36.0 mmol/L (21-32); Chloride 104.0 mmol/L (98-107); Creatinine Clr Calc Pharmacy 90.7 ml/min; Glucose 97.0 mg/dl (70-99(Fasting)); Magnesium 1.6 mg/dl (1.7-2.4); Potassium 3.7 mmol/L (3.5-5.1); Sodium 141.0 mmol/L (136-145)
[2025-03-05 07:48] LABS: ALC (manual) 0.61 K/uL (1.2-3.4); ANC (manual) 2.24 K/uL (1.4-6.5); Dohle Bodies 1+; Hypersegmented Neutrophils 1+; Hypochromasia Present; Polychromasia 1+
[2025-03-05] MEDS: CALCIUM CARBONATE 500 MG CHEWABLE TAB PO SCH (09:22)
[2025-03-05] MEDS: MAGNESIUM SULFATE / D5W 1 GM/100 ML BAG IV SCH (09:24)
[2025-03-05] MEDS: FUROSEMIDE 40 MG TAB PO ONE (12:19)
--- NOTE | 2025-03-05 20:19 | Hospitalist Progress Note ---
Date of Service March 05, 2025 Assessment & Plan (1) T-cell lymphoma: (2) Chronic kidney disease, stage III (moderate): (3) Hyperlipidemia: (4) Hypertension: (5) Hyperthyroidism: (6) GERD without esophagitis: (7) Anemia: Plan 84yo female with a history of angioimmunoblastic T-cell lymphoma who presented with weakness/fatigue & dyspnea. Has had recurrent b/l exudative pleural effusions 2nd to her lymphoma. s/p thoracentesis b/l with PleurX catheter placement on LEFT on 02/28/[address] House. s/p chemotherapy 02/28/25 - [facility] protocol - per Dr Villa from heme/onc for her T-cell lymphoma. s/p high-dose prednisone since 02/28/25. #Weakness - -lymphoma, deconditioning, volume overload, insomnia, mood disorder, etc all contributing -cont PT/OT -TSH today -recent B12 level wnl #S/P pleurX catheter placement by Dr House - -most recent cxr stable/improved -drainage schedule - M/W/F -appreciate Dr House's assistance from [facility] [place] Pul #volume overload/anasarca - improving - -echo 11/2024 with grade 1 diastolic dysfunction but preserved LV/RV function -diastolic dysfunction, hypoalbuminemia, steroids, etc all contributed to fluid overload -lasix 40mg x 1 today (PO) -repeat BMP in am -due to persistent edema of arms and recent port placement will get dopplers both arms - r/o DVT (but low suspicion of such) #anemia - -2nd to T-cell lymphoma -s/p 1 unit PRBCs this admission -CBC with acceptable cell lines once again today -CBC am #acute hypoxic respiratory failure 2nd to b/l malignant pleural effusions +/- pulmonary edema - resolved, stable in room air -s/p thoracentesis and pleurX catheter placement on left -stable in room air #angioimmunoblastic T cell lymphoma (AITL) - - 11/2024 --> pleural fluid positive for monoclonal B cell population, aberrant CD10 on subset of T cells. Path 02/10/25: PCR not able to confirm either B or T cell clone. 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 - has received 1 dose Rituximab to date Hematology/oncology consulted - Dr Villa; s/p cyclophosphamide/Doxorubicin/Fosaprepitant/Palonosetron/decadron and filgastrim x 3 days - s/p mediport placement 02/22 - will complete 5 days of high-dose prednisone; day #5 today - CBC remains stable #Asthma no acute exacerbation Nebs as needed #GERD w/ esophagitis cont protonix #Hyperthyroidism -Continue methimazole -TSH wnl this admission #Pressure ulcer of sacral region, at least stage 3, POA - -left medical coccyx pressure ulcer with 76-100% slough coverage -s/p wound care consult; recs - cleanse with NSS, apply skin prep to periphery, allow to dry, cover with aquacel Ag and secure with optifoam, change qod and prn, turn and reposition q 2 hrs -nutrition has improved considerably while hospitalized #severe protein calorie malnutrition -appetite improved with high-dose steroids and remeron #transient hypotension - -occurred last week -diltiazem stopped -diltiazem may have been contributing to her LE edema as well #Anxiety - -with depressed mood, insomnia -cont buspar 5mg BID -cont mirtazapine 15mg HS (increased to such on 03/02) #DVT proph - -lovenox 40mg daily insurance auth approved for SNF placement for rehab ([facility] in [place]) cont PT/OT while here anticipate d/c to SNF on Thursday? daughter updated by phone, 03/04/25 Admission and Anticipated Discharge Date Admission Date: February 20, 2025 Subjective no events overnight sitting in chair during the visit only complaint is ongoing edema of legs/arms minimal dyspnea on exertion; none at rest eating well good spirits Review of Systems Review of Systems: CV - no chest pain pulm - no cough GI - no vomiting; large BM today Physical Exam Physical Exam: gen - NAD, sitting in chair, looks good neck - no JVD mouth - MMM, no thrush chest - ecchymoses is resolving near left-sided A-port heart - RRR, s1 s2, no murmur lungs - decreased BS both bases worse on left - on left decreased BS 1/2 way up hemithorax; no rales; no increased work of breathing abd - soft NT ND BS+ ext - 1+ pitting edema of arms; 1+ pitting edema of legs; pulses b/l feet 2+ psych - a/o x 3 Results & Data Results & Data Vital Signs (Past 12 Hours) Vital Signs Temp Pulse Pulse Resp BP Pulse Ox O2 Del Method 03/05/25 15:35 36.6 C 71 16 105/46 L 96 Room Air 03/05/25 13:00 69 03/05/25 12:28 36.4 C L 76 16 112/92 95 Room Air 03/05/25 09:20 Room Air Laboratory Results Laboratory Results - last 48 hr 03/04/25 03/05/25 06:56 05:53 WBC 3.03 L RBC 3.07 L Hgb 8.0 L Hct 26.8 L MCV 87.3 MCH 26.1 MCHC 29.9 L RDW Std Deviation 53.5 H RDW Coeff of Mikel 17.2 H Plt Count 141 MPV 9.1 L Neutrophils % (Manual) 94 74 Lymphocytes % (Manual) 6 20 Monocytes % (Manual) 3 Eosinophils % (Manual) 1 Metamyelocytes % (Man) 2 Neutrophils # (Manual) 6.15 2.24 Total Absolute Neuts 6.15 2.24 Lymphocytes # (Manual) 0.39 L 0.61 L Total Abs Lymphocytes 0.39 L 0.61 L Monocytes # (Manual) 0.09 L Eosinophils # (Manual) 0.03 Metamyelocytes # (Man) 0.06 H Hypersegmented Neuts 1+ Dohle Bodies 1+ Polychromasia 1+ 1+ Hypochromasia Present Ovalocytes 1+ Sodium 142 141 Potassium 4.0 3.7 Chloride 104 104 Carbon Dioxide 35 H 36 H Anion Gap 3 1 L BUN 24 H 22 Creatinine 0.57 L 0.53 L Est Cr Clr Drug Dosing 84.3 90.7 eGFR 89.55 91.14 BUN/Creatinine Ratio 42.1 H 41.5 H Glucose 103 H 97 Calcium 7.4 L 7.2 L Phosphorus 3.4 D Magnesium 1.6 L PG Care Time/CCT Total # of Minutes Spent Total Time Spent with Patient: Total time spent is greater than 50% in coordination of care (as documented) at patient's floor/unit and/or counseling patient: Coding Level of Care Code 51803 SUB INP/OBS CARE 2/35MIN Diagnoses T-cell lymphoma C85.90 Chronic kidney disease, stage III (moderate) N18.3 Hyperlipidemia, unspecified hyperlipidemia type E78.5 Hyperlipidemia type: unspecified Primary hypertension I10 Hypertension type: primary hypertension Hyperthyroidism E05.90 GERD without esophagitis K21.9 Anemia D64.9 Anemia type: unspecified type (3) Hyperlipidemia Hyperlipidemia type: unspecified Qualified Code(s): E78.5 - Hyperlipidemia, unspecified (4) Hypertension Hypertension type: primary hypertension Qualified Code(s): I10 - Essential (primary) hypertension (7) Anemia Anemia type: unspecified type Qualified Code(s): D64.9 - Anemia, unspecified
[2025-03-05] MEDS: MELATONIN 3 MG TAB PO SCH (21:48)
--- NOTE | 2025-03-06 02:48 | Ultrasound Report ---
Exam(s): US VENOUS BILATERAL UPPER EXTREMITIES EXAM: US Duplex Bilateral Upper Extremities Veins CLINICAL HISTORY: Reason for exam: severe edema, LUE>RUE. aryan ue swelling TECHNIQUE: Real-time duplex ultrasound scan of the bilateral upper extremity veins integrating B-mode two-dimensional vascular structure, Doppler spectral analysis, color flow Doppler imaging and compression. COMPARISON: No relevant prior studies available. FINDINGS: Right deep veins: No DVT in the right internal jugular, subclavian, axillary, or brachial veins. The veins demonstrate normal color flow, are normally compressible, with normal phasic flow and/or augmentation response. Right superficial veins: No thrombus in the visualized right basilic vein. Left deep veins: No DVT in the left internal jugular, subclavian, axillary, or brachial veins. The veins demonstrate normal color flow, are normally compressible, with normal phasic flow and/or augmentation response. Left superficial veins: No thrombus in the visualized left basilic vein. Soft tissues: There is soft tissue edema. IMPRESSION: No ultrasound evidence of deep venous thrombosis in the upper extremities. Electronically signed by: Rafiq Eid MD 03/06/25 02:48 AM
[2025-03-06 06:59] LABS: Hematocrit (blood only) 25.4 % (37.0-47.0); Hemoglobin 7.7 g/dl (12.0-16.0); Mean Corpuscular Hemoglobin 25.8 pg (25.0-34.0); Mean Corpuscular Volume 85.2 fL (80.0-100.0); Platelet Count 149 K/uL (130-400); RDW Standard Deviation 52.1 fL (36.4-46.3); Red Blood Count 2.98 M/uL (4.20-5.40)
[2025-03-06 07:17] LABS: Anion Gap 1.0 (3-11); Blood Urea Nitrogen 19.0 mg/dl (6-23); Calcium 7.0 mg/dl (8.6-10.3); Carbon Dioxide 36.0 mmol/L (21-32); Chloride 104.0 mmol/L (98-107); Creatinine Clr Calc Pharmacy 104.9 ml/min; Glucose 87.0 mg/dl (70-99(Fasting)); Magnesium 2.0 mg/dl (1.7-2.4); Potassium 3.8 mmol/L (3.5-5.1); Sodium 141.0 mmol/L (136-145)
[2025-03-06 08:24] LABS: ALC (manual) 0.52 K/uL (1.2-3.4); ANC (manual) 0.26 K/uL (1.4-6.5); Toxic Vacuolation 1+; White Blood Count 0.83 K/ul (4.8-10.8)
[2025-03-06] MEDS: FUROSEMIDE INJ 20 MG/2 ML VIAL IV ONE (10:23)
--- NOTE | 2025-03-06 19:30 | Hospitalist Progress Note ---
Date of Service March 06, 2025 Assessment & Plan (1) T-cell lymphoma: (2) Chronic kidney disease, stage III (moderate): (3) Hyperlipidemia: (4) Hypertension: (5) Hyperthyroidism: (6) GERD without esophagitis: (7) Anemia: (8) Pancytopenia due to antineoplastic chemotherapy: (9) Neutropenia: Plan 84yo female with a history of angioimmunoblastic T-cell lymphoma who presented with weakness/fatigue & dyspnea. Has had recurrent b/l exudative pleural effusions 2nd to her lymphoma. s/p thoracentesis b/l with PleurX catheter placement on LEFT on 02/28/[address] House. s/p chemotherapy 02/28/25 - [facility] protocol - per Dr Villa from heme/onc for her T-cell lymphoma. s/p high-dose prednisone x 5 days - now off. #Weakness - -lymphoma, deconditioning, volume overload, insomnia, mood disorder, and effects from chemotherapy all contributing -worsened fatigue/weakness today likely chemo-induced -cont PT/OT -TSH wnl -recent B12 level wnl #S/P pleurX catheter placement by Dr House - -most recent cxr stable/improved -drainage schedule - M/W/F -appreciate Dr House's assistance from [facility] [place] Pulm #volume overload/anasarca - improving - -echo 11/2024 with grade 1 diastolic dysfunction but preserved LV/RV function -diastolic dysfunction, hypoalbuminemia, steroids, etc all contributed to fluid overload -lasix 20mg IV x 1 today -repeat BMP in am -due to persistent edema of arms and recent port placement obtained dopplers both arms - NO DVT -LE dopplers also negative for DVT #anemia - -2nd to T-cell lymphoma -s/p 1 unit PRBCs this admission -H/H remain stable but if Hb <7.5 would Tx again as she is symptomatic from her anemia #acute hypoxic respiratory failure 2nd to b/l malignant pleural effusions +/- pulmonary edema - resolved, stable in room air -s/p thoracentesis and pleurX catheter placement on left -remains stable in room air #angioimmunoblastic T cell lymphoma (AITL) - - 11/2024 --> pleural fluid positive for monoclonal B cell population, aberrant CD10 on subset of T cells. Path 02/10/25: PCR not able to confirm either B or T cell clone. 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 - has received 1 dose Rituximab to date Hematology/oncology consulted - Dr Villa; s/p cyclophosphamide/Doxorubicin/Fosaprepitant/Palonosetron/decadron and filgastrim x 3 days - s/p mediport placement 02/22 - completed 5 days of high-dose prednisone - CBC today with pancytopenia & neutropenia - marek is likely over the next 3 days - neutropenic precautions #Asthma no acute exacerbation Nebs as needed #GERD w/ esophagitis cont protonix -add carafate - pt reporting ongoing GERD sx's #Hyperthyroidism -Continue methimazole -TSH wnl this admission #Pressure ulcer of sacral region, at least stage 3, POA - -left medical coccyx pressure ulcer with 76-100% slough coverage -s/p wound care consult; recs - cleanse with NSS, apply skin prep to periphery, allow to dry, cover with aquacel Ag and secure with optifoam, change qod and prn, turn and reposition q 2 hrs -nutrition has improved considerably while hospitalized #severe protein calorie malnutrition -appetite improved with high-dose steroids and remeron #transient hypotension - -occurred last week -diltiazem stopped -diltiazem may have been contributing to her LE edema as well #Anxiety - -with depressed mood, insomnia -cont buspar 5mg BID -cont mirtazapine 15mg HS (increased to such on 03/02) #DVT proph - -lovenox 40mg daily #pancytopenia 2nd to chemotherapy along with neutropenia - -neutropenic precautions -daily CBC w/ diff repeat insurance auth needed for SNF placement for rehab ([facility] in [place]) cont PT/OT while here daughter updated by phone, 03/04/25 and today, 03/06/25 Admission and Anticipated Discharge Date Admission Date: February 20, 2025 Subjective patient c/o significant fatigue today she sat in the chair for 8+ hours yesterday, then worked with PT today, and now she is "exhausted" feels a little bloated & nauseous today but no emesis no dyspnea to have PleurX drained today Review of Systems Review of Systems: gen - no fevers or chills cv - no chest pain; ongoing edema legs/arms pulm - no cough GI - no pain Physical Exam Physical Exam: gen - NAD, laying in bed, looks very tired neck - no JVD mouth - MMM, no thrush heart - RRR, s1 s2, no murmur lungs - decreased BS both bases worse on left; no rales; no increased work of breathing abd - soft NT ND BS+ ext - 1+ pitting edema of arms; 1-2+ pitting edema of legs; pulses b/l feet 2+ psych - a/o x 3 Results & Data Results & Data Vital Signs (Past 12 Hours) Vital Signs Temp Pulse Pulse Resp BP Pulse Ox O2 Del Method 03/06/25 16:51 36.7 C 76 16 95/63 L 92 Room Air 03/06/25 15:39 82 03/06/25 08:14 36.5 C 69 20 96/65 L 92 Room Air 03/06/25 08:00 Room Air Laboratory Results Laboratory Results - last 24 hr 03/06/25 06:18 WBC 0.83 L* RBC 2.98 L Hgb 7.7 L Hct 25.4 L MCV 85.2 MCH 25.8 MCHC 30.3 L RDW Std Deviation 52.1 H RDW Coeff of Mikel 16.8 H Plt Count 149 MPV 9.2 L Neutrophils % (Manual) 31 Lymphocytes % (Manual) 63 Eosinophils % (Manual) 6 Neutrophils # (Manual) 0.26 L Total Absolute Neuts 0.26 L* Lymphocytes # (Manual) 0.52 L Total Abs Lymphocytes 0.52 L Eosinophils # (Manual) 0.05 Toxic Vacuolation 1+ Sodium 141 Potassium 3.8 Chloride 104 Carbon Dioxide 36 H Anion Gap 1 L BUN 19 Creatinine 0.46 L Est Cr Clr Drug Dosing 104.9 eGFR 94.30 BUN/Creatinine Ratio 41.3 H Glucose 87 Calcium 7.0 L Magnesium 2.0 PG Care Time/CCT Total # of Minutes Spent Total Time Spent with Patient: Total time spent is greater than 50% in coordination of care (as documented) at patient's floor/unit and/or counseling patient: Coding Level of Care Code 05140 SUB INP/OBS CARE 3/50MIN Diagnoses T-cell lymphoma C85.90 Chronic kidney disease, stage III (moderate) N18.3 Hyperlipidemia, unspecified hyperlipidemia type E78.5 Hyperlipidemia type: unspecified Primary hypertension I10 Hypertension type: primary hypertension Hyperthyroidism E05.90 GERD without esophagitis K21.9 Anemia D64.9 Anemia type: unspecified type Pancytopenia due to antineoplastic chemotherapy D61.810; T45.1X5A Neutropenia D70.9 (3) Hyperlipidemia Hyperlipidemia type: unspecified Qualified Code(s): E78.5 - Hyperlipidemia, unspecified (4) Hypertension Hypertension type: primary hypertension Qualified Code(s): I10 - Essential (primary) hypertension (7) Anemia Anemia type: unspecified type Qualified Code(s): D64.9 - Anemia, unspecified
[2025-03-06] MEDS: SUCRALFATE 1 GM/10 ML UDC PO SCH (21:33)
[2025-03-07 09:03] LABS: Hematocrit (blood only) 26.6 % (37.0-47.0); Hemoglobin 8.1 g/dl (12.0-16.0); Mean Corpuscular Hemoglobin 25.6 pg (25.0-34.0); Mean Corpuscular Volume 83.9 fL (80.0-100.0); Platelet Count 155 K/uL (130-400); RDW Standard Deviation 51.0 fL (36.4-46.3); Red Blood Count 3.17 M/uL (4.20-5.40)
[2025-03-07 09:04] LABS: White Blood Count 0.54 K/ul (4.8-10.8)
[2025-03-07 09:20] LABS: Anion Gap 3.0 (3-11); Blood Urea Nitrogen 15.0 mg/dl (6-23); Calcium 7.3 mg/dl (8.6-10.3); Carbon Dioxide 36.0 mmol/L (21-32); Chloride 102.0 mmol/L (98-107); Creatinine Clr Calc Pharmacy 91.5 ml/min; Glucose 92.0 mg/dl (70-99(Fasting)); Potassium 3.6 mmol/L (3.5-5.1); Sodium 141.0 mmol/L (136-145)
[2025-03-07 10:25] LABS: ALC (manual) 0.44 K/uL (1.2-3.4); ANC (manual) 0.09 K/uL (1.4-6.5); Polychromasia 1+
[2025-03-07] MEDS: FUROSEMIDE INJ 20 MG/2 ML VIAL IV ONE (10:37)
[2025-03-07] MEDS: ERGOCALCIFEROL 1250 MCG (50,000 UNITS) CAP PO ONE (14:23)
[2025-03-07] MEDS: CEFDINIR 300 MG CAP PO SCH (14:23)
[2025-03-07 19:30] VITALS: RESP 18
--- NOTE | 2025-03-07 21:22 | Hospitalist Progress Note ---
Date of Service March 07, 2025 Assessment & Plan (1) T-cell lymphoma: (2) Chronic kidney disease, stage III (moderate): (3) Hyperlipidemia: (4) Hypertension: (5) Hyperthyroidism: (6) GERD without esophagitis: (7) Anemia: (8) Pancytopenia due to antineoplastic chemotherapy: (9) Neutropenia: (10) Vitamin D deficiency: Plan 84yo female with a history of angioimmunoblastic T-cell lymphoma who presented with weakness/fatigue & dyspnea. Has had recurrent b/l exudative pleural ef fusions 2nd to her lymphoma. s/p thoracentesis b/l with PleurX catheter placement on LEFT on 02/28/[address] House. s/p chemotherapy 02/28/25 - [facility] protocol - per Dr Villa from heme/onc for her T-cell lymphoma. s/p high-dose prednisone x 5 days - now off. #Weakness - -lymphoma, deconditioning, volume overload, insomnia, mood disorder, vit D def, and effects from chemotherapy all contributing -cont PT/OT -TSH wnl -recent B12 level wnl #S/P pleurX catheter placement by Dr House - -most recent cxr stable/improved -drainage schedule - M/W/F -appreciate Dr House's assistance [place] [facility] [place] #volume overload/anasarca - improving - -echo 11/2024 with grade 1 diastolic dysfunction but preserved LV/RV function -diastolic dysfunction, hypoalbuminemia, steroids, etc all contributed to fluid overload -lasix again today -repeat BMP in am -due to persistent edema of arms and recent port placement obtained dopplers both arms - NO DVT -LE dopplers also negative for DVT #anemia - -2nd to T-cell lymphoma -s/p 1 unit PRBCs this admission -H/H remain stable but if Hb <7.5 would Tx again as she is symptomatic from her anemia #acute hypoxic respiratory failure 2nd to b/l malignant pleural effusions +/- pulmonary edema - resolved, stable in room air -s/p thoracentesis and pleurX catheter placement on left -remains stable in room air #angioimmunoblastic T cell lymphoma (AITL) - - 11/2024 --> pleural fluid positive for monoclonal B cell population, aberrant CD10 on subset of T cells. Path 02/10/25: PCR not able to confirm either B or T cell clone. 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 - has received 1 dose Rituximab to date Hematology/oncology consulted - Dr Villa; s/p cyclophosphamide/Doxorubicin/Fosaprepitant/Palonosetron/decadron and filgastrim x 3 days - s/p mediport placement 02/22 - completed 5 days of high-dose prednisone - CBC today with pancytopenia & neutropenia - latter severe - marek is likely over the next 3 days - neutropenic precautions - corresponded with Dr Villa today from oncology - she advised 7 days of prophylactic abx while severely neutropenic; levaquin ideal, but patient allergic; will use cefdinir 300mg daily x 7 days #Asthma no acute exacerbation Nebs as needed #GERD w/ esophagitis cont protonix -added carafate - pt reporting ongoing GERD sx's - would continue for 1-2 weeks post-d/c #Hyperthyroidism -Continue methimazole -TSH wnl this admission #Pressure ulcer of sacral region, at least stage 3, POA - -left medical coccyx pressure ulcer with 76-100% slough coverage -s/p wound care consult; recs - cleanse with NSS, apply skin prep to periphery, allow to dry, cover with aquacel Ag and secure with optifoam, change qod and prn, turn and reposition q 2 hrs -nutrition has improved considerably while hospitalized -will ask wound care to look at this ulcer 1 more time before d/c to SNF #severe protein calorie malnutrition -appetite improved with high-dose steroids and remeron #transient hypotension - -occurred last week -diltiazem stopped; would NOT resume at discharge -diltiazem may have been contributing to her LE edema as well #Anxiety - -with depressed mood, insomnia -cont buspar 5mg BID -cont mirtazapine 15mg HS (increased to such on 03/02) #DVT proph - -lovenox 40mg daily #pancytopenia 2nd to chemotherapy along with neutropenia - -neutropenic precautions -daily CBC w/ diff #vitamin D def - -25-OH vit D level is 8.5 today -plan ergocalciferol 59541 units weekly x 8 weeks, first dose today -low vit D likely contributing to hypocalcemia repeat insurance auth approved for SNF placement for rehab ([facility] in [place]) transportation was not available today to get her to SNF will be set up for 03/08/25 daughter updated by phone, 03/04/25 and 03/06/25 Admission and Anticipated Discharge Date Admission Date: February 20, 2025 Subjective tele overnight wnl feels pretty good today offers no new complaints anxious to get to rehab she is ok with removing cervantes today nursing staff report her buttock decubitus may be worse - wound care asked to re-eval Review of Systems Review of Systems: gen - fatigued, but no fevers or chills cv - no chest pain pulm - no dyspnea at rest GI - no abd pain Physical Exam Physical Exam: gen - NAD, sitting in chair, looks good today neck - no JVD mouth - MMM, no thrush heart - RRR, s1 s2, no murmur lungs - decreased BS both bases worse on left; minimal dry rales right base; no increased work of breathing abd - soft NT ND BS+ ext - 1+ pitting edema of arms - modestly improved today; 1+ pitting edema of legs = also improved; pulses b/l feet 2+ psych - a/o x 3 Results & Data Results & Data Vital Signs (Past 12 Hours) Vital Signs Temp Pulse Pulse Resp BP Pulse Ox O2 Del Method 03/07/25 20:00 Room Air 03/07/25 19:29 36.6 C 80 18 120/70 94 Room Air 03/07/25 15:13 36.5 C 82 20 102/69 91 Room Air 03/07/25 14:53 75 03/07/25 11:32 36.4 C L 74 18 105/60 94 Room Air 03/07/25 11:04 Room Air Laboratory Results Laboratory Results - last 24 hr 03/07/25 08:26 WBC 0.54 L* RBC 3.17 L Hgb 8.1 L Hct 26.6 L MCV 83.9 MCH 25.6 MCHC 30.5 L RDW Std Deviation 51.0 H RDW Coeff of Mikel 16.9 H Plt Count 155 MPV 9.1 L Neutrophils % (Manual) 16 Lymphocytes % (Manual) 82 Eosinophils % (Manual) 2 Neutrophils # (Manual) 0.09 L Total Absolute Neuts 0.09 L* Lymphocytes # (Manual) 0.44 L Total Abs Lymphocytes 0.44 L Eosinophils # (Manual) 0.01 Polychromasia 1+ Sodium 141 Potassium 3.6 Chloride 102 Carbon Dioxide 36 H Anion Gap 3 BUN 15 Creatinine 0.52 L Est Cr Clr Drug Dosing 91.5 eGFR 91.56 BUN/Creatinine Ratio 28.8 H Glucose 92 Calcium 7.3 L 25-OH Vitamin D Total 8.5 L PG Care Time/CCT Total # of Minutes Spent Total Time Spent with Patient: Total time spent is greater than 50% in coordination of care (as documented) at patient's floor/unit and/or counseling patient: Coding Level of Care Code 61145 SUB INP/OBS CARE 3/50MIN Diagnoses T-cell lymphoma C85.90 Chronic kidney disease, stage III (moderate) N18.3 Hyperlipidemia, unspecified hyperlipidemia type E78.5 Hyperlipidemia type: unspecified Primary hypertension I10 Hypertension type: primary hypertension Hyperthyroidism E05.90 GERD without esophagitis K21.9 Anemia D64.9 Anemia type: unspecified type Pancytopenia due to antineoplastic chemotherapy D61.810; T45.1X5A Neutropenia D70.9 Vitamin D deficiency E55.9 (3) Hyperlipidemia Hyperlipidemia type: unspecified Qualified Code(s): E78.5 - Hyperlipidemia, unspecified (4) Hypertension Hypertension type: primary hypertension Qualified Code(s): I10 - Essential (primary) hypertension (7) Anemia Anemia type: unspecified type Qualified Code(s): D64.9 - Anemia, unspecified
[2025-03-07 22:51] VITALS: TEMP 97.7
[2025-03-08 07:30] VITALS: BP 112/63; O2SAT 93
[2025-03-08 08:36] LABS: Hematocrit (blood only) 23.4 % (37.0-47.0); Hemoglobin 7.3 g/dl (12.0-16.0); Mean Corpuscular Hemoglobin 25.9 pg (25.0-34.0); Mean Corpuscular Volume 83.0 fL (80.0-100.0); Platelet Count 151 K/uL (130-400); RDW Standard Deviation 49.5 fL (36.4-46.3); Red Blood Count 2.82 M/uL (4.20-5.40); White Blood Count 0.48 K/ul (4.8-10.8)
[2025-03-08 08:46] LABS: Anion Gap 2.0 (3-11); Blood Urea Nitrogen 14.0 mg/dl (6-23); Calcium 7.2 mg/dl (8.6-10.3); Carbon Dioxide 37.0 mmol/L (21-32); Chloride 101.0 mmol/L (98-107); Creatinine Clr Calc Pharmacy 92.0 ml/min; Glucose 93.0 mg/dl (70-99(Fasting)); Potassium 3.3 mmol/L (3.5-5.1); Sodium 140.0 mmol/L (136-145)
[2025-03-08] MEDS: POTASSIUM CHLORIDE 10 MEQ TABCR PO STA (09:59)
--- NOTE | 2025-03-08 10:00 | Discharge Summary ---
Discharge Summary Date of Service March 08, 2025 Principal Dx & Hospital Course #1 = Principal Diagnosis (1) T-cell lymphoma: (2) Chronic kidney disease, stage III (moderate): (3) Hyperlipidemia: (4) Hypertension: (5) Hyperthyroidism: (6) GERD without esophagitis: (7) Anemia: (8) Pancytopenia due to antineoplastic chemotherapy: (9) Neutropenia: (10) Vitamin D deficiency: Plan 84yo female with a history of angioimmunoblastic T-cell lymphoma who presented with weakness/fatigue & dyspnea. Has had recurrent b/l exudative pleural effusions 2nd to her lymphoma. Left upper chest port-a-cath placed 02/22 thoracentesis b/l with PleurX catheter placement on LEFT on 02/28/[address] House. chemotherapy 02/28/25 - [facility] protocol - per Dr Villa from heme/onc for her T- cell lymphoma. s/p high-dose prednisone x 5 days - now off. hypoxia resolved and now on room air, dyspnea much improved currently at [facility] of counts for her chemotherapy and currently neutropenic - on seven day course of prophylactic antibiotic #Weakness - -lymphoma, deconditioning, volume overload, insomnia, mood disorder, vit D def, and effects from chemotherapy all contributing -cont PT/OT -TSH wnl -recent B12 level wnl #S/P pleurX catheter placement by Dr House - -continue draining M/W/F -follow up with Dr. House #volume overload/anasarca - improving - -echo 11/2024 with grade 1 diastolic dysfunction but preserved LV/RV function -diastolic dysfunction, hypoalbuminemia, steroids, etc all contributed to fluid overload -bilateral UE and LE duplex negative for DVT -continue daily oral lasix and increased potassium to 20 meq daily -monitor weight/edema, adjust diuretics accordingly -potassium 40 meq po given 03/08 for hypokalemia K 3.3 -BMP late this week or early next week for hypokalemia #anemia - -2nd to T-cell lymphoma -1 unit PRBCs this admission -H/H remain stable #acute hypoxic respiratory failure 2nd to b/l malignant pleural effusions +/- pulmonary edema - resolved, stable in room air -s/p thoracentesis and pleurX catheter placement on left -remains stable in room air #angioimmunoblastic T cell lymphoma (AITL) - - 11/2024 --> pleural fluid positive for monoclonal B cell population, aberrant CD10 on subset of T cells. Path 02/10/25: PCR not able to confirm either B or T cell clone. 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 - has received 1 dose Rituximab to date Hematology/oncology consulted - Dr Villa; s/p cyclophosphamide/Doxorubicin/Fosaprepitant/Palonosetron/decadron and filgastrim x 3 days - completed 5 days of high-dose prednisone - CBC today with pancytopenia & neutropenia ANC 260-->90 - mare[facility] is likely over the next 1-2 days - neutropenic precautions - corresponded with Dr Villa today from oncology - she advised 7 days of prophylactic abx while severely neutropenic; levaquin ideal, but patient allergic; will use cefdinir 300mg daily x 7 days #Asthma no acute exacerbation Nebs as needed #GERD w/ esophagitis cont protonix -added carafate - pt reporting ongoing GERD sx's - would continue for 1-2 weeks post-d/c #Hyperthyroidism -Continue methimazole -TSH wnl this admission #Unstageable Pressure ulcer of sacral region, at least stage 3, POA - -left medical coccyx pressure ulcer with 76-100% slough coverage -s/p wound care consult; recs - cleanse with NSS, apply skin prep to periphery, allow to dry, cover with aquacel Ag and secure with optifoam, change qod and prn, turn and reposition q 2 hrs -santyl added 03/08 -nutrition has improved considerably while hospitalized -discussed with WON today #severe protein calorie malnutrition -remeron - increased, cont boost bid #transient hypotension - -occurred last week -diltiazem stopped; would NOT resume at discharge -diltiazem may have been contributing to her LE edema as well #Anxiety - -with depressed mood, insomnia -cont buspar 5mg BID -cont mirtazapine 15mg HS (increased to such on 03/02) #pancytopenia 2nd to chemotherapy along with neutropenia - -neutropenic precautions -CBC with diff early next week #vitamin D def - -25-OH vit D level is 8.5 -plan ergocalciferol 32207 units weekly x 8 weeks, first dose 03/07 -low vit D likely contributing to hypocalcemia daughter updated by phone, 03/04/25 and 03/06/25 Admission HPI Per Admitting Provider 84yo with a PMHx of CKD3, T-cell lymphoma, anxiety/depression, HLD, HTN who was referred to the ER for weakness, dyspnea. Was referred for a thoracentesis which she had done today, but remains to weak to ambulate and was referred for evaluation and potential rehab. Angelita reports about 6 weeks ago she noticed she could not breath very well. Saw her PCP Dr. Bansal initially and 'as soon as I walked in she took one look at me and got a tank of oxygen and called an ambulance.' Was brought to the hospital, and had many scans and tests and had the fluid drained from her lung. Taylor better initially after seeing Dr. House and having fluid taken off. Two days later had a second thoracentesis. Taylor well for around 2 weeks then started getting short of breath again. Started infusion treatment and was doing OK, but worsened int he last 5-7 days. Was scheduled for infusion treatment today, but was referred to thoracentesis on CCP evaluation. No cough No fevers, chills, or sweats No nausea, vomiting. Did have some diarrhea from her infusion. No diarrhea today. No abdominal pain No headache No night sweats 60lbs weight loss since . Lost taste during 2020 but went back to normal until this past winter. "I'm hungry, but food just tastes like cardboard." +Leg edema +Arm edema since lymph node removal No history of AK/CHF. No chest pain Her and her daughter have been monitoring for infectious symptoms specially since starting treatment however she does not feel like she has a cold or any infectious symptoms, has just felt tired and more short of breath from fluid. Medical History: Reviewed Medications: Reviewed Surgical History: Reviewed Family history: Reviewed Allergies: Reviewed Social History: No tobacco. Very rare ETOH use Code Status: DNR/DNI. Is okay with intubation for temporary/reversible causes, will list as conditional code Discharge Exam Last 24h vitals reviewed GEN: no acute distress, sitting in chair HEENT: pupils equal, sclerae anicteric, moist MM RESP: normal WOB, CTAB. L lower chest pleurX dressed L upper chest port, accessed CV: reg no mrg ABD: soft/nt/nd +BT : no cervantes SKIN: warm and dry, no generalized rashes ANASARCA x 4 extremities - she states improved since yesterday NEURO: AOx person, place, and situation. 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 Condition on Discharge: Fair Activity: Per Instructions section Lifting: No more than 25 pounds Lifting Comment: for a few days Exercise/Sports: Gradually increase as tolerated Non-emergency contact: Primary Care Provider and Surgeon Call non-emergency contact if: you have a fever, your temperature is above 101.5, your wound has increased redness, your wound has increased drainage and your wound pain has increased Follow-up/Referrals: Mignon Bansal DO [Primary Care Provider] - Coleman Ramos DO, FACS [Physician] - (please call to schedule follow up in the office in 2 weeks) Nellie Villa MD [Physician] - Diet: Regular Diet Texture: Easy to Chew Addtl Attending Provider Instructions: PT and OT evaluate and treat T-cell lymphoma. [facility] chemo 02/28. Currently at [facility] of cell counts and neutropenic -neutropenic precautions -cefdinir prophylaxis through 03/13 -follow up with Dr. Villa, cancer center Edema/anasarca -monitor weight 3x a week and edema -continue furosemide until significantly improved, adjust dose as needed Left chest pleurX catheter -drain thursday, thursday, thursday -follow up with Dr. House, pulmonary Your mediport may be used You have skin glue over your incisions called dermabond. you may shower with this on. It will tend to dissolve and fall off within a couple weeks. Do not pick at the skin glue Unstageable sacral pressure ulcer -pressure offloading, air overlay -continue wound care. Carlos added 03/08 Code status - DNR / no CPR or chest compressions. Would want intubation trial for respiratory failure. Pending Studies at Discharge: No Stand-Alone Forms: My [facility] Skilled Items Patient informed of condition?: Yes DNR: Yes Discharge Level of Care: Skilled Communicable Disease: No Discharge Prognosis: Improving Lines: None Urinary Catheter: No Medications and DC Order Prescriptions: New cholecalciferol (vitamin D3) 1,250 mcg (50,000 unit) capsule 50,000 unit PO .weekly Qty: 7 0RF Rx Instructions: weekly on Tuesdays for 7 more weeks (first dose was 03/07/25) cholecalciferol (vitamin D3) 1,250 mcg (50,000 unit) capsule 50,000 unit PO .weekly Qty: 7 0RF Rx Instructions: weekly (first dose was 03/07/25) potassium chloride 10 mEq Tablet Extended Release 20 meq PO DAILY Qty: 0 0RF pantoprazole 40 mg Tablet,Delayed Release (Dr/Ec) 40 mg PO QAM Qty: 0 0RF polyethylene glycol 3350 [Miralax] 17 gram Powder In Packet 17 g PO DAILY Qty: 0 0RF sennosides [Senna Lax] 8.6 mg Tablet 17.2 mg PO QAM Qty: 0 0RF melatonin 3 mg Tablet 6 mg PO HS Qty: 0 0RF acetaminophen 325 mg Tablet 650 mg PO Q4H PRNQty: 0 0RF buspirone 5 mg Tablet 5 mg PO BID Qty: 0 0RF mirtazapine 15 mg Tablet 15 mg PO HS Qty: 0 0RF simethicone [Gas Relief (simethicone)] 80 mg Tablet,Chewable 80 mg PO Q6H PRNQty: 0 0RF calcium carbonate [Tums] 200 mg calcium (500 mg) Tablet,Chewable 500 mg PO TID Qty: 0 0RF sucralfate 100 mg/mL Suspension 1 g PO QID 7 Days Qty: 280 0RF cefdinir 300 mg Capsule 300 mg PO DAILY 6 Days Qty: 0 0RF Continued atorvastatin 10 mg tablet 10 mg PO HS Qty: 90 3RF (DME) Bedside Commode Misc See Rx Instructions .Route Qty: 1 0RF Rx Instructions: As directed (DME) Wheelchair (Manual) Device See Rx Instructions .Route Qty: 1 0RF Rx Instructions: As directed furosemide 40 mg tablet 40 mg PO DAILY Qty: 90 2RF albuterol sulfate [ProAir HFA] 90 mcg/actuation HFA aerosol inhaler 1 - 2 puff INH Q4H PRN (Reason: shortness of breath or wheezing) Qty: 18 2RF Rx Instructions: no fill history unable to verify methimazole 5 mg tablet 5 mg PO DAILY Patient Comments: pt taking 5mg daily Boost 0.04 gram- 1 kcal/mL liquid 2 ea PO DAILY Qty: 35280 11RF Rx Instructions: otc unable to verify aspirin [Aspir-81] 81 mg Tablet,Delayed Release (Dr/Ec) 81 mg PO QAM Rx Instructions: otc unable to verify folic acid 1 mg Tablet 5 mg PO QAM Qty: 30 0RF Rx Instructions: otc unable to verify (DME) Oxygen Home Liters Per Minute See Rx Instructions .Route Qty: 1 0RF Rx Instructions: As directed 3 liters Discontinued diltiazem HCl 120 mg capsule,extended release 24hr 120 mg PO DAILY Qty: 90 1RF Hold Instructions: Home Medication placed on hold at Doctor's office mirtazapine 7.5 mg tablet 7.5 mg PO HS Qty: 90 3RF potassium chloride 10 mEq tablet extended release 10 meq PO DAILY amoxicillin-pot clavulanate 875-125 mg tablet 1 tab PO BID Discharge Orders: Discharge Order (Routine); Ordered 03/08/25 Ordered By: Yazmin Flowers Admission Data Admit Date/Time: 02/20/25 17:17 Attending Provider: Yazmin Flowers Admit Provider: Xavier Oscar Primary Care Provider: Mignon Bansal [facility]; Xavier Oscar; Nellie Villa; Ronnie Weiss; [employer] Approved Study,Janes; Pete Kaur; Edd Byers; Jaqui Barajas; Iliana Kang; Surekha Duran; Peri Benitez; Alirio oGnzalez; Amara Yu; Edgar Olivier; Chelly Lucio; Marcia Cotto; Opal Grande; Radha Harper; Corinne Reyes; Lázaro Marks; Raymundo Camacho; Nguyễn Shetty; Juliana Trinidad; Jada Ayoub Jr; Hunter Dunham; Russell Rios; Jeffrey Alvarez; Gibran Sommers; Shanelle Rai; Sebastian Atkins I; Essie Horne; Marvin Castillo; Frantz Vizcaino; Jeremy Hernandez; [place],[facility]; Artemio Banks; Vikas Borjas; Demi House; Jess Sharpe; Christopher Wagner Hospital Stay Data Consultations 02/20/25 16:10 ED Decision to Admit Stat 02/20/25 19:02 Consult Oncology Routine 02/21/25 15:37 Consult General Surgery Routine 02/23/25 16:43 Consult Gastroenterology Routine 02/27/25 07:23 Consult Pulmonology Routine Procedures Performed Operation Date: 02/22/25 11:25 Actual Procedures p Insertion Left Internal Jugular Access Port(Left) - Coleman Ramos DO, FACS Diagnostic Imagining Performed 02/22/25 11:25 FL fluoro (infusaport) to 1 hr Routine 02/27/25 12:15 US point of care ultrasound Stat 03/02/25 14:54 US venous doppler LE BI Routine 03/05/25 17:10 US venous doppler UE BI Routine Pending Results Patient Have Any Pending Studies at Discharge: No Discharge Instructions Given to Patient (Per Discharging Provider) PT and OT evaluate and treat T-cell lymphoma. [facility] chemo 02/28. Currently at [facility] of cell counts and neutropenic -neutropenic precautions -cefdinir prophylaxis through 03/13 -follow up with Dr. Villa, cancer center Edema/anasarca -monitor weight 3x a week and edema -continue furosemide until significantly improved, adjust dose as needed Left chest pleurX catheter -drain thursday, thursday, thursday -follow up with Dr. House, pulmonary Your mediport may be used You have skin glue over your incisions called dermabond. you may shower with this on. It will tend to dissolve and fall off within a couple weeks. Do not pick at the skin glue Unstageable sacral pressure ulcer -pressure offloading, air overlay -continue wound care. Carlos added 03/08 Code status - DNR / no CPR or chest compressions. Would want intubation trial for respiratory failure. Total Time Total Time Spent Total Time Spent (In Minutes): I personally spent: 45 minutes today on clinical care activities including: x reviewing chart notes and vital signs [x] reviewing labs [x] discussion with instructional design consultant(s) Vanessa DELATORRE [x] discussion with home child care provider x examining and counseling the patient [x] writing prescriptions, discharge instructions documentation Coding Level of Care Code 46766 INP/OBS DISCH >30 MIN Diagnoses T-cell lymphoma C85.90 Chronic kidney disease, stage III (moderate) N18.3 Hyperlipidemia, unspecified hyperlipidemia type E78.5 Hyperlipidemia type: unspecified Primary hypertension I10 Hypertension type: primary hypertension Hyperthyroidism E05.90 GERD without esophagitis K21.9 Anemia D64.9 Anemia type: unspecified type Pancytopenia due to antineoplastic chemotherapy D61.810; T45.1X5A Neutropenia D70.9 Vitamin D deficiency E55.9
[2025-03-08 14:57] VITALS: PULSE 73
== END 2025-03-08 16:05 | DRG 823 ==
LOC: ED 14:21 → EDINP 17:17 → SUATTDRO 17:17 → EDINP 19:02 → 3E 21:24 → 2N 02-21 12:25 → 2W 03-06 20:54

== ENCOUNTER 2025-03-28 12:54 | Inpatient (IN) ==
[2025-03-28] MEDS ORDERED: HEPARIN 100 UNIT/ML 5ML FLUSH FLUSH PRN (14:15)
--- NOTE | 2025-03-28 14:27 | Emergency Department Note ---
Impression & Plan Bicytopenia, Anemia requiring transfusions, Hypoxia, Symptomatic anemia, Elevated troponin, Pulmonary edema ED Provider Note HISTORY OF PRESENT ILLNESS: Patient is an 84-year-old female presenting with abnormal laboratory test results. Patient reports she is at [facility]. She states that she had labs done at the [facility] and was told today that she had to go to the hospital because her white blood cell count was 0.77 and her hemoglobin was 6.6. Patient recently started chemotherapy after being diagnosed with lymphoma. She reports her first round of chemo was last week. She has a chest tube in the left chest to help drain the pleural effusions. She states that she had the drain placed by Dr. House with pulmonology and their [facility] remove 1.5 L of fluid from the chest tube yesterday. Patient does not wear any supplemental oxygen at baseline. She denies any complaints on arrival to the emergency department other than nausea. Denies any abdominal pain. Denies any recent fevers. Denies any chest pain. Denies any melena or hematochezia. ROS: as above PHYSICAL EXAM: Constitutional: Patient appears in no acute distress. HENT: Head: Normocephalic and atraumatic. Eyes: EOMI, PERRL Mouth/Throat: Mucous membranes moist. Neck: Trachea midline. Neck supple. Cardiovascular: RRR, No murmurs, rubs or gallops. Intact distal pulses. Pulmonary/Chest: No respiratory distress. Breath sounds clear and equal bilaterally. No wheezes or rales. Chest tube in left lateral chest wall. Abdominal: Abdomen soft, no tenderness, rebound or guarding. Musculoskeletal: No edema, tenderness or deformity noted. Skin: Warm and dry. No rash, erythema, pallor or cyanosis Psychiatric: Appropriate mood and affect for situation. Neurological: Alert and keenly responsive. CN II-XII grossly intact, moving all extremities equally and fully. MDM: - Vitals signs showed hypoxia. - History obtained via patient. History as above. - Chronic conditions affecting care: hyperthyroidism; HTN; HLD; lymphoma; CKD - Differential diagnoses include, but are not limited to: Sepsis; pneumonia; pulmonary embolism; chemo induced pancytopenia; pleural effusion - Order placed for continuous cardiac monitoring. At this time, monitor showed rate of 75 bpm with normal sinus rhythm, per my interpretation. - External medical records reviewed. Discharge summary dated 03/08/2025 was reviewed. 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 She had a left upper chest Port-A-Cath placed on 02/22/2025. She had a thoracentesis bilaterally with a Pleurx catheter placed on the left on 02/28/2025. - EKG image interpreted by myself showed normal sinus rhythm. Rate 73 bpm. QT 328. No acute ischemic changes. - Laboratory workup interpreted by myself showed bicyopenia (WBC 0.44; Hgb 6.7); normal PT/INR; stable electrolytes other than hypocalcemia (Ca 7.7); elevated troponin (14.8); normal procalcitonin; normal lactate - Neutropenic with neutrophil cound <0.5 - Patient given 4 mg IV zofran in ER. - Type and screen obtained. 1 unit PRBC ordered and administered - CXR image reviewed by myself showed bilateral pleural effusion, per my interpretation. Radiology notes bilateral pleural effusions with lung base consolidation which has improved on the left and stable on the right. - Discussed case with oncologist on-call, Dr. Villa, at 15:20. She states the patient is likely in a marek. Postchemotherapy. Reports this is normal to have low white counts and neutropenia in days 5-14 postchemotherapy, as this is normally the time that the counts are at the lowest. Recommended that the patient be transfused 1 unit of leukoreduced packed red blood cells. States that if infectious workup is negative patient does not need any antibiotics at this time as she is not having any fever. Recommended obtaining a CT scan to rule out PE for source of patient's hypoxia. Does believe that patient's hypoxia is likely secondary to her anemia. - CT PE negative for PE. Noted to have moderate size left hydropneumothorax with a left-sided chest tube in place. Small right pleural effusion and right lower lobe atelectasis. Also noted have mild pulmonary edema. - Patient was transfused 1 unit of packed red blood cells. However, she still requiring 2 L nasal cannula to keep her saturations above 90%. Will admit to hospital service for further evaluation and management. - Discussion was had with case consultant about patient's case and need for admission - Hospitalist consulted for admission - Patient admitted to [facility] service for further evaluation and management. I have personally spent 72 minutes of critical care time in the direct management of this patient. This includes bedside care, interpretation of diagnostic studies, and testing, discussion with consultants, patient, and family members, and other required patient management activities. This 72 minutes is in excess of all separately billable procedures. ASSESSMENT AND PLAN: Diagnosis: bicytopenia; anemia requiring transfusions; hypoxia; symptomatic anemia; elevated troponin; pulmonary edema Plan: Admit Past Med/Surg History Problem List (Updated 03/28/25 @ 19:11 by Kristen Garnica MD) Pulmonary edema (Acute) Elevated troponin (Acute) Symptomatic anemia (Acute) Hypoxia (Acute) Anemia requiring transfusions (Acute) Bicytopenia (Acute) Neutropenia Pancytopenia due to antineoplastic chemotherapy Malignant pleural effusion Counseling regarding advanced directives and goals of care Palliative care by specialist Dysphagia Anemia (Acute) Malnutrition Folate deficiency Anxiety and depression T-cell lymphoma Chronic kidney disease, stage III (moderate) Anemia Recurrent nevus of face Nonallergic rhinitis Inflamed seborrheic keratosis Multiple pulmonary nodules Urinary urgency Hyperlipidemia PARTIAL Hypertension Thyroid nodule ENDOCRINE MONITORING Obesity Hyperthyroidism ENDOCRINE MONITORING; ON METHIMAZOLE- THYROID LABS STABLE ON 05/24/18 Valvular disease MILD TR- PT DENIES Nephrolithiasis Osteoarthritis Left renal mass Vitamin D deficiency Urinary incontinence Reactive airway disease Multinodular goiter Impaired fasting glucose GERD without esophagitis Allergic rhinitis Abnormal findings on diagnostic imaging of abdomen Medical History (Updated 03/28/25 @ 19:11 by Kristen Garnica MD) Axillary lymphadenopathy Lymph nodes enlarged Acute on chronic hypoxic respiratory failure Pleural effusion Restrictive lung disease Degenerative joint disease of knee Pulmonary nodules DR. DOMINGUEZ MONITORING Asthma STABLE- DOESNT USE INHALERS- FOLLOWS DR. DOMINGUEZ- [facility] Osteoarthritis of right hip Surgical History (Updated 03/09/25 @ 00:07 by Background Daemon) H/O insertion of central venous access port (02/22/25) Insertion Left Internal Jugular Access Port(Left) - Coleman Ramos DO, MARIBEL S/P lymph node biopsy (01/19/25) Left Axillary Lymph Node Excisional Biopsy(Left) - Daniel Corley DO S/P lymph node biopsy (06/21/19) Right Axillary Lymph Node Biopsy with Needle Localization Dr. Vaughan 06/21/19 Hx of lymph node biopsy RIGHT Hx of surgical procedure LEFT KIDNEY BIOPSY /DR. URVASHI History of total knee replacement LEFT History of total shoulder replacement RIGHT History of cataract extraction with lens replacement History of total hip arthroplasty RIGHT ZOFIA= 02/19/18= SAB X 1 ATTEMPT AT [facility] History of colonoscopy History of hysterectomy Family History Denies family history of Ovarian cancer Prostate cancer Myocardial infarction Breast cancer Colorectal cancer Social History Smoking Status: Never smoker Second Hand Exposure: No; Do You Dip or Chew Tobacco: No; Hx Alcohol Use: No Hx Substance Use: No Preferred Language: Ivorian Communication Ability: Effective Visual Impairment: No Limitations 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: Normal Microscopist Required: No Beliefs That Will Affect Care: None marital status: / Current Living Situation: Family Current Living Situation Comment: DAUGHTER DONNA current occupational status: retired How many Children do You have: 2 Feels Safe at Home: Yes Childhood Exposure to Second-Hand Smoke: Yes Diet: regular Diet Comment: regular caffeine: Yes (Coffee x 1 per day.) during the past year weight has: remained stable Dental Care, Regularly: Yes Physical Activity Frequency: Daily Physical Activity Frequency Comment: walking, gardening Seatbelt Use: always Sunscreen Use: No Assistive Devices: Cane, Glasses, Oxygen - Continuous, Walker and Wheelchair Allergies Allergies Allergy/AdvReac Type Severity Reaction Status Date / Time doxycycline Allergy Intermediate Rash Verified 03/28/25 17:08 levofloxacin Allergy Intermediate ITCHING/HIV Verified 03/28/25 17:08 ES Sulfa (Sulfonamide Allergy Intermediate ITCHING/HIV Verified 03/28/25 17:17 Antibiotics) ES sulfamethoxazole Allergy Intermediate ITCHING/HIV Verified 03/28/25 17:08 ES morphine AdvReac Severe N/V Verified 03/28/25 17:08 Home Meds Home Medications Medication Instructions Recorded Confirmed methimazole 5 mg tablet 5 mg PO DAILY E05.90 12/23/24 03/28/25 acetaminophen 325 mg tablet 650 mg PO Q4H PRN PAIN/FEVER 03/28/25 03/28/25 aspirin 81 mg tablet,delayed 81 mg PO DAILY 03/28/25 03/28/25 release buspirone 5 mg tablet 5 mg PO HS 03/28/25 03/28/25 cholecalciferol (vitamin D3) 1,250 50,000 unit PO WK 03/28/25 03/28/25 mcg (50,000 unit) capsule famotidine 20 mg tablet 20 mg PO DAILY 03/28/25 03/28/25 food supplemt, lactose-reduced 1 ea PO BIDM 03/28/25 03/28/25 0.04 gram-1 kcal/mL oral liquid (Boost) multivitamin with minerals 1 tab PO DAILY 03/28/25 03/28/25 simethicone 80 mg chewable tablet 80 mg PO Q6H PRN GAS DISCOMFORT 03/28/25 03/28/25 (Gas Relief (simethicone)) Previous Rx's Medication Instructions Recorded atorvastatin 10 mg tablet 10 mg PO HS #90 tabs 04/19/24 Oxygen Home #1 ea 01/26/25 folic acid 1 mg tablet 5 mg (5 x 1 mg) PO QAM #30 tabs 01/26/25 Bedside Commode #1 ea 01/31/25 Wheelchair (Manual) #1 ea 02/16/25 calcium carbonate (Tums) 500 mg (2.5 x 200 mg calcium (500 03/08/25 mg)) PO TID #0 tabs mirtazapine 15 mg tablet 15 mg PO HS #0 tabs 03/08/25 pantoprazole 40 mg tablet,delayed 40 mg PO QAM #0 tabs 03/08/25 release polyethylene glycol 3350 17 gram 17 g PO DAILY #0 ea 03/08/25 oral powder packet (Miralax) potassium chloride 10 mEq 20 meq (2 x 10 mEq) PO DAILY #0 03/08/25 tablet,extended release tabs sennosides 8.6 mg tablet (Senna 17.2 mg (2 x 8.6 mg) PO QAM #0 tabs 03/08/25 Lax) Results & Data (ED) Vital Signs Vital Signs - 24 hr 03/28/25 13:11 03/28/25 13:11 03/28/25 13:31 Temperature 36.7 C Temperature Source Oral Pulse Rate 77 80 Pulse Rate [Apical] Respiratory Rate 22 Respiratory Effort / Characteristics Non-Labored Spontaneous Respiratory Depth Normal Blood Pressure 114/61 Blood Pressure [Right Arm] Blood Pressure Mean 78 Blood Pressure Mean [Right Arm] Blood Pressure Position Semi-fowlers Blood Pressure Position [Right Arm] Pulse Oximetry 99 89 L Oxygen Delivery Method Nasal Cannula Room Air Oxygen Flow Rate 2 Sepsis Recent Fever Within 48 Hours No Sepsis New/Unexplained Change in Mental Status N/A Sepsis Action Taken by Nursing No Action Required Oxygen Flow Rate - Titration 2 Pulse Oximetry Post Tiitration 99 03/28/25 14:00 03/28/25 14:30 03/28/25 14:38 Temperature Temperature Source Pulse Rate 75 Pulse Rate [Apical] 70 Respiratory Rate 20 22 Respiratory Effort / Characteristics Non-Labored Spontaneous Respiratory Depth Normal Blood Pressure 108/55 L Blood Pressure [Right Arm] 110/58 L Blood Pressure Mean 68 Blood Pressure Mean [Right Arm] 75 Blood Pressure Position Blood Pressure Position [Right Arm] Semi-fowlers Pulse Oximetry 100 100 95 Oxygen Delivery Method Room Air Nasal Cannula Oxygen Flow Rate 2 Sepsis Recent Fever Within 48 Hours Sepsis New/Unexplained Change in Mental Status Sepsis Action Taken by Nursing Oxygen Flow Rate - Titration Pulse Oximetry Post Tiitration 03/28/25 15:00 03/28/25 15:34 03/28/25 16:00 Temperature Temperature Source Pulse Rate 65 80 76 Pulse Rate [Apical] Respiratory Rate 20 24 15 Respiratory Effort / Characteristics Respiratory Depth Blood Pressure 116/58 L 119/62 108/66 Blood Pressure [Right Arm] Blood Pressure Mean 70 83 76 Blood Pressure Mean [Right Arm] Blood Pressure Position Blood Pressure Position [Right Arm] Pulse Oximetry 93 93 100 Oxygen Delivery Method Oxygen Flow Rate Sepsis Recent Fever Within 48 Hours Sepsis New/Unexplained Change in Mental Status Sepsis Action Taken by Nursing Oxygen Flow Rate - Titration Pulse Oximetry Post Tiitration 03/28/25 16:30 03/28/25 18:30 03/28/25 19:00 Temperature Temperature Source Pulse Rate 75 76 75 Pulse Rate [Apical] Respiratory Rate 20 20 23 Respiratory Effort / Characteristics Respiratory Depth Blood Pressure 112/64 129/60 134/59 L Blood Pressure [Right Arm] Blood Pressure Mean 85 98 84 Blood Pressure Mean [Right Arm] Blood Pressure Position Blood Pressure Position [Right Arm] Pulse Oximetry 100 97 98 Oxygen Delivery Method Oxygen Flow Rate Sepsis Recent Fever Within 48 Hours Sepsis New/Unexplained Change in Mental Status Sepsis Action Taken by Nursing Oxygen Flow Rate - Titration Pulse Oximetry Post Tiitration Laboratory Data 03/28/25 14:08 03/28/25 14:08 Lab Results 03/28/25 Range/Units 14:08 WBC 0.44 L* (4.8-10.8) K/ul RBC 2.53 L (4.20-5.40) M/uL Hgb 6.7 L* (12.0-16.0) g/dl Hct 22.5 L (37.0-47.0) % MCV 88.9 (80.0-100.0) fL MCH 26.5 (25.0-34.0) pg MCHC 29.8 L (32.0-36.0) g/dL RDW Std Deviation 65.1 H (36.4-46.3) fL RDW Coeff of Mikel 20.3 H (11.5-14.5) % Plt Count 213 (130-400) K/uL MPV 9.2 L (9.4-12.4) fL Neut # (Auto) < 0.50 L* (1.40-6.50) K/uL Hypochromasia Present Anisocytosis Present PT 12.0 (9.0-12.0) Seconds INR 1.1 (0.9-1.1) APTT 45 H (21-31) Seconds PTT Ratio 1.7 Sodium 141 (136-145) mmol/L Potassium 4.2 (3.5-5.1) mmol/L Chloride 109 H (98-107) mmol/L Carbon Dioxide 28 (21-32) mmol/L Anion Gap 4 (3-11) BUN 14 (6-23) mg/dl Creatinine 0.64 (0.6-1.2) mg/dl Est Cr Clr Drug Dosing 73.7 ml/min eGFR 87.09 BUN/Creatinine Ratio 21.9 H (10-20) Glucose 85 (70-99(Fasting)) mg/dl Lactate 0.7 (0.4-2.0) mmol/L Calcium 7.7 L (8.6-10.3) mg/dl Magnesium 1.7 (1.7-2.4) mg/dl Total Bilirubin 0.8 (0.2-1.0) mg/dl AST 10 L (13-39) U/L ALT 6 L (7-52) U/L Alkaline Phosphatase 85 (34-104) U/L Troponin I High Sens 14.8 H (0-14) pg/ml Total Protein 4.0 L (6.0-8.3) gm/dl Albumin 2.3 L (3.4-5.0) gm/dl Globulin 1.7 L (2.5-4.0) gm/dl Albumin/Globulin Ratio 1.4 (0.9-2) Procalcitonin 0.19 (0-0.5) ng/ml Blood Type O Positive Antibody Screen NEGATIVE Administered Medications Discontinued Medications Ioversol (Optiray 320 125ml) 118 ml IV ONCE ONE Stop: 03/28/25 16:53 Last Admin: 03/28/25 16:54 Dose: 118 ml Documented By: JUAN Ondansetron HCl (Ondansetron Inj 2 Mg/Ml 2 Ml Vial) 4 mg IV NOW STA Stop: 03/28/25 14:17 Last Admin: 03/28/25 14:43 Dose: 4 mg Documented By: NICK Imaging Data Radiologist's Impression: Chest X-Ray 03/28/25 13:57 XR chest 1V portable CLINICAL HISTORY: Sepsis COMPARISON STUDY: 03/03/2025 FINDINGS: Stable chest port and right shoulder prosthesis. Stable cardiomegaly with pulmonary vascular congestion. Left pleural catheter is present at the left base. There are small bilateral pleural effusions and mild associated lung base consolidation, improved on the left and stable on the right. No pneumothorax. IMPRESSION: Small bilateral pleural effusions and lung base consolidation, improved on the left and stable on the right. ACT 112: Negative or not required by law. Electronically signed by: Coleman Andrews M.D. 03/28/2025 2:27 PM Chest CTA 03/28/25 16:13 Clinical history: Rule out pulmonary embolism Technique: Axial computed tomography images were obtained of the chest after the administration of intravenous contrast according to the CT angiogram protocol Comparison is made to the prior CT dated 12/23/2024 Findings: There is no definite sign of pulmonary embolism. There is a moderate sized left hydropneumothorax with a left-sided chest tube in place. There is lingular and left lower lobe collapse. There is less severe right lower lobe atelectasis. There is a small right pleural effusion. There is mild pulmonary edema. No endobronchial lesion is seen There is worsened mediastinal adenopathy, the largest node measuring 3.9 x 2.4 cm. There is left worse than right axillary adenopathy also. The thoracic aorta appears unremarkable with no sign of aneurysm or dissection. There is no pericardial effusion. There is coronary atherosclerosis There are multiple thyroid nodules bilaterally. The visualized upper abdomen appears unremarkable. There is a right shoulder arthroplasty. No fracture is seen. No focal osseous lesion is evident Impression: 1. No definite sign of pulmonary embolism 2. Moderate sized left hydropneumothorax with a left-sided chest tube in place 3. Lingular and left lower lobe collapse 4. Small right pleural effusion and right lower lobe atelectasis 5. Worsened mediastinal and axillary adenopathy, concerning for metastatic disease or lymphoma 6. Multiple indeterminate thyroid nodules. A thyroid ultrasound could be obtained for further evaluation 7. Mild pulmonary edema ACT 112: Positive. There are findings on this exam that require communication between the performing entity and the patient following Patient Test Result Information Act ([place] ACT 112) guidelines. Electronically signed by Silvestre Jamison 03-28-2025 7:00 PM Discharge Plan Visit Data Chief Complaint: Abnormal Labs/Diagnostic Testing ED Provider: Kristen Garnica Discharge Problem: Bicytopenia, Anemia requiring transfusions, Hypoxia, Symptomatic anemia, Elevated troponin, Pulmonary edema Condition: Fair Forms Stand Alone Forms: [facility] Prescriptions Prescriptions: No Action atorvastatin 10 mg tablet 10 mg PO HS Qty: 90 3RF (DME) Bedside Commode Misc See Rx Instructions .Route Qty: 1 0RF Rx Instructions: As directed (DME) Wheelchair (Manual) Device See Rx Instructions .Route Qty: 1 0RF Rx Instructions: As directed methimazole 5 mg tablet 5 mg PO DAILY Patient Comments: pt taking 5mg daily potassium chloride 10 mEq Tablet Extended Release 20 meq PO DAILY Qty: 0 0RF calcium carbonate [Tums] 200 mg calcium (500 mg) Tablet,Chewable 500 mg PO TID Qty: 0 0RF mirtazapine 15 mg Tablet 15 mg PO HS Qty: 0 0RF polyethylene glycol 3350 [Miralax] 17 gram Powder In Packet 17 g PO DAILY Qty: 0 0RF pantoprazole 40 mg Tablet,Delayed Release (Dr/Ec) 40 mg PO QAM Qty: 0 0RF sennosides [Senna Lax] 8.6 mg Tablet 17.2 mg PO QAM Qty: 0 0RF folic acid 1 mg Tablet 5 mg PO QAM Qty: 30 0RF (DME) Oxygen Home Liters Per Minute See Rx Instructions .Route Qty: 1 0RF Rx Instructions: As directed 3 liters aspirin 81 mg Tablet,Delayed Release (Dr/Ec) 81 mg PO DAILY buspirone 5 mg tablet 5 mg PO HS acetaminophen 325 mg tablet 650 mg PO Q4H MDD 3 GRAMS APAP/24 HOURS PRN (Reason: PAIN/FEVER) famotidine 20 mg Tablet 20 mg PO DAILY multivitamin with minerals Tablet 1 tab PO DAILY simethicone [Gas Relief (simethicone)] 80 mg tablet,chewable 80 mg PO Q6H PRN (Reason: GAS DISCOMFORT) cholecalciferol (vitamin D3) 1,250 mcg (50,000 unit) capsule 50,000 unit PO WK Rx Instructions: TUESDAYS Boost 0.04 gram- 1 kcal/mL liquid 1 ea PO BIDM Referrals Referrals: Mignon Bansal DO [Primary Care Provider] -
--- NOTE | 2025-03-28 14:28 | XRay Report ---
XR chest 1V portable CLINICAL HISTORY: Sepsis COMPARISON STUDY: 03/03/2025 FINDINGS: Stable chest port and right shoulder prosthesis. Stable cardiomegaly with pulmonary vascula r congestion. Left pleural catheter is present at the left base. There are small bilateral pleural ef fusions and mild associated lung base consolidation, improved on the left and stable on the right. No pneumothorax. IMPRESSION: Small bilateral pleural effusions and lung base consolidation, improved on the left and stable on the right. ACT 112: Negative or not required by law. Electronically signed by: Coleman Andrews M.D. 03/28/2025 2:27 PM
[2025-03-28 14:43] LABS: Alanine Aminotransferase 6.0 U/L (7-52); Albumin Globulin Ratio 1.4 (0.9-2); Alkaline Phosphatase 85.0 U/L (34-104); Anion Gap 4.0 (3-11); Bilirubin,Total 0.8 mg/dl (0.2-1.0); Blood Urea Nitrogen 14.0 mg/dl (6-23); Calcium 7.7 mg/dl (8.6-10.3); Carbon Dioxide 28.0 mmol/L (21-32); Chloride 109.0 mmol/L (98-107); Creatinine Clr Calc Pharmacy 73.7 ml/min; Globulin 1.7 gm/dl (2.5-4.0); Glucose 85.0 mg/dl (70-99(Fasting)); Magnesium 1.7 mg/dl (1.7-2.4); Potassium 4.2 mmol/L (3.5-5.1); Sodium 141.0 mmol/L (136-145); Total Protein 4.0 gm/dl (6.0-8.3)
[2025-03-28] MEDS: ONDANSETRON INJ 2 MG/ML 2 ML VIAL IV STA (14:43)
[2025-03-28 14:52] LABS: Anisocytosis Present; Hematocrit (blood only) 22.5 % (37.0-47.0); Hemoglobin 6.7 g/dl (12.0-16.0); Hypochromasia Present; INR 1.1 (0.9-1.1); Mean Corpuscular Hemoglobin 26.5 pg (25.0-34.0); Mean Corpuscular Volume 88.9 fL (80.0-100.0); Partial Thromboplastin Time 45 Seconds (21-31); Platelet Count 213 K/uL (130-400); Prothrombin Time 12.0 Seconds (9.0-12.0); RDW Standard Deviation 65.1 fL (36.4-46.3); Red Blood Count 2.53 M/uL (4.20-5.40); White Blood Count 0.44 K/ul (4.8-10.8)
[2025-03-28] MEDS ORDERED: SODIUM CHLORIDE 0.9% 100 ML IV PRN (15:20)
[2025-03-28] MEDS: OPTIRAY 320 125ml IV ONE (16:54)
--- NOTE | 2025-03-28 19:01 | CT Scan Report ---
Clinical history: Rule out pulmonary embolism Technique: Axial computed tomography images were obtained of the chest after the administration of intravenous contrast according to the CT angiogram protocol Comparison is made to the prior CT dated 12/23/2024 Findings: There is no definite sign of pulmonary embolism. There is a moderate sized left hydropneumothorax with a left-sided chest tube in place. There is lingular and left lower lobe collapse. There is less severe right lower lobe atelectasis. There is a small right pleural effusion. There is mild pulmonary edema. No endobronchial lesion is seen There is worsened mediastinal adenopathy, the largest node measuring 3.9 x 2.4 cm. There is left worse than right axillary adenopathy also. The thoracic aorta appears unremarkable with no sign of aneurysm or dissection. There is no pericardial effusion. There is coronary atherosclerosis There are multiple thyroid nodules bilaterally. The visualized upper abdomen appears unremarkable. There is a right shoulder arthroplasty. No fracture is seen. No focal osseous lesion is evident Impression: 1. No definite sign of pulmonary embolism 2. Moderate sized left hydropneumothorax with a left-sided chest tube in place 3. Lingular and left lower lobe collapse 4. Small right pleural effusion and right lower lobe atelectasis 5. Worsened mediastinal and axillary adenopathy, concerning for metastatic disease or lymphoma 6. Multiple indeterminate thyroid nodules. A thyroid ultrasound could be obtained for further evaluation 7. Mild pulmonary edema ACT 112: Positive. There are findings on this exam that require communication between the performing entity and the patient following Patient Test Result Information Act ([place] ACT 112) guidelines. Electronically signed by Silvestre Jamison 03-28-2025 7:00 PM
[2025-03-28] MEDS ORDERED: VANCOMYCIN CONSULT ACTIVE PRN ×2 (19:29→23:21)
[2025-03-28] MEDS: CEFEPIME 2000MG 2,000 MG/20 ML SYR IV STA (19:41)
--- NOTE | 2025-03-28 20:29 | History & Physical Report ---
Date of Service March 28, 2025 Assessment & Plan (1) Symptomatic anemia: (2) Anemia requiring transfusions: (3) Neutropenia: (4) Pulmonary edema: (5) T-cell lymphoma: Plan The patient is a an 84-year-old female with past medical history including pancytopenia due to antineoplastic chemotherapy, malignant pleural effusion status post placement of left Pleurx catheter that had 1.5 L of fluid drained yesterday, anemia, anxiety and depression, T-cell lymphoma, CKD stage III, multiple pulmonary nodules, hypertension, hyperthyroidism, reactive airway disease, and GERD without esophagitis. The patient was referred to the emergency department due to abnormal laboratories performed in the outpatient setting, with worsening of her anemia requiring transfusion. She was also found to be neutropenic, with WBC of 0.44 and ANC less than 0.50. Her second chemotherapy was 6 days ago. She presently is mildly hypoxic, requiring 2 L nasal cannula oxygen to keep pulse ox in the 93-97% range Symptomatic anemia requiring transfusion Hemoglobin 6.7 on admission, with hypoxia requiring 2 L nasal cannula oxygen to keep pulse ox in the low to mid 90s She received 1 unit PRBCs from the ED Repeat laboratories in a.m. Patient does have oxygen supplies at home, but presently has been at nursing facility, with expectation to be discharged from there in 2 days, on Pulmonary edema/malignant left pleural effusion/left Pleurx catheter- Give furosemide 40 mg IV x 1 this evening Continue potassium chloride 20 mill equivalents p.o. daily Admit to monitored bed to follow oxygenation Pleurx catheter reportedly has been leaking, with a dressing being changed approximately daily Consult pulmonology, Dr. Banks Neutropenia- Neutropenic precautions WBC 0.44, with ANC less than 0.50 Placed on vancomycin IV and cefepime IV Status post second chemo treatment 6 days ago Consult oncology Dr. Villa History of Present Illness Chief Complaint: The patient is referred to the emergency department from the outpatient setting due to abnormal laboratory test results. She is presently a resident at [facility], and her daughter reports that she was actually scheduled to go home in 2 days. She is status post her second dose of chemotherapy about 6 days ago. Laboratories are presently showing neutropenia with an ANC less than 0.50 and WBC 0.44 Primary Care Provider: Mignon Bansal DO The patient is a an 84-year-old female with past medical history including pancytopenia due to antineoplastic chemotherapy, malignant pleural effusion status post placement of left Pleurx catheter that had 1.5 L of fluid drained yesterday, anemia, anxiety and depression, T-cell lymphoma, CKD stage III, multiple pulmonary nodules, hypertension, hyperthyroidism, reactive airway disease, and GERD without esophagitis. The patient was referred to the emergency department due to abnormal laboratories performed in the outpatient setting, with worsening of her anemia requiring transfusion. She was also found to be neutropenic, with WBC of 0.44 and ANC less than 0.50. Her second chemotherapy was 6 days ago. She presently is mildly hypoxic, requiring 2 L nasal cannula oxygen to keep pulse ox in the 93-97% range Allergies Allergy/AdvReac Type Severity Reaction Status Date / Time doxycycline Allergy Intermediate Rash Verified 03/28/25 17:08 levofloxacin Allergy Intermediate ITCHING/HIV Verified 03/28/25 17:08 ES Sulfa (Sulfonamide Allergy Intermediate ITCHING/HIV Verified 03/28/25 17:17 Antibiotics) ES sulfamethoxazole Allergy Intermediate ITCHING/HIV Verified 03/28/25 17:08 ES morphine AdvReac Severe N/V Verified 03/28/25 17:08 Home Medications Medication Instructions Recorded Confirmed Type atorvastatin 10 mg tablet 10 mg PO HS #90 tabs 04/19/24 03/28/25 Rx methimazole 5 mg tablet 5 mg PO DAILY E05.90 12/23/24 03/28/25 History Oxygen Home #1 ea 01/26/25 01/17/25 Rx folic acid 1 mg tablet 5 mg (5 x 1 mg) PO QAM #30 tabs 01/26/25 03/28/25 Rx Bedside Commode #1 ea 01/31/25 02/06/25 Rx Wheelchair (Manual) #1 ea 02/16/25 Rx calcium carbonate (Tums) 500 mg (2.5 x 200 mg calcium (500 03/08/25 03/28/25 Rx mg)) PO TID #0 tabs mirtazapine 15 mg tablet 15 mg PO HS #0 tabs 03/08/25 03/28/25 Rx pantoprazole 40 mg tablet,delayed 40 mg PO QAM #0 tabs 03/08/25 03/28/25 Rx release polyethylene glycol 3350 17 gram 17 g PO DAILY #0 ea 03/08/25 03/28/25 Rx oral powder packet (Miralax) potassium chloride 10 mEq 20 meq (2 x 10 mEq) PO DAILY #0 03/08/25 03/28/25 Rx tablet,extended release tabs sennosides 8.6 mg tablet (Senna 17.2 mg (2 x 8.6 mg) PO QAM #0 tabs 03/08/25 03/28/25 Rx Lax) acetaminophen 325 mg tablet 650 mg PO Q4H PRN PAIN/FEVER 03/28/25 03/28/25 History aspirin 81 mg tablet,delayed 81 mg PO DAILY 03/28/25 03/28/25 History release buspirone 5 mg tablet 5 mg PO HS 03/28/25 03/28/25 History cholecalciferol (vitamin D3) 1,250 50,000 unit PO WK 03/28/25 03/28/25 History mcg (50,000 unit) capsule famotidine 20 mg tablet 20 mg PO DAILY 03/28/25 03/28/25 History food supplemt, lactose-reduced 1 ea PO BIDM 03/28/25 03/28/25 History 0.04 gram-1 kcal/mL oral liquid (Boost) multivitamin with minerals 1 tab PO DAILY 03/28/25 03/28/25 History simethicone 80 mg chewable tablet 80 mg PO Q6H PRN GAS DISCOMFORT 03/28/25 03/28/25 History (Gas Relief (simethicone)) Past Med/Surg History Problem List (Updated 03/28/25 @ 19:11 by Kristen Garnica MD) Pulmonary edema (Acute) Elevated troponin (Acute) Symptomatic anemia (Acute) Hypoxia (Acute) Anemia requiring transfusions (Acute) Bicytopenia (Acute) Neutropenia Pancytopenia due to antineoplastic chemotherapy Malignant pleural effusion Counseling regarding advanced directives and goals of care Palliative care by specialist Dysphagia Anemia (Acute) Malnutrition Folate deficiency Anxiety and depression T-cell lymphoma Chronic kidney disease, stage III (moderate) Anemia Recurrent nevus of face Nonallergic rhinitis Inflamed seborrheic keratosis Multiple pulmonary nodules Urinary urgency Hyperlipidemia PARTIAL Hypertension Thyroid nodule ENDOCRINE MONITORING Obesity Hyperthyroidism ENDOCRINE MONITORING; ON METHIMAZOLE- THYROID LABS STABLE ON 05/24/18 Valvular disease MILD TR- PT DENIES Nephrolithiasis Osteoarthritis Left renal mass Vitamin D deficiency Urinary incontinence Reactive airway disease Multinodular goiter Impaired fasting glucose GERD without esophagitis Allergic rhinitis Abnormal findings on diagnostic imaging of abdomen Medical History (Updated 03/28/25 @ 19:11 by Kristen Garnica MD) Axillary lymphadenopathy Lymph nodes enlarged Acute on chronic hypoxic respiratory failure Pleural effusion Restrictive lung disease Degenerative joint disease of knee Pulmonary nodules DR. DOMINGUEZ MONITORING Asthma STABLE- DOESNT USE INHALERS- FOLLOWS DR. DOMINGUEZ- [facility] Osteoarthritis of right hip Surgical History (Updated 03/09/25 @ 00:07 by Background Kat) H/O insertion of central venous access port (02/22/25) Insertion Left Internal Jugular Access Port(Left) - Coleman Ramos DO, FACS S/P lymph node biopsy (01/19/25) Left Axillary Lymph Node Excisional Biopsy(Left) - Daniel Corley DO S/P lymph node biopsy (06/21/19) Right Axillary Lymph Node Biopsy with Needle Localization Dr. Vaughan 06/21/19 Hx of lymph node biopsy RIGHT Hx of surgical procedure LEFT KIDNEY BIOPSY /DR. LANDIN History of total knee replacement LEFT History of total shoulder replacement RIGHT History of cataract extraction with lens replacement History of total hip arthroplasty RIGHT ZOFIA= 02/19/18= SAB X 1 ATTEMPT AT [facility] History of colonoscopy History of hysterectomy Family History Denies family history of Ovarian cancer Prostate cancer Myocardial infarction Breast cancer Colorectal cancer Social History Smoking Status: Never smoker Second Hand Exposure: No; Do You Dip or Chew Tobacco: No; Hx Alcohol Use: No Hx Substance Use: No Preferred Language: Montenegrin Communication Ability: Effective Visual Impairment: No Limitations 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: Normal Medical Library Assistant Required: No Beliefs That Will Affect Care: None marital status: / Current Living Situation: Family Current Living Situation Comment: DAUGHTER DONNA current occupational status: retired How many Children do You have: 2 Feels Safe at Home: Yes Childhood Exposure to Second-Hand Smoke: Yes Diet: regular Diet Comment: regular caffeine: Yes (Coffee x 1 per day.) during the past year weight has: remained stable Dental Care, Regularly: Yes Physical Activity Frequency: Daily Physical Activity Frequency Comment: walking, gardening Seatbelt Use: always Sunscreen Use: No Assistive Devices: Cane, Glasses, Oxygen - Continuous, Walker and Wheelchair Review of Systems Review of Systems: The patient denies chest pain, palpitations, cough, lower extremity swelling, sore throat, fevers, chills, sweats, nausea, vomiting, diarrhea , constipation, abdominal pain, pelvic pain, blood in urine or stool, dysuria, urinary frequency or urgency, lightheadedness, dizziness, headache, memory loss, loss of consciousness, rash, abnormal bruising or bleeding focal weakness, numbness or tingling in arms or legs, generalized arthralgias or myalgias, back or neck pain, or night sweats. The review of systems is otherwise negative other than for that already noted above, and at least 10 systems have been reviewed. Physical Exam Physical Exam: The patient is awake, alert and oriented 3, well developed and well nourished, normocephalic and atraumatic, lying in bed and in no acute distress. HEENT--PERRL, EOMI, mucous membranes and oropharynx dry. Neck--supple. No JVD. No bruits. Thyroid normal, trachea midline, no adenopathy. Heart--normal S1 and S2. No murmurs, rubs or gallops. Lungs--coarse breath sounds at the bases, left greater than right Abdomen--normal bowel sounds and soft. Nontender. Nondistended, no hernias or masses, no organomegaly. Extremities--2+ bilateral pretibial pitting edema Dermatologic--normal skin turgor, normal color, no abnormal lymph nodes, no rash. Neurologic--cranial nerves II through XII grossly intact. Rheumatologic--normal range of motion. Psychiatric--normal affect. Results & Data Results & Data Vital Signs (Past 12 Hours) Vital Signs Temp Pulse Pulse Resp BP BP Pulse Ox 03/28/25 19:00 75 23 134/59 L 98 03/28/25 18:30 76 20 129/60 97 03/28/25 16:30 75 20 112/64 100 03/28/25 16:00 76 15 108/66 100 03/28/25 15:34 80 24 119/62 93 03/28/25 15:00 65 20 116/58 L 93 03/28/25 14:38 95 03/28/25 14:30 70 22 110/58 L 100 03/28/25 14:00 75 20 108/55 L 100 03/28/25 13:31 80 03/28/25 13:11 89 L 03/28/25 13:11 36.7 C 77 22 114/61 99 O2 Del Method O2 Flow Rate 03/28/25 19:00 03/28/25 18:30 03/28/25 16:30 03/28/25 16:00 03/28/25 15:34 03/28/25 15:00 03/28/25 14:38 Nasal Cannula 2 03/28/25 14:30 Room Air 03/28/25 14:00 03/28/25 13:31 03/28/25 13:11 Room Air 03/28/25 13:11 Nasal Cannula 2 Laboratory Results Laboratory Results WBC 0.44 K/ul (4.8-10.8) L* 03/28/25 14:08 RBC 2.53 M/uL (4.20-5.40) L 03/28/25 14:08 Hgb 6.7 g/dl (12.0-16.0) L* 03/28/25 14:08 Hct 22.5 % (37.0-47.0) L 03/28/25 14:08 MCV 88.9 fL (80.0-100.0) 03/28/25 14:08 MCH 26.5 pg (25.0-34.0) 03/28/25 14:08 MCHC 29.8 g/dL (32.0-36.0) L 03/28/25 14:08 RDW Std Deviation 65.1 fL (36.4-46.3) H 03/28/25 14:08 RDW Coeff of Mikel 20.3 % (11.5-14.5) H 03/28/25 14:08 Plt Count 213 K/uL (130-400) 03/28/25 14:08 MPV 9.2 fL (9.4-12.4) L 03/28/25 14:08 Neut # (Auto) < 0.50 K/uL (1.40-6.50) L* 03/28/25 14:08 Hypochromasia Present 03/28/25 14:08 Anisocytosis Present 03/28/25 14:08 PT 12.0 Seconds (9.0-12.0) 03/28/25 14:08 INR 1.1 (0.9-1.1) 03/28/25 14:08 APTT 45 Seconds (21-31) H 03/28/25 14:08 PTT Ratio 1.7 03/28/25 14:08 Sodium 141 mmol/L (136-145) 03/28/25 14:08 Potassium 4.2 mmol/L (3.5-5.1) 03/28/25 14:08 Chloride 109 mmol/L (98-107) H 03/28/25 14:08 Carbon Dioxide 28 mmol/L (21-32) 03/28/25 14:08 Anion Gap 4 (3-11) 03/28/25 14:08 BUN 14 mg/dl (6-23) 03/28/25 14:08 Creatinine 0.64 mg/dl (0.6-1.2) 03/28/25 14:08 Est Cr Clr Drug Dosing 73.7 ml/min 03/28/25 14:08 eGFR 87.09 03/28/25 14:08 BUN/Creatinine Ratio 21.9 (10-20) H 03/28/25 14:08 Glucose 85 mg/dl (70-99(Fasting)) 03/28/25 14:08 Lactate 0.7 mmol/L (0.4-2.0) 03/28/25 14:08 Calcium 7.7 mg/dl (8.6-10.3) L 03/28/25 14:08 Magnesium 1.7 mg/dl (1.7-2.4) 03/28/25 14:08 Total Bilirubin 0.8 mg/dl (0.2-1.0) 03/28/25 14:08 AST 10 U/L (13-39) L 03/28/25 14:08 ALT 6 U/L (7-52) L 03/28/25 14:08 Alkaline Phosphatase 85 U/L (34-104) 03/28/25 14:08 Troponin I High Sens 14.8 pg/ml (0-14) H 03/28/25 14:08 Total Protein 4.0 gm/dl (6.0-8.3) L 03/28/25 14:08 Albumin 2.3 gm/dl (3.4-5.0) L 03/28/25 14:08 Globulin 1.7 gm/dl (2.5-4.0) L 03/28/25 14:08 Albumin/Globulin Ratio 1.4 (0.9-2) 03/28/25 14:08 Procalcitonin 0.19 ng/ml (0-0.5) 03/28/25 14:08 Blood Type O Positive 03/28/25 14:08 Antibody Screen NEGATIVE 03/28/25 14:08 Crossmatch See Detail 03/28/25 14:08 Impressions Chest X-Ray 03/28/25 13:57 XR chest 1V portable CLINICAL HISTORY: Sepsis COMPARISON STUDY: 03/03/2025 FINDINGS: Stable chest port and right shoulder prosthesis. Stable cardiomegaly with pulmonary vascular congestion. Left pleural catheter is present at the left base. There are small bilateral pleural effusions and mild associated lung base consolidation, improved on the left and stable on the right. No pneumothorax. IMPRESSION: Small bilateral pleural effusions and lung base consolidation, improved on the left and stable on the right. ACT 112: Negative or not required by law. Electronically signed by: Coleman Andrews M.D. 03/28/2025 2:27 PM Chest CTA 03/28/25 16:13 Clinical history: Rule out pulmonary embolism Technique: Axial computed tomography images were obtained of the chest after the administration of intravenous contrast according to the CT angiogram protocol Comparison is made to the prior CT dated 12/23/2024 Findings: There is no definite sign of pulmonary embolism. There is a moderate sized left hydropneumothorax with a left-sided chest tube in place. There is lingular and left lower lobe collapse. There is less severe right lower lobe atelectasis. There is a small right pleural effusion. There is mild pulmonary edema. No endobronchial lesion is seen There is worsened mediastinal adenopathy, the largest node measuring 3.9 x 2.4 cm. There is left worse than right axillary adenopathy also. The thoracic aorta appears unremarkable with no sign of aneurysm or dissection. There is no pericardial effusion. There is coronary atherosclerosis There are multiple thyroid nodules bilaterally. The visualized upper abdomen appears unremarkable. There is a right shoulder arthroplasty. No fracture is seen. No focal osseous lesion is evident Impression: 1. No definite sign of pulmonary embolism 2. Moderate sized left hydropneumothorax with a left-sided chest tube in place 3. Lingular and left lower lobe collapse 4. Small right pleural effusion and right lower lobe atelectasis 5. Worsened mediastinal and axillary adenopathy, concerning for metastatic disease or lymphoma 6. Multiple indeterminate thyroid nodules. A thyroid ultrasound could be obtained for further evaluation 7. Mild pulmonary edema ACT 112: Positive. There are findings on this exam that require communication between the performing entity and the patient following Patient Test Result Information Act ([place] ACT 112) guidelines. Electronically signed by Silvestre Jamison 03-28-2025 7:00 PM Code Status & VTE Plan Code Status Full code VTE Prophylaxis Plan VTE Prophylaxis will be ordered: Yes PG Care Time/CCT Total # of Minutes Spent Total Time Spent with Patient: Total time spent is greater than 50% in coordination of care (as documented) at patient's floor/unit and/or counseling patient: Coding Level of Care Code 63460 INT INP/OBS CARE 3/75MIN Diagnoses Symptomatic anemia D64.9 Anemia requiring transfusions D64.9 Neutropenia D70.9 Pulmonary edema J81.1 T-cell lymphoma C85.90
[2025-03-28] MEDS: VANCOMYCIN HCL 1,750 MG in SODIUM CHLORIDE 0.9% 500 ML IV ONE (20:34)
[2025-03-28] MEDS: FUROSEMIDE 40 MG/4 ML VIAL IV ONE (20:34)
[2025-03-28] MEDS ORDERED: ACETAMINOPHEN 325 MG TAB PO PRN (23:21)
[2025-03-28] MEDS ORDERED: ONDANSETRON INJ 2 MG/ML 2 ML VIAL IV PRN (23:21)
[2025-03-29] MEDS: MIRTAZAPINE TAB 15 MG TAB PO SCH (00:31)
[2025-03-29] MEDS: ATORVASTATIN 10 MG TAB PO SCH (00:31)
[2025-03-29] MEDS: CALCIUM CARBONATE 500 MG CHEWABLE TAB PO SCH (00:31)
[2025-03-29] MEDS: busPIRone 5 MG TAB PO SCH (00:31)
[2025-03-29] MEDS: VANCOMYCIN HCL 1,000 MG in SODIUM CHLORIDE 0.9% 250 ML IV SCH (06:19)
[2025-03-29] MEDS: CEFEPIME 2000MG 2,000 MG/20 ML SYR IV SCH (06:19)
[2025-03-29 07:30] LABS: Hematocrit (blood only) 28.7 % (37.0-47.0); Hemoglobin 8.9 g/dl (12.0-16.0); Mean Corpuscular Hemoglobin 27.1 pg (25.0-34.0); Mean Corpuscular Volume 87.2 fL (80.0-100.0); Platelet Count 204 K/uL (130-400); RDW Standard Deviation 58.0 fL (36.4-46.3); Red Blood Count 3.29 M/uL (4.20-5.40)
[2025-03-29 07:50] LABS: Alanine Aminotransferase 6.0 U/L (7-52); Albumin Globulin Ratio 1.4 (0.9-2); Alkaline Phosphatase 78.0 U/L (34-104); Anion Gap 6.0 (3-11); Bilirubin,Total 1.0 mg/dl (0.2-1.0); Blood Urea Nitrogen 12.0 mg/dl (6-23); Calcium 7.6 mg/dl (8.6-10.3); Carbon Dioxide 30.0 mmol/L (21-32); Chloride 105.0 mmol/L (98-107); Creatinine Clr Calc Pharmacy 75.2 ml/min; Globulin 1.7 gm/dl (2.5-4.0); Glucose 68.0 mg/dl (70-99(Fasting)); Magnesium 1.6 mg/dl (1.7-2.4); Potassium 3.6 mmol/L (3.5-5.1); Sodium 141.0 mmol/L (136-145); Total Protein 4.0 gm/dl (6.0-8.3)
[2025-03-29 07:54] LABS: White Blood Count 0.40 K/ul (4.8-10.8)
--- NOTE | 2025-03-29 08:01 | Oncology Consultation ---
Date of Consultation March 29, 2025 Assessment & Plan (1) Bicytopenia: (2) Anemia requiring transfusions: Plan -Anemia and leukopenia secondary to chemotherapy. Patient is currently marek period accounting for cytopenias. Recommend transfusion to maintain hemoglobin above 7.5. No indication at this time for G-CSF since she received G-CSF postchemotherapy. Would expect counts to improve by day 10-14 of treatment. -Although CT imaging showed concern for worsening lymphadenopathy, this was compared with CT scan from November,. Unfortunately, patient could not have PET/CT prior to starting treatment and she received cycle 1 of treatment on 02/28/2025 and so it is possible that disease may have progressed before she started treatment and does not represent an accurate comparison. Plan to obtain restaging imaging after cycle 3 of treatment. 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 She received cycle 2 of R mini CHOP on 03/22/2025 and G-CSF on 03/23/2025. Was admitted as a result of abnormal labs. Labs showed leukopenia and severe anemia with WBC of 0.4, hemoglobin of 6.7, hematocrit 22.5, platelet count of 213,000. She received PRBC transfusion with improvement in to 8.9 and hematocrit of 28.7 today.CTA chest on 03/28/2025 revealed moderate- sized left hydropneumothorax with left-sided chest tube in place, lingula and left lower lobe collapse, small right pleural effusion with right lobe atelectasis, worsening mediastinal and axillary lymphadenopathy as well as multiple indeterminate thyroid nodules. Allergies Allergy/AdvReac Type Severity Reaction Status Date / Time doxycycline Allergy Intermediate Rash Verified 03/28/25 17:08 levofloxacin Allergy Intermediate ITCHING/HIV Verified 03/28/25 17:08 ES Sulfa (Sulfonamide Allergy Intermediate ITCHING/HIV Verified 03/28/25 17:17 Antibiotics) ES sulfamethoxazole Allergy Intermediate ITCHING/HIV Verified 03/28/25 17:08 ES morphine AdvReac Severe N/V Verified 03/28/25 17:08 Home Medications Medication Instructions Recorded Confirmed Type atorvastatin 10 mg tablet 10 mg PO HS #90 tabs 04/19/24 03/28/25 Rx methimazole 5 mg tablet 5 mg PO DAILY E05.90 12/23/24 03/28/25 History Oxygen Home #1 ea 01/26/25 01/17/25 Rx folic acid 1 mg tablet 5 mg (5 x 1 mg) PO QAM #30 tabs 01/26/25 03/28/25 Rx Bedside Commode #1 ea 01/31/25 02/06/25 Rx Wheelchair (Manual) #1 ea 02/16/25 Rx calcium carbonate (Tums) 500 mg (2.5 x 200 mg calcium (500 03/08/25 03/28/25 Rx mg)) PO TID #0 tabs mirtazapine 15 mg tablet 15 mg PO HS #0 tabs 03/08/25 03/28/25 Rx pantoprazole 40 mg tablet,delayed 40 mg PO QAM #0 tabs 03/08/25 03/28/25 Rx release polyethylene glycol 3350 17 gram 17 g PO DAILY #0 ea 03/08/25 03/28/25 Rx oral powder packet (Miralax) potassium chloride 10 mEq 20 meq (2 x 10 mEq) PO DAILY #0 03/08/25 03/28/25 Rx tablet,extended release tabs sennosides 8.6 mg tablet (Senna 17.2 mg (2 x 8.6 mg) PO QAM #0 tabs 03/08/25 03/28/25 Rx Lax) acetaminophen 325 mg tablet 650 mg PO Q4H PRN PAIN/FEVER 03/28/25 03/28/25 History aspirin 81 mg tablet,delayed 81 mg PO DAILY 03/28/25 03/28/25 History release buspirone 5 mg tablet 5 mg PO HS 03/28/25 03/28/25 History cholecalciferol (vitamin D3) 1,250 50,000 unit PO WK 03/28/25 03/28/25 History mcg (50,000 unit) capsule famotidine 20 mg tablet 20 mg PO DAILY 03/28/25 03/28/25 History food supplemt, lactose-reduced 1 ea PO BIDM 03/28/25 03/28/25 History 0.04 gram-1 kcal/mL oral liquid (Boost) multivitamin with minerals 1 tab PO DAILY 03/28/25 03/28/25 History simethicone 80 mg chewable tablet 80 mg PO Q6H PRN GAS DISCOMFORT 03/28/25 03/28/25 History (Gas Relief (simethicone)) Patient History Medical History (Updated 03/28/25 @ 19:11 by Kristen Garnica MD) Axillary lymphadenopathy Lymph nodes enlarged Acute on chronic hypoxic respiratory failure Pleural effusion Restrictive lung disease Degenerative joint disease of knee Pulmonary nodules DR. DOMINGUEZ MONITORING Asthma STABLE- DOESNT USE INHALERS- FOLLOWS DR. DOMINGUEZ- [facility] Osteoarthritis of right hip Surgical History (Updated 03/09/25 @ 00:07 by Gilbert Stephens) H/O insertion of central venous access port (02/22/25) Insertion Left Internal Jugular Access Port(Left) - Coleman Ramos DO, MARIBEL S/P lymph node biopsy (01/19/25) Left Axillary Lymph Node Excisional Biopsy(Left) - Daniel Corley DO S/P lymph node biopsy (06/21/19) Right Axillary Lymph Node Biopsy with Needle Localization Dr. Vaughan 06/21/19 Hx of lymph node biopsy RIGHT Hx of surgical procedure LEFT KIDNEY BIOPSY /DR. LANDIN History of total knee replacement LEFT History of total shoulder replacement RIGHT History of cataract extraction with lens replacement History of total hip arthroplasty RIGHT ZOFIA= 02/19/18= SAB X 1 ATTEMPT AT [facility] History of colonoscopy History of hysterectomy Family History Denies family history of Ovarian cancer Prostate cancer Myocardial infarction Breast cancer Colorectal cancer Social History Smoking Status: Never smoker Second Hand Exposure: No; Do You Dip or Chew Tobacco: No; Hx Alcohol Use: No Hx Substance Use: No Preferred Language: Mozambican Communication Ability: Effective Visual Impairment: No Limitations 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: Normal Customer Service Consultant Required: No Beliefs That Will Affect Care: None marital status: / Current Living Situation: Family Current Living Situation Comment: Kaya- daughter current occupational status: retired How many Children do You have: 2 Feels Safe at Home: Yes Safety Concerns: Feels Safe At This Time Childhood Exposure to Second-Hand Smoke: Yes Diet: regular Diet Comment: regular caffeine: Yes (Coffee x 1 per day.) during the past year weight has: remained stable Dental Care, Regularly: Yes Physical Activity Frequency: Daily Physical Activity Frequency Comment: walking, gardening Seatbelt Use: always Sunscreen Use: No Assistive Devices: Walker Results & Data Vital Signs (Past 12 Hours) Vital Signs Temp Pulse Pulse Resp BP BP Pulse Ox 03/29/25 07:52 36.6 C 73 18 108/65 96 03/29/25 03:28 36.6 C 78 18 103/66 93 03/29/25 00:57 36.7 C 79 17 102/66 98 03/29/25 00:43 36.7 C 79 18 96/52 L 97 03/28/25 23:58 36.5 C 77 17 117/75 95 03/28/25 23:10 03/28/25 23:10 36.5 C 77 17 95 03/28/25 22:54 36.9 C 75 16 100/65 98 03/28/25 22:43 36.8 C 75 14 110/69 98 03/28/25 22:30 37.0 C 75 14 110/71 98 03/28/25 22:27 37.0 C 75 14 106/57 L 98 03/28/25 22:15 37.0 C 75 12 106/57 L 96 03/28/25 22:01 109/64 03/28/25 22:01 76 22 109/64 98 03/28/25 21:30 73 20 112/63 98 03/28/25 21:15 36.8 C 78 22 105/67 98 03/28/25 21:00 74 23 113/66 98 03/28/25 20:45 36.8 C 75 24 115/72 95 03/28/25 20:30 75 20 113/66 97 03/28/25 20:30 74 03/28/25 20:30 36.8 C 75 20 113/66 97 03/28/25 20:15 36.8 C 74 20 164/63 H 96 O2 Del Method O2 Flow Rate 03/29/25 07:52 Nasal Cannula 2 03/29/25 03:28 Room Air 03/29/25 00:57 1 03/29/25 00:43 2 03/28/25 23:58 2 03/28/25 23:10 Nasal Cannula 2 03/28/25 23:10 Nasal Cannula 2 03/28/25 22:54 2 03/28/25 22:43 2 03/28/25 22:30 2 03/28/25 22:27 Nasal Cannula 2 03/28/25 22:15 03/28/25 22:01 03/28/25 22:01 03/28/25 21:30 03/28/25 21:15 2 03/28/25 21:00 03/28/25 20:45 2 03/28/25 20:30 03/28/25 20:30 03/28/25 20:30 2 03/28/25 20:15 2
[2025-03-29] MEDS: POTASSIUM CHLORIDE 10 MEQ TABCR PO SCH (08:35)
[2025-03-29] MEDS: FOLIC ACID 1 MG TAB PO SCH (08:36)
[2025-03-29] MEDS: FAMOTIDINE 20 MG TAB PO SCH (08:36)
[2025-03-29] MEDS: SIMETHICONE 80 MG CHEW PO PRN (08:36)
[2025-03-29] MEDS: ASPIRIN 81 MG ECTAB PO SCH (08:36)
[2025-03-29] MEDS: SENNA 8.6 MG TAB PO SCH (08:36)
[2025-03-29] MEDS: CEROVITE ADV FORMULA TAB PO SCH (08:37)
[2025-03-29] MEDS: POLYETHYLENE (MIRALAX) 17 GM PACK PO SCH (08:37)
[2025-03-29] MEDS: MAGNESIUM SULFATE / D5W 1 GM/100 ML BAG IV SCH (08:46)
--- NOTE | 2025-03-29 10:26 | Hospitalist Progress Note ---
Date of Service March 29, 2025 Assessment & Plan (1) Symptomatic anemia: (2) Anemia requiring transfusions: (3) Neutropenia: (4) T-cell lymphoma: (5) Bacteremia: (6) Trapped lung: (7) Pancytopenia due to antineoplastic chemotherapy: (8) Malignant pleural effusion: (9) Hyperthyroidism: (10) Severe protein-calorie malnutrition: (11) Hypoalbuminemia: (12) Arm edema: Plan 84yo female with a history of angioimmunoblastic T-cell lymphoma who presented with anemia and a leaking left-sided pleurX catheter. PleurX catheter placement on LEFT was on 02/28/25 during her prior admission. #bicytopenia/neutropenia 2nd to chemotherapy - -presenting hemoglobin 6.7, s/p 1 unit PRBCs; now hemoglobin 8.9 -severe neutropenia - cont neutropenic precautions -daily CBC w/ diff while hospitalized -Dr Villa saw patient in consult today; transfusional support only at this time -no plans for additional G-CSF as she received such shortly after her most recent chemotherapy (cycle 2 of R mini CHOP on 03/22/2025 and G-CSF on 03/23/2025) #bacteremia - -GPC in chains; 1 out of 4 blood cultures; BioFire - steptococcus -source? -port? -pleurX catheter/pleural space? -urine? -other? -cont current antibiotics (Cefepime/vanco), narrow when able #S/P pleurX catheter status on left for malignant effusion - -appreciate pulmonary consultation today -they removed the catheter since it was malpositioned -watch for fluid reaccumulation -appears to have element of trapped lung based on imaging #volume overload/anasarca - -echo 11/2024 with grade 1 diastolic dysfunction but preserved LV/RV function -diastolic dysfunction, hypoalbuminemia, etc all contributing to severe arm/leg edema -s/p lasix IV following her blood last pm -will give another dose of IV lasix today -repeat labs am -severe edema left arm - obtain doppler, r/o DVT #hypoxia 2nd to b/l malignant pleural effusions +/- pulmonary edema + left-sided trapped lung - -diurese with another dose of IV lasix today -appreciate pulmonary consult for pleurX management #angioimmunoblastic T cell lymphoma (AITL) - -11/2024 --> pleural fluid positive for monoclonal B cell population, aberrant CD10 on subset of T cells. Path 02/10/25: PCR not able to confirm either B or T cell clone. 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 -cont remeron #Anxiety/depression - -cont buspar 5mg BID -cont mirtazapine 15mg HS #vitamin D def - -25-OH vit D level 8.5 earlier this month -ergocalciferol 66642 units weekly x 8 weeks #hypomagnesemia - -replace IV, repeat mag level am due to bacteremia and other complex issues change observation status to admission status Admission and Anticipated Discharge Date Admission Date: March 28, 2025 Subjective patient resting comfortably in bed she reports her pleurX has been leaking since she left the hospital several weeks ago it was being drained at most 2x's/week at the rehab per her recollection has some minor discomfort in the pleurX region has ongoing edema of b/l arms & legs despite requiring NC O2 (1 liter) she denies dyspnea or JOSHAU had no JOSHUA while in rehab and was not requiring O2 in rehab appetite continues to remain poor denies any fevers/chills Review of Systems Review of Systems: gen - no fevers or chills cv - no central chest pain pulm - no sputum GI - no vomiting or diarrhea - no dysuria Physical Exam Physical Exam: gen - lying in bed, looks weak, NAD neck - mild JVD mouth - no thrush or ulcers heart - RRR, s1 s2 lungs - decreased BS about 1/2 [address] up back on left, minimal rales L base, mild rales R base, no wheeze; pleurX catheter in place L chest abd - soft NT ND BS+ extremities - severe edema b/l arms, left arm worse than right arm (and worse than the last time I saw her earlier in February); 2+ pitting edema b/l legs; pulses b/l feet 2+ chest - left upper chest port clean, no erythema skin - no rash; pallor Results & Data Results & Data Vital Signs (Past 12 Hours) Vital Signs Temp Pulse Pulse Resp BP BP Pulse Ox 03/29/25 07:52 36.6 C 73 18 108/65 96 03/29/25 03:28 36.6 C 78 18 103/66 93 03/29/25 00:57 36.7 C 79 17 102/66 98 03/29/25 00:43 36.7 C 79 18 96/52 L 97 03/28/25 23:58 36.5 C 77 17 117/75 95 03/28/25 23:10 03/28/25 23:10 36.5 C 77 17 95 03/28/25 22:54 36.9 C 75 16 100/65 98 03/28/25 22:43 36.8 C 75 14 110/69 98 03/28/25 22:30 37.0 C 75 14 110/71 98 03/28/25 22:27 37.0 C 75 14 106/57 L 98 O2 Del Method O2 Flow Rate 03/29/25 07:52 Nasal Cannula 2 03/29/25 03:28 Room Air 03/29/25 00:57 1 03/29/25 00:43 2 03/28/25 23:58 2 03/28/25 23:10 Nasal Cannula 2 03/28/25 23:10 Nasal Cannula 2 03/28/25 22:54 2 03/28/25 22:43 2 03/28/25 22:30 2 03/28/25 22:27 Nasal Cannula 2 Laboratory Results Laboratory Results - last 24 hr 03/28/25 03/29/25 03/29/25 14:08 06:14 08:23 WBC 0.44 L* 0.40 L* RBC 2.53 L 3.29 L Hgb 6.7 L* 8.9 L Hct 22.5 L 28.7 L MCV 88.9 87.2 MCH 26.5 27.1 MCHC 29.8 L 31.0 L RDW Std Deviation 65.1 H 58.0 H RDW Coeff of Mikel 20.3 H 18.5 H Plt Count 213 204 MPV 9.2 L 9.0 L Neut # (Auto) < 0.50 L* < 0.50 L* Hypochromasia Present Anisocytosis Present PT 12.0 INR 1.1 APTT 45 H PTT Ratio 1.7 Sodium 141 141 Potassium 4.2 3.6 Chloride 109 H 105 Carbon Dioxide 28 30 Anion Gap 4 6 BUN 14 12 Creatinine 0.64 0.62 Est Cr Clr Drug Dosing 73.7 75.2 eGFR 87.09 87.76 BUN/Creatinine Ratio 21.9 H 19.4 Glucose 85 68 L POC Glucose 108 H Lactate 0.7 Calcium 7.7 L 7.6 L Magnesium 1.7 1.6 L Total Bilirubin 0.8 1.0 AST 10 L 9 L ALT 6 L 6 L Alkaline Phosphatase 85 78 Troponin I High Sens 14.8 H Total Protein 4.0 L 4.0 L Albumin 2.3 L 2.3 L Globulin 1.7 L 1.7 L Albumin/Globulin Ratio 1.4 1.4 Procalcitonin 0.19 Blood Type O Positive Antibody Screen NEGATIVE Crossmatch See Detail PG Care Time/CCT Total # of Minutes Spent Total Time Spent with Patient: Total time spent is greater than 50% in coordination of care (as documented) at patient's floor/unit and/or counseling patient: Coding Level of Care Code 57821 SUB INP/OBS CARE 3/50MIN Diagnoses Symptomatic anemia D64.9 Anemia requiring transfusions D64.9 Neutropenia D70.9 T-cell lymphoma C85.90 Bacteremia R78.81 Trapped lung J98.19 Pancytopenia due to antineoplastic chemotherapy D61.810; T45.1X5A Malignant pleural effusion J91.0 Hyperthyroidism E05.90 Severe protein-calorie malnutrition E43 Hypoalbuminemia E88.09 Arm edema R60.0
[2025-03-29] MEDS ORDERED: MAGNESIUM OXIDE 400 MG TAB PO SCH (10:30)
[2025-03-29] MEDS: FUROSEMIDE INJ 20 MG/2 ML VIAL IV ONE (11:34)
[2025-03-29 12:13] LABS: A calco-baum cmplx NotReported Not Detected (NotDetected); Bact fragilis Not Reported Not Detected (NotDetected); Blood Culture Id Panel See PCR Comment (NotDetected); C auris Not Reported Not Detected (NotDetected); Calbicans Not Reported Not Detected (NotDetected); Candida glabrata Not Reported Not Detected (NotDetected); Candida krusei Not Reported Not Detected (NotDetected); Cneoformans/gatti Not Reported Not Detected (NotDetected); Cparapsilosis Not Reported Not Detected (NotDetected); Ctropicalis Not Reported Not Detected (NotDetected); E cloacae compx Not Reported Not Detected (NotDetected); Efaecalis Not Reported Not Detected (NotDetected); Efaecium Not Reported Not Detected (NotDetected); Enterobacterales Not Reported Not Detected (NotDetected); Escherichia coli Not Reported Not Detected (NotDetected); H influenzae Not Reported Not Detected (NotDetected); K aerogenes Not Reported Not Detected (NotDetected); Koxytoca Not Reported Not Detected (NotDetected); Kpneumoniae grp Not Reported Not Detected (NotDetected); Lmonocyt Not Reported Not Detected (NotDetected); N meningitidis Not Reported Not Detected (NotDetected); P aeruginosa Not Reported Not Detected (NotDetected); Proteus spp Not Reported Not Detected (NotDetected); Salmonella spp Not Reported Not Detected (NotDetected); Staph lugdunensis Not Reported Not Detected (NotDetected); Staph spp. Not Reported Not Detected (NotDetected); Staphaureus Not Reported Not Detected (NotDetected); Staphepi Not Reported Not Detected (NotDetected); Stenmaltophilia Not Reported Not Detected (NotDetected); Strep agal(GrpB) Not Reported Not Detected (NotDetected); Strep pneum Not Reported Not Detected (NotDetected); Strep pyog (GrpA) Not Reported Not Detected (NotDetected); Strep spp Not Reported DETECTED (NotDetected)
[2025-03-29 12:28] LABS: Streptococcus spp DETECTED (NotDetected)
[2025-03-29 13:32] LABS: Appearance Urine Clear (Clear); Bacteria Urine Automated 1+ (None Seen); Cast Urine Automated 0-2 /lpf (0-2); Glucose Urine UA Negative (Negative); WBC Urine Automated 0-5 /hpf (0-5)
--- NOTE | 2025-03-29 13:48 | Pharmacy Report ---
Pharmacy PK ABX Note - Date of Service March 29, 2025 - Assessment and Plan Assessment 84 year old F receiving empiric vancomycin and cefepime in light of neutropenia. Patient is afebrile. Pertinent PMH includes T-cell lymphoma (receiving chemotherapy) w/ malignant pleural effusion s/p placement of left Pleurx catheter (1.5 L of fluid drained on 03/27) Pertinent microbiologic data includes: 1 of 2 blood cultures growing Streptococcus species (contamination vs. true infection?). Day # 1 of antimicrobial therapy. Plan Vancomycin * Loading dose: 1750 mg IV x 1 * Maintenance dose: 1000 mg IV every 12 hours * Regimen is predicted to achieve target AUC/EVELYN of 400-600 mg/L.hr * Will order level if vancomycin continued beyond 48 hours Pharmacy will continue to follow and will adjust dose/frequency as necessary. Thank you. Pharmacy has transitioned to AUC monitoring for vancomycin. AUC/EVELYN is the preferred PK/PD target and is associated with decreased risk of nephrotoxicity compared to traditional trough targets.
--- NOTE | 2025-03-29 14:52 | Pulmonary Consultation ---
Date of Consultation March 29, 2025 Assessment & Plan (1) Malignant pleural effusion: Patient with malignant left pleural effusion secondary to T-cell lymphoma. Unfortunately Pleurx catheter has migrated out. Cultures were sent from the pleural fluid and the catheter was removed without issue. Will follow-up cultures and glucose from pleural fluid. Reasonable to continue with broad- spectrum antibiotics including vancomycin and cefepime. Will consider placement of an additional Pleurx catheter for rapid reaccumulation of fluid. (2) Trapped lung: Patient appears to have trapped lung physiology likely related to malignant pleural effusion. Patient poor candidate for VATS at this time. History of Present Illness Reason for Consultation: "Leaking Pleurx catheter" Attending Physician: Frantz Li MD History of Present Illness 84-year-old female with a history of T-cell lymphoma and recent Pleurx catheter placement on the left. Since Pleurx catheter was placed she has been noticing fluid leaking around the incision site. When I went to evaluate the patient, the Pleurx catheter was largely with the cuff about 10 cm out of the incision. I drained the pleural fluid and sent it for culture and glucose. Approximately 250 mL of fluid was drained thereafter and the chest tube was removed. Patient tolerated procedure well. Her shortness of breath is improving with diuresis. She denies any fevers or chills. She denies any cough. Chest CTA 03/28/2025 reveals moderate left-sided hydropneumothorax, lingula and left lower lobe collapse and a small right pleural effusion. Patient is actively receiving chemo for T-cell lymphoma. Allergies Allergy/AdvReac Type Severity Reaction Status Date / Time doxycycline Allergy Intermediate Rash Verified 03/28/25 17:08 levofloxacin Allergy Intermediate ITCHING/HIV Verified 03/28/25 17:08 ES Sulfa (Sulfonamide Allergy Intermediate ITCHING/HIV Verified 03/28/25 17:17 Antibiotics) ES sulfamethoxazole Allergy Intermediate ITCHING/HIV Verified 03/28/25 17:08 ES morphine AdvReac Severe N/V Verified 03/28/25 17:08 Home Medications Medication Instructions Recorded Confirmed Type atorvastatin 10 mg tablet 10 mg PO HS #90 tabs 04/19/24 03/28/25 Rx methimazole 5 mg tablet 5 mg PO DAILY E05.90 12/23/24 03/28/25 History Oxygen Home #1 ea 01/26/25 01/17/25 Rx folic acid 1 mg tablet 5 mg (5 x 1 mg) PO QAM #30 tabs 01/26/25 03/28/25 Rx Bedside Commode #1 ea 01/31/25 02/06/25 Rx Wheelchair (Manual) #1 ea 02/16/25 Rx calcium carbonate (Tums) 500 mg (2.5 x 200 mg calcium (500 03/08/25 03/28/25 Rx mg)) PO TID #0 tabs mirtazapine 15 mg tablet 15 mg PO HS #0 tabs 03/08/25 03/28/25 Rx pantoprazole 40 mg tablet,delayed 40 mg PO QAM #0 tabs 03/08/25 03/28/25 Rx release polyethylene glycol 3350 17 gram 17 g PO DAILY #0 ea 03/08/25 03/28/25 Rx oral powder packet (Miralax) potassium chloride 10 mEq 20 meq (2 x 10 mEq) PO DAILY #0 03/08/25 03/28/25 Rx tablet,extended release tabs sennosides 8.6 mg tablet (Senna 17.2 mg (2 x 8.6 mg) PO QAM #0 tabs 03/08/25 03/28/25 Rx Lax) acetaminophen 325 mg tablet 650 mg PO Q4H PRN PAIN/FEVER 03/28/25 03/28/25 History aspirin 81 mg tablet,delayed 81 mg PO DAILY 03/28/25 03/28/25 History release buspirone 5 mg tablet 5 mg PO HS 03/28/25 03/28/25 History cholecalciferol (vitamin D3) 1,250 50,000 unit PO WK 03/28/25 03/28/25 History mcg (50,000 unit) capsule famotidine 20 mg tablet 20 mg PO DAILY 03/28/25 03/28/25 History food supplemt, lactose-reduced 1 ea PO BIDM 03/28/25 03/28/25 History 0.04 gram-1 kcal/mL oral liquid (Boost) multivitamin with minerals 1 tab PO DAILY 03/28/25 03/28/25 History simethicone 80 mg chewable tablet 80 mg PO Q6H PRN GAS DISCOMFORT 03/28/25 03/28/25 History (Gas Relief (simethicone)) Patient History Medical History (Updated 03/29/25 @ 14:50 by Artemio Banks MD) Axillary lymphadenopathy Lymph nodes enlarged Acute on chronic hypoxic respiratory failure Pleural effusion Restrictive lung disease Degenerative joint disease of knee Pulmonary nodules DR. DOMINGUEZ MONITORING Asthma STABLE- DOESNT USE INHALERS- FOLLOWS DR. DOMINGUEZ- [facility] Osteoarthritis of right hip Surgical History (Updated 03/09/25 @ 00:07 by Gilbert Stephens) H/O insertion of central venous access port (02/22/25) Insertion Left Internal Jugular Access Port(Left) - Coleman Ramos DO, FACS S/P lymph node biopsy (01/19/25) Left Axillary Lymph Node Excisional Biopsy(Left) - Daniel Corley DO S/P lymph node biopsy (06/21/19) Right Axillary Lymph Node Biopsy with Needle Localization Dr. Vaughan 06/21/19 Hx of lymph node biopsy RIGHT Hx of surgical procedure LEFT KIDNEY BIOPSY /DR. LANDIN History of total knee replacement LEFT History of total shoulder replacement RIGHT History of cataract extraction with lens replacement History of total hip arthroplasty RIGHT ZOFIA= 02/19/18= SAB X 1 ATTEMPT AT [facility] History of colonoscopy History of hysterectomy Family History Denies family history of Ovarian cancer Prostate cancer Myocardial infarction Breast cancer Colorectal cancer Social History Smoking Status: Never smoker Second Hand Exposure: No; Do You Dip or Chew Tobacco: No; Hx Alcohol Use: No Hx Substance Use: No Preferred Language: Hebrew Communication Ability: Effective Visual Impairment: No Limitations 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: Normal 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: No Beliefs That Will Affect Care: None marital status: / Current Living Situation: Family Current Living Situation Comment: [facility]- daughter current occupational status: retired How many Children do You have: 2 Feels Safe at Home: Yes Safety Concerns: Feels Safe At This Time Childhood Exposure to Second-Hand Smoke: Yes Diet: regular Diet Comment: regular caffeine: Yes (Coffee x 1 per day.) during the past year weight has: remained stable Dental Care, Regularly: Yes Physical Activity Frequency: Daily Physical Activity Frequency Comment: walking, gardening Seatbelt Use: always Sunscreen Use: No Assistive Devices: Walker Review of Systems Review of Systems: All systems reviewed & are unremarkable except as noted in HPI & below Physical Exam Physical Exam: Constitutional: Patient appears to be of their stated age. Patient is in no apparent distress. Patient is well-developed. Eyes: Pupils are equal round and reactive to light. Conjunctivae are normal. Anicteric sclera. Ears nose, mouth and throat: Deferred. Neck: Trachea is midline. Visual inspection is normal. Respiratory: Mild bibasilar crackles. No increased work of breathing. Cardiovascular: Regular rate and rhythm. No murmurs. No edema. Gastrointestinal: Normal bowel sounds, soft, nontender and nondistended. No hepatosplenomegaly noted. Musculoskeletal: No cyanosis. Patient is able to move all extremities. Strength is 5 out of 5 in the upper and lower extremities. Skin: No rashes, warm dry and intact. Left Pleurx catheter with pleural fluid draining around the Pleurx catheter. Cuff is out approximately 10 cm. Minimal induration noted at the incision site. Neurologic: No obvious focal neurological deficits seen. Psychiatric: Alert and oriented x3 with a euthymic affect. Results & Data Results & Data Vital Signs (Past 12 Hours) Vital Signs Temp Pulse Pulse Resp BP Pulse Ox O2 Del Method 03/29/25 11:45 36.4 C L 80 18 114/69 96 Nasal Cannula 03/29/25 09:00 Nasal Cannula 03/29/25 07:52 36.6 C 73 18 108/65 96 Nasal Cannula 03/29/25 05:38 80 03/29/25 03:28 36.6 C 78 18 103/66 93 Room Air O2 Flow Rate 03/29/25 11:45 1 03/29/25 09:00 1 03/29/25 07:52 2 03/29/25 05:38 03/29/25 03:28 PG Care Time/CCT Total # of Minutes Spent Total Time Spent with Patient: Total time spent is greater than 50% in coordination of care (as documented) at patient's floor/unit and/or counseling patient: Coding Level of Care Code 49753 INT INP/OBS CARE 2/55MIN Diagnoses Malignant pleural effusion J91.0 Trapped lung J98.19
--- NOTE | 2025-03-29 14:54 | Procedure Note ---
Procedure Note Date of Service March 29, 2025 PleurX catheter removal Dressing was taken down from Pleurx catheter site. Cuff was approximately 10 cm out of the chest wall. Incision site was mildly indurated. I aspirated approximately 30 mL pleural fluid and sent for culture and glucose. We then drained the pleural effusion and approximately 250 mL of fluid and air came out. PleurX catheter was then removed as below. PleurX catheter was removed upon exhalation and occlusive dressing placed over the site. Patient tolerated the procedure well. Catheter appeared to be fully intact. Will place a suture tomorrow to help close incision after an additional 24 hours of antibiotics. [facility] [place] Procedure Codes (Charges) Pulmonary/Thoracic Procedure 1: Pulmonary and Thoracic: 23362 Pleural drainage w/o imaging Procedure 2: Pulmonary and Thoracic: 73688 Remove lung catheter Coding CPT Codes Pulmonary/Thoracic - Pulmonary and Thoracic: 70790 Pleural drainage w/o imaging ([id number]) Pulmonary/Thoracic - Pulmonary and Thoracic: 47023 Remove lung catheter ([id number]) Additional Codes Date of Service (PG.SURGERY)
--- NOTE | 2025-03-29 15:52 | Ultrasound Report ---
ULTRASOUND LEFT UPPER EXTREMITY VENOUS CLINICAL HISTORY: Left arm swelling. COMPARISON STUDY: Bilateral upper extremity venous ultrasound dated 03/05/2025. TECHNIQUE: Real-time, grayscale, and color Doppler sonography of the deep veins of the left upper ext remity is performed. Compression and augmentation were utilized. The examination is degraded by the p resence of IV sites and overlying bandage material. FINDINGS: There is no sonographic evidence of deep venous thrombosis identified in the left upper ext remity. Imaged portions of the left internal jugular vein are patent and normally compressible. The m ajority vessel was not visualized. Imaged portions of the axillary and brachial veins are patent and normally compressible. Normal venous waveforms and augmentation are seen within the left subclavian v ein. The cephalic and basilic veins are clear. The visualized radial and ulnar veins are patent. Soft tissue edema is noted in the left arm. IMPRESSION: 1. The examination is degraded by the presence of IV sites and overlying bandage material. 2. There is no sonographic evidence of deep venous thrombosis identified in the left upper extremity. ACT 112: Negative or not required by law. Electronically signed by: Petey Lujan M.D. 03/29/2025 3:51 PM
[2025-03-30 07:23] LABS: Hematocrit (blood only) 27.9 % (37.0-47.0); Hemoglobin 8.6 g/dl (12.0-16.0); Mean Corpuscular Hemoglobin 27.0 pg (25.0-34.0); Mean Corpuscular Volume 87.7 fL (80.0-100.0); Platelet Count 167 K/uL (130-400); RDW Standard Deviation 58.6 fL (36.4-46.3); Red Blood Count 3.18 M/uL (4.20-5.40); White Blood Count 0.46 K/ul (4.8-10.8)
[2025-03-30 07:35] LABS: Alanine Aminotransferase 6.0 U/L (7-52); Albumin Globulin Ratio 1.3 (0.9-2); Alkaline Phosphatase 75.0 U/L (34-104); Anion Gap 4.0 (3-11); Bilirubin,Total 0.9 mg/dl (0.2-1.0); Blood Urea Nitrogen 11.0 mg/dl (6-23); Calcium 7.6 mg/dl (8.6-10.3); Carbon Dioxide 30.0 mmol/L (21-32); Chloride 106.0 mmol/L (98-107); Creatinine Clr Calc Pharmacy 76.9 ml/min; Globulin 1.7 gm/dl (2.5-4.0); Glucose 78.0 mg/dl (70-99(Fasting)); Magnesium 1.9 mg/dl (1.7-2.4); Potassium 3.4 mmol/L (3.5-5.1); Sodium 140.0 mmol/L (136-145); Total Protein 3.9 gm/dl (6.0-8.3)
[2025-03-30] MEDS: POTASSIUM CHLORIDE 10 MEQ TABCR PO STA (08:45)
[2025-03-30] MEDS: MAGNESIUM OXIDE 400 MG TAB PO SCH (10:39)
[2025-03-30] MEDS: FUROSEMIDE INJ 20 MG/2 ML VIAL IV ONE (10:45)
--- NOTE | 2025-03-30 13:19 | Infectious Disease Consult ---
Date of Consultation March 30, 2025 Assessment & Plan (1) Bacteremia: (2) Neutropenia: (3) Malignant pleural effusion: Plan Problems: #Strep parasanguinis bacteremia #Neutropenia #Antibiotic allergies: doxy (rash), levo (itching/hives), sulfa (itching/hives) Micro: 03/30 UCx: pending 03/28 BCx x2: Strep parasanguinis in 1/4 bottles Abx: Vanc 03/28 - present Cefepime 03/28 - present An e-consult was performed due to lack of telepresenter availability. 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 On presentation, pt was afebrile, hemodynamically stable 89% on room air placed on 2 L NC. Labs showed WBC 0.44, Hb 6.7, plt 213, baseline Cr, normal LFTs, probal 0.19. UA with 0-5 WBCs. CTA chest showed no definite PE, moderate sized L hydropneumothorax with L sided chest tube in place, lingular and LLL collapse, small R pleural effusion and RLL atelectasis, mediastinal and axillary LAD, mild pulm edema. She was given 1 U pRBCs and IV Lasix. Pleurx catheter had reportedly been leaking. Denied cough, sore throat, fevers, chills, diarrhea, abd pain, dysuria, urinary frequency/urgency, rash. She was started on vanc and cefepime in the setting of neutropenia. Admission blood cultures are growing Strep parasanguinis in 1/4 bottles. Pulm was consulted, noted that the Pleurx catheter was dislodged with the cuff ~10 cm out of the chest wall, with mild induration of the incision site. The pleural fluid was drained (~250 ml) and the chest tube was removed. Pulm will consider placement of an additional Pleurx catheter for rapid reaccumulation of fluid. Discussion: Strep parasanguinis is in the [place] Strep group, can be normal kevin in oropharynx, skin, GI tract. May represent a contaminant as it is growing in 1 of 4 bottles and pt is asymptomatic without fevers. Recommendations: -Deescalated from vanc and cefepime to ceftriaxone. -Ordered repeat blood cultures -Will see pt by video tomorrow. Should evaluate for any dental concerns or recent dental procedures -Micro lab will attempt sensitivities on the Strep parasanguinis Will continue to follow Consultation Information This patient recommendation is based on a telemedicine consult request which was completed asynchronously through chart review and information provided by the primary physician. The patient was not seen or examined today. The evaluation is consultative in nature and all patient care and treatment decisions can either be accepted or rejected by the patient's primary hospital-based treating physician using their own independent medical judgment for their patient. Shipping Coordinator contact information: Please call [facility] . (Phone Number For Physician Use Only) Time Spent Reviewing Chart: 31+ minutes History of Present Illness Reason for Consultation: Strep bacteremia Attending Physician: Frantz Li MD History of Present Illness An e-consult was performed due to lack of telepresenter availability. 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 On presentation, pt was afebrile, hemodynamically stable 89% on room air placed on 2 L NC. Labs showed WBC 0.44, Hb 6.7, plt 213, baseline Cr, normal LFTs, probal 0.19. UA with 0-5 WBCs. CTA chest showed no definite PE, moderate sized L hydropneumothorax with L sided chest tube in place, lingular and LLL collapse, small R pleural effusion and RLL atelectasis, mediastinal and axillary LAD, mild pulm edema. She was given 1 U pRBCs and IV Lasix. Pleurx catheter had reportedly been leaking. Denied cough, sore throat, fevers, chills, diarrhea, abd pain, dysuria, urinary frequency/urgency, rash. She was started on vanc and cefepime in the setting of neutropenia. Admission blood cultures are growing Stre parasanguinis in 1/4 bottles. Pulm was consulted, noted that the Pleurx catheter was dislodged with the cuff ~10 cm out of the chest wall, with mild induration of the incision site. The pleural fluid was drained (~250 ml) and fluid was sent for culture and glucose, and the chest tube was removed. Pulm will consider placement of an additional Pleurx catheter for rapid reaccumulation of fluid. Allergies Allergy/AdvReac Type Severity Reaction Status Date / Time doxycycline Allergy Intermediate Rash Verified 03/28/25 17:08 levofloxacin Allergy Intermediate ITCHING/HIV Verified 03/28/25 17:08 ES Sulfa (Sulfonamide Allergy Intermediate ITCHING/HIV Verified 03/28/25 17:17 Antibiotics) ES sulfamethoxazole Allergy Intermediate ITCHING/HIV Verified 03/28/25 17:08 ES morphine AdvReac Severe N/V Verified 03/28/25 17:08 Home Medications Medication Instructions Recorded Confirmed Type atorvastatin 10 mg tablet 10 mg PO HS #90 tabs 04/19/24 03/28/25 Rx methimazole 5 mg tablet 5 mg PO DAILY E05.90 12/23/24 03/28/25 History Oxygen Home #1 ea 01/26/25 01/17/25 Rx folic acid 1 mg tablet 5 mg (5 x 1 mg) PO QAM #30 tabs 01/26/25 03/28/25 Rx Bedside Commode #1 ea 01/31/25 02/06/25 Rx Wheelchair (Manual) #1 ea 02/16/25 Rx calcium carbonate (Tums) 500 mg (2.5 x 200 mg calcium (500 03/08/25 03/28/25 Rx mg)) PO TID #0 tabs mirtazapine 15 mg tablet 15 mg PO HS #0 tabs 03/08/25 03/28/25 Rx pantoprazole 40 mg tablet,delayed 40 mg PO QAM #0 tabs 03/08/25 03/28/25 Rx release polyethylene glycol 3350 17 gram 17 g PO DAILY #0 ea 03/08/25 03/28/25 Rx oral powder packet (Miralax) potassium chloride 10 mEq 20 meq (2 x 10 mEq) PO DAILY #0 03/08/25 03/28/25 Rx tablet,extended release tabs sennosides 8.6 mg tablet (Senna 17.2 mg (2 x 8.6 mg) PO QAM #0 tabs 03/08/25 03/28/25 Rx Lax) acetaminophen 325 mg tablet 650 mg PO Q4H PRN PAIN/FEVER 03/28/25 03/28/25 History aspirin 81 mg tablet,delayed 81 mg PO DAILY 03/28/25 03/28/25 History release buspirone 5 mg tablet 5 mg PO HS 03/28/25 03/28/25 History cholecalciferol (vitamin D3) 1,250 50,000 unit PO WK 03/28/25 03/28/25 History mcg (50,000 unit) capsule famotidine 20 mg tablet 20 mg PO DAILY 03/28/25 03/28/25 History food supplemt, lactose-reduced 1 ea PO BIDM 03/28/25 03/28/25 History 0.04 gram-1 kcal/mL oral liquid (Boost) multivitamin with minerals 1 tab PO DAILY 03/28/25 03/28/25 History simethicone 80 mg chewable tablet 80 mg PO Q6H PRN GAS DISCOMFORT 03/28/25 03/28/25 History (Gas Relief (simethicone)) Patient History Medical History (Updated 03/29/25 @ 21:12 by Frantz Li MD) Axillary lymphadenopathy Lymph nodes enlarged Acute on chronic hypoxic respiratory failure Pleural effusion Restrictive lung disease Degenerative joint disease of knee Pulmonary nodules DR. DOMINGUEZ MONITORING Asthma STABLE- DOESNT USE INHALERS- FOLLOWS DR. DOMINGUEZ- [facility] Osteoarthritis of right hip Surgical History (Updated 03/09/25 @ 00:07 by Background Kat) H/O insertion of central venous access port (02/22/25) Insertion Left Internal Jugular Access Port(Left) - Coleman Ramos DO, FACS S/P lymph node biopsy (01/19/25) Left Axillary Lymph Node Excisional Biopsy(Left) - Daniel Corley DO S/P lymph node biopsy (06/21/19) Right Axillary Lymph Node Biopsy with Needle Localization Dr. Vaughan 06/21/19 Hx of lymph node biopsy RIGHT Hx of surgical procedure LEFT KIDNEY BIOPSY /DR. LANDIN History of total knee replacement LEFT History of total shoulder replacement RIGHT History of cataract extraction with lens replacement History of total hip arthroplasty RIGHT ZOFIA= 02/19/18= SAB X 1 ATTEMPT AT [facility] History of colonoscopy History of hysterectomy Family History Denies family history of Ovarian cancer Prostate cancer Myocardial infarction Breast cancer Colorectal cancer Social History Smoking Status: Never smoker Second Hand Exposure: No; Do You Dip or Chew Tobacco: No; Hx Alcohol Use: No Hx Substance Use: No Preferred Language: Vietnamese Communication Ability: Effective Visual Impairment: No Limitations 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: Normal Yardage Estimator Required: No Beliefs That Will Affect Care: None marital status: / Current Living Situation: Family Current Living Situation Comment: [facility]- daughter current occupational status: retired How many Children do You have: 2 Feels Safe at Home: Yes Safety Concerns: Feels Safe At This Time Childhood Exposure to Second-Hand Smoke: Yes Diet: regular Diet Comment: regular caffeine: Yes (Coffee x 1 per day.) during the past year weight has: remained stable Dental Care, Regularly: Yes Physical Activity Frequency: Daily Physical Activity Frequency Comment: walking, gardening Seatbelt Use: always Sunscreen Use: No Assistive Devices: Oxygen - at Night and Walker Review of System Pt was not seen Physical Exam Physical Exam: Pt was not seen Results & Data Vital Signs (Past 12 Hours) Vital Signs Temp Pulse Pulse Resp BP Pulse Ox O2 Del Method 03/30/25 11:26 62 03/30/25 11:11 36.7 C 73 18 92/60 L 96 Room Air 03/30/25 08:58 98/54 L 03/30/25 08:00 Nasal Cannula 03/30/25 07:28 36.6 C 68 18 106/67 100 Nasal Cannula 03/30/25 03:12 36.6 C 69 16 92/50 L 99 Nasal Cannula O2 Flow Rate 03/30/25 11:26 03/30/25 11:11 03/30/25 08:58 03/30/25 08:00 1 03/30/25 07:28 3 03/30/25 03:12 Laboratory Results Short CBC 03/30/25 Range/Units 06:04 WBC 0.46 L* (4.8-10.8) K/ul Hgb 8.6 L (12.0-16.0) g/dl Hct 27.9 L (37.0-47.0) % Plt Count 167 (130-400) K/uL BMP 03/30/25 06:04 Sodium 140 Potassium 3.4 L Chloride 106 Carbon Dioxide 30 BUN 11 Creatinine 0.59 L Glucose 78 Calcium 7.6 L Liver Function 03/30/25 Range/Units 06:04 Total Bilirubin 0.9 (0.2-1.0) mg/dl AST 8 L (13-39) U/L ALT 6 L (7-52) U/L Alkaline Phosphatase 75 (34-104) U/L Albumin 2.2 L (3.4-5.0) gm/dl Urine 03/29/25 Range/Units Unknown Urine Color Yellow Urine Appearance Clear (Clear) Urine pH 5.5 (4.5-7.5) Ur Specific [place] 1.025 (1.000-1.030) Urine Protein Trace H (Negative) Urine Glucose (UA) Negative (Negative) Diagnostic Findings Chest X-Ray 03/28/25 13:57 XR chest 1V portable CLINICAL HISTORY: Sepsis COMPARISON STUDY: 03/03/2025 FINDINGS: Stable chest port and right shoulder prosthesis. Stable cardiomegaly with pulmonary vascular congestion. Left pleural catheter is present at the left base. There are small bilateral pleural effusions and mild associated lung base consolidation, improved on the left and stable on the right. No pneumothorax. IMPRESSION: Small bilateral pleural effusions and lung base consolidation, improved on the left and stable on the right. ACT 112: Negative or not required by law. Electronically signed by: Coleman Andrews M.D. 03/28/2025 2:27 PM Chest CTA 03/28/25 16:13 Clinical history: Rule out pulmonary embolism Technique: Axial computed tomography images were obtained of the chest after the administration of intravenous contrast according to the CT angiogram protocol Comparison is made to the prior CT dated 12/23/2024 Findings: There is no definite sign of pulmonary embolism. There is a moderate sized left hydropneumothorax with a left-sided chest tube in place. There is lingular and left lower lobe collapse. There is less severe right lower lobe atelectasis. There is a small right pleural effusion. There is mild pulmonary edema. No endobronchial lesion is seen There is worsened mediastinal adenopathy, the largest node measuring 3.9 x 2.4 cm. There is left worse than right axillary adenopathy also. The thoracic aorta appears unremarkable with no sign of aneurysm or dissection. There is no pericardial effusion. There is coronary atherosclerosis There are multiple thyroid nodules bilaterally. The visualized upper abdomen appears unremarkable. There is a right shoulder arthroplasty. No fracture is seen. No focal osseous lesion is evident Impression: 1. No definite sign of pulmonary embolism 2. Moderate sized left hydropneumothorax with a left-sided chest tube in place 3. Lingular and left lower lobe collapse 4. Small right pleural effusion and right lower lobe atelectasis 5. Worsened mediastinal and axillary adenopathy, concerning for metastatic disease or lymphoma 6. Multiple indeterminate thyroid nodules. A thyroid ultrasound could be obtained for further evaluation 7. Mild pulmonary edema ACT 112: Positive. There are findings on this exam that require communication between the performing entity and the patient following Patient Test Result Information Act ([place] ACT 112) guidelines. Electronically signed by Silvestre Jamison 03-28-2025 7:00 PM Extremity Venous Study 03/29/25 11:11 ULTRASOUND LEFT UPPER EXTREMITY VENOUS CLINICAL HISTORY: Left arm swelling. COMPARISON STUDY: Bilateral upper extremity venous ultrasound dated 03/05/2025. TECHNIQUE: Real-time, grayscale, and color Doppler sonography of the deep veins of the left upper extremity is performed. Compression and augmentation were utilized. The examination is degraded by the presence of IV sites and overlying bandage material. FINDINGS: There is no sonographic evidence of deep venous thrombosis identified in the left upper extremity. Imaged portions of the left internal jugular vein are patent and normally compressible. The majority vessel was not visualized. Imaged portions of the axillary and brachial veins are patent and normally compressible. Normal venous waveforms and augmentation are seen within the left subclavian vein. The cephalic and basilic veins are clear. The visualized radial and ulnar veins are patent. Soft tissue edema is noted in the left arm. IMPRESSION: 1. The examination is degraded by the presence of IV sites and overlying bandage material. 2. There is no sonographic evidence of deep venous thrombosis identified in the left upper extremity. ACT 112: Negative or not required by law. Electronically signed by: Petey Lujan M.D. 03/29/2025 3:51 PM Medications Administered Current Inpatient Medications Acetaminophen (Acetaminophen 325 Mg Tab) 650 mg PO Q4H PRN PRN Reason: Pain or Fever Stop: 04/27/25 23:20 Aspirin (Aspirin 81 Mg Ectab) 81 mg PO DAILY [facility] Stop: 04/28/25 08:59 Last Admin: 03/30/25 08:47 Dose: 81 mg Atorvastatin Calcium (Atorvastatin 10 Mg Tab) 10 mg PO HS [facility] Stop: 04/27/25 23:20 Last Admin: 03/29/25 21:34 Dose: 10 mg Buspirone HCl (Buspirone 5 Mg Tab) 5 mg PO TID [facility] Stop: 04/29/25 13:59 Calcium Carbonate (Calcium Carbonate 500 Mg Chewable Tab) 500 mg PO TID [facility] Stop: 04/27/25 23:20 Last Admin: 03/30/25 08:48 Dose: 500 mg Famotidine (Famotidine 20 Mg Tab) 20 mg PO DAILY [facility] Stop: 04/28/25 08:59 Last Admin: 03/30/25 08:45 Dose: 20 mg Folic Acid (Folic Acid 1 Mg Tab) 5 mg PO QAM [facility] Stop: 04/28/25 08:59 Last Admin: 03/30/25 08:47 Dose: 5 mg Heparin Sodium (Porcine) (Heparin 100 Unit/Ml 5ml Flush) 5 ml FLUSH PRN PRN PRN Reason: Flush Stop: 04/27/25 14:14 Vancomycin HCl 1,000 mg/ (Sodium Chloride) 270 mls @ 200 mls/hr IV Q12H [facility] Stop: 03/31/25 05:59 Last Infusion: 03/30/25 08:58 Dose: Infused Cefepime HCl (Maxipime 2000mg) 2,000 mg in 20 mls @ 5 mls/min IV Q8H [facility]; Protocol Stop: 03/31/25 05:59 Last Admin: 03/30/25 06:12 Dose: 5 mls/min Magnesium Oxide (Magnesium Oxide 400 Mg Tab) 400 mg PO QAM [facility] Stop: 04/29/25 10:29 Last Admin: 03/30/25 10:39 Dose: 400 mg Methimazole (Methimazole 5 Mg Tablet) 5 mg PO DAILY [facility] Stop: 04/28/25 08:59 Last Admin: 03/30/25 08:46 Dose: 5 mg Mirtazapine (Mirtazapine Tab 15 Mg Tab) 15 mg PO HS [facility] Stop: 04/27/25 23:20 Last Admin: 03/29/25 21:35 Dose: 15 mg Miscellaneous Information (Vancomycin Consult Active) 1 each N/A UD PRN PRN Reason: Consult Stop: 04/27/25 23:20 Multivitamins/Minerals (Cerovite Adv Formula Tab) 1 tab PO DAILY [facility] Stop: 04/28/25 08:59 Last Admin: 03/30/25 08:47 Dose: 1 tab Ondansetron HCl (Ondansetron Inj 2 Mg/Ml 2 Ml Vial) 4 mg IV Q6H PRN PRN Reason: Nausea Stop: 04/27/25 23:20 Pantoprazole Sodium (Pantoprazole 40 Mg Tab) 40 mg PO QAM [facility] Stop: 04/28/25 08:59 Last Admin: 03/30/25 08:48 Dose: 40 mg Polyethylene Glycol (Polyethylene (Miralax) 17 Gm Pack) 17 gm PO DAILY [facility] Stop: 04/28/25 08:59 Last Admin: 03/30/25 08:48 Dose: Not Given Potassium Chloride (Potassium Chloride 10 Meq Tabcr) 20 meq PO DAILY [facility] Stop: 04/28/25 08:59 Last Admin: 03/30/25 08:45 Dose: 20 meq Sennosides (Senna 8.6 Mg Tab) 17.2 mg PO QAM [facility] Stop: 04/28/25 08:59 Last Admin: 03/30/25 08:48 Dose: Not Given Simethicone (Simethicone 80 Mg Chew) 80 mg PO Q6H PRN PRN Reason: GAS DISCOMFORT Stop: 04/27/25 23:20 Last Admin: 03/29/25 08:36 Dose: 80 mg
[2025-03-30] MEDS: busPIRone 5 MG TAB PO SCH (14:00)
--- NOTE | 2025-03-30 14:11 | Pulmonology Progress Note ---
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 S/p left-sided thoracentesis 12/27/2024 by IR, 900 mL fluid was removed, exudative as per lights criteria S/p right-sided thoracentesis 01/17/2025, 1300 mL fluid, lymphocytes 82%, exudative per LDH and protein Pleural:LDH 171, protein 3, pH 7.59 S/p left-sided thoracentesis 01/18/2025 by IR, 1000 mL fluid was removed, exudative as per lights criteria Cytology from thoracentesis right 12/24/2024 and left 01/18/2025 showed rare atypical cells present, not enough to make a diagnosis. -- Follicular hyper T-cell lymphoma generalized adenopathy Diagnosed 01/20/25 S/p axillary lymph node biopsy which showed atypical lymphoid proliferation but not enough specimen to call a diagnosis --Restrictive lung disease Mild TLC 71% with DLCO 100% with severe decrease in ERV Likely coming from obesity Advised to lose with diet and exercise Patient does have incentive spirometry at home. Advised her to use it every couple of hours Plan: Chest x-ray from today on personal review shows left-sided [place] pneumo which is likely trapped lung. Blunting of the right costophrenic angle. Increased cardiac silhouette Given the patient has trapped lung I do not think putting a Pleurx catheter will make any huge difference in the patient's symptoms. It was draining a lot, they had drained a liter day prior to her coming to the hospital Given the recent removal of the catheter I would be reluctant to place a new one in. She can follow-up as an outpatient to see if she will benefit from a Pleurx catheter. Recommend to continue with empiric antibiotics given the neutropenia Unfortunately overall prognosis is poor. Recommend palliative care consult. Case was discussed with primary team I spent more than 50 minutes looking in the chart, images, discussing the plan of care with the patient, RN as well as primary team Please note the above document was generated using voice recognition software. It may contain grammatical, syntax or spelling errors.Any formal questions or concerns about the content, text or information contained within the body of this dictation should be directly addressed to the provider for clarification. Admission and Anticipated Discharge Date Admission Date: March 29, 2025 Subjective Patient seen and examined at bedside. No acute distress, no adverse events overnight She was saturating 92-93% on room air while at rest. Denies any chest pain She stated she is feeling much better She was in rehab She repeated multiple times that she is feeling good and she wants to go home Denies any nausea or vomiting No chest discomfort or pain Review of Systems 2 Review of Systems: All systems reviewed & are unremarkable except as noted in Subjective Physical Exam 2 Physical Exam: Constitutional: No acute distress HEENT: EOMI, PERRLA Respiratory system: Decreased air entry bilaterally, no wheeze, no rhonchi, positive crackles bilateral lower lobe CVS: S1-S2 positive, positive 2 out of 6 systolic murmur appreciated best at aorta Abdomen: Soft, nontender, nondistended, positive bowel sounds x4 Extremities: +2 pulses bilaterally radialis/ dorsalis pedis, no cyanosis, +1 pitting edema bilateral lower and upper extremity Neuro: Awake alert oriented x3 Psych: Normal mood and affect G/U: Positive [place] Skin: no rashes, warm and dry Lymphatic: no cervical or axillary lymphadenopathy Results & Data Results & Data Vital Signs (Past 12 Hours) Vital Signs Temp Pulse Pulse Resp BP Pulse Ox O2 Del Method 03/30/25 11:26 62 03/30/25 11:11 36.7 C 73 18 92/60 L 96 Room Air 03/30/25 08:58 98/54 L 03/30/25 08:00 Nasal Cannula 03/30/25 07:28 36.6 C 68 18 106/67 100 Nasal Cannula 03/30/25 03:12 36.6 C 69 16 92/50 L 99 Nasal Cannula O2 Flow Rate 03/30/25 11:26 03/30/25 11:11 03/30/25 08:58 03/30/25 08:00 1 03/30/25 07:28 3 03/30/25 03:12 Laboratory Results 03/30/25 06:04 03/30/25 06:04 PG Care Time/CCT Total # of Minutes Spent Total Time Spent with Patient: Total time spent is greater than 50% in coordination of care (as documented) at patient's floor/unit and/or counseling patient: Coding Level of Care Code 42571 SUB INP/OBS CARE 3/50MIN Diagnoses Trapped lung J98.19 Pulmonary edema J81.1 Malignant pleural effusion J91.0 T-cell lymphoma C85.90 Multiple pulmonary nodules R91.8 Reactive airway disease J45.909
--- NOTE | 2025-03-30 14:18 | XRay Report ---
XR chest 1V portable CLINICAL HISTORY: recent L PleurX catheter removal; effusion worse? COMPARISON STUDY: 03/28/2025 FINDINGS: Stable chest port. The prior left pleural catheter has been removed. Stable cardiomegaly wi thout pulmonary vascular congestion. Stable small right pleural effusion. Stable small to moderate hy dropneumothorax at the left mid and lower hemithorax. IMPRESSION: Stable small to moderate left hydropneumothorax. ACT 112: Negative or not required by law. Electronically signed by: Coleman Andrews M.D. 03/30/2025 2:16 PM
[2025-03-30 16:15] VITALS: BP 88/56; RESP 20; TEMP 97.3; O2SAT 100
--- NOTE | 2025-03-30 18:52 | Discharge Summary ---
Discharge Summary Date of Service March 30, 2025 Principal Dx & Hospital Course #1 = Principal Diagnosis (1) Symptomatic anemia: (2) Anemia requiring transfusions: (3) Neutropenia: (4) T-cell lymphoma: (5) Bacteremia: (6) Trapped lung: (7) Pancytopenia due to antineoplastic chemotherapy: (8) Malignant pleural effusion: (9) Hyperthyroidism: (10) Severe protein-calorie malnutrition: (11) Hypoalbuminemia: (12) Arm edema: Plan 84yo female with a history of angioimmunoblastic T-cell lymphoma who presented with anemia and a leaking left-sided pleurX catheter. PleurX catheter placement on LEFT was on 02/28/25 during her prior admission. #bicytopenia/neutropenia 2nd to chemotherapy - -presenting hemoglobin 6.7, s/p 1 unit PRBCs; now hemoglobin 8.9 -severe neutropenia - cont neutropenic precautions -daily CBC w/ diff while hospitalized -Dr Villa saw patient in consult today; transfusional support only at this time -no plans for additional G-CSF as she received such shortly after her most recent chemotherapy (cycle 2 of R mini CHOP on 03/22/2025 and G-CSF on 03/23/2025) #bacteremia - -GPC in chains; 1 out of 4 blood cultures; BioFire - steptococcus -source? -port? -pleurX catheter/pleural space? -urine? -other? -cont current antibiotics (Cefepime/vanco), narrow when able #S/P pleurX catheter status on left for malignant effusion - -appreciate pulmonary consultation today -they removed the catheter since it was malpositioned -watch for fluid reaccumulation -appears to have element of trapped lung based on imaging #volume overload/anasarca - -echo 11/2024 with grade 1 diastolic dysfunction but preserved LV/RV function -diastolic dysfunction, hypoalbuminemia, etc all contributing to severe arm/leg edema -s/p lasix IV following her blood last pm -will give another dose of IV lasix today -repeat labs am -severe edema left arm - obtain doppler, r/o DVT #hypoxia 2nd to b/l malignant pleural effusions +/- pulmonary edema + left-sided trapped lung - -diurese with another dose of IV lasix today -appreciate pulmonary consult for pleurX management #angioimmunoblastic T cell lymphoma (AITL) - -11/2024 --> pleural fluid positive for monoclonal B cell population, aberrant CD10 on subset of T cells. Path 02/10/25: PCR not able to confirm either B or T cell clone. 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 -cont remeron #Anxiety/depression - -cont buspar 5mg BID -cont mirtazapine 15mg HS #vitamin D def - -25-OH vit D level 8.5 earlier this month -ergocalciferol 73816 units weekly x 8 weeks #hypomagnesemia - -replace IV, repeat mag level am due to bacteremia and other complex issues change observation status to admission status Admission HPI Per Admitting Provider The patient is a an 84-year-old female with past medical history including pancytopenia due to antineoplastic chemotherapy, malignant pleural effusion status post placement of left Pleurx catheter that had 1.5 L of fluid drained yesterday, anemia, anxiety and depression, T-cell lymphoma, CKD stage III, multiple pulmonary nodules, hypertension, hyperthyroidism, reactive airway disease, and GERD without esophagitis. The patient was referred to the emergency department due to abnormal laboratories performed in the outpatient setting, with worsening of her anemia requiring transfusion. She was also found to be neutropenic, with WBC of 0.44 and ANC less than 0.50. Her second chemotherapy was 6 days ago. She presently is mildly hypoxic, requiring 2 L nasal cannula oxygen to keep pulse ox in the 93-97% range Discharge Plan Discharge Items Patient Disposition: Home - Home Health Services Reason For Visit: ANEMIA, BACTEREMIA Discharge Diagnosis: 1. anemia due to lymphoma & chemotherapy treatment - 1 unit blood given 2. bacteremia - strep infection in the blood; source of the infection uncertain 3. recent pleurX catheter leaking - catheter now removed 4. severe edema of arms/legs 5. low blood protein levels Activity: As commented below Activity Comment: light activities only Non-emergency contact: Primary Care Provider and Specialist Call non-emergency contact if: you have any medication questions, your symptoms worsen and you have a fever Follow-up/Referrals: Mignon Bansal, DO [Primary Care Provider] - Demi House [facility], [facility] [Physician] - (see Dr House if having difficulties with breathing; may need to consider placing PleurX catheter back ) Nellie Villa MD [Physician] - (see Dr Villa in March as scheduled ) Diet: Regular Addtl Attending Provider Instructions: Ms Adkins, You were hospitalized due to anemia. You received 1 unit of blood to bring your blood counts up. The anemia is due to multiple factors but mainly the chemotherapy for your lymphoma. Your pleurX catheter was removed by the lung doctors as the catheter was malpositioned. Your chest x-ray today, 03/30, does not show any reaccumulation of the fluid but you are at risk of that happening over time. One of your blood cultures was positive for strep infection. It is uncertain where it originated (strep can come from the skin, the urine, the lung, etc). Either way the infection doctor recommends at least 1 more week of antibiotics for this. Recommendations - 1. please use 2 liters of oxygen at all times, and increase to 3 liters with activity 2. antibiotics - amoxicillin-clavulanate - 1 tablet twice daily x 7 days; most common side effect is diarrhea -take with food -start first thing tomorrow morning 3. for anxiety - -buspirone 5mg three times daily scheduled -mirtazapine 15mg at bedtime for sleep/depression/appetite/anxiety 4. take magnesium supplement once daily 5. take once weekly vitamin D supplement x 6 weeks then stop 6. check your oxygen levels on your finger with a pulse oximeter at times at home; if your oxygen levels are consistently over 90% these are acceptable; anything consistently less than 90% please seek medical attention 7. take furosemide 20mg once daily each morning for edema/fluid Return to [facility] if - -you have fever over 100 degrees -you have low oxygen levels -you have worsening shortness of breath or chest pains -you have severe diarrhea (3 or more liquid stools in 24 hours) -any other concerns Please enjoy being at home :) It is always a pleasure to care for you, -Frantz Li Pending Studies at Discharge: Yes Studies:: repeat blood cultures Stand-Alone Forms: My [facility], Smoking Cessation Medications and DC Order Prescriptions: New amoxicillin-pot clavulanate 875-125 mg tablet 1 tab PO BID 7 Days Qty: 14 0RF Rx Instructions: take with food furosemide [Lasix] 20 mg tablet 20 mg PO QAM Qty: 30 2RF Rx Instructions: for edema/fluid magnesium oxide 400 mg (241.3 mg magnesium) tablet 400 mg PO DAILY Qty: 30 2RF Continued atorvastatin 10 mg tablet 10 mg PO HS Qty: 90 3RF (DME) Bedside Commode Misc See Rx Instructions .Route Qty: 1 0RF Rx Instructions: As directed (DME) Wheelchair (Manual) Device See Rx Instructions .Route Qty: 1 0RF Rx Instructions: As directed methimazole 5 mg tablet 5 mg PO DAILY Patient Comments: pt taking 5mg daily potassium chloride 10 mEq Tablet Extended Release 20 meq PO DAILY Qty: 0 0RF calcium carbonate [Tums] 200 mg calcium (500 mg) Tablet,Chewable 500 mg PO TID Qty: 0 0RF polyethylene glycol 3350 [Miralax] 17 gram Powder In Packet 17 g PO DAILY Qty: 0 0RF pantoprazole 40 mg Tablet,Delayed Release (Dr/Ec) 40 mg PO QAM Qty: 0 0RF sennosides [Senna Lax] 8.6 mg Tablet 17.2 mg PO QAM Qty: 0 0RF folic acid 1 mg Tablet 5 mg PO QAM Qty: 30 0RF (DME) Oxygen Home Liters Per Minute See Rx Instructions .Route Qty: 1 0RF Rx Instructions: As directed 3 liters aspirin 81 mg Tablet,Delayed Release (Dr/Ec) 81 mg PO DAILY acetaminophen 325 mg tablet 650 mg PO Q4H MDD 3 GRAMS APAP/24 HOURS PRN (Reason: PAIN/FEVER) famotidine 20 mg Tablet 20 mg PO DAILY multivitamin with minerals Tablet 1 tab PO DAILY simethicone [Gas Relief (simethicone)] 80 mg tablet,chewable 80 mg PO Q6H PRN (Reason: GAS DISCOMFORT) Boost 0.04 gram- 1 kcal/mL liquid 1 ea PO BIDM mirtazapine 15 mg Tablet 15 mg PO HS Qty: 30 2RF Rx Instructions: for sleep/depression/appetite stimulation Changed buspirone 5 mg tablet 5 mg PO TID Qty: 90 2RF Rx Instructions: for anxiety cholecalciferol (vitamin D3) 1,250 mcg (50,000 unit) capsule 50,000 unit PO WK 42 Days Qty: 6 0RF Rx Instructions: TUESDAYS only x 6 weeks. Discharge Orders: Discharge Order (Routine); Ordered 03/30/25 Ordered By: Frantz Li Admission Data Admit Date/Time: 03/29/25 19:36 Attending Provider: Frantz Li Admit Provider: Timoteo Neal Primary Care Provider: Mignon Bansal Other Providers: Timoteo Neal; Nellie Villa; Artemio Banks; [facility]; Nataliia Lopez; Sandra Pacheco; Sheila Rios; Mandi Lisa; Yazmin Walters; Rosaline Connell Hospital Stay Data Consultations 03/28/25 19:11 ED Decision to Admit Stat 03/28/25 23:21 Consult Hematology Routine Consult Pulmonology Routine 03/30/25 10:58 Consult Infectious Diseases Routine Diagnostic Imagining Performed 03/28/25 16:13 CT for pulmonary embolism PE [CT angio chest PE protocol] Stat 03/29/25 11:11 US venous doppler UE LT Routine Pending Results Patient Have Any Pending Studies at Discharge: Yes Discharge Instructions Given to Patient (Per Discharging Provider) Ms Adkins, Carl were hospitalized due to anemia. You received 1 unit of blood to bring your blood counts up. The anemia is due to multiple factors but mainly the chemotherapy for your lymphoma. Your pleurX catheter was removed by the lung doctors as the catheter was malpositioned. Your chest x-ray today, 03/30, does not show any reaccumulation of the fluid but you are at risk of that happening over time. One of your blood cultures was positive for strep infection. It is uncertain where it originated (strep can come from the skin, the urine, the lung, etc). Either way the infection doctor recommends at least 1 more week of antibiotics for this. Recommendations - 1. please use 2 liters of oxygen at all times, and increase to 3 liters with activity 2. antibiotics - amoxicillin-clavulanate - 1 tablet twice daily x 7 days; most common side effect is diarrhea -take with food -start first thing tomorrow morning 3. for anxiety - -buspirone 5mg three times daily scheduled -mirtazapine 15mg at bedtime for sleep/depression/appetite/anxiety 4. take magnesium supplement once daily 5. take once weekly vitamin D supplement x 6 weeks then stop 6. check your oxygen levels on your finger with a pulse oximeter at times at home; if your oxygen levels are consistently over 90% these are acceptable; anything consistently less than 90% please seek medical attention 7. take furosemide 20mg once daily each morning for edema/fluid Return to [facility] if - -you have fever over 100 degrees -you have low oxygen levels -you have worsening shortness of breath or chest pains -you have severe diarrhea (3 or more liquid stools in 24 hours) -any other concerns Please enjoy being at home :) It is always a pleasure to care for you, -Frantz Li Coding Diagnoses Symptomatic anemia D64.9 Anemia requiring transfusions D64.9 Neutropenia D70.9 T-cell lymphoma C85.90 Bacteremia R78.81 Trapped lung J98.19 Pancytopenia due to antineoplastic chemotherapy D61.810; T45.1X5A Malignant pleural effusion J91.0 Hyperthyroidism E05.90 Severe protein-calorie malnutrition E43 Hypoalbuminemia E88.09 Arm edema R60.0
[2025-03-30 19:27] VITALS: PULSE 71
[2025-03-30] MEDS ORDERED: cefTRIAXone SODIUM 2,000 MG/50 ML BAG IV SCH (22:00)
--- NOTE | 2025-03-31 23:29 | Electrocardiogram Report ---
Test Reason : Blood Pressure : */* mmHG Vent. Rate : 73 BPM Atrial Rate : 73 BPM P-R Int : 116 ms QRS Dur : 80 ms QT Int : 328 ms P-R-T Axes : 33 18 -67 degrees QTcB Int : 361 ms Sinus rhythm with Premature supraventricular complexes Cannot rule out Anterior infarct , age undetermined Nonspecific T wave abnormality Abnormal ECG When compared with ECG of 25-Feb-2025 17:51, Premature supraventricular complexes are now Present Confirmed by Kurtis Naranjo ([id number]) on 03/31/2025 11:29:28 PM Referred By: REFERRED SELF Confirmed By: Kurtis Naranjo
--- NOTE | 2025-04-02 16:05 | Coding Query ---
PRESSURE ULCER DOCUMENTATION To promote full compliance with coding requirements relating to patient care, physician participation is requested in all cases of outpatient coder uncertainty. Please assist us with the question(s) below: Please specify the known or suspected type by placing an "X" within the parenthesis (x). A pressure ulcer of the (TROLLEY WORKER INSERT SITE) Sacrum If possible, please check the box that provides the specific stage of the pressure ulcer ( ) Stage I ( ) Stage II ( ) Stage III ( ) Stage IV (x ) Unstageable Was the pressure ulcer present on admission? Please check the appropriate box for the pressure ulcer: (x ) Present on admission ( ) Not present on admission ( ) Unable to be clinically determined Thank you ALEXANDRA Puri CCS
[2025-04-04 22:48] LABS: Peritoneal Fld, Triglycerides 20.0 mg/dL (<65); Pleural Fluid, Albumin 0.7 g/dL
== END 2025-03-30 19:28 | disposition home health service (06) | DRG 808 ==
LOC: ED 12:54 → 2S 12:54 → SUATTDRO 20:13 → 2S 22:27

== ENCOUNTER 2025-04-19 12:48 | Inpatient (IN) ==
[2025-04-19] MEDS: NOREPINEPHRINE/D5W 4 MG/250 ML PLCT IV SCH (15:30)
[2025-04-19] MEDS: PHENYLEPHRINE/NSS 25 MG/250 ML BAG IV SCH (15:45)
[2025-04-19] MEDS ORDERED: STAT IV Infusion **Titration per Protocol STA ×4 (15:48→22:49)
[2025-04-19] MEDS: NOREPINEPHRINE/D5W 4 MG/250 ML IV ONE (16:00)
[2025-04-19] MEDS: Patient's HEIGHT &/or WEIGHT Needed STA (16:03)
--- NOTE | 2025-04-19 16:06 | History & Physical Report ---
Date of Service April 19, 2025 Assessment & Plan (1) Acute hypoxic respiratory failure: (2) Hydropneumothorax: (3) Anemia requiring transfusions: Plan Septic shock Unknown source started vanco and zosyn. will drain pleural effusion as patient no longer has pleurx. Patient with signs of SIRS with elevated lactic acid over 7 and hypotension requiring vasopressors. D/W director of assisted living. Symptomatic anemia requiring blood transfusions Patient with anemia hemglobin was below 5; transfused 3 units of PRBC. 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 Patient is a DNR/DNI. 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 Path 02/10/25: PCR not able to confirm either B or T cell clone. 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 Peripheral edema Patient with chronic upper extremity edema due to lymph node biopsies. Suspect third spacing and venous stasis. She is hypoalbuminemic Once patient stabilizes, would recommend lymphedema mobilization strategies. - May continue diuresis, however this must be done with mobilization strategies. She does not have a history of CHF. No anginal symptoms preceding admission Asthma Nebs as needed CKD3 Baseline creatinine approximately 1.09 -awaiting repeat labs as patient just arrived to the ICU from [facility] GERD w/ esophagitis Pepcid as needed Hyperthyroidism Continue methimazole Protein calorie malnutrition poor p.o. intake -has had hypoalbuminemia in the past. Admission and Anticipated Discharge Date Admission Date: April 19, 2025 History of Present Illness Chief Complaint: altered mental status Primary Care Provider: Mignon Bansal, This is am 85 year old female who is a transfer from [facility] for altered mental status. Patient received chemotherapy last Thursday and on Thursday began to develop worsening confusion. This is accompanied by generalized weakness, subjective fevers and her lips being more pale. Her daughter was trying to bring her mother to the hospital yesterday but the patient refused until today where patient was unresponsive. In the ED, sepsis protocol was initiated with IVF and antibiotics (vanco and zosyn), lactic acid was 7.7 and hemoglobin was 4.8. Despite this patient's BP did not improve. Pressors were started. And transfer was recommended as she is known to our hospital. Patient repeatedly states that she is only staying one night. Allergies Allergy/AdvReac Type Severity Reaction Status Date / Time doxycycline Allergy Intermediate Rash Verified 04/19/25 17:05 levofloxacin Allergy Intermediate ITCHING/HIV Verified 04/19/25 17:05 ES Sulfa (Sulfonamide Allergy Intermediate ITCHING/HIV Verified 04/19/25 17:05 Antibiotics) ES sulfamethoxazole Allergy Intermediate ITCHING/HIV Verified 04/19/25 17:05 ES morphine AdvReac Severe N/V Verified 04/19/25 17:05 Home Medications Medication Instructions Recorded Confirmed Type Oxygen Home #1 ea 01/26/25 04/06/25 Rx Bedside Commode #1 ea 01/31/25 04/06/25 Rx Wheelchair (Manual) #1 ea 02/16/25 04/06/25 Rx famotidine 20 mg tablet 20 mg PO DAILY PRN Acid Reflux 03/28/25 04/19/25 History food supplemt, lactose-reduced 1 ea PO BIDM 03/28/25 04/19/25 History 0.04 gram-1 kcal/mL oral liquid (Boost) simethicone 80 mg chewable tablet 80 mg PO Q6H PRN GAS DISCOMFORT 03/28/25 04/19/25 History (Gas Relief (simethicone)) cholecalciferol (vitamin D3) 1,250 50,000 unit PO WK 6 weeks #6 caps 03/30/25 04/19/25 Rx mcg (50,000 unit) capsule mirtazapine 15 mg tablet 15 mg PO HS #30 tabs 03/30/25 04/19/25 Rx atorvastatin 10 mg tablet 10 mg PO HS #90 tabs 04/17/25 04/19/25 Rx foam bandage 9.4" X 8.4" (Aquacel #5 ea 04/18/25 Rx Foam Sacral) skin cleanser,general (Dermal 1 applic topical DAILY #480 grams 04/18/25 04/19/25 Rx Wound Cleanser) buspirone 5 mg tablet 5 mg PO BID 04/19/25 04/19/25 History calcium carbonate (Tums) 500 mg PO TID PRN Acid Reflux 04/19/25 04/19/25 History cetirizine 10 mg tablet (Zyrtec) 10 mg PO HS 04/19/25 04/19/25 History furosemide 20 mg tablet (Lasix) 40 mg PO QAM 04/19/25 04/19/25 History ibuprofen 200 mg tablet 200 mg PO Q6H PRN Pain 04/19/25 04/19/25 History magnesium oxide 400 mg (241.3 mg 400 mg PO QAM 04/19/25 04/19/25 History magnesium) tablet ondansetron 8 mg disintegrating 8 mg PO Q6H PRN Nausea And Vomiting 04/19/25 04/19/25 History tablet Past Med/Surg History Problem List TRAVIS (acute kidney injury) Ischemic hepatitis Acute hypoxic respiratory failure Acute on chronic hypoxic respiratory failure Hydropneumothorax Severe neutropenia Acute blood loss anemia Septic shock Lactic acid acidosis Ischemia, bowel Pressure ulcer Comp-int prost devic NEC Arm edema Hypoalbuminemia Severe protein-calorie malnutrition Bacteremia Trapped lung Pulmonary edema (Acute) Anemia requiring transfusions (Acute) Bicytopenia (Acute) Neutropenia Pancytopenia due to antineoplastic chemotherapy Malignant pleural effusion Counseling regarding advanced directives and goals of care Palliative care by specialist Dysphagia Anemia (Acute) Folate deficiency Anxiety and depression T-cell lymphoma Chronic kidney disease, stage III (moderate) Recurrent nevus of face Nonallergic rhinitis Inflamed seborrheic keratosis Multiple pulmonary nodules Urinary urgency Hyperlipidemia PARTIAL Hypertension Thyroid nodule ENDOCRINE MONITORING Obesity Hyperthyroidism ENDOCRINE MONITORING; ON METHIMAZOLE- THYROID LABS STABLE ON 05/24/18 Valvular disease MILD TR- PT DENIES Nephrolithiasis Osteoarthritis Left renal mass Vitamin D deficiency Urinary incontinence Multinodular goiter Impaired fasting glucose GERD without esophagitis Allergic rhinitis Abnormal findings on diagnostic imaging of abdomen Medical History Reactive airway disease Elevated troponin Symptomatic anemia Hypoxia Axillary lymphadenopathy Lymph nodes enlarged Pleural effusion Restrictive lung disease Degenerative joint disease of knee Pulmonary nodules DR. DOMINGUEZ MONITORING Asthma STABLE- DOESNT USE INHALERS- FOLLOWS DR. DOMINGUEZ- [facility] Osteoarthritis of right hip Surgical History H/O insertion of central venous access port (02/22/25) Insertion Left Internal Jugular Access Port(Left) - Coleman Ramos DO, FACS S/P lymph node biopsy (01/19/25) Left Axillary Lymph Node Excisional Biopsy(Left) - Daniel Corley DO S/P lymph node biopsy (06/21/19) Right Axillary Lymph Node Biopsy with Needle Localization Dr. Vaughan 06/21/19 Hx of lymph node biopsy RIGHT Hx of surgical procedure LEFT KIDNEY BIOPSY /DR. LANDIN History of total knee replacement LEFT History of total shoulder replacement RIGHT History of cataract extraction with lens replacement History of total hip arthroplasty RIGHT ZOFIA= 02/19/18= SAB X 1 ATTEMPT AT [facility] History of colonoscopy History of hysterectomy Family History Denies family history of Ovarian cancer Prostate cancer Myocardial infarction Breast cancer Colorectal cancer Social History Smoking Status: Never smoker Second Hand Exposure: No; Do You Dip or Chew Tobacco: No; Hx Alcohol Use: No Hx Substance Use: No Communication Ability: Effective Visual Impairment: No Limitations 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: Normal 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: No Beliefs That Will Affect Care: None marital status: / Current Living Situation: Family Current Living Situation Comment: Lives with daughter and home nursing comes in current occupational status: retired How many Children do You have: 2 Feels Safe at Home: Yes Childhood Exposure to Second-Hand Smoke: Yes Diet: regular Diet Comment: regular caffeine: Yes (Coffee x 1 per day.) during the past year weight has: remained stable Dental Care, Regularly: Yes Physical Activity Frequency: Daily Physical Activity Frequency Comment: walking, gardening Seatbelt Use: always Sunscreen Use: No Assistive Devices: Oxygen - Continuous, Walker and Wheelchair Review of Systems Review of Systems: Unobtainable due to cognitive status Physical Exam Constitutional: CHronically ill,in acute distress, frail ENMT: PAle lips Neck: trachea midline, no thyromegaly Respiratory: corase breath sounds bilaterally Cardiovascular: Tachycardic Gastrointestinal (Abdomen): normal bowel sounds, soft, nontender, no hepatosplenomegaly Skin: no rashes, warm and dry Psychiatric: Awake, alert, confused Critical Care Time Critical Care Time: Yes Total Critical Care Time: 32 Plan is as discussed above. Please refer to orders for further planning. 32 minutes of critical care time spent in the management clinical coronation care of this patient today this critical care time spent independent of and in addition to any other time or critical care time any other practitioner today's date. PG Care Time/CCT Total # of Minutes Spent Total Time Spent with Patient: Total time spent is greater than 50% in coordination of care (as documented) at patient's floor/unit and/or counseling patient: Critical Care Time: Yes Total Critical Care Time: 32 Coding Level of Care Code 47466 INT INP/OBS CARE 3/75MIN (25 - SIGNIFICANT, SEPARATELY IDENTIFIABLE ) Diagnoses Acute hypoxic respiratory failure J96.01 Hydropneumothorax J94.8 Anemia requiring transfusions D64.9 Additional Codes Critical Care Time - Critical Care Time: Yes ([id number])
--- NOTE | 2025-04-19 16:07 | Critical Care Consultation ---
Date of Consultation April 19, 2025 Assessment & Plan (1) Septic shock: (2) Acute hypoxic respiratory failure: (3) Lactic acid acidosis: (4) Acute blood loss anemia: (5) Severe neutropenia: (6) Hydropneumothorax: (7) Ischemic hepatitis: (8) TRAVIS (acute kidney injury): Plan Reason Critically Ill: Severe refractory shock with multiorgan failure Acute hypoxic respiratory failure Acute blood loss anemia Severe neutropenia Lactic acidosis Metabolic encephalopathy secondary to sepsis Acute kidney injury (baseline creatinine 0.5, current creatinine 1.17), likely developing ATN in setting of shock Hypoglycemia Ischemic hepatitis Atrial fibrillation with RVR in setting of sepsis Neuro: Metabolic encephalopathy in setting of shock - Patient is protecting her airway. Is able to communicate at this time and expresses wishes of wanting to go home. Not completely oriented however. Daughter is surrogate. Cardiac: Tachycardic, A-fib RVR Circulatory shock, likely septic shock -Vasopressin, norepinephrine, phenylephrine -Goal MAP 65 mmHg - Stress of steroids with hydrocortisone - Transfusion as needed for anemia Respiratory: Acute hypoxic respiratory failure Left hydropneumothorax, history of trapped lung, status post 14 [place] pigtail catheter 04/19/2025, keep to waterseal - Using Optiflow - Has increased work of breathing, did not tolerate CPAP well - DuoNebs - Status post pigtail catheter, keep to waterseal given history of trapped lung and hydropneumothorax - Will follow pleural fluid analysis GI: Chronic diarrhea Enteritis seen on CT Elevated liver enzymes, likely developing ischemic hepatitis in setting of profound shock -Per imaging studies no evidence of ischemic bowel. -Possibility of GI bleed however there is no reported melena or BRBPR -Pantoprazole IV daily -Stool PCR negative, C. difficile negative RENAL/LYTES: Acute kidney injury, oliguric, likely secondary to ATN in setting of shock Mild hypokalemia Mild hyponatremia - Keep Miller catheter in place monitor strict I's and O's - Baseline creatinine has bumped by 0.5, minimal urine output - Received 2 L crystalloids and multiple blood products : UA without evidence of UTI Miller catheter in place ENDO: Mild hypoglycemia Starting stress dose steroids HEME: Pancytopenia Acute blood loss anemia with hemoglobin of 4 status post 3 units PRBCs Severe neutropenia - Type and screen is in - Transfuse for hemoglobin less than 7 or earlier if evidence of active bleeding - No overt source of bleeding however CT is concerning for possible enteritis and small GI bleed, will monitor for any evidence of BRBPR melena ID: Panculture ordered. GI PCR negative including C. difficile Broad-spectrum antibiotics with vancomycin and Zosyn for now --Prophylaxis VTE: Will place SCDs, avoid chemical DVT prophylaxis in setting of profound anemia GI: Pantoprazole 40 mg IV daily Lines: Multiple peripheral IVs, Mediport, right groin central venous catheter placed from outside facility 04/19/2025, right radial arterial line in place, left pigtail catheter in place Diet: N.p.o. Plan: Will continue supportive care with vasopressor support. Transfuse as needed for anemia. Continue broad-spectrum antibiotics and follow workup for infectious source. Continue Optiflow and if tolerated can use CPAP. Patient is in critical condition. Profound and refractory shock with multiorgan failure. Patient is a DNR and DNI. Has multiple comorbidities and poor functional status. Is severely immunocompromise with her recent chemotherapy and profound neutropenia. Case was discussed with hospitalist at bedside. Family present during her time in the ICU this evening and case was discussed in detail with them. I personally called and spoke to the radiologist about her imaging findings. I have explained to the family in detail of the severity of her illness. Her mortality is very high and prognosis is dismal. They do not want her to suffer. They would like us to continue supportive care at this time as we see fit and will consider comfort care if her condition continues to deteriorate. I have personally spent 134 minutes of critical care time in the direct management of this patient. This is a life/limb threatening event. This includes time spent evaluating patient, direct bedside care, chart review, placing orders, interpretation of diagnostic studies, discussion with consultants, patient, and family members, as well as other required patient management activities. This time is exclusive of all separately billable procedures, and teaching time and separate from and in addition to any other critical care service time. History of Present Illness Reason for Consultation: septic shock Requesting Physician: Lance Gastelum MD Attending Physician: Emely Snider MD History of Present Illness Patient is an 85-year-old female who presents to the ICU as a transfer from [facility]. The patient had presented to the emergency department with altered mental status accompanied by her daughter. Reportedly she had had waxing and waning mentation. On arrival to the outside facility she was hypotensive, febrile and hypoxic with respiratory distress. The patient was full code except for DNI per documentations at the outside hospital. The patient was started on crystalloid fluid resuscitation and received 2 L. Venous gas showed a pH of 7.38. Lactic acid was found to be 7.7. CBC showed hemoglobin of 4.8 platelets 91, and severe neutropenia with absolute WBC count of 0.04. Creatinine was 1.1. BUN was 21. Potassium 3.4. Packed red cells were ordered and the patient received a total of 3 units. Due to persistent hypotension after crystalloids and initiation of blood products norepinephrine was initiated. Chest x-ray was obtained which showed a moderate-sized left pleural effusion and some atelectasis in the mid right lung. A right groin central venous catheter was placed. The patient had blood cultures obtained and broad-spectrum antibiotics with vancomycin and Zosyn were given. The patient's mentation seemed to improve after her blood pressure has come up. The patient was adamant that she did not want to be admitted to the hospital however due to her slight confusion the daughter was making decision for her and wanted her transferred to [facility]. Patient is well-known to this hospital system. 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 Upon arrival to our ICU the patient is awake and alert. Seems to lose her train of thought but is able to tell me what hospital she is in, and keeps repeatedly saying that she does not want to be admitted. Family (daughter) arrived at bedside. She is able to give more history about her recent history. She states that the patient last received her chemotherapy infusion on Thursday. She was doing well until approximately Thursday. Over the past few days she has developed worsening mentation with intermittent confusion, has been talking in her sleep at night, has been significantly more weak to the point where it takes 2 people to assist her out of bed, had subjective fevers at home and was noted to have more pale mucosa. Her daughter has been asking her to seek medical attention for the last 24 hours however she refused until this morning when the daughter called EMS. When EMS arrived at the home she reportedly had an episode of unresponsiveness but then regained consciousness almost immediately without any intervention. I discussed the patient's critical illness with the daughter. She states that she would not want her mother to suffer. She understands that she has multiple comorbidities and is currently critically ill. She states that her mother would not want to be on any sort of life support including a ventilator. I discussed CPR and the unlikelihood of resuscitation without intubation. After this discussion she was agreeable for DO NOT RESUSCITATE/DO NOT INTUBATE. The patient was immediately taken for CT imaging of the chest abdomen pelvis w ith IV contrast, PE protocol and CTA of the abdomen. I reviewed the CT of the chest. This shows a moderate loculated hydropneumothorax on the left, bilateral lower lobe atelectasis, no obvious PE was visualized. There is what appears to be a small seroma adjacent to where the previous PleurX catheter was. Due to the patient's acute hypoxic respiratory failure the decision was made to place a chest tube to see if this improved her oxygenation. A left-sided 14 [place] pigtail catheter was inserted. CT abdomen was reviewed by the radiologist, no pneumatosis or wall thickening of the bowels to suggest ischemia was present. Changes suggesting of enteritis were present likely due to shock state and areas of high attenuating material within the bowels of the hepatic flexure possibly showing contrast material versus ingested contents versus hemorrhage. Allergies Allergy/AdvReac Type Severity Reaction Status Date / Time doxycycline Allergy Intermediate Rash Verified 04/19/25 17:05 levofloxacin Allergy Intermediate ITCHING/HIV Verified 04/19/25 17:05 ES Sulfa (Sulfonamide Allergy Intermediate ITCHING/HIV Verified 04/19/25 17:05 Antibiotics) ES sulfamethoxazole Allergy Intermediate ITCHING/HIV Verified 04/19/25 17:05 ES morphine AdvReac Severe N/V Verified 04/19/25 17:05 Home Medications Medication Instructions Recorded Confirmed Type Oxygen Home #1 ea 01/26/25 04/06/25 Rx Bedside Commode #1 ea 01/31/25 04/06/25 Rx Wheelchair (Manual) #1 ea 02/16/25 04/06/25 Rx famotidine 20 mg tablet 20 mg PO DAILY PRN Acid Reflux 03/28/25 04/19/25 History food supplemt, lactose-reduced 1 ea PO BIDM 03/28/25 04/19/25 History 0.04 gram-1 kcal/mL oral liquid (Boost) simethicone 80 mg chewable tablet 80 mg PO Q6H PRN GAS DISCOMFORT 03/28/25 04/19/25 History (Gas Relief (simethicone)) cholecalciferol (vitamin D3) 1,250 50,000 unit PO WK 6 weeks #6 caps 03/30/25 04/19/25 Rx mcg (50,000 unit) capsule mirtazapine 15 mg tablet 15 mg PO HS #30 tabs 03/30/25 04/19/25 Rx atorvastatin 10 mg tablet 10 mg PO HS #90 tabs 04/17/25 04/19/25 Rx foam bandage 9.4" X 8.4" (Aquacel #5 ea 04/18/25 Rx Foam Sacral) skin cleanser,general (Dermal 1 applic topical DAILY #480 grams 04/18/25 04/19/25 Rx Wound Cleanser) buspirone 5 mg tablet 5 mg PO BID 04/19/25 04/19/25 History calcium carbonate (Tums) 500 mg PO TID PRN Acid Reflux 04/19/25 04/19/25 History cetirizine 10 mg tablet (Zyrtec) 10 mg PO HS 04/19/25 04/19/25 History furosemide 20 mg tablet (Lasix) 40 mg PO QAM 04/19/25 04/19/25 History ibuprofen 200 mg tablet 200 mg PO Q6H PRN Pain 04/19/25 04/19/25 History magnesium oxide 400 mg (241.3 mg 400 mg PO QAM 04/19/25 04/19/25 History magnesium) tablet ondansetron 8 mg disintegrating 8 mg PO Q6H PRN Nausea And Vomiting 04/19/25 04/19/25 History tablet Patient History Medical History Reactive airway disease Elevated troponin Symptomatic anemia Hypoxia Axillary lymphadenopathy Lymph nodes enlarged Acute on chronic hypoxic respiratory failure Pleural effusion Restrictive lung disease Degenerative joint disease of knee Pulmonary nodules DR. DOMINGUEZ MONITORING Asthma STABLE- DOESNT USE INHALERS- FOLLOWS DR. DOMINGUEZ- [facility] Osteoarthritis of right hip Surgical History H/O insertion of central venous access port (02/22/25) Insertion Left Internal Jugular Access Port(Left) - Coleman Ramos DO, MARIBEL S/P lymph node biopsy (01/19/25) Left Axillary Lymph Node Excisional Biopsy(Left) - Daniel Corley DO S/P lymph node biopsy (06/21/19) Right Axillary Lymph Node Biopsy with Needle Localization Dr. Vaughan 06/21/19 Hx of lymph node biopsy RIGHT Hx of surgical procedure LEFT KIDNEY BIOPSY /DR. LANDIN History of total knee replacement LEFT History of total shoulder replacement RIGHT History of cataract extraction with lens replacement History of total hip arthroplasty RIGHT ZOFIA= 02/19/18= SAB X 1 ATTEMPT AT [facility] History of colonoscopy History of hysterectomy Family History Denies family history of Ovarian cancer Prostate cancer Myocardial infarction Breast cancer Colorectal cancer Social History Smoking Status: Never smoker Second Hand Exposure: No; Do You Dip or Chew Tobacco: No; Hx Alcohol Use: No Hx Substance Use: No Preferred Language: Yoruba Communication Ability: Effective Visual Impairment: No Limitations 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: Normal Cultured Marble Products Maker Required: No Beliefs That Will Affect Care: None marital status: / Current Living Situation: Family Current Living Situation Comment: Lives with daughter and home nursing comes in current occupational status: retired How many Children do You have: 2 Feels Safe at Home: Yes Childhood Exposure to Second-Hand Smoke: Yes Diet: regular Diet Comment: regular caffeine: Yes (Coffee x 1 per day.) during the past year weight has: remained stable Dental Care, Regularly: Yes Physical Activity Frequency: Daily Physical Activity Frequency Comment: walking, gardening Seatbelt Use: always Sunscreen Use: No Assistive Devices: Oxygen - Continuous, Walker and Wheelchair Review of Systems Review of Systems: Limited ROS due to AMS. Inattentive and forgets what we are speaking about frequently. Endorses shortness of breath. Endorses some mild abdominal discomfort. Endorses diarrhea. Endorses subjective fevers at home. Endorses weakness. Endorses lower extremity swelling. Endorses mild headache. Physical Exam Physical Exam: Physical examination: General: Chronically ill appearing, frail, in distress. HEENT: Pale mucous membranes, extraocular manage intact, no evidence of scleral icterus. No evidence of JVD. Skin: Warm and dry. No rashes appreciated. No jaundice appreciated. Cardiovascular: Tachycardic, intermittently in atrial fibrillation. Hypotensive with multiple pressors running. Lungs: Diminished breath sounds, coarse with crackles. No wheezing appreciated. Mildly tachypneic. Hypoxic on Optiflow. Aczol-cv-pfvq ultrasound performed, moderate-sized pleural effusion on the left appreciated. Abdomen: Nondistended, mild tenderness to palpation on the right lower quadrant. Musculoskeletal: Normal muscle mass. No gross deformities appreciated. : Miller catheter in place, minimal urine output since arrival. Urine is yellow in color. Neurologic: Awake, speaking in a fluent voice, confused to some details. Psychiatric: Appropriate cooperative during my exam. Coding Level of Care Code 83904 CRITICAL CARE 1ST 30-74M Additional Critical Care Time Additional 30min Critical Care Time: Yes - 89160 x 2 (60 addl min) Total Critical Care Time: 134 Diagnoses Septic shock A41.9; R65.21 Acute hypoxic respiratory failure J96.01 Lactic acid acidosis E87.20 Acute blood loss anemia D62 Severe neutropenia D70.9 Hydropneumothorax J94.8 Ischemic hepatitis K72.00 TRAVIS (acute kidney injury) N17.9 Additional Codes Critical Care Time - Additional 30min Critical Care Time: Yes - 55683 x 2 (60 addl min) ([id number])
[2025-04-19] MEDS ORDERED: VANCOMYCIN CONSULT ACTIVE PRN ×2 (16:11→16:26)
[2025-04-19] MEDS ORDERED: VANCOMYCIN HCL 2,000 MG in SODIUM CHLORIDE 0.9% 500 ML IV SCH (16:30)
[2025-04-19] MEDS: OPTIRAY 320 125ml IV ONE (16:33)
[2025-04-19] MEDS: ALBUT/IPRATROP 3MG/0.5MG NEB 3 ML VIAL NEB SCH (16:57)
[2025-04-19 17:12] VITALS: TEMP 99
[2025-04-19 18:05] LABS: Alanine Aminotransferase 12.0 U/L (7-52); Albumin Globulin Ratio 1.4 (0.9-2); Alkaline Phosphatase 75.0 U/L (34-104); Anion Gap 13.0 (3-11); Bilirubin,Total 3.3 mg/dl (0.2-1.0); Blood Urea Nitrogen 22.0 mg/dl (6-23); Calcium 7.4 mg/dl (8.6-10.3); Carbon Dioxide 20.0 mmol/L (21-32); Chloride 101.0 mmol/L (98-107); Creatinine Clr Calc Pharmacy 40.8 ml/min; Globulin 1.5 gm/dl (2.5-4.0); Glucose 58.0 mg/dl (70-99(Fasting)); INR 1.7 (0.9-1.1); Potassium 3.4 mmol/L (3.5-5.1); Prothrombin Time 18.0 Seconds (9.0-12.0); Sodium 134.0 mmol/L (136-145); Total Protein 3.6 gm/dl (6.0-8.3)
--- NOTE | 2025-04-19 18:12 | Procedure Note ---
Procedure Note Date of Service April 19, 2025 Procedure: Pigtail chest tube insertion (14 Citizen Of [place]) Workday Manager: Dr. Emely Snider Indication: Left hydropneumothorax, hypoxic respiratory failure Consent: Signed by surrogate and verified with timeout prior to procedure Anesthesia: 1% lidocaine without epinephrine local Procedure: Consent was verified and timeout performed. Appropriate imaging studies were reviewed prior to the procedure including CT scan of the chest. Ultrasound was used and large pocket of fluid was located in the left hemithorax. No loculations were appreciated within the fluid. Images stored. Patient was placed in a seated position. Appropriate site above the diaphragm was selected with the help of Ultrasound on the left midaxillary line fourth intercostal space for chest tube insertion was selected. The skin was prepped and draped in normal sterile fashion. Lidocaine was used for local analgesia. 10 cc of yellow hazy fluid was aspirated via the finder needle. A small skin mary was made with the scalpel and the catheter over the needle apparatus was advanced over the rib into the pleural space. With the help of guidewire and Seldinger technique, 14 Citizen [place] pigtail catheter was inserted and connected to Pleur-evac. 50 cc of total fluid were obtained from the pigtail catheter and sent to the lab for analysis. Pleural fluid yellow and hazy in color. Suture to secure the chest tube was placed in addition to a occlusive and transparent dressing. Chest tube was placed to waterseal. No air leak appreciated after that. Chest x-ray to follow Fluid was sent for labs and cultures. The patient tolerated the procedure without obvious complication Complications: None Blood loss: Less than 2 cc. [facility] Procedure Codes (Charges) Pulmonary/Thoracic Procedure 1: Pulmonary and Thoracic: 69421 Tube thoracostomy Tubes, Drains, and Vasc Access Procedure 1: Tubes, Drains, and Vasc Access: [id number] Ultrasonic Guide For Needle Placement Coding CPT Codes Pulmonary/Thoracic - Pulmonary and Thoracic: 03236 Tube thoracostomy ([id number]) Tubes, Drains, and Vasc Access - Tubes, Drains, and Vasc Access: [id number] Ultrasonic Guide For Needle Placement ([id number]) Additional Codes Date of Service ([facility].[email or web address])
[2025-04-19 18:19] LABS: Hematocrit (blood only) 25.8 % (37.0-47.0); Hemoglobin 8.3 g/dl (12.0-16.0); Mean Corpuscular Hemoglobin 28.5 pg (25.0-34.0); Mean Corpuscular Volume 88.7 fL (80.0-100.0); Platelet Count 78 K/uL (130-400); RDW Standard Deviation 51.8 fL (36.4-46.3); Red Blood Count 2.91 M/uL (4.20-5.40); White Blood Count 0.09 K/ul (4.8-10.8)
[2025-04-19 18:22] VITALS: BP 91/66
[2025-04-19] MEDS: VANCOMYCIN HCL 2,000 MG in SODIUM CHLORIDE 0.9% 500 ML IV STA (18:23)
[2025-04-19] MEDS: 4.5GM X1 IV ONE (18:23)
[2025-04-19] MEDS ORDERED: GLUCAGON FOR INJ 1 MG VIAL SQ PRN (18:34)
[2025-04-19] MEDS ORDERED: GLUCOSE 40% GEL 15 GM TUBE PO PRN (18:34)
[2025-04-19] MEDS ORDERED: CARBOHYDRATES FOR HYPOGLYCEMIA PO PRN (18:34)
[2025-04-19] MEDS ORDERED: GLUCOSE 10 TAB/TUBE PO PRN (18:34)
[2025-04-19] MEDS: DEXTROSE 50% 50 ML SYRINGE IV PRN (18:41)
[2025-04-19] MEDS: VASOPRESSIN 20 UNITS in SODIUM CHLORIDE 0.9% 100 ML IV SCH (18:43)
--- NOTE | 2025-04-19 18:48 | CT Scan Report ---
EXAMINATION: CT angiogram of the chest, abdomen and pelvis performed after the administration of IV contrast TECHNIQUE: Helical CT images from the lung apices through the symphysis pubis were obtained with contrast. Coronal and sagittal reformatted images were generated at a workstation for further assessment. Dose reduction techniques were achieved by using automatic exposure control and/or adjustment of mA and/or kV according to patient size and/or use of iterative reconstruction technique. COMPARISON: March 28, 2025 HISTORY: Sepsis FINDINGS: Lines and tubes: Left chest wall port with catheter tip in the SVC. Mediastinum/Neck Base: No thyroid nodules. Central tracheobronchial tree is patent. Heart size is enlarged, especially the right sided cardiac chambers. No pericardial effusion. Normal thoracic vasculature. No thoracic aortic dissection. No evidence for pulmonary embolism. No thoracic lymphadenopathy. Lungs: Moderate left loculated pleural effusion, contains foci of air. There is collapse of the left lower lobe. A small, simple appearing right-sided pleural effusion is seen. Right basilar subsegmental atelectasis. Liver: No suspicious liver lesions. Portal veins appear patent. Gallbladder: There are tiny gallstones. No evidence of acute cholecystitis. Spleen: Normal size. Pancreas: No suspicious pancreatic lesions. The pancreatic duct is not dilated. Adrenal glands: No adrenal nodules. Kidneys: No hydronephrosis or obstructing renal stones. Bladder / Pelvic organs: Miller catheter in place. Bowel: No bowel obstruction. No abnormal bowel wall thickening. The appendix is unremarkable. There are a few scattered loops of small bowel containing fluid, which may be seen with some degree of shock or enteritis. No pneumatosis intestinalis. No abnormal wall thickening. Throughout the hepatic flexure and proximal transverse colon of the large bowel, there is some apparent patchy high attenuating density, which may represent enhancement, or possibly ingested material. Lymph nodes: No retroperitoneal, mesenteric, or pelvic lymphadenopathy. Peritoneum / Retroperitoneum: No free fluid or air within the abdomen. Vessels: No infrarenal aortic aneurysm. Right femoral line tip in the external iliac vein. Bones and soft tissues: Degenerative changes of the spine. No acute osseous normality. Right shoulder arthroplasty. Right hip arthroplasty. Moderate left hip degenerative change. Anasarca. IMPRESSION: 1. Loculated left hemithoracic fluid and air collection. Subjacent atelectasis. There is a small right pleural effusion. No consolidation. 2. No acute aortic pathology. No evidence for pulmonary embolism. 3. Scattered loops of fluid-filled small bowel may be related to enteritis, or atony in the setting of shock. No pneumatosis intestinalis or abnormal wall thickening to specifically suggest ischemia. 4. Throughout the hepatic flexure and proximal transverse colon of the large bowel, there are patchy areas of high attenuating material, which is indeterminate, and could represent ingested contents, versus possibly contrast extravasation and hemorrhage. Correlate with the possibility of GI bleed. Electronically signed by Baldev Giang 04-19-2025 6:48 PM
[2025-04-19 18:57] LABS: Appearance Urine Cloudy (Clear); Bacteria Urine Automated None Seen (None Seen); Glucose Urine UA Negative (Negative); WBC Urine Automated 0-5 /hpf (0-5)
[2025-04-19] MEDS ORDERED: ALBUT/IPRATROP 3MG/0.5MG NEB 3 ML VIAL NEB SCH (19:00)
[2025-04-19 19:20] LABS: Appearance Pleural Fluid Hazy; Color Pleural Fluid Yellow; RBC Pleural Fluid Auto 10000 /uL; Source Pleural Fluid Left Lung; WBC Pleural Fluid Auto 772 /uL
--- NOTE | 2025-04-19 19:41 | XRay Report ---
Technique: A frontal view of the chest was obtained Comparison is made to the prior examination dated 03/30/2025 Findings: There is a new left sided chest tube. A left pneumothorax is again seen. There are small bilateral pleural effusions There is suspected mild pulmonary edema. There is left lower lobe opacity that could be due to either atelectasis or pneumonia. The heart is enlarged. No definite right pneumothorax is seen. There is no definite pulmonary nodule. No fracture is noted. There is a right glenohumeral arthroplasty. There is a left chest wall port with its tip in the SVC Impression: 1. No definite change in a left pneumothorax. There is a new left-sided chest tube 2. Worsened pulmonary edema 3. Small bilateral pleural effusions 4. Cardiomegaly 5. Left lower lobe opacity that could be due to either atelectasis or pneumonia ACT 112: Positive. There are findings on this exam that require communication between the performing entity and the patient following Patient Test Result Information Act ([place] ACT 112) guidelines. Electronically signed by Silvestre Jamison 04-19-2025 7:37 PM
[2025-04-19] MEDS ORDERED: PANTOprazole 40 MG/10 ML SYR IV SCH (19:45)
[2025-04-19] MEDS: CALCIUM CHLORIDE 10% 1,000 MG in DEXTROSE 5% 50 ML IV STA (19:50)
[2025-04-19] MEDS: HYDROCORTISONE SOD 100 MG in SYRINGE 0 ML IV STA (19:50)
--- NOTE | 2025-04-19 20:03 | Procedure Note ---
Procedure Note Date of Service April 19, 2025 Procedure: Radial arterial line insertion, ultrasound-guided Industrial Maintenance Millwright: Dr. Emely Snider Indication: Hypotension, shock Consent: Consent signed by surrogate and verified with timeout prior to procedure Anesthesia: 1% lidocaine without epinephrine local. Procedure: Adin test was performed to ensure adequate perfusion on the left wrist. Consent was verified and timeout performed. Skin was cleaned with chlorhexidine and sterile drape and gloves were donned. 1% lidocaine was used to numb the skin and soft tissue. The left radial artery was visualized under direct ultrasound guidance. Arrow radial arterial line kit needle was inserted into the left radial artery. Arterial blood was seen to pulsate in flash chamber. Internal guidewire was advanced into the radial artery and the catheter was advanced over the guidewire. Needle and wire were withdrawn. Pulsatile blood return from the catheter. Pressure was applied to the end of the catheter. Catheter was attached to the arterial line tubing. Pulsatile arterial waveform was visualized. Blood pressure 96/50. Catheter was secured with suture and dressing was applied. Biofilm placed. Patient tolerated the procedure well. Blood loss: Approximately 5 cc Complications: None Coding Additional Codes Date of Service (PG.SURGERY)
[2025-04-19 20:25] VITALS: RESP 22; O2SAT 99
[2025-04-19] MEDS ORDERED: THIAMINE HCL 200 MG in SODIUM CHLORIDE 0.9% 50 ML IV STA (20:25)
[2025-04-19 20:27] VITALS: PULSE 130
[2025-04-19] MEDS: SODIUM BICARB 8.4% INJ 50 MEQ/50 ML SYR IV STA (20:30)
[2025-04-19 20:31] LABS: iSTAT Art Bld Gas Base Excess -16.0 meg/L (-9-1.8); iSTAT Art Bld Gas pCO2 Correct 35 mmHg (35-46); iSTAT Art Bld Gas pH Corrected 7.155 (7.35-7.45); iSTAT Arterial Blood Gas pO2 C 194
[2025-04-19] MEDS ORDERED: Nursing to Pharmacy Communication SCH (22:00)
[2025-04-19] MEDS: SODIUM BICARB 8.4% INJ 50 MEQ/50 ML SYR IV ONE (22:14)
[2025-04-19] MEDS ORDERED: Nursing to Pharmacy Communication ONE ×5 (22:15→22:30)
[2025-04-19] MEDS ORDERED: HALOPERIDOL ORAL SOLN 2 MG/ML PO PRN (22:46)
[2025-04-19] MEDS ORDERED: ATROPINE SULFATE 1% OP SOLN 5 ML BTL SL PRN (22:46)
[2025-04-19] MEDS ORDERED: ONDANSETRON 4 MG OD TAB SL PRN (22:46)
[2025-04-19] MEDS: MoRPHine SULFATE 4 MG/ML 1 ML CARP\\VIAL IV PRN (22:54)
[2025-04-19] MEDS: ONDANSETRON INJ 2 MG/ML 2 ML VIAL IV PRN (22:54)
[2025-04-19] MEDS ORDERED: PIPERACILLIN/TAZOBACTAM 4.5 GM/100 ML BAG IV SCH (23:00)
[2025-04-19] MEDS ORDERED: MoRPHine SULF 100 MG/100 ML BAG IV SCH (23:00)
--- NOTE | 2025-04-19 23:04 | Communication Note ---
Date of Service: April 19, 2025 Patient has reached her upper limits for Levophed, Neosynepherine, and Vasopressin infusions. Her blood pressure remains low in the 70s and 80s. The patient has also now become less responsive and interacvite with her daughter, who is at the bedside holding her mother's hand. We have spoken with the daughter earlier in regards to failing maximal hemodynamic therapy and critical illness, the daughter has requested at this time, that we stop Angelita's blood pressure support medications and allow her to progress to with comfort. - Morphine will be provided via IV push upfront to prevent air hunger and gasping- 3mg IVP and if needed for comfort an infusion will be added - Oxygen will be removed to not prolong Angelita's transition by artificially giving her an oxygen resivior - Zofran will be provided for nausea - Ativan will be provided for anxiety and/or seizures - Atropine drops will be provided for secretion management - Haldol will be provided for agitation if needed I have spoken with the daughter on what to expect and how the medications above will be provided. She understands that she just wants her mother to be comfortable now and she understands that Angelita has declined and is no longer responding and is in the active dying process. Angelita is supported with her Daughter and her [employer]ism customer trainer at the bedside. Admitting team has been notified of moving to a comfort approach to allow Angelita to naturally. Waldemar THEODORE (ACNP-) Coding Level of Care Code None
--- NOTE | 2025-04-19 23:23 | Death Pronouncement Note ---
Date of Service April 19, 2025 Pronouncement Note Admission Date April 19, 2025 Date and Time of Date of : 04/19/25 Time of : 23:13 Preliminary Cause of (1) T-cell lymphoma: (2) Acute hypoxic respiratory failure: (3) Severe neutropenia: (4) Septic shock: Summary PRONOUNCEMENT NOTE - Date: 04/19/25 Time: 231 Patient transitioned to comfort care with withdraw of vasopressor support. At 2313 the patients rythm terminated in asystole. The patient was evaluated as below. In short, 85-year-old female who presents to the ICU as a transfer from [facility]. On arrival to the outside facility she was hypotensive, febrile and hypoxic with respiratory distress. The patient was full code except for DNI per documentations at the outside hospital. The patient was started on crystalloid fluid resuscitation and received 2 L. Venous gas showed a pH of 7.38. Lactic acid was found to be 7.7. CBC showed hemoglobin of 4.8 platelets 91, and severe neutropenia with absolute WBC count of 0.04. Creatinine was 1.1. BUN was 21. Potassium 3.4. Packed red cells were ordered and the patient received a total of 3 units. Due to persistent hypotension after crystalloids and initiation of blood products norepinephrine was initiated. Patient arrived to [facility] critically ill on vasopressor agents and remaining hypotensive. CT scan of chest, abd/pelvis, were completed. CT of chest - showed a moderate loculated hydropneumothorax on the left, bilateral lower lobe atelectasis, no obvious PE was visualized. There is what appears to be a small seroma adjacent to where the previous PleurX catheter was. Due to the patient's acute hypoxic respiratory failure the decision was made to place a chest tube to see if this improved her oxygenation. A left-sided 14 [place] pigtail catheter was inserted. As patient remained requiring increasing vasopressor agents and doses and remaining hypoxic and dyspneic, discussion was had with Daughter at bedside. As she was sure her mother would not want life support to include intubation/artificial ventilation, the patient was made DNR/DNI. Through the night the patient continued to be hypotensive despite 3 vasopressor agents. The patient was visited by her multigraph operator and progressed to becoming unresponsive and cool, the decision was made to turn off the vasoactive medications and allow patient to pass naturally as she was actively dying at this time. Upon assessment, the patient was found to be in a terminal state. Pupils were fixed and dilated without response. No palpable pulses appreciated. No spontaneous breaths noted. Heart sounds were absent. No response to painful stimuli. Time of : [address] Castañeda and Myself. Family and Office Inspector present at bedside. Appropriate response to grief appreciated. Condolences provided. Questions were addressed and emotional support was provided. The Daugher was very appreciative of everyone's care and efforts provided not only to Angelita but the support provided to the daughter as well. Patients primary service was contacted and made aware of patient demise. Pronouncement section of the Certificate was filled out and signed by- Dr. Leela Castañeda Cause of : As delinated above. Please feel free to contact me with any questions regarding the above-mentioned course. Additional Data Attending physician: Lance Covarrubias
[2025-04-20] MEDS ORDERED: HYDROCORTISONE SOD 50 MG in SYRINGE 0 ML IV SCH (00:30)
[2025-04-20 06:45] LABS: Lymphocytes, Fluid 17 %; Neutrophils, Fluid 83 %
--- NOTE | 2025-04-20 07:19 | Discharge Summary ---
Discharge Summary Date of Service April 19, 2025 Principal Dx & Hospital Course #1 = Principal Diagnosis (1) Acute hypoxic respiratory failure: (2) Hydropneumothorax: (3) Anemia requiring transfusions: Plan Septic shock Unknown source started vanco and zosyn. will drain pleural effusion as patient no longer has pleurx. Patient with signs of SIRS with elevated lactic acid over 7 and hypotension requiring vasopressors. D/W billing control clerk. Patient later in the day. Please refer to note. Below was admitting plan. Patient was DNR/DNI Symptomatic anemia requiring blood transfusions Patient with anemia hemglobin was below 5; transfused 3 units of PRBC. 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 Patient is a DNR/DNI. 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 Path 02/10/25: PCR not able to confirm either B or T cell clone. 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 Peripheral edema Patient with chronic upper extremity edema due to lymph node biopsies. Suspect third spacing and venous stasis. She is hypoalbuminemic Once patient stabilizes, would recommend lymphedema mobilization strategies. - May continue diuresis, however this must be done with mobilization strategies. She does not have a history of CHF. No anginal symptoms preceding admission Asthma Nebs as needed CKD3 Baseline creatinine approximately 1.09 -awaiting repeat labs as patient just arrived to the ICU from [place] GERD w/ esophagitis Pepcid as needed Hyperthyroidism Continue methimazole Protein calorie malnutrition poor p.o. intake -has had hypoalbuminemia in the past. Admission HPI Per Admitting Provider This is am 85 year old female who is a transfer from [facility] for altered mental status. Patient received chemotherapy last Thursday and on Thursday began to develop worsening confusion. This is accompanied by generalized weakness, subjective fevers and her lips being more pale. Her daughter was trying to bring her mother to the hospital yesterday but the patient refused until today where patient was unresponsive. In the ED, sepsis protocol was initiated with IVF and antibiotics (vanco and zosyn), lactic acid was 7.7 and hemoglobin was 4.8. Despite this patient's BP did not improve. Pressors were started. And transfer was recommended as she is known to our hospital. Patient repeatedly states that she is only staying one night. Discharge Exam Neck trachea midline, no thyromegaly Gastrointestinal (Abdomen) normal bowel sounds, soft, nontender, no hepatosplenomegaly Skin no rashes, warm and dry Discharge Plan Discharge Items Patient Disposition: Other Date/Time: 04/19/25 23:13 Hospital Stay Data Consultations 04/19/25 16:04 Consult Svp Chief Marketing Officer Routine Diagnostic Imagining Performed 04/19/25 15:58 CT angio abdomen pelvis w con Stat CT angio chest PE protocol Stat 04/19/25 17:13 US point of care ultrasound Urgent Total Time Total Time Spent Total Time Spent (In Minutes): 32 Coding Level of Care Code None Diagnoses Acute hypoxic respiratory failure J96.01 Hydropneumothorax J94.8 Anemia requiring transfusions D64.9
[2025-04-20] MEDS ORDERED: VANCOMYCIN HCL 1,000 MG/270 ML BAG IV SCH (08:00)
[2025-04-20 17:35] LABS: A calco-baum cmplx NotReported Not Detected (NotDetected); Bact fragilis Not Reported Not Detected (NotDetected); Blood Culture Id Panel PCR Panel Negative (NotDetected); C auris Not Reported Not Detected (NotDetected); Calbicans Not Reported Not Detected (NotDetected); Candida glabrata Not Reported Not Detected (NotDetected); Candida krusei Not Reported Not Detected (NotDetected); Cneoformans/gatti Not Reported Not Detected (NotDetected); Cparapsilosis Not Reported Not Detected (NotDetected); Ctropicalis Not Reported Not Detected (NotDetected); E cloacae compx Not Reported Not Detected (NotDetected); Efaecalis Not Reported Not Detected (NotDetected); Efaecium Not Reported Not Detected (NotDetected); Enterobacterales Not Reported Not Detected (NotDetected); Escherichia coli Not Reported Not Detected (NotDetected); H influenzae Not Reported Not Detected (NotDetected); K aerogenes Not Reported Not Detected (NotDetected); Koxytoca Not Reported Not Detected (NotDetected); Kpneumoniae grp Not Reported Not Detected (NotDetected); Lmonocyt Not Reported Not Detected (NotDetected); N meningitidis Not Reported Not Detected (NotDetected); P aeruginosa Not Reported Not Detected (NotDetected); Proteus spp Not Reported Not Detected (NotDetected); Salmonella spp Not Reported Not Detected (NotDetected); Staph lugdunensis Not Reported Not Detected (NotDetected); Staph spp. Not Reported Not Detected (NotDetected); Staphaureus Not Reported Not Detected (NotDetected); Staphepi Not Reported Not Detected (NotDetected); Stenmaltophilia Not Reported Not Detected (NotDetected); Strep agal(GrpB) Not Reported Not Detected (NotDetected); Strep pneum Not Reported Not Detected (NotDetected); Strep pyog (GrpA) Not Reported Not Detected (NotDetected); Strep spp Not Reported Not Detected (NotDetected)
--- NOTE | 2025-04-21 15:17 | Electrocardiogram Report ---
Test Reason : Blood Pressure : */* mmHG Vent. Rate : 128 BPM Atrial Rate : 128 BPM P-R Int : 132 ms QRS Dur : 82 ms QT Int : 278 ms P-R-T Axes : 46 16 245 degrees QTcB Int : 405 ms Sinus tachycardia with Premature supraventricular complexes Low voltage QRS Cannot rule out Anterior infarct (cited on or before 28-Mar-2025) Abnormal ECG When compared with ECG of 28-Mar-2025 14:34, Vent. rate has increased by 55 bpm Confirmed by Julio Cesar Pena ([id number]) on 04/21/2025 3:16:43 PM Referred By: VIOLETA JONES Confirmed By: Julio Cesar Pena
== END 2025-04-19 23:59 | disposition expired | DRG 871 ==
LOC: 1E 15:19 → SUATTDRO 15:19